=== PATIENT | female | born 1960 | race Caucasian/White ===

== ENCOUNTER 2023-11-19 22:18 | Inpatient (IN) | payer OTHER, SELFPAY ==
[2023-11-19 17:44] VITALS: BMI 27.9
[2023-11-19 18:00] VITALS: BP 127/68
--- NOTE | 2023-11-19 18:05 | ED.PDOC.TRB ---
ED Provider Triage
-
Patient seen by provider in Triage?: Seen in Triage
*initially assessed in triage to expedite workup*
62 yo female presents for evaluation of generalized abd pain/back pain x 5 days. Seen at and treated w/ bentyl. One episode of vomiting, appetite diminished. No diarrhea, dysuria, hematuria, fevers, chills, sweats. No prior abd surgeries.
Looks uncomfortable but non toxic. Concerning abdominal exam, + peritoneal signs; will start labs and CT with IV contrast.
[2023-11-19] MEDS: TORADOL 15 MG IV (18:18)
[2023-11-19 18:30] LABS: % Basophils 0.3 % (0-2); % Eosinophils 1.3 % (0-6); % Immature Granulocytes 0.2 % (0-0.5); % Lymphocytes 17.6 % (20.5-51.1); % Monocytes 9.6 % (1.7-9.3); Absolute Eosinophils 0.1 10^3/uL (0-0.7); Absolute Lymphocytes 1.8 10^3/uL (1.2-3.4); Absolute Neutrophils 7.1 10^3/uL (1.4-6.5); Hematocrit 32.6 % (37.0-47.0); Hemoglobin 10.9 g/dL (12.0-16.0); Mean Corp Hgb Conc. 33.4 g/dL (33.0-37.0); Mean Corpuscular Hgb 25.6 pg (27.0-31.0); Mean Corpuscular Volume 76.7 fL (81.0-99.0); Mean Platelet Volume 9.8 fL (7.4-10.4); Nucleated Red Blood Cells % 0 %; Platelet Count 325 10^3/uL (130-400); Red Blood Cell Count 4.25 10^6/uL (4.20-5.40); Red Cell Dist. Width 14.8 % (11.5-14.5)
[2023-11-19 18:45] LABS: Urine Albumin Negative (Neg - Trace); Urine Bilirubin 1+ (Negative); Urine Character Clear (Clear); Urine Color Yellow; Urine Glucose Negative (Negative); Urine Ketone 2+ (Negative); Urine Leukocyte Trace (Negative); Urine Nitrite Negative (Negative); Urine Occult Blood 1+ (Negative); Urine Urobilinogen Negative (Neg - 1+)
[2023-11-19 18:47] LABS: Lactic Acid 1.5 mmol/L (0.7-2.0)
[2023-11-19 18:50] LABS: ALT (SGPT) 15 U/L (0-35); AST (SGOT) 20 U/L (14-36); Albumin 4.2 g/dl (3.5-5.0); Alkaline Phosphatase 96 U/L (38-126); Blood Urea Nitrogen 9 mg/dl (7-17); Calcium 9.6 mg/dl (8.4-10.2); Carbon Dioxide 24 mmol/L (22-30); Chloride 96 mmol/L (98-107); Glucose 153 mg/dl (70-99); Potassium 4.1 mmol/L (3.5-5.1); Sodium 133 mmol/L (135-145); Total Bilirubin 0.5 mg/dl (0.2-1.3); Total Protein 6.9 g/dl (6.3-8.2); eGFR > 60.00
[2023-11-19 18:51] LABS: Lipase 43 U/L (23-300)
[2023-11-19 19:03] LABS: Urine Squamous Cell 16-20 /LPF (Few)
[2023-11-19 19:04] LABS: Urine Bacteria Few (Negative); Urine Mucus Few
--- NOTE | 2023-11-19 20:02 | ED.GENMED ---
History of Present Illness
General
Chief Complaint: Abdominal Pain
Time Seen by Provider: 11/19/23 19:42
Travel History
Have you had any contact with someone who has COVID-19?: No
Do you have any symptoms of coronavirus? Fever > 100 degrees, chills, cough, shortness of breath, sore throat, loss of taste or smell, muscle aches, or headache?: No
History of Present Illness
History of Present Illness:
Patient presents to the emergency department with abdominal pain. Symptoms started about 6 days ago. Notes that symptoms began with mild upset stomach with nausea. Over the course of the next few days she developed severe diffuse abdominal pain.
She was seen at an urgent care where she was prescribed Zofran and Bentyl. She was instructed to follow-up with the emergency department if symptoms worsen. In the past 2 days she notes worsening of her symptoms with severe nausea and diffuse
abdominal pain and distention. Also notes pain across her lower back. Notes regular bowel movements and passing gas. Denies any persistent vomiting since she was seen in urgent care.
Phy Exam
Physical Exam
Physical Exam:
GENERAL APPEARANCE: NAD, well developed/ well nourished
EYES lids/conjunctiva normal
EARS/NOSE/THROAT Mucous membranes moist, uvula midline without oral pharyngeal erythema, exudate or swelling
HEAD/NECK normocephalic atraumatic, neck is supple.
RESPIRATORY respiratory effort normal, speaks in full sentences, no accessory muscle use. Lungs clear to auscultation without rhonchi, wheezes, rales
CARDIAC Regular rate and rhythm, no edema.
ABDOMINAL severe tenderness to periumbilical region, no guarding, abdomen soft
MUSCLES/EXTREMITIES No abnormal range of motion, no swelling.
SKIN Warm, pink and dry. No rashes
NEUROLOGICAL Speech is clear and appropriate. Normal level of consciousness. 5/5 strength in all extremities.
PSYCH Normal mood and affect. Judgement/competence is appropriate
Course
Orders/Labs/Results
Orders:
Orders
11/19/23 18:07
CT Abd/Pel (IV only)-DH only Urgent
Comment:
Reason For Exam: abd pain
0.9% Sodium Chloride 1000 ml [Nss] 1,000 ml IV BOLUS
Ketorolac [Toradol] 15 mg IV NOW STA
11/19/23 18:17
Complete Blood Count/With Diff Urgent
Comprehensive Metabolic Panel Urgent
Lactic Acid Urgent
Lipase Urgent
Magnesium Urgent
Comment: ADD ON
Urinalysis Reflex To Culture Urgent
Date Specimen was Collected: 11/19/23
Time Specimen was Collected: 18:03
Urine Microscopic Reflex Cult Urgent
Blood Culture Urgent
ZAN Source: Blood/Venous
Specimen Description:
11/19/23 20:01
Acetaminophen [Tylenol] 1,000 mg PO NOW STA
Morphine Sulfate 4 mg IV NOW STA
Ondansetron Injectable [Zofran] 4 mg IV NOW STA
11/19/23 21:11
Admit/Transfer Patient As Directed
Co-Sign Provider:
Level of Care: Inpatient admission
Assign to:: Telemetry
Physician / Group: Kailey Longoria
Diagnosis: small bowel obstruction
Reason for Telemetry: Chest Pain syndromes
Date to Stop Telemetry: 11/21/23
Time to Stop Telemetry: 11:00
Reason for Hospitalization: small bowel obstruction
Expected length of stay greater than two midnights?: Yes
ELOS- Estimated Length of Stay in days: 3
I certify the patient meets the requirements for IP care: Yes
11/19/23 21:14
Code Status As Directed
Resuscitation Status: Full Code
11/19/23 21:18
EKG [Electrocardiogram (*1)] Routine
Reason for Study: QTc Monitoring
11/19/23 21:19
Add On- LAB Routine
Tests Added?: magnesium
11/19/23 22:00
Piperacillin/Tazo 3.375 Gram [Zosyn] 3.375 gram in 50 ml IV Q6H
11/19/23 23:00
Flush (0.9% Sodium Chloride) [Flush (Nss)] See Dose Instructions IV PER PROTOCOL
11/21/23 11:00
DC Protocol for Telemetry ONCE
Abnormal Lab Results
11/19/23
18:17
Hgb 10.9 L g/dL
(12.0-16.0)
Hct 32.6 L %
(37.0-47.0)
MCV 76.7 L fL
(81.0-99.0)
MCH 25.6 L pg
(27.0-31.0)
RDW 14.8 H %
(11.5-14.5)
Absolute Neuts (auto) 7.1 H 10^3/uL
(1.4-6.5)
Absolute Monos (auto) 1.0 H 10^3/uL
(0.1-0.6)
Lymphocytes % 17.6 L %
(20.5-51.1)
Monocytes % 9.6 H %
(1.7-9.3)
Sodium 133 L mmol/L
(135-145)
Chloride 96 L mmol/L
(98-107)
Glucose 153 H mg/dl
(70-99)
Urine Ketones 2+ A
(Negative)
Ur Occult Blood Reflex 1+ A
(Negative)
Urine Bilirubin 1+ A
(Negative)
Leukocyte Esterase Rfl Trace A
(Negative)
Urine RBC 3-6 A /HPF
(0-2)
Urine Bacteria (Reflex) Few A
(Negative)
11/19/23 18:17
11/19/23 18:17
Vital Signs
Initial and Last Documented VS:
Initial Vital Signs
Temp Pulse Resp BP Pulse Ox
98.7 F 92 18 127/68 98
11/19/23 18:00 11/19/23 18:00 11/19/23 18:00 11/19/23 18:00 11/19/23 18:00
Last Documented Vital Signs
Temp Pulse Resp BP Pulse Ox
98.7 F 73 19 142/62 96
11/19/23 18:00 11/19/23 22:15 11/19/23 22:15 11/19/23 22:00 11/19/23 21:45
*Critical Care Note
Total Time (30-74mins, 75-104mins- exclusive of procedures): Not Applicable
ED Attending Note
ED Attending Note
ED Attending Note:
omental infarct with possible partial sbo
will obs for pain control, serial exams, possible surgical consult in AM
-
Portions of this chart may have been created with voice recognition software.� Occasional wrong word or��sound alike� substitutions may have occurred due to the inherent limitations of voice recognition software.
Discharge Plan
Departure
Patient Disposition: Admit
Date of Disposition: 11/19/23
Time of Disposition: 20:11
Admit to: Med/Surg
Presentation/result/management discussed w/ accepting MD/DO: Hospitalist
Discharge Problem:
Omental infarction, Partial obstruction of small intestine
Interventions
Interventions:
*Risk Screen - Suicide Last Done: 11/19/23 20:21
*General Assessment Last Done: 11/19/23 20:21
*Neglect/Abuse Screening Last Done: 11/19/23 20:21
ED- Fall Risk Assessment Last Done: 11/19/23 20:21
*ED COVID-19 Vaccine History Last Done: 11/19/23 18:00
DM-Jibupd-Axtekeofdj Assessment Last Done: 11/19/23 20:21
[2023-11-19] MEDS: MORPHINE SULFATE 4 MG IV (20:12)
[2023-11-19] MEDS: TYLENOL 1000 MG PO (20:12)
[2023-11-19 20:13] VITALS: BP 127/59
[2023-11-19] MEDS: NSS 1000 IV (20:13)
[2023-11-19] MEDS: ZOFRAN 4 MG IV (20:13)
--- NOTE | 2023-11-19 20:44 | HPS.HSE ---
Addendum entered and electronically signed by Kailey Longoria MD 11/19/23 21:19:
Mild Hyponatremia
-Na 133
-monitor with IVF
Original Note:
Family Physician
-
Family Physician: Josee Ellison DO
Chief Complaint
-
abdominal pain
History of Present Illness
Ms. Vivian Abernathy is a 62 yo woman with hx HTN, HLD, opiate abuse (sober > 20 years), who presents to the ER with progressive abdominal pain over past week. Pain started Thursday, described in lower abdomen and radiating to back. + nausea. She
vomited in urgent care on Thursday. She was prescribed Bentyl and Zofran. Pain continued to progress and so she came to the ER.
No fevers/chills. No chest pain or shortness of breath. No LE swelling. She had a BM today but not normal. Not black or bloody.
Currently states morphine giving some relief of pain.
Medical History
Past Medical History
Past Medical History: Reports HTN and Hypercholesterolemia
Past Surgical History: Reports Other
Social History
Tobacco: Former Smoker
Alcohol: Former
Drug: Former User
Family History
Family History: Not pertinent
Allergies / Home Medications
Allergies reflects when Allergies were last updated in [facility].
Home Medications with original date entered in [facility]
Allergy/Medication List:
Allergies
Allergy/AdvReac Type Severity Reaction Status Date / Time
No Known Allergies Allergy Unverified 11/19/23 18:01
Home Medications
ascorbic acid (vitamin C) 500 mg tablet (Vitamin C) 500 mg PO DAILY 11/19/23
calcium carbonate 500 mg PO DAILY 11/19/23
carvedilol 3.125 mg tablet 3.125 mg PO BID 11/19/23
dicyclomine 20 mg tablet 20 mg PO TID 11/19/23
dupilumab 300 mg/2 mL subcutaneous pen injector (Dupixent) 300 mg SC Q3W 11/19/23
losartan 50 mg tablet 50 mg PO DAILY 11/19/23
multivitamin 1 tab PO DAILY 11/19/23
ondansetron 4 mg disintegrating tablet 4 mg PO Q12H PRN nausea 11/19/23
rosuvastatin 5 mg tablet 5 mg PO HS 11/19/23
Review of Systems
-
History Source: Patient
A 12 point ROS was completed and negative except as noted: Yes
Physical Exam
Vital Signs
Vital Signs
Temp Pulse Resp BP Pulse Ox
98.7 F 72 15 127/68 98
11/19/23 18:00 11/19/23 20:02 11/19/23 20:02 11/19/23 18:00 11/19/23 20:02
Physical Exam
General: Conversant and Other (appears in pain)
HEENT: PERRLA
Respiratory: Clear; No Wheezes
Cardiac: S1/S2 and Regular Rhythm
GI: Other (diffusely tender, + guarding )
Musculoskeletal: No Edema
Skin: Warm and Dry; No Rash
Neuro: AO x 3
Psych: Calm
Laboratory Results
-
11/19/23 18:17
11/19/23 18:17
Laboratory Results
Lactic Acid 1.5 mmol/L (0.7-2.0) 11/19/23 18:17
Total Bilirubin 0.5 mg/dl (0.2-1.3) 11/19/23 18:17
AST 20 U/L (14-36) 11/19/23 18:17
ALT 15 U/L (0-35) 11/19/23 18:17
Alkaline Phosphatase 96 U/L (38-126) 11/19/23 18:17
Lipase 43 U/L (23-300) 11/19/23 18:17
Data Reviewed
-
Diagnostic Radiology: Report Reviewed by me
Lab Data: Labs Reviewed by me
Impression/Plan
-
Ms. Vivian Abernathy is a 62 yo woman with hx HTN, HLD who presents to the ER with progressive abdominal pain over past week.
Triage VS: T 98.7, P 92, RR 18, BP 127/68, SpO2 98%
LABS: Na 133, K+ 4.1, Cl 96, CO2 24, Cr 0.8, WBC 10, Hg 10.9, PLT 325
UA with microhematuria, WBC 3-5
CT A/P
IMPRESSION:
There is 4 cm inflamed fatty mass in the right mid abdomen at the medial margin of a small bowel, most suggestive of omental infarction and associated with partial small bowel obstruction
MAR: Toradol, Morphine, IVF, Zofran, tylenol
Partial Small Bowel Obstruction
-I TT'd Dr. Sandoval who reviewed scans this evening and believes less likely omental infarction, appears to be focal area of small bowel mesenteric inflammation adjacent to small bowel and associated SBO in area. No signs of ischemia or
perforation; possibility of SB micro perforation.
-admit to telemetry
-NPO except meds
-LR @ 80
-IV Zosyn
-pain control with Dilaudid PRN
-IV Zofran PRN
-GS Consult
Essential Hypertension
-PACKAGING ENGINEER Coreg
-Hold PACKAGING ENGINEER Losartan for now, monitor BP
Hyperlipidemia
-hold PACKAGING ENGINEER statin
Hx Opiate Abuse now sober > 20 years
Ex Smoker - quit 1998
Hx Alcohol use - quit 1998
DVT PPx lovenox subQ
FULL CODE
[2023-11-19 21:00] VITALS: BP 141/64
[2023-11-19 22:00] VITALS: BP 142/62
[2023-11-19 22:11] LABS: Magnesium 2.1 mg/dl (1.6-2.3)
[2023-11-19] MEDS: ZOSYN 50 IV (22:56)
[2023-11-19 23:00] VITALS: BP 136/64
[2023-11-20] VITALS (7 sets, daily range): BP systolic 95–130; BP diastolic 50–59; BMI 26.5
[2023-11-20] MEDS: LR 1000 IV ×2 (01:31→15:38)
--- NOTE | 2023-11-20 02:08 | PTCARENOTE ---
0020 Received pt from ED via stretcher with belongings; Medsurg orders> afebrile, HR 63, RR 16, BP 125/58, pox 99% room air. Current pain level 2/10 throughout abdomen and lower back. PMH and home medications reviewed by this RN and patient; plan of
care discussed. Pt oriented to room and call casanova within reach.
[2023-11-20] MEDS: ZOSYN 50 IV ×4 (04:15→21:10)
[2023-11-20 07:37] LABS: % Basophils 0.5 % (0-2); % Eosinophils 2.9 % (0-6); % Immature Granulocytes 0.3 % (0-0.5); % Lymphocytes 22.5 % (20.5-51.1); % Monocytes 11.5 % (1.7-9.3); % Neutrophils 62.3 % (42.2-75.2); Absolute Eosinophils 0.2 10^3/uL (0-0.7); Absolute Lymphocytes 1.5 10^3/uL (1.2-3.4); Absolute Monocytes 0.8 10^3/uL (0.1-0.6); Absolute Neutrophils 4.1 10^3/uL (1.4-6.5); Hematocrit 30.4 % (37.0-47.0); Hemoglobin 9.9 g/dL (12.0-16.0); Mean Corp Hgb Conc. 32.6 g/dL (33.0-37.0); Mean Corpuscular Hgb 25.3 pg (27.0-31.0); Mean Corpuscular Volume 77.6 fL (81.0-99.0); Mean Platelet Volume 10.2 fL (7.4-10.4); Nucleated Red Blood Cells % 0 %; Platelet Count 300 10^3/uL (130-400); Red Blood Cell Count 3.92 10^6/uL (4.20-5.40); Red Cell Dist. Width 14.6 % (11.5-14.5); White Blood Cell Count 6.6 10^3/uL (4.8-10.8)
[2023-11-20 07:41] LABS: Blood Urea Nitrogen 8 mg/dl (7-17); Calcium 9.1 mg/dl (8.4-10.2); Carbon Dioxide 26 mmol/L (22-30); Chloride 100 mmol/L (98-107); Estimated Creatinine Clearance 66 ml/min; Glucose 88 mg/dl (70-99); Magnesium 2.2 mg/dl (1.6-2.3); Potassium 4.2 mmol/L (3.5-5.1); Sodium 134 mmol/L (135-145); eGFR > 60.00
[2023-11-20] MEDS: COREG 3.125 MG PO ×2 (08:55→21:11)
--- NOTE | 2023-11-20 09:48 | CON.GS ---
Addendum entered and electronically signed by Ryan Pollard MD 11/20/23 11:09:
I saw and examined the patient independently.
The Casework Supervisor's note was reviewed and I agree with the note, assessment and plan except where noted below.
Comment: This is a 62-year-old female with no prior abdominal surgeries and no significant past medical history other than some hypertension and hyperlipidemia who presents with generalized abdominal pain radiating to her back that began about a
week ago accompanied with bloating, nausea and nonbloody nonbilious emesis x 1 as well as more recently diarrhea. She was seen and evaluated urgent care clinic first but was sent home she presented to our emergency department yesterday as her pain
has continued to progress. CT abdomen pelvis with IV contrast was performed which demonstrated a phlegmon/abscess in the small bowel mesentery noted particularly in the right upper quadrant potentially a perforated small bowel diverticulitis.
Clinically she is improving with antibiotics.
Will continue nonoperative management for now.
N.p.o. for today, okay for trial clears tomorrow if she continues to improve clinically.
May consider repeat CT scan in a few days with IV contrast versus diagnostic laparoscopy if patient fails to progress or worsens.
Patient agreeable to plan above.
General surgery will continue to follow.
Original Note:
Consultation
-
Date/Time Consultation Requested: 11/20/23 0101
Requesting Provider: Von
Medical History
-
Chief Complaint: abdominal pain
History of Present Illness:
Ms Abernathy is a 62 yo female with no prior abdominal surgeries who presents for generalized abdominal pain radiating into her back which began about 1 week ago and has gradually worsened and become quite severe accompanied by bloating. She was
evaluated in urgent care earlier this week and advised to come to the ED if her symptoms worsened. She has had some nausea and did vomit some yellow emesis on Thursday at urgent care, but attributes this more to pain. She has not been eating much for
the past 3-4 days given her symptoms. She has been passing liquid BM's with 3 loose stools this morning. She feels somewhat better since presentation but is still experiencing discomfort. On exam, there is guarding present and generalized pain to
light tough throughout but worse to the right cecilia-abdomen with distention present. She denies fevers or chills.
Past Medical History
Past Medical History: HTN and Hypercholesterolemia
Past Surgical History: None
Social History
Tobacco: Former Smoker
Alcohol: Former
Drug: Narcotics (sober >20years)
Family History
Family History: Reviewed & Not Pertinent
Allergies / Home Medications
Allergy/AdvReac Type Severity Reaction Status Date / Time
No Known Allergies Allergy Unverified 11/19/23 18:01
�Medication �Instructions �Recorded �Confirmed �Type
ascorbic acid (vitamin C) 500 mg 500 mg PO DAILY Supplement 11/19/23 11/19/23 History
tablet (Vitamin C)
calcium carbonate 500 mg PO DAILY Supplement 11/19/23 11/19/23 History
carvedilol 3.125 mg tablet 3.125 mg PO BID Blood Pressure 11/19/23 11/19/23 History
dicyclomine 20 mg tablet 20 mg PO TID Gastrointestinal Issue 11/19/23 11/19/23 History
dupilumab 300 mg/2 mL subcutaneous 300 mg SC Q3W Autoimmune Disorder 11/19/23 11/19/23 History
pen injector (Dupixent)
losartan 50 mg tablet 50 mg PO DAILY Blood Pressure 11/19/23 11/19/23 History
multivitamin 1 tab PO DAILY Supplement 11/19/23 11/19/23 History
ondansetron 4 mg disintegrating 4 mg PO Q12H PRN nausea 11/19/23 11/19/23 History
tablet
rosuvastatin 5 mg tablet 5 mg PO HS High Cholesterol 11/19/23 11/19/23 History
Review of Systems
-
History Source: Patient
All other systems: Negative unless noted
A 10 point review of systems was completed, and was negative except as per HPI.
Physical Exam
Vital Signs
Temp Pulse Resp BP Pulse Ox
98.2 F 68 17 119/62 98
11/20/23 07:44 11/20/23 08:55 11/20/23 07:44 11/20/23 08:55 11/20/23 07:44
11/19/23 11/20/23 11/21/23
06:59 06:59 06:59
Actual Weight 65.589 kg
Body Mass Index (BMI) 26.5
Lab Results
11/20/23 06:14
11/20/23 06:14
WBC 6.6 10^3/uL (4.8-10.8) 11/20/23 06:14
Hgb 9.9 g/dL (12.0-16.0) L 11/20/23 06:14
Hct 30.4 % (37.0-47.0) L 11/20/23 06:14
Plt Count 300 10^3/uL (130-400) 11/20/23 06:14
Abs Immat Gran (auto) 0.0 10^3/uL (0-0.05) 11/20/23 06:14
Neutrophils % 62.3 % (42.2-75.2) 11/20/23 06:14
Physical Exam
General: Well Developed, Well Nourished and Comfortable
HEENT: Moist Mucous Membranes
Respiratory: Non Labored Respirations
GI: Soft, Tender (R>L, guarding present) and Distended (mild)
Skin: Warm and Dry
Neuro: Awake, Alert and AO x 3
Psych: Calm
Data Reviewed
-
CT Scan: Image Personally Visualized and interpreted, Report Reviewed by me, Discussed with Physician and Discussed with Patient
Labs: Labs Reviewed by me, Discussed with Physician and Discussed with Patient
Old Records: Reviewed
Assessment / Plan
-
62 yo female with no prior surgical history presenting with 1 week of worsening abdominal pain R>L. CT imaging reviewed with concern for small bowel diverticulum with surrounding inflammation/?perforation present. Improving thus far on antibiotics
alone with improvement in pain. AFVSS. No leukocytosis.
--No plans for emergent surgery at this time, will follow closely for improvement with bowel rest, antibiotics and supportive measures
--Keep NPO
--Continue ABX
--IVF while NPO
--Analgesics prn
--- NOTE | 2023-11-20 12:07 | W.PN.HOSP.TC ---
Today's Communication/Plan
-
see outlined plan
Assessment / Plan
Assessment / Plan
Assessment:
pSBO and small bowel abscess along the RUQ
- CT: There is 4 cm inflamed fatty mass in the right mid abdomen at the medial margin of a small bowel, most suggestive of omental infarction and associated with partial small bowel obstruction
- etiology could be perforated small bowel diverticulitis vs other
- continue NPO, IV Abx and IVF
- pain control and anti-emetics
- if no improvement, or worsening then may need to consider repeat CT vs diagnostic lap
- GS following
Essential Hypertension
- RESEARCH GENETICIST Coreg
- Hold RESEARCH GENETICIST Losartan for now, monitor BP
Hyperlipidemia
- hold RESEARCH GENETICIST statin
Hx Opiate Abuse now sober > 20 years
Ex Smoker - quit 1998
Hx Alcohol use - quit 1998
Hx of Eczema on Dupixent
DVT ppx: Lovenox
Code: Full
Anticipated Discharge: > 48 hours
Subjective/Interval History
-
Date of Service: November 20, 2023
pain fairly controlled, at 4/10 rating
no nausea
earlier had some loose stools x 5, none since
no fevers
Objective Data
-
Labs:
Laboratory Results
11/20/23
06:14
WBC 6.6
Hgb 9.9 L
Hct 30.4 L
Plt Count 300
Sodium 134 L
Potassium 4.2
Chloride 100
Carbon Dioxide 26
BUN 8
Creatinine 0.8
Glucose 88
Calcium 9.1
Vital Signs:
Vital Signs
Temp Pulse Resp BP Pulse Ox
98.4 F 66 17 109/54 95
11/20/23 11:05 11/20/23 11:05 11/20/23 11:05 11/20/23 11:05 11/20/23 11:05
I&O
11/19/23 11/20/23 11/21/23
06:59 06:59 06:59
Intake Total 530 / 530
Balance 530 / 530
Physical Exam
-
General: No Apparent Distress
HEENT: Normocephalic and Atraumatic
Respiratory: Negative Wheezes
Cardiac: Regular Rhythm and S1/S2
GI: Tender (diffusely)
Genito-urinary: No Costovertebral Tender
Musculoskeletal: No Edema
Neuro: AO x 3
Psych: Calm
Data Reviewed
-
Total Time Spent with Patient (in minutes): 45
CT Scan: Report Reviewed by me
Labs: Labs Reviewed by me
--- NOTE | 2023-11-20 14:28 | CM ---
met with patient and her alysha mccoy at bedside. patimaritza lives with spouse in house with no shannon,her bed and bath is on the first level.she amb i and is I with her adl.her pcp is dr lund ad she uses [facility] [address] [facility] in
[place] has never had a vn or been to ip rehab in the past.
patient with a hx of htn,hld,ex opiate abuse-2o yrs ago is adm with a sbo.she is npo,ivf,iv abx.if sbo does not improve patient may need repeat ct scan vs exp lap.her pain is fairly well controlled.plan discharge home with no needs.
[2023-11-20] MEDS: PROTONIX IV 40 MG IV (18:14)
[2023-11-20] MEDS: NSS (PRESERVATIVE FREE) 10 ML IV (18:15)
[2023-11-20] MEDS: LOVENOX SC (18:16)
[2023-11-20] MEDS: TYLENOL 650 MG PO (21:15)
[2023-11-21 03:21] VITALS: BP 118/64
[2023-11-21] MEDS: ZOSYN 50 IV ×4 (04:40→21:35)
[2023-11-21] MEDS: ZOFRAN 4 MG IV (04:43)
--- NOTE | 2023-11-21 05:38 | PTCARENOTE ---
Pt c/o nausea, PRN Zofran given as ordered, see MAR, with minimal relief. Pt states nausea is still present, but tolerable. Pt reports she had 3 loose/watery stools back to back in a brief period of time and nausea began during this time frame. Pt
provided self oral care, resting comfortably at this time, LR continues infusing @ 80mL/hr per order.
[2023-11-21 07:05] VITALS: BP 124/62
[2023-11-21 07:18] LABS: Hemoglobin 9.8 g/dL (12.0-16.0); Mean Corp Hgb Conc. 32.7 g/dL (33.0-37.0); Mean Corpuscular Hgb 25.1 pg (27.0-31.0); Mean Corpuscular Volume 76.9 fL (81.0-99.0); Mean Platelet Volume 9.9 fL (7.4-10.4); Platelet Count 304 10^3/uL (130-400); Red Cell Dist. Width 14.5 % (11.5-14.5); White Blood Cell Count 5.8 10^3/uL (4.8-10.8)
[2023-11-21 08:14] LABS: Blood Urea Nitrogen 10 mg/dl (7-17); Carbon Dioxide 23 mmol/L (22-30); Chloride 105 mmol/L (98-107); Estimated Creatinine Clearance 76 ml/min; Glucose 70 mg/dl (70-99); Potassium 4.5 mmol/L (3.5-5.1); Sodium 138 mmol/L (135-145); eGFR > 60.00
[2023-11-21] MEDS: LR 1000 IV ×2 (08:33→21:34)
[2023-11-21] MEDS: COREG 3.125 MG PO ×2 (08:34→21:36)
[2023-11-21] MEDS: PROTONIX IV 40 MG IV (08:34)
[2023-11-21] MEDS: NSS (PRESERVATIVE FREE) 10 ML IV (08:34)
[2023-11-21] MEDS: COMPAZINE 5 MG IV ×2 (10:07→22:33)
--- NOTE | 2023-11-21 10:53 | W.PN.GS2 ---
Addendum entered and electronically signed by Ramirez Christianson MD 11/21/23 12:05:
I saw and examined the patient.
The PA's note was reviewed and I agree with the note.
Comment:
Presented with abdominal pain and found to have possible omental infarct versus mesenteric abscess, being treated nonoperatively
Complains of nausea, but abdominal pain improving, passing flatus and liquid stools
AFVSS, ABD S/ND/mildly TTP in the periumbilical/upper abdominal region, no R/G
� Continue n.p.o. with IVF
� Continue as needed, avoid narcotics
� Continue IV Zosyn, duration to be determined
� OOB/IS
� No acute surgical intervention currently, will continue to monitor
� Appreciate hospitalist
Original Note:
Today's Communication / Plan
-
Continue NPO
Assessment / Plan
-
62-year-old female with no PSH who presents with generalized abdominal pain radiating to her back that began about a week ago accompanied with bloating, nausea and nonbloody nonbilious emesis x 1 as well as more recently diarrhea. CT abdomen pelvis
with IV contrast was performed which demonstrated a phlegmon/abscess in the small bowel mesentery noted particularly in the right upper quadrant potentially a perforated small bowel diverticulitis.
No leukocytosis
AFVSS
Pain/diarrhea no worse but no better, nausea this am
Plan:
Will follow expectantly with nonoperative management for now.
Continue NPO, trial of clears tomorrow if nausea/pain improved
May consider repeat CT scan in a few days with IV contrast versus diagnostic laparoscopy if patient fails to progress or worsens.
Continue ABX
Analgesics prn, patient wishes to avoid pain meds if able
Medical management as per primary team
Subjective Data
-
Date of Service: November 21, 2023
Patient seen and examined at bedside with Dr. Christianson. Not feeling better today but not worse. Pain present and stable. Nausea this am. Passing loose stools/flatus.
Objective Data
-
Intake and Output
11/20/23 11/21/23 11/22/23
06:59 06:59 06:59
Intake Total 530 / 530 980 / 980
Balance 530 / 530 980 / 980
Intake:
Oral fluids 0 / 0
IV fluids (Total) 480 / 480 880 / 880
IV piggybacks 50 / 50 100 / 100
Other:
Number of approximated MODERATE 2 3
amounts of urine
Number of unmeasured liquid
stools
Rectum 3
Vital Signs
Temp Pulse Resp BP Pulse Ox
97.8 F 71 18 124/62 98
11/21/23 07:05 11/21/23 08:34 11/21/23 07:05 11/21/23 08:34 11/21/23 08:00
Lab Results
11/21/23 06:49
11/21/23 06:49
Calcium 9.0 mg/dl (8.4-10.2) 11/21/23 06:49
Magnesium 2.2 mg/dl (1.6-2.3) 11/20/23 06:14
Total Bilirubin 0.5 mg/dl (0.2-1.3) 11/19/23 18:17
AST 20 U/L (14-36) 11/19/23 18:17
ALT 15 U/L (0-35) 11/19/23 18:17
Alkaline Phosphatase 96 U/L (38-126) 11/19/23 18:17
Total Protein 6.9 g/dl (6.3-8.2) 11/19/23 18:17
Albumin 4.2 g/dl (3.5-5.0) 11/19/23 18:17
Physical Exam
-
NAD
ABD soft, tender to light palpation periumbilically with guarding, generalized tenderness throughout BLUQ>BLLQ, ND
[2023-11-21 11:00] VITALS: BP 118/53
--- NOTE | 2023-11-21 11:22 | W.PN.HOSP.TC ---
Today's Communication/Plan
-
continue conservative treatment with NPO, IVF, IV Abx
re-evaluate tomorrow, may need repeat imaging
Assessment / Plan
Assessment / Plan
Assessment:
pSBO and small bowel abscess along the RUQ
- CT: There is 4 cm inflamed fatty mass in the right mid abdomen at the medial margin of a small bowel, most suggestive of omental infarction and associated with partial small bowel obstruction
- etiology could be perforated small bowel diverticulitis vs other
- stool studies pending. C. diff negative
- continue NPO, IV Abx and IVF
- pain control and anti-emetics
- if no improvement, or worsening then may need to consider repeat CT vs diagnostic lap
- GS following
Essential Hypertension
- SCRAP SHEAR OPERATOR Coreg
- Hold SCRAP SHEAR OPERATOR Losartan for now, monitor BP
Hyperlipidemia
- hold SCRAP SHEAR OPERATOR statin
Hx Opiate Abuse now sober > 20 years
Ex Smoker - quit 1998
Hx Alcohol use - quit 1998
Hx of Eczema on Dupixent
Hyponatremia
- improved
DVT ppx: Lovenox
Code: Full
Anticipated Discharge: > 48 hours
Subjective/Interval History
-
Date of Service: November 21, 2023
remains nauseous. pain stable
passing loose stools
Objective Data
-
Labs:
Laboratory Results
11/21/23
06:49
WBC 5.8
Hgb 9.8 L
Hct 30.0 L
Plt Count 304
Sodium 138
Potassium 4.5
Chloride 105
Carbon Dioxide 23
BUN 10
Creatinine 0.7
Glucose 70
Calcium 9.0
Vital Signs:
Vital Signs
Temp Pulse Resp BP Pulse Ox
97.8 F 71 18 124/62 98
11/21/23 07:05 11/21/23 08:34 11/21/23 07:05 11/21/23 08:34 11/21/23 08:00
I&O
11/20/23 11/21/23 11/22/23
06:59 06:59 06:59
Intake Total 530 / 530 980 / 980
Balance 530 / 530 980 / 980
Physical Exam
-
General: No Apparent Distress
HEENT: Normocephalic and Atraumatic
Respiratory: Negative Wheezes
Cardiac: Regular Rhythm and S1/S2
GI: Other (tender to light palpation periumbilically with guarding, generalized tenderness throughout BLUQ>BLLQ)
Genito-urinary: No Costovertebral Tender
Musculoskeletal: No Edema
Neuro: AO x 3
Hematologic / Lymphatic: No Lymphadenopathy
Psych: Calm
Data Reviewed
-
Total Time Spent with Patient (in minutes): 45
Labs: Labs Reviewed by me
[2023-11-21 15:05] VITALS: BP 111/57
[2023-11-21] MEDS: LOVENOX SC (17:10)
[2023-11-21 19:48] VITALS: BP 124/60
[2023-11-21 23:14] VITALS: BP 117/54
[2023-11-22] MEDS: ZOSYN 50 IV ×4 (04:11→21:08)
[2023-11-22 07:58] VITALS: BP 140/67
[2023-11-22] MEDS: COREG 3.125 MG PO ×2 (08:08→21:01)
[2023-11-22] MEDS: PROTONIX IV 40 MG IV (08:08)
[2023-11-22] MEDS: NSS (PRESERVATIVE FREE) 10 ML IV (08:08)
[2023-11-22] MEDS: COMPAZINE 5 MG IV (09:51)
[2023-11-22 10:12] LABS: Hematocrit 35.7 % (37.0-47.0); Hemoglobin 11.5 g/dL (12.0-16.0); Mean Corp Hgb Conc. 32.2 g/dL (33.0-37.0); Mean Corpuscular Hgb 25.3 pg (27.0-31.0); Mean Corpuscular Volume 78.5 fL (81.0-99.0); Mean Platelet Volume 10.1 fL (7.4-10.4); Platelet Count 339 10^3/uL (130-400); Red Blood Cell Count 4.55 10^6/uL (4.20-5.40); Red Cell Dist. Width 14.2 % (11.5-14.5); White Blood Cell Count 6.4 10^3/uL (4.8-10.8)
[2023-11-22 10:44] LABS: Blood Urea Nitrogen 11 mg/dl (7-17); Calcium 9.3 mg/dl (8.4-10.2); Carbon Dioxide 21 mmol/L (22-30); Chloride 103 mmol/L (98-107); Estimated Creatinine Clearance 76 ml/min; Glucose 53 mg/dl (70-99); Potassium 4.4 mmol/L (3.5-5.1); Sodium 140 mmol/L (135-145); eGFR > 60.00
--- NOTE | 2023-11-22 10:54 | PTCARENOTE ---
Critical lab received. Glucose 53. Dr. Calixto notified via tiger text [id number]. Patient is asymptomatic.
[2023-11-22] MEDS: LR 1000 IV (11:10)
--- NOTE | 2023-11-22 12:04 | W.PN.GS2 ---
Addendum entered and electronically signed by Ramirez Christianson MD 11/22/23 12:30:
I saw and examined the patient.
The OVERSEAMER's note was reviewed and I agree with the note.
Comment:
Presented with abdominal pain and found to have possible omental infarct versus mesenteric abscess, being treated nonoperatively
Nausea controlled with Zofran, but same as yesterday. Not requiring narcotics for pain, but not much improved from yesterday. Passing flatus and 3 BMs this a.m.
AFVSS, ABD S/ND/mildly TTP in the periumbilical/upper abdominal region (similar from yesterday), no R/G
� Not improving, but not clinically worsening; will repeat CT scan with oral contrast to see if the etiology of the small bowel lesion can be further elucidated
� Continue n.p.o. with IVF
� Continue as needed, avoid narcotics
� Continue IV Zosyn, duration to be determined
� OOB/IS
� No acute surgical intervention currently; IR biopsy not really an option; may need diagnostic laparoscopy this admission
� Appreciate hospitalist
Original Note:
Today's Communication / Plan
-
Check CT with PO/IV contrast
Assessment / Plan
-
62-year-old female with no PSH who presents with generalized abdominal pain radiating to her back that began about a week ago accompanied with bloating, nausea and nonbloody nonbilious emesis x 1 as well as more recently diarrhea. CT abdomen pelvis
with IV contrast was performed which demonstrated a phlegmon/abscess in the small bowel mesentery noted particularly in the right upper quadrant potentially a perforated small bowel diverticulitis.
No leukocytosis
AFVSS
Pain no worse but increasing diarrhea/nausea
Hypoglycemia on am labs
Plan:
Continue NPO
Change IVF to D5/LR given hypoglycemia
Check CT scan with po/iv contrast today
May require surgical intervention this admission if no improvement/pending CT findings
Continue ABX
Analgesics/antiemetics prn, patient wishes to avoid pain meds if able
Medical management as per primary team
Subjective Data
-
Date of Service: November 22, 2023
Patient seen and examined at bedside with Dr. Christianson. Nausea worsening since presentation. Pain about the same, maybe better but not by much. Passing loose stools more frequently now.
Objective Data
-
Intake and Output
11/21/23 11/22/23 11/23/23
06:59 06:59 06:59
Intake Total 980 / 980 1020 / 1020
Balance 980 / 980 1020 / 1020
Intake:
Oral fluids 0 / 0 60 / 60
IV fluids (Total) 880 / 880 960 / 960
IV piggybacks 100 / 100
Other:
Number of approximated MODERATE 3 1
amounts of urine
Number of approximated LARGE 1
amounts of urine
Number of unmeasured liquid
stools
Rectum 3
Vital Signs
Temp Pulse Resp BP Pulse Ox
98.0 F 70 14 140/67 96
11/22/23 07:58 11/22/23 08:08 11/22/23 07:58 11/22/23 08:08 11/22/23 07:58
Lab Results
11/22/23 09:05
11/22/23 09:05
Calcium 9.3 mg/dl (8.4-10.2) 11/22/23 09:05
Magnesium 2.2 mg/dl (1.6-2.3) 11/20/23 06:14
Total Bilirubin 0.5 mg/dl (0.2-1.3) 11/19/23 18:17
AST 20 U/L (14-36) 11/19/23 18:17
ALT 15 U/L (0-35) 11/19/23 18:17
Alkaline Phosphatase 96 U/L (38-126) 11/19/23 18:17
Total Protein 6.9 g/dl (6.3-8.2) 11/19/23 18:17
Albumin 4.2 g/dl (3.5-5.0) 11/19/23 18:17
Physical Exam
-
NAD
ABD soft, tender to light palpation periumbilically and right cecilia-abdomen with guarding, generalized tenderness throughout, ND
[2023-11-22 12:05] LABS: Glucose - Point of Care 135 mg/dl (70-99)
[2023-11-22] MEDS: D5LR 1000 IV (12:10)
--- NOTE | 2023-11-22 12:32 | W.PN.HOSP.TC ---
Today's Communication/Plan
-
d5 fluids
repeat CT pending
Assessment / Plan
Assessment / Plan
Assessment:
pSBO and small bowel abscess along the RUQ
- CT: There is 4 cm inflamed fatty mass in the right mid abdomen at the medial margin of a small bowel, most suggestive of omental infarction and associated with partial small bowel obstruction
- etiology could be perforated small bowel diverticulitis vs other such as mass
- stool studies negative
- continue NPO, IV Abx and IVF
- pain control and anti-emetics
- repeat CT today to further evaluate. may need diagnostic laparoscopy
- GS following
Hypoglycemia, asymptomatic
- Dextrose to IVF
Essential Hypertension
- LONG CHAIN BEAMER Coreg
- Hold LONG CHAIN BEAMER Losartan for now, monitor BP
Hyperlipidemia
- hold LONG CHAIN BEAMER statin
Hx Opiate Abuse now sober > 20 years
Ex Smoker - quit 1998
Hx Alcohol use - quit 1998
Hx of Eczema on Dupixent
Hyponatremia
- improved
DVT ppx: Lovenox
Code: Full
Anticipated Discharge: > 48 hours
Subjective/Interval History
-
Date of Service: November 22, 2023
no significant improvement today, in fact nausea worsening
more loose stools
Objective Data
-
Labs:
Laboratory Results
11/22/23
09:05
WBC 6.4
Hgb 11.5 L
Hct 35.7 L
Plt Count 339
Sodium 140
Potassium 4.4
Chloride 103
Carbon Dioxide 21 L
BUN 11
Creatinine 0.7
Glucose 53 L*
Calcium 9.3
Vital Signs:
Vital Signs
Temp Pulse Resp BP Pulse Ox
98.0 F 70 14 140/67 96
11/22/23 07:58 11/22/23 08:08 11/22/23 07:58 11/22/23 08:08 11/22/23 07:58
I&O
11/21/23 11/22/23 11/23/23
06:59 06:59 06:59
Intake Total 980 / 980 1020 / 1020
Balance 980 / 980 1020 / 1020
Physical Exam
-
General: No Apparent Distress
HEENT: Normocephalic and Atraumatic
Respiratory: Negative Wheezes
Cardiac: Regular Rhythm
GI: Soft
Neuro: AO x 3
Psych: Calm
Data Reviewed
-
Total Time Spent with Patient (in minutes): 41
Labs: Labs Reviewed by me
[2023-11-22] MEDS: OMNIPAQUE 50 ML PO (13:22)
[2023-11-22 15:10] VITALS: BP 139/64
[2023-11-22] MEDS: LOVENOX SC (17:59)
--- NOTE | 2023-11-22 20:30 | PTCARENOTE ---
Pt w/ noted redness/swelling to L wrist. Pain w/ soft touch. States 'feels like there is a erinn in there'. Pt had IV removed earlier in the shift d/t burning sensation w/ flushing post contrast for CT. JR. JAVA DEVELOPER notified. Will elevate, warm compress, and
Tylenol given.
[2023-11-22] MEDS: TYLENOL 650 MG PO (21:08)
[2023-11-22 23:23] VITALS: BP 124/51
[2023-11-23] MEDS: D5LR 1000 IV ×2 (02:36→12:01)
[2023-11-23] MEDS: ZOSYN 50 IV ×4 (04:19→23:13)
[2023-11-23 07:15] VITALS: BP 139/63
[2023-11-23] MEDS: COREG 3.125 MG PO ×2 (08:39→20:57)
[2023-11-23] MEDS: NSS (PRESERVATIVE FREE) 10 ML IV (08:40)
[2023-11-23] MEDS: PROTONIX IV 40 MG IV (08:40)
[2023-11-23] MEDS: COMPAZINE 5 MG IV (08:43)
--- NOTE | 2023-11-23 09:37 | W.PN.HOSP.TC ---
Today's Communication/Plan
-
.
Assessment / Plan
Assessment / Plan
Physical Exam
General: Well Developed, Well Nourished and Comfortable
HEENT: Moist Mucous Membranes
Respiratory: Non Labored Respirations
Heart S1S2 , regular
GI: Soft, not tender,
Skin: Warm and Dry
: No hematuria
Neuro: Awake, Alert and AO x 3
Psych: Calm
Assessment:
pSBO and small bowel abscess along the RUQ
- CT: There is 4 cm inflamed fatty mass in the right mid abdomen at the medial margin of a small bowel, most suggestive of omental infarction and associated with partial small bowel obstruction
She feels better today. No abdominal pain or tenderness on examination, she would like to eat.
No fevers. No leukocytosis. Status post n.p.o.,
Intravenous Zosyn IV antibiotics and IV fluid.
- stool studies negative
- pain control and anti-emetics. She did not need pain medicine overnight
-Appreciate surgery help
#Hypoglycemia, asymptomatic
- Dextrose to IVF
Essential Hypertension
- BUYER ASSISTANT Coreg
- Hold BUYER ASSISTANT Losartan for now, monitor BP
Hyperlipidemia
- hold BUYER ASSISTANT statin
Hx Opiate Abuse now sober > 20 years
Ex Smoker - quit 1998
Hx Alcohol use - quit 1998
Hx of Eczema on Dupixent
Hyponatremia
- improved
DVT ppx: Lovenox
Code: Full
Total time spent to see the patient, examine the patient on the floor, review data and lab results, discuss treatment plan with patient, nursing staff around 55 minutes
Anticipated Discharge: 24 - 48 hours
Subjective/Interval History
-
Date of Service: November 23, 2023
She feels better, no abd pain this morning, no nausea
Objective Data
-
Labs:
Laboratory Results
11/23/23
08:54
WBC Pending
Hgb Pending
Hct Pending
Plt Count Pending
Sodium Pending
Potassium Pending
Chloride Pending
Carbon Dioxide Pending
BUN Pending
Creatinine Pending
Glucose Pending
Calcium Pending
Vital Signs:
Vital Signs
Temp Pulse Resp BP Pulse Ox
98.4 F 62 18 139/63 98
11/23/23 07:15 11/23/23 08:39 11/23/23 07:15 11/23/23 08:39 11/23/23 07:15
I&O
11/22/23 11/23/23 11/24/23
06:59 06:59 06:59
Intake Total 1020 / 1020 3140 / 3140
Balance 1020 / 1020 3140 / 3140
--- NOTE | 2023-11-23 09:37 | W.PN.GS2 ---
Today's Communication / Plan
-
DX lap today
Assessment / Plan
-
62-year-old female with no PSH who presents with generalized abdominal pain radiating to her back that began about a week ago accompanied with bloating, nausea and nonbloody nonbilious emesis x 1 as well as more recently diarrhea. CT abdomen pelvis
with IV contrast was performed which demonstrated a ?phlegmon/abscess in the small bowel mesentery noted particularly in the right upper quadrant. Repeat CT with PO/IV contrast 11/21 with inflamed fatty mass adjacent to a portion of the small bowel
with some adjacent bowel wall thickening improvement, ?omental infarction.
No leukocytosis, BMP pending
AFVSS
Stool studies negative
Pain no worse but persistent with significant tenderness, continued diarrhea/nausea
Plan:
NPO for OR today for dx laparoscopy
Continue IVF
Analgesics/antiemetics prn, patient wishes to avoid pain meds if able
Medical management as per primary team
Subjective Data
-
Date of Service: November 23, 2023
Patient seen and examined at bedside with Dr. Pollard. Pain more localized to the right cecilia-abdomen. Nausea persists, no vomiting. Passing small loose stool q2h
Objective Data
-
Intake and Output
11/22/23 11/23/23 11/24/23
06:59 06:59 06:59
Intake Total 1020 / 1020 3140 / 3140
Balance 1020 / 1020 3140 / 3140
Intake:
Oral fluids 60 / 60 1200 / 1200
IV fluids (Total) 960 / 960 1840 / 1840
IV piggybacks 100 / 100
Other:
Number of approximated MODERATE 1 2
amounts of urine
Number of approximated LARGE 1 1
amounts of urine
Number of unmeasured liquid
stools
Rectum 10
Vital Signs
Temp Pulse Resp BP Pulse Ox
98.4 F 62 18 139/63 98
11/23/23 07:15 11/23/23 08:39 11/23/23 07:15 11/23/23 08:39 11/23/23 07:15
Calcium 9.3 mg/dl (8.4-10.2) 11/22/23 09:05
Magnesium 2.2 mg/dl (1.6-2.3) 11/20/23 06:14
Total Bilirubin 0.5 mg/dl (0.2-1.3) 11/19/23 18:17
AST 20 U/L (14-36) 11/19/23 18:17
ALT 15 U/L (0-35) 11/19/23 18:17
Alkaline Phosphatase 96 U/L (38-126) 11/19/23 18:17
Total Protein 6.9 g/dl (6.3-8.2) 11/19/23 18:17
Albumin 4.2 g/dl (3.5-5.0) 11/19/23 18:17
Physical Exam
-
NAD
ABD soft, tender to light palpation periumbilically and right cecilia-abdomen with involuntary guarding, mild generalized tenderness throughout, ND
[2023-11-23 09:40] LABS: Hematocrit 31.3 % (37.0-47.0); Hemoglobin 10.4 g/dL (12.0-16.0); Mean Corp Hgb Conc. 33.2 g/dL (33.0-37.0); Mean Corpuscular Hgb 25.4 pg (27.0-31.0); Mean Corpuscular Volume 76.3 fL (81.0-99.0); Mean Platelet Volume 9.7 fL (7.4-10.4); Platelet Count 360 10^3/uL (130-400); Red Cell Dist. Width 14.3 % (11.5-14.5); White Blood Cell Count 5.8 10^3/uL (4.8-10.8)
[2023-11-23 10:20] LABS: Blood Urea Nitrogen 5 mg/dl (7-17); Calcium 9.3 mg/dl (8.4-10.2); Carbon Dioxide 28 mmol/L (22-30); Chloride 103 mmol/L (98-107); Estimated Creatinine Clearance 66 ml/min; Glucose 112 mg/dl (70-99); Potassium 4.3 mmol/L (3.5-5.1); Sodium 141 mmol/L (135-145); eGFR > 60.00
[2023-11-23 11:10] VITALS: BP 138/71
--- NOTE | 2023-11-23 11:14 | PTCARENOTE ---
Pt transferred from 2N to 2S with RN and PCT at bedside. Report called at 1100.
--- NOTE | 2023-11-23 11:16 | PTCARENOTE ---
Patient received from [address] [place] [address] in bed; Patient oriented to room and unit; IVF infusing; Patienet states her abdomen aches, does not require/want pain medications at this point; Patient reports improvement in nausea following PRN Compazine given
earlier this morning; Bed in lowest position, wheels locked; Call casanova within reach; Assessment ongoing
--- NOTE | 2023-11-23 15:06 | CM ---
Discharge Plan of Care: Anticipated home with no needs. For Explor lap today. Will follow post surgery to determine if needs change.
[2023-11-23 15:15] VITALS: BP 154/75
[2023-11-23] MEDS: LOVENOX SC (17:22)
[2023-11-23 23:05] VITALS: BP 129/55
[2023-11-23] MEDS: TYLENOL 650 MG PO (23:21)
[2023-11-24] VITALS (13 sets, daily range): BP systolic 118–165; BP diastolic 58–103; BMI 26.5
[2023-11-24] MEDS: ZOSYN 50 IV ×4 (04:04→22:08)
--- NOTE | 2023-11-24 05:15 | PTCARENOTE ---
First set of CHG wipes completed, new linens placed on bed, new hospital gown provided for patient.
--- NOTE | 2023-11-24 07:46 | W.PN.HOSP.TC ---
Today's Communication/Plan
-
.
Assessment / Plan
Assessment / Plan
Physical Exam
General: Well Developed, Well Nourished and Comfortable
HEENT: Moist Mucous Membranes
Respiratory: Non Labored Respirations
Heart S1S2 , regular
GI: Soft, not tender,
Skin: Warm and Dry
: No hematuria
Neuro: Awake, Alert and AO x 3
Psych: Calm
Assessment:
pSBO and small bowel abscess along the RUQ
- CT: There is 4 cm inflamed fatty mass in the right mid abdomen at the medial margin of a small bowel, most suggestive of omental infarction and associated with partial small bowel obstruction
She reports less pain or discomfort. She is nPO for surgical procedure (laparoscopy ) today
No fevers. No leukocytosis.
Intravenous Zosyn IV antibiotics and IV fluid.
- stool studies negative
- pain control and anti-emetics. She did not need pain medicine overnight
-Appreciate surgery help
#Hypoglycemia, asymptomatic
resolved.
Essential Hypertension
- SERVER PROGRAMMER Coreg
- Hold SERVER PROGRAMMER Losartan for now, monitor BP
Hyperlipidemia
- hold SERVER PROGRAMMER statin
Hx Opiate Abuse now sober > 20 years
Ex Smoker - quit 1998
Hx Alcohol use - quit 1998
Hx of Eczema on Dupixent
Hyponatremia
- improved
DVT ppx: Lovenox
Code: Full
Total time spent to see the patient, examine the patient on the floor, review data and lab results, discuss treatment plan with patient, nursing staff around 55 minutes
Anticipated Discharge: 24 - 48 hours
Subjective/Interval History
-
Date of Service: November 24, 2023
No significant abd pain
N nausea
Objective Data
-
Vital Signs:
Vital Signs
Temp Pulse Resp BP Pulse Ox
97.7 F 60 18 129/55 98
11/23/23 23:05 11/23/23 23:05 11/23/23 23:05 11/23/23 23:05 11/23/23 23:05
I&O
11/23/23 11/24/23 11/25/23
06:59 06:59 06:59
Intake Total 3140 / 3140 2280 / 2280
Balance 3140 / 3140 2280 / 2280
[2023-11-24] MEDS: PROTONIX IV 40 MG IV (08:54)
[2023-11-24] MEDS: COREG 3.125 MG PO ×2 (08:55→20:49)
[2023-11-24] MEDS: NSS (PRESERVATIVE FREE) 10 ML IV (08:55)
--- NOTE | 2023-11-24 10:32 | W.PN.UPDATE ---
Update Note
Progress Note Update
Delayed brief General surgery note.
Unfortunately due to or scheduling, had canceled case yesterday. Rescheduled for today at 12:30 PM.
Patient given clears overnight and n.p.o. at midnight. Today she states that she tolerated clears well but is still having some residual pain and would like to continue moving forward with surgery.
N.p.o. for OR today. Consent already obtained, in chart.
--- NOTE | 2023-11-24 11:30 | CM ---
Met with patient and her , Marbella, at bedside
Exploratory Lap procedure postponed till today
Plan: discharge to home when medically stable; will transport home; CM will monitor for DC needs
--- NOTE | 2023-11-24 15:23 | W.SUR.PREOP ---
Pre-Operative Surgical Note
-
I have examined this patient prior to the performance of the scheduled procedure.
The patient's condition is unchanged from the time of the current History and
Physical and the patient is able to undergo the scheduled procedure.
--- NOTE | 2023-11-24 15:23 | W.IMMPOSTOP ---
Surgical Immed Post Op Note
-
Primary Surgeon: Ryan Pollard MD
Assisting Surgeon: None
Pre-op Diagnosis: Small bowel mass
Post-op Diagnosis: Same
Procedure Performed:
1. Diagnostic laparoscopy
2. Laparoscopic assisted small bowel resection
Anesthesia Type: General
Specimen / Cultures: Small bowel mass
Estimated Blood Loss: 11 cc
Complications: None
Operative Findings: The abdomen was entered using a supraumbilical 5 mm balloon trocar. 2 additional 5 mm trocars were placed in the left upper and left lower quadrants. Fold of Treves was identified and the bowel was run in retrograde manner
until we found the culprit lesion which appeared to be in the mid jejunum. There was some flimsy adhesions from the transverse mesocolon over this area that appeared very firm and the small bowel was strictured at this point. The umbilical port
was converted to a 5 cm extraction site and using a small Inder wound retractor, the small bowel was extra-corporealized. We then performed a [id number], functional end-to-end small bowel resection and anastomosis using 2 fires of an 80 SUZY
purple load in a John technique like fashion. The staple line was oversewn with 3-0 silk pops and anastomotic crotch stitch was also placed. The small bowel mass along with 5 cm of small bowel on either side were resected along with the
intervening involved mesentery. The mesenteric defect was closed with a running silk suture. The umbilical site was closed with 2 running 0 PDS sutures anchored at each apex and tied in the middle. The specimen was opened along the antimesenteric
border of the small bowel on the back table with no obvious intraluminal mass identified but there was a clear narrowing at the site of firmness which appeared to be mostly confined to the mesentery.
POST OP PLAN:
Imaging: None
Labs: Routine AM
Diet: Stay on n.p.o. for today, plan for clears tomorrow okay for sips of clears and meds. Plan for clears tomorrow, Low risk for postop ileus.
Analgesia: Tylenol 650mg q6 Julita, Dilaudid 0.5mg q2h PRN
Neuro/vascular checks: q4h
AC/AP: Hold Therapeutic AC, Ok for DVT PPx
Activity: Ad Caroline
Wound/Incisions/Drains: Routine
Abx: Okay to stop antibiotics after 24 hours.
Dispo: RNF
--- NOTE | 2023-11-24 15:30 | OR.RPT ---
Operative Report
Operative Report
Patient Name: Vivian Abernathy
: 1960
Date of Operation: 11/24/2023
Preoperative Diagnosis: Small bowel mass
Postoperative Diagnosis: Same
Procedure(s):
Diagnostic Laparoscopy
Laparoscopic assisted small bowel resection
Surgeon(s):
Dr. Pollard
Instructor Modeling(s):
MARIE Davis
Anesthesia: General
Estimated Blood Loss: 11 cc
Urine Output: None
Drains/Lines/Implants: None
Specimens:
1. Small Bowel
HPI/Surgical Indications:
This is a 62-year-old female with no significant past medical history who presents with abdominal pain of unclear etiology. CT scan demonstrated an infarct versus mass. The patient was observed over a few days with minimal improvement in her pain
so after a thorough discussion of Risks/Benefits/Alternatives, the patient agreed to proceed with diagnostic laparoscopy, possible small bowel resection.
Operative Findings: The abdomen was entered using a supraumbilical 5 mm balloon trocar. 2 additional 5 mm trocars were placed in the left upper and left lower quadrants. Fold of Treves was identified and the bowel was run in retrograde manner
until we found the culprit lesion which appeared to be in the mid jejunum. There was some flimsy adhesions from the transverse mesocolon over this area that appeared very firm and the small bowel was strictured at this point. The umbilical port
was converted to a 5 cm extraction site and using a small Inder wound retractor, the small bowel was extra-corporealized. We then performed a [id number], functional end-to-end small bowel resection and anastomosis using 2 fires of an 80 SUZY
purple load in a John technique like fashion. The staple line was oversewn with 3-0 silk pops and anastomotic crotch stitch was also placed. The small bowel mass along with 5 cm of small bowel on either side were resected along with the
intervening involved mesentery. The mesenteric defect was closed with a running silk suture. The umbilical site was closed with 2 running 0 PDS sutures anchored at each apex and tied in the middle. The specimen was opened along the antimesenteric
border of the small bowel on the back table with no obvious intraluminal mass identified but there was a clear narrowing at the site of firmness which appeared to be mostly confined to the mesentery.
Procedure Description:
The patient was brought to the Operating Room and placed in the supine position with the arms out. IV antibiotics were infused and Venodyne stockings placed. Following uneventful induction of general endotracheal anesthesia, an orogastric tube
were placed. The abdomen was prepped and draped in the usual sterile fashion. The abdomen was entered using a supraumbilical open Tereza technique with a 5 mm balloon trochar just above the umbilicus. Pneumoperitoneum to 15 mmHg pressure was
obtained without difficulty and we confirmed that no injury had occurred during our entry. We then placed two 5 mm trocars in the left upper and left lower quadrants. The bowel was then run from the ligament of Treves in a retrograde manner. The
culprit area was readily identified and appeared to be in the mid jejunum. There was some adhesions from the transverse mesocolon over firm mass that appeared to be emanating from the mesentery and abutting the jejunum. There was a clear
transition point and narrowing in this area. The mass was freed up from the surrounding tissue and a locking laparoscopic grasper was placed on the proximal end of the bowel. The abdomen was then desufflated and the 5 mm umbilical port was
converted to a 5 cm periumbilical extraction site. A small Inder wound retractor was placed and 2 blue towels were used to protect the field. The small bowel was extra-corporealized. We could readily palpate an area of firmness that appears to
be at the border of the small bowel and mesentery. It did seem to extend down close to the root of the mesentery. We then identified transection points 5 cm from the mass and antimesenteric enterotomies were made. We then fashioned a
[id number], functional end-to-end small bowel anastomosis using 2 fires of an 80 SUZY purple load using John technique. We then turned our attention to the mass in the intervening mesentery was divided going down close to the root of the
mesentery to ensure we took out the entire specimen with a good margin. The specimen was passed off the field and the mesenteric defect was closed with a running 3-0 silk suture. The small bowel staple line was then oversewn with interrupted 3 oh
silks and 2 crotch stitches were placed to offload tension in this area. The bowel looked pink and viable. This was returned to the abdomen. We did briefly reestablish pneumoperitoneum and the 2 left-sided ports were removed under direct
visualization to ensure no bleeding. The Inder wound retractor was then removed and our gloves were changed. We then closed our midline incision with 2-0 PDS sutures that were anchored at each apex and running to the middle and tied together.
The umbilical site was then reapproximated in layers using 3-0 Vicryl's followed by interrupted 4-0 Monocryl's. The two 5 mm port sites were also closed with 4-0 Monocryl's. All incisions were then dressed with Dermabond. The umbilical site was
then covered with a Aquacel dressing. Counts were correct x 1. Overall, the patient tolerated the procedure well and was taken to the Recovery Room postoperatively in stable condition.
I was the attending physician and performed the procedure with assistance from the GENERAL MATCHER above who was instrumental in holding the camera, as well as providing tension and counter tension during the small bowel anastomosis as well as during wound
closure. I was present for all portions of the case.
Ryan Pollard MD
[2023-11-24] MEDS: DILAUDID 0.5 MG IV (16:02)
[2023-11-24] MEDS: ZOFRAN 4 MG IV (16:07)
[2023-11-24] MEDS: DEMEROL 12.5 MG IV (16:23)
--- NOTE | 2023-11-24 17:28 | PTCARENOTE ---
Received patient from PACU via bed around 1715 in stable condition. Patient c/o pain but just received medication from [facility]. Will reassess. Abdominal dressing C/D/I. Call casanova in reach.
[2023-11-24] MEDS: D5/0.9% SODIUM CHLORIDE 1000 IV (17:55)
[2023-11-24] MEDS: LOVENOX 40 MG SC (18:02)
[2023-11-24] MEDS: TORADOL 10 MG IV (23:14)
[2023-11-25] MEDS: D5/0.9% SODIUM CHLORIDE 1000 IV (02:05)
[2023-11-25 03:27] VITALS: BP 130/58
[2023-11-25] MEDS: ZOSYN 50 IV ×4 (03:31→21:02)
[2023-11-25] MEDS: TYLENOL 650 MG PO (03:31)
[2023-11-25 06:05] VITALS: BMI 25.9
[2023-11-25] MEDS: TYLENOL 1000 MG PO ×3 (07:31→17:29)
[2023-11-25] MEDS: PROTONIX IV 40 MG IV (07:32)
[2023-11-25] MEDS: NSS (PRESERVATIVE FREE) 10 ML IV (07:32)
[2023-11-25] MEDS: COREG 3.125 MG PO ×2 (07:33→21:02)
[2023-11-25 07:35] VITALS: BP 146/71
[2023-11-25 08:25] LABS: % Basophils 0.2 % (0-2); % Eosinophils 0.1 % (0-6); % Immature Granulocytes 0.4 % (0-0.5); % Monocytes 7.3 % (1.7-9.3); Absolute Lymphocytes 1.6 10^3/uL (1.2-3.4); Absolute Monocytes 0.8 10^3/uL (0.1-0.6); Absolute Neutrophils 8.8 10^3/uL (1.4-6.5); Hematocrit 30.9 % (37.0-47.0); Hemoglobin 9.8 g/dL (12.0-16.0); Mean Corp Hgb Conc. 31.7 g/dL (33.0-37.0); Mean Corpuscular Volume 78.8 fL (81.0-99.0); Nucleated Red Blood Cells % 0 %; Platelet Count 305 10^3/uL (130-400); Red Blood Cell Count 3.92 10^6/uL (4.20-5.40); Red Cell Dist. Width 14.7 % (11.5-14.5); White Blood Cell Count 11.3 10^3/uL (4.8-10.8)
[2023-11-25 08:42] LABS: Blood Urea Nitrogen 4 mg/dl (7-17); Calcium 8.8 mg/dl (8.4-10.2); Carbon Dioxide 23 mmol/L (22-30); Chloride 107 mmol/L (98-107); Estimated Creatinine Clearance 68 ml/min; Glucose 139 mg/dl (70-99); Potassium 3.5 mmol/L (3.5-5.1); Sodium 138 mmol/L (135-145); eGFR > 60.00
--- NOTE | 2023-11-25 08:53 | W.PN.GS2 ---
Today's Communication / Plan
-
Clears.
Out of bed and ambulate.
Assessment / Plan
-
62-year-old female with no PSH who presents with generalized abdominal pain radiating to her back that began about a week ago accompanied with bloating, nausea and nonbloody nonbilious emesis x 1 as well as more recently diarrhea. CT abdomen pelvis
with IV contrast was performed which demonstrated a ?phlegmon/abscess in the small bowel mesentery noted particularly in the right upper quadrant. Repeat CT with PO/IV contrast 11/21 with inflamed fatty mass adjacent to a portion of the small bowel
with some adjacent bowel wall thickening improvement, ?omental infarction. Patient is now POD #1 diagnostic lap, laparoscopic assisted small bowel resection. Doing well, expected postoperative course
Plan:
Trial of clears today.
Will decrease IV fluids.
Continue antibiotics x 4 days.
Analgesics/antiemetics prn, patient wishes to avoid pain meds if able
Medical management as per primary team
Time Spent
Total Time Spent with Patient (in minutes): 20
Subjective Data
-
Date of Service: November 25, 2023
Interval Events:
No acute events overnight. Slept well. Pain Controlled. Denies Nausea/Vomiting, -bowel function. Tolerated sips.
Objective Data
-
Intake and Output
11/24/23 11/25/23 11/26/23
06:59 06:59 06:59
Intake Total 2280 / 2280 1920 / 1920
Output Total 1075 / 1075
Balance 2280 / 2280 845 / 845
Intake:
Oral fluids 720 / 720 120 / 120
IV fluids (Total) 1360 / 1360 1700 / 1700
normsol 150 / 150
IV piggybacks 200 / 200 100 / 100
Output:
Urine, Voided 1074 / 1075
Other:
Number of approximated SMALL 1
amounts of urine
Number of approximated MODERATE 1 3
amounts of urine
How many times incontinent 2
MODERATE amount urine
Vital Signs
Temp Pulse Resp BP Pulse Ox
97.8 F 77 16 146/71 97
11/25/23 07:35 11/25/23 07:35 11/25/23 07:35 11/25/23 07:35 11/25/23 07:35
Lab Results
11/25/23 08:17
11/25/23 08:17
Calcium 8.8 mg/dl (8.4-10.2) 11/25/23 08:17
Magnesium 2.2 mg/dl (1.6-2.3) 11/20/23 06:14
Total Bilirubin 0.5 mg/dl (0.2-1.3) 11/19/23 18:17
AST 20 U/L (14-36) 11/19/23 18:17
ALT 15 U/L (0-35) 11/19/23 18:17
Alkaline Phosphatase 96 U/L (38-126) 11/19/23 18:17
Total Protein 6.9 g/dl (6.3-8.2) 11/19/23 18:17
Albumin 4.2 g/dl (3.5-5.0) 11/19/23 18:17
Physical Exam
-
GENERAL/NEURO: Awake, Alert, no distress
CHEST: Unlabored breathing on RA
ABDOMEN: Soft, appropriately tender, Non-Distended, incisions clean dry and intact, no strikethrough over midline dressing noted.
--- NOTE | 2023-11-25 09:03 | W.PN.HOSP.TC ---
Today's Communication/Plan
-
.
Assessment / Plan
Assessment / Plan
Physical Exam
General: Well Developed, Well Nourished and Comfortable
HEENT: Moist Mucous Membranes
Respiratory: Non Labored Respirations
Heart S1S2 , regular
GI: Soft, not tender,
Skin: Warm and Dry
: No hematuria
Neuro: Awake, Alert and AO x 3
Psych: Calm
Assessment:
# Small bowel mass and pSBO
- CT: There is 4 cm inflamed fatty mass in the right mid abdomen at the medial margin of a small bowel, most suggestive of omental infarction and associated with partial small bowel obstruction
s/p Laparoscopic assisted small bowel resection by Dr Pollard on 11/23. No complications reported
d/w surgery, possible infection as etiology. Pathology is pending.
Good BS this morning, no nausea.
Had IVF
IV Zosyn
Pain control with Tylenol and Toradol PRN
-Appreciate surgery help
#Hypoglycemia, asymptomatic
PRN IVF
resolved.
# Leukocytosis, reactive
Good clinical improvement.
Essential Hypertension
- DENTAL MOLD MAKER Coreg
- Hold DENTAL MOLD MAKER Losartan for now, monitor BP
Hyperlipidemia
- hold DENTAL MOLD MAKER statin
Hx Opiate Abuse now sober > 20 years
Ex Smoker - quit 1998
Hx Alcohol use - quit 1998
Hx of Eczema on Dupixent
Can take it today.
Hyponatremia
- improved
DVT ppx: Lovenox
Code: Full
Total time spent to see the patient, examine the patient on the floor, review data and lab results, discuss treatment plan with patient, surgery, nursing staff around 55 minutes
Anticipated Discharge: 24 - 48 hours
Subjective/Interval History
-
Date of Service: November 25, 2023
her abd pain is controlled with Tylenol & Toradol PRN
No nausea
Objective Data
-
Labs:
Laboratory Results
11/25/23
08:17
WBC 11.3 H
Hgb 9.8 L
Hct 30.9 L
Plt Count 305
Sodium 138
Potassium 3.5
Chloride 107
Carbon Dioxide 23
BUN 4 L
Creatinine 0.7
Glucose 139 H
Calcium 8.8
Vital Signs:
Vital Signs
Temp Pulse Resp BP Pulse Ox
97.8 F 77 16 146/71 97
11/25/23 07:35 11/25/23 07:35 11/25/23 07:35 11/25/23 07:35 11/25/23 07:35
I&O
11/24/23 11/25/23 11/26/23
06:59 06:59 06:59
Intake Total 2280 / 2280 1920 / 1920
Output Total 1075 / 1075
Balance 2280 / 2280 845 / 845
[2023-11-25] MEDS: D5/0.9% SODIUM CHLORIDE IV (09:19)
[2023-11-25] MEDS: TORADOL 15 MG IV ×2 (10:04→22:31)
[2023-11-25] MEDS: COMPAZINE 5 MG IV (11:20)
[2023-11-25 11:45] VITALS: BP 105/53
[2023-11-25 15:50] VITALS: BP 149/54
[2023-11-25] MEDS: NON-FORMULARY ITEM 300 MG SC (16:32)
[2023-11-25] MEDS: LOVENOX 40 MG SC (17:29)
[2023-11-25 23:31] VITALS: BP 114/60
[2023-11-26] MEDS: TYLENOL PO ×3 (01:00→23:57)
[2023-11-26] MEDS: ZOSYN 50 IV ×4 (04:58→22:06)
[2023-11-26] MEDS: TYLENOL 1000 MG PO ×2 (05:00→11:06)
[2023-11-26 06:08] LABS: % Basophils 0.8 % (0-2); % Eosinophils 1.9 % (0-6); % Immature Granulocytes 0.4 % (0-0.5); % Lymphocytes 29.6 % (20.5-51.1); % Monocytes 7.3 % (1.7-9.3); Absolute Basophils 0.1 10^3/uL (0-0.2); Absolute Eosinophils 0.1 10^3/uL (0-0.7); Absolute Lymphocytes 2.2 10^3/uL (1.2-3.4); Absolute Monocytes 0.5 10^3/uL (0.1-0.6); Absolute Neutrophils 4.4 10^3/uL (1.4-6.5); Hematocrit 25.9 % (37.0-47.0); Hemoglobin 8.3 g/dL (12.0-16.0); Mean Corpuscular Hgb 25.4 pg (27.0-31.0); Mean Corpuscular Volume 79.2 fL (81.0-99.0); Mean Platelet Volume 9.6 fL (7.4-10.4); Nucleated Red Blood Cells % 0 %; Platelet Count 293 10^3/uL (130-400); Red Blood Cell Count 3.27 10^6/uL (4.20-5.40); White Blood Cell Count 7.4 10^3/uL (4.8-10.8)
[2023-11-26 06:34] LABS: Blood Urea Nitrogen 10 mg/dl (7-17); Calcium 8.7 mg/dl (8.4-10.2); Carbon Dioxide 25 mmol/L (22-30); Chloride 106 mmol/L (98-107); Estimated Creatinine Clearance 68 ml/min; Glucose 94 mg/dl (70-99); Potassium 3.6 mmol/L (3.5-5.1); Sodium 137 mmol/L (135-145); eGFR > 60.00
--- NOTE | 2023-11-26 07:34 | CM ---
Addendum entered by Anna Carson 11/26/23 15:49:
discussed dc plans with patient and she has declined home care services.Plan home with no needs.
Original Note:
met with patient at bedside,sp lap sb resection.,cont iv zosyn,pain control,orn ivf,on lclear liquids.will discuss dc needs with patient.family to transport home when stable.
[2023-11-26 07:50] VITALS: BP 147/71
[2023-11-26] MEDS: COREG 3.125 MG PO ×2 (08:32→19:52)
[2023-11-26] MEDS: NSS (PRESERVATIVE FREE) 10 ML IV (08:32)
[2023-11-26] MEDS: PROTONIX IV 40 MG IV (08:32)
[2023-11-26] MEDS: VISBIOME 1 CAP PO (08:32)
[2023-11-26] MEDS: TORADOL 15 MG IV ×2 (08:39→18:33)
--- NOTE | 2023-11-26 09:20 | W.PN.HOSP.TC ---
Today's Communication/Plan
-
.
Assessment / Plan
Assessment / Plan
Physical Exam
General: Well Developed, Well Nourished and Comfortable
HEENT: Moist Mucous Membranes
Respiratory: Non Labored Respirations
Heart S1S2 , regular
GI: Soft, not tender,
Skin: Warm and Dry
: No hematuria
Neuro: Awake, Alert and AO x 3
Psych: Calm
Assessment:
# Small bowel mass and pSBO
- CT: There is 4 cm inflamed fatty mass in the right mid abdomen at the medial margin of a small bowel, most suggestive of omental infarction and associated with partial small bowel obstruction
s/p Laparoscopic assisted small bowel resection by Dr Pollard on 11/23. No complications reported
d/w surgery, possible infection as etiology. Pathology is pending.
Good BS this morning, no nausea. She has 3 BM ( loose) . C diff last week was negative. No abd pain
Had IVF
IV Zosyn, will add Probiotic, if continues to have loose stool, will switch to Flagyl and Cipro. WBC is normal ( doubt acute infection)
Pain control with Tylenol and Toradol PRN
-Appreciate surgery help
#Hypoglycemia, asymptomatic
PRN IVF
resolved.
# Leukocytosis, reactive
Good clinical improvement.
Essential Hypertension
- MATERIAL HANDLING TECHNICIAN Coreg
- Hold MATERIAL HANDLING TECHNICIAN Losartan for now, monitor BP
Hyperlipidemia
- hold MATERIAL HANDLING TECHNICIAN statin
Hx Opiate Abuse now sober > 20 years
Ex Smoker - quit 1998
Hx Alcohol use - quit 1998
Hx of Eczema on Dupixent
Given 11/24.
Hyponatremia
- improved
DVT ppx: Lovenox
Code: Full
Total time spent to see the patient, examine the patient on the floor, review data and lab results, discuss treatment plan with patient, nursing staff around 55 minutes
Anticipated Discharge: > 48 hours
Subjective/Interval History
-
Date of Service: November 26, 2023
No chest pain
No sob
No fevers
Loose stools over night
Objective Data
-
Labs:
Laboratory Results
11/26/23
05:35
WBC 7.4
Hgb 8.3 L
Hct 25.9 L
Plt Count 293
Sodium 137
Potassium 3.6
Chloride 106
Carbon Dioxide 25
BUN 10
Creatinine 0.7
Glucose 94
Calcium 8.7
Vital Signs:
Vital Signs
Temp Pulse Resp BP Pulse Ox
99.7 F 70 17 147/71 97
11/26/23 07:50 11/26/23 07:50 11/26/23 07:50 11/26/23 07:50 11/26/23 08:00
I&O
11/25/23 11/26/23 11/27/23
06:59 06:59 06:59
Intake Total 1920 / 1920 1450 / 1450
Output Total 1075 / 1075
Balance 845 / 845 1450 / 1450
--- NOTE | 2023-11-26 10:36 | PN.CDI ---
Addendum entered and electronically signed by Adelaide Ravi MD 11/26/23 11:07:
Acute blood loss anemia
Original Note:
CDI
- -
CDI:
Physician Documentation Request
Admit Date: 11/19/23 22:18
Dear Doctor Breonna,
Please review the following and provide your response in the progress notes.
Clinical Indicators:
Pt admitted with partial small bowel obstruction.
11/23 Pt had laparoscopic bowel resection
Laboratory Tests
11/23/23 11/25/23 11/26/23
08:54 08:17 05:35
Hgb 10.4 L 9.8 L 8.3 L
Hct 31.3 L 30.9 L 25.9 L
Based on the above, could you clarify, in your progress note, which of the following is the most likely type of anemia you are evaluating, monitoring and/or treating?
Acute blood loss anemia
insignificant abnormal lab findings
Other
Use of terms such as suspected, likely, concern for, or probable (associated with a specific diagnosis that is being evaluated, monitored, or treated as if it exists) are acceptable and can be coded in the inpatient setting, when documented at the
time of discharge.
Thank you,
Swapna Vaca RN, BSN
CDI Specialist
Available via [facility] [employer]
Please use your independent medical judgment in providing your response.
[2023-11-26] MEDS: COMPAZINE 5 MG IV ×2 (11:14→17:14)
[2023-11-26 15:17] LABS: Hematocrit 28.7 % (37.0-47.0); Hemoglobin 9.3 g/dL (12.0-16.0); Mean Corp Hgb Conc. 32.4 g/dL (33.0-37.0); Mean Corpuscular Hgb 25.5 pg (27.0-31.0); Mean Corpuscular Volume 78.8 fL (81.0-99.0); Mean Platelet Volume 9.5 fL (7.4-10.4); Platelet Count 342 10^3/uL (130-400); Red Blood Cell Count 3.64 10^6/uL (4.20-5.40); Red Cell Dist. Width 15.1 % (11.5-14.5); White Blood Cell Count 10.5 10^3/uL (4.8-10.8)
[2023-11-26 15:19] VITALS: BP 163/83
[2023-11-26 15:56] VITALS: BP 150/79
--- NOTE | 2023-11-26 16:33 | W.PN.GS2 ---
Today's Communication / Plan
-
Repeat CBC-hemoglobin stable. A.m. hemoglobin likely dilutional, repeat 9.3 similar to preop.
Assessment / Plan
-
62-year-old female with no PSH who presents with generalized abdominal pain radiating to her back that began about a week ago accompanied with bloating, nausea and nonbloody nonbilious emesis x 1 as well as more recently diarrhea. CT abdomen pelvis
with IV contrast was performed which demonstrated a ?phlegmon/abscess in the small bowel mesentery noted particularly in the right upper quadrant. Repeat CT with PO/IV contrast 11/21 with inflamed fatty mass adjacent to a portion of the small bowel
with some adjacent bowel wall thickening improvement, ?omental infarction. Patient is now POD #2 diagnostic lap, laparoscopic assisted small bowel resection. Doing well, expected postoperative course
Plan:
Given postop nausea, will keep on clears today.
Continue IV fluids.
Continue antibiotics x 4 days.
Analgesics/antiemetics prn, patient wishes to avoid pain meds if able
Medical management as per primary team
Time Spent
Total Time Spent with Patient (in minutes): 20
Subjective Data
-
Date of Service: November 26, 2023
Interval Events:
No acute events overnight. Slept well. Pain Controlled. Some nausea, no vomiting, +bowel function. Endorses some blood per rectum, minimal. Tolerating clear diet.
Objective Data
-
Intake and Output
11/25/23 11/26/23/
06:59 06:59 06:59
Intake Total 1920 / 1920 1450 / 1450 530 / 530
Output Total 1075 / 1075
Balance 845 / 845 1450 / 1450 530 / 530
Intake:
Oral fluids 120 / 120 1200 / 1200 480 / 480
IV fluids (Total) 1700 / 1700 50 / 50
normsol 150 / 150
IV piggybacks 100 / 100 200 / 200 50 / 50
Output:
Urine, Voided 1075 / 1075
Other:
Number of approximated MODERATE 3 3
amounts of urine
Number of approximated LARGE 2
amounts of urine
Vital Signs
Temp Pulse Resp BP Pulse Ox
97.8 F 88 18 150/79 99
11/26/23 15:19 11/26/23 15:19 11/26/23 15:19 11/26/23 15:56 11/26/23 15:19
Lab Results
11/26/23 15:01
11/26/23 05:35
Calcium 8.7 mg/dl (8.4-10.2) 11/26/23 05:35
Magnesium 2.2 mg/dl (1.6-2.3) 11/20/23 06:14
Total Bilirubin 0.5 mg/dl (0.2-1.3) 11/19/23 18:17
AST 20 U/L (14-36) 11/19/23 18:17
ALT 15 U/L (0-35) 11/19/23 18:17
Alkaline Phosphatase 96 U/L (38-126) 11/19/23 18:17
Total Protein 6.9 g/dl (6.3-8.2) 11/19/23 18:17
Albumin 4.2 g/dl (3.5-5.0) 11/19/23 18:17
Physical Exam
-
GENERAL/NEURO: Awake, Alert, no distress
CHEST: Unlabored breathing on RA
ABDOMEN: Soft, Non-Tender, Non-Distended, incisions clean dry and intact.
[2023-11-26] MEDS: LOVENOX SC (17:22)
[2023-11-26] MEDS: ZOSYN IV (17:28)
--- NOTE | 2023-11-26 17:30 | PTCARENOTE ---
Patient with about 200mL of green emesis; Compazine given; Surgeon notified, patient made NPO and IVF ordered
[2023-11-26] MEDS: NSS 1000 IV (18:33)
[2023-11-26 19:58] VITALS: BP 159/74
[2023-11-26] MEDS: ZOFRAN 4 MG IV (20:18)
--- NOTE | 2023-11-26 20:52 | PTCARENOTE ---
TT Dr. Sandoval regarding pt w 1500mL bilious emesis - Dr. Sandoval said to hold off on NGT for now. Will continue to closely monitor.
[2023-11-26 23:27] VITALS: BP 121/67
[2023-11-27] MEDS: OFIRMEV 100 IV
[2023-11-27] MEDS: ZOSYN 50 IV ×4 (04:16→22:10)
[2023-11-27] MEDS: NSS 1000 IV (04:16)
[2023-11-27] MEDS: TYLENOL PO ×4 (06:35→22:13)
[2023-11-27 07:13] VITALS: BP 124/66
[2023-11-27 07:49] LABS: % Basophils 0.7 % (0-2); % Eosinophils 4.8 % (0-6); % Immature Granulocytes 0.4 % (0-0.5); % Lymphocytes 25.5 % (20.5-51.1); % Monocytes 5.8 % (1.7-9.3); % Neutrophils 62.8 % (42.2-75.2); Absolute Basophils 0.1 10^3/uL (0-0.2); Absolute Eosinophils 0.4 10^3/uL (0-0.7); Absolute Lymphocytes 2.2 10^3/uL (1.2-3.4); Absolute Monocytes 0.5 10^3/uL (0.1-0.6); Absolute Neutrophils 5.3 10^3/uL (1.4-6.5); Hematocrit 26.7 % (37.0-47.0); Hemoglobin 8.7 g/dL (12.0-16.0); Mean Corp Hgb Conc. 32.6 g/dL (33.0-37.0); Mean Corpuscular Hgb 25.1 pg (27.0-31.0); Mean Corpuscular Volume 77.2 fL (81.0-99.0); Mean Platelet Volume 9.5 fL (7.4-10.4); Nucleated Red Blood Cells % 0 %; Platelet Count 354 10^3/uL (130-400); Red Blood Cell Count 3.46 10^6/uL (4.20-5.40); Red Cell Dist. Width 15.4 % (11.5-14.5); White Blood Cell Count 8.4 10^3/uL (4.8-10.8)
--- NOTE | 2023-11-27 08:10 | W.PN.GS2 ---
Today's Communication / Plan
-
-- NPO, NGT if further nausea, emesis or worsening abdominal bloating
-- Continue IV fluids.
-- Continue antibiotics x 4 days.
-- Continue to trend Hb
Assessment / Plan
-
62-year-old female with no PSH who presents with generalized abdominal pain radiating to her back that began about a week ago accompanied with bloating, nausea and nonbloody nonbilious emesis x 1 as well as more recently diarrhea.
CT abdomen pelvis with IV contrast was performed which demonstrated a ?phlegmon/abscess in the small bowel mesentery noted particularly in the right upper quadrant.
Repeat CT with PO/IV contrast 11/21 with inflamed fatty mass adjacent to a portion of the small bowel with some adjacent bowel wall thickening improvement, ?omental infarction.
Patient is now POD#3 diagnostic lap, laparoscopic assisted small bowel resection.
AVSS
Ileus, awaiting more consistent ROBF, hold on abd X-ray given unlikely to change clinical management, patient feeling improved
Monitor Hb, stable this AM
Plan:
-- NPO, NGT if further nausea, emesis or worsening abdominal bloating
-- Continue IV fluids.
-- Continue antibiotics x 4 days.
-- Analgesics/antiemetics prn, patient wishes to avoid pain meds if able
-- Continue to trend Hb
-- Medical management as per primary team
Subjective Data
-
Date of Service: November 27, 2023
Issues with nausea and vomiting yesterday afternoon and into the early evening. Feels much improved this AM. Denies any nausea or vomiting. No worsening abdominal pain. Passing loose nonbloody stools, no significant flatus. No dizziness or
lightheadedness. Ambulating. Voiding.
Objective Data
-
Intake and Output
11/26/23 11/27/23 11/28/23
06:59 06:59 06:59
Intake Total 1450 / 1450 1880 / 1880
Output Total 1500 / 1500
Balance 1450 / 1450 380 / 380
Intake:
Oral fluids 1200 / 1200 480 / 480
IV fluids (Total) 50 / 50 1200 / 1200
IV piggybacks 200 / 200 200 / 200
Output:
Emesis 1500 / 1500
Other:
Number of approximated MODERATE 3 1
amounts of urine
Number of approximated LARGE 2
amounts of urine
Vital Signs
Temp Pulse Resp BP Pulse Ox
98.7 F 76 17 124/66 98
11/27/23 07:13 11/27/23 07:13 11/27/23 07:13 11/27/23 07:13 11/27/23 07:13
Lab Results
11/27/23 07:33
Calcium 8.7 mg/dl (8.4-10.2) 11/26/23 05:35
Magnesium 2.2 mg/dl (1.6-2.3) 11/20/23 06:14
Total Bilirubin 0.5 mg/dl (0.2-1.3) 11/19/23 18:17
AST 20 U/L (14-36) 11/19/23 18:17
ALT 15 U/L (0-35) 11/19/23 18:17
Alkaline Phosphatase 96 U/L (38-126) 11/19/23 18:17
Total Protein 6.9 g/dl (6.3-8.2) 11/19/23 18:17
Albumin 4.2 g/dl (3.5-5.0) 11/19/23 18:17
Physical Exam
-
Gen: NAD
Abd: soft, mild tenderness periumbilically, mild distension, non-peritoneal, incisions c/d/i - no erythema or drainage, ecchymosis at umbilical
[2023-11-27 08:33] LABS: Blood Urea Nitrogen 8 mg/dl (7-17); Calcium 8.8 mg/dl (8.4-10.2); Carbon Dioxide 24 mmol/L (22-30); Chloride 106 mmol/L (98-107); Estimated Creatinine Clearance 68 ml/min; Glucose 94 mg/dl (70-99); Potassium 3.5 mmol/L (3.5-5.1); Sodium 138 mmol/L (135-145); eGFR > 60.00
--- NOTE | 2023-11-27 09:15 | W.PN.HOSP.TC ---
Today's Communication/Plan
-
Suspect post op ileus
Keep NPO
IVF
IV Zosyn
Assessment / Plan
Assessment / Plan
Physical Exam
General: Well Developed, Well Nourished and Comfortable
HEENT: Moist Mucous Membranes
Respiratory: Non Labored Respirations
Heart S1S2 , regular
GI: Soft, not tender,
Skin: Warm and Dry
: No hematuria
Neuro: Awake, Alert and AO x 3
Psych: Calm
Assessment:
# Small bowel mass and pSBO
- CT: There is 4 cm inflamed fatty mass in the right mid abdomen at the medial margin of a small bowel, most suggestive of omental infarction and associated with partial small bowel obstruction
s/p Laparoscopic assisted small bowel resection by Dr Pollard on 11/23. No complications reported
d/w surgery, possible infection as etiology. Pathology is pending.
Suspect post op ileus
no nausea. less loose stools. Feels better after NPO
d/w surgeyr: keep NPO for now
Resume IVF
IV Zosyn,
Pain control with Tylenol and Toradol PRN
-Appreciate surgery help
#Hypoglycemia, asymptomatic
PRN IVF
resolved.
# Leukocytosis, reactive
Good clinical improvement.
Essential Hypertension
- ENVIRONMENTAL EMERGENCIES PLANNER Coreg
- Hold ENVIRONMENTAL EMERGENCIES PLANNER Losartan for now, monitor BP
Hyperlipidemia
- hold ENVIRONMENTAL EMERGENCIES PLANNER statin
Hx Opiate Abuse now sober > 20 years
Ex Smoker - quit 1998
Hx Alcohol use - quit 1998
Hx of Eczema on Dupixent
Given 11/24.
Hyponatremia
- improved
DVT ppx: Lovenox
Code: Full
Total time spent to see the patient, examine the patient on the floor, review data and lab results, discuss treatment plan with patient, nursing staff around 55 minutes
Anticipated Discharge: > 48 hours
Subjective/Interval History
-
Date of Service: November 27, 2023
She could not tolerate liquids last evening
Feels better after NPO
No chest pain
No significant abd pain
Objective Data
-
Labs:
Laboratory Results
11/27/23
07:33
WBC 8.4
Hgb 8.7 L
Hct 26.7 L
Plt Count 354
Sodium 138
Potassium 3.5
Chloride 106
Carbon Dioxide 24
BUN 8
Creatinine 0.7
Glucose 94
Calcium 8.8
Vital Signs:
Vital Signs
Temp Pulse Resp BP Pulse Ox
98.7 F 76 17 124/66 98
11/27/23 07:13 11/27/23 07:13 11/27/23 07:13 11/27/23 07:13 11/27/23 07:13
I&O
11/26/23 11/27/23 11/28/23
06:59 06:59 06:59
Intake Total 1450 / 1450 1880 / 1880
Output Total 1500 / 1500
Balance 1450 / 1450 380 / 380
[2023-11-27] MEDS: VISBIOME PO (10:36)
[2023-11-27] MEDS: COREG 3.125 MG PO ×2 (10:38→20:40)
[2023-11-27] MEDS: NSS (PRESERVATIVE FREE) 10 ML IV (10:39)
[2023-11-27] MEDS: PROTONIX IV 40 MG IV (10:39)
[2023-11-27] MEDS: D5/0.9% SODIUM CHLORIDE 1000 IV ×2 (10:57→22:10)
--- NOTE | 2023-11-27 13:22 | CM ---
met with patent at bedside,she is now npo after not being able to tolerate liquids,cont iv abx,ivf.doctor suspects post op ileus.states she does fseel better being npo,plan home with no needs when stable.
[2023-11-27 15:33] VITALS: BP 154/73
[2023-11-27] MEDS: LOVENOX 40 MG SC (17:10)
[2023-11-27 23:50] VITALS: BP 119/58
[2023-11-28] MEDS: ZOSYN 50 IV ×4 (04:14→22:08)
[2023-11-28] MEDS: TYLENOL 1000 MG PO ×4 (04:27→22:09)
[2023-11-28] MEDS: D5/0.9% SODIUM CHLORIDE 1000 IV ×3 (06:35→22:08)
[2023-11-28 07:05] VITALS: BP 138/71
--- NOTE | 2023-11-28 08:29 | W.PN.GS2 ---
Addendum entered and electronically signed by Ryan Pollard MD 11/28/23 08:44:
I saw and examined the patient independently.
The Senior Pl Sql Developer's note was reviewed and I agree with the note, assessment and plan except where noted below.
Comment: Postoperative day for diagnostic lap, SBR for mesenteric/small bowel mass. Expected postoperative ileus.
Will continue with sips and chips. Awaiting true return of bowel function with flatus.
Continue antibiotics (7-day postop total).
Out of bed and ambulate.
Original Note:
Today's Communication / Plan
-
continue npo with c/s today
zosyn
Assessment / Plan
-
62-year-old female with no PSH who presents with generalized abdominal pain radiating to her back that began about a week ago accompanied with bloating, nausea and nonbloody nonbilious emesis x 1 as well as more recently diarrhea.
CT abdomen pelvis with IV contrast was performed which demonstrated a ?phlegmon/abscess in the small bowel mesentery noted particularly in the right upper quadrant.
Repeat CT with PO/IV contrast 11/21 with inflamed fatty mass adjacent to a portion of the small bowel with some adjacent bowel wall thickening improvement, ?omental infarction.
Patient is now POD#4 diagnostic lap, laparoscopic assisted small bowel resection.
AVSS
Ileus, awaiting more consistent ROBF, hold on abd X-ray given unlikely to change clinical management, patient feeling improved
Monitor Hb - awaiting labs
Plan:
-- NPO with chips and sips. Will give another day to await bowel function.
-- Continue IV fluids.
-- Continue antibiotics - on Zosyn.
-- Analgesics/antiemetics prn, patient wishes to avoid pain meds if able
-- Continue to trend Hb - await today's labs
-- Medical management as per primary team
Subjective Data
-
Date of Service: November 28, 2023
Patient states she feels 'great'. She does not have flatus yet but she does have loose stool. She denies bleeding. She has minor nausea but otherwise has no complaints. She has been up and walking.
Objective Data
-
Intake and Output
11/27/23 11/28/23 11/29/23
06:59 06:59 06:59
Intake Total 1880 / 1880 1600 / 1600
Output Total 1500 / 1500
Balance 380 / 380 1600 / 1600
Intake:
Oral fluids 480 / 480
IV fluids (Total) 1200 / 1200 1500 / 1500
IV piggybacks 200 / 200 100 / 100
Output:
Emesis 1500 / 1500
Other:
Number of approximated MODERATE 1 2
amounts of urine
Vital Signs
Temp Pulse Resp BP Pulse Ox
98.3 F 69 16 138/71 96
11/28/23 07:05 11/28/23 07:05 11/28/23 07:05 11/28/23 07:05 11/28/23 07:05
Calcium 8.8 mg/dl (8.4-10.2) 11/27/23 07:33
Magnesium 2.2 mg/dl (1.6-2.3) 11/20/23 06:14
Total Bilirubin 0.5 mg/dl (0.2-1.3) 11/19/23 18:17
AST 20 U/L (14-36) 11/19/23 18:17
ALT 15 U/L (0-35) 11/19/23 18:17
Alkaline Phosphatase 96 U/L (38-126) 11/19/23 18:17
Total Protein 6.9 g/dl (6.3-8.2) 11/19/23 18:17
Albumin 4.2 g/dl (3.5-5.0) 11/19/23 18:17
Physical Exam
-
Gen: NAD
Abd: soft, mild tenderness periumbilically (improving), no distension, non-peritoneal, incisions c/d/i - no erythema or drainage, ecchymosis at umbilical
[2023-11-28 08:51] LABS: % Basophils 0.8 % (0-2); % Eosinophils 5.1 % (0-6); % Immature Granulocytes 0.6 % (0-0.5); % Lymphocytes 25.4 % (20.5-51.1); % Neutrophils 60.1 % (42.2-75.2); Absolute Basophils 0.1 10^3/uL (0-0.2); Absolute Eosinophils 0.3 10^3/uL (0-0.7); Absolute Lymphocytes 1.6 10^3/uL (1.2-3.4); Absolute Monocytes 0.5 10^3/uL (0.1-0.6); Absolute Neutrophils 3.7 10^3/uL (1.4-6.5); Hematocrit 24.1 % (37.0-47.0); Hemoglobin 7.7 g/dL (12.0-16.0); Mean Corpuscular Hgb 25.4 pg (27.0-31.0); Mean Corpuscular Volume 79.5 fL (81.0-99.0); Mean Platelet Volume 9.8 fL (7.4-10.4); Nucleated Red Blood Cells % 0 %; Platelet Count 279 10^3/uL (130-400); Red Blood Cell Count 3.03 10^6/uL (4.20-5.40); Red Cell Dist. Width 15.3 % (11.5-14.5); White Blood Cell Count 6.2 10^3/uL (4.8-10.8)
[2023-11-28 09:15] LABS: Blood Urea Nitrogen 4 mg/dl (7-17); Calcium 8.8 mg/dl (8.4-10.2); Carbon Dioxide 24 mmol/L (22-30); Chloride 110 mmol/L (98-107); Estimated Creatinine Clearance 68 ml/min; Glucose 120 mg/dl (70-99); Potassium 3.4 mmol/L (3.5-5.1); Sodium 141 mmol/L (135-145); eGFR > 60.00
[2023-11-28] MEDS: COREG 3.125 MG PO ×2 (09:16→20:19)
[2023-11-28] MEDS: VISBIOME 1 CAP PO (09:16)
[2023-11-28] MEDS: PROTONIX IV 40 MG IV (09:16)
[2023-11-28] MEDS: NSS (PRESERVATIVE FREE) 10 ML IV (09:17)
--- NOTE | 2023-11-28 09:32 | CM ---
Reviewed the chart notes. Patient remains on sips of clears only. CM continues to be available to patient/family and is monitoring medical plan for needs at discharge.
Plan: Discharge to home when medically stable. No needs identified at this time.
--- NOTE | 2023-11-28 10:19 | W.PN.HOSP.TC ---
Today's Communication/Plan
-
Can try sips
Repeat CBC in AM, hold off on transfusion
replace potassium
c/w IVF
Assessment / Plan
Assessment / Plan
Physical Exam
General: Well Developed, Well Nourished and Comfortable
HEENT: Moist Mucous Membranes
Respiratory: Non Labored Respirations
Heart S1S2 , regular
GI: Soft, not tender, sluggish BS
Skin: Warm and Dry
: No hematuria
Neuro: Awake, Alert and AO x 3
Psych: Calm
Assessment:
# Small bowel mass and pSBO
- CT: There is 4 cm inflamed fatty mass in the right mid abdomen at the medial margin of a small bowel, most suggestive of omental infarction and associated with partial small bowel obstruction
s/p Laparoscopic assisted small bowel resection by Dr Pollard on 11/23. No complications reported
d/w surgery, possible infection as etiology. Pathology is pending.
# Suspect post op ileus
no nausea. less loose stools but no gas . Feels better after NPO
Resumed IVF
IV Zosyn, No fever or leukocytosis.
Might try clear liquid diet today
Pain control with Tylenol and Toradol PRN
-Appreciate surgery help
#Hypoglycemia, asymptomatic
PRN IVF
resolved.
# Leukocytosis, reactive
Good clinical improvement.
# hypokalemia, replace
# Acute blood loss anemia
HGB at 7.7 , no hemodynamic instability, will recheck hemoglobin in a.m. if stable no need for transfusion
#Essential Hypertension
- CLOUD ARCHITECT Coreg
- Hold CLOUD ARCHITECT Losartan for now, monitor BP
Hyperlipidemia
- hold CLOUD ARCHITECT statin
Hx Opiate Abuse now sober > 20 years
Ex Smoker - quit 1998
Hx Alcohol use - quit 1998
Hx of Eczema on Dupixent
Given 11/24.
Hyponatremia
- improved
DVT ppx: Lovenox
Code: Full
Total time spent to see the patient, examine the patient on the floor, review data and lab results, discuss treatment plan with patient, nursing staff around 55 minutes
Anticipated Discharge: > 48 hours
Subjective/Interval History
-
Date of Service: November 28, 2023
She feels better
No nausea or abd pain
Mild discomfort in abdomen, managed by Tylenol.
Objective Data
-
Labs:
Laboratory Results
11/28/23
08:16
WBC 6.2
Hgb 7.7 L
Hct 24.1 L
Plt Count 279 D
Sodium 141
Potassium 3.4 L
Chloride 110 H
Carbon Dioxide 24
BUN 4 L
Creatinine 0.7
Glucose 120 H
Calcium 8.8
Vital Signs:
Vital Signs
Temp Pulse Resp BP Pulse Ox
98.3 F 69 16 138/71 96
11/28/23 07:05 11/28/23 07:05 11/28/23 07:05 11/28/23 07:05 11/28/23 07:05
I&O
11/27/23 11/28/23 11/29/23
06:59 06:59 06:59
Intake Total 1880 / 1880 1600 / 1600
Output Total 1500 / 1500
Balance 380 / 380 1600 / 1600
[2023-11-28] MEDS: KCL 270 MEQ IV (12:04)
[2023-11-28 15:47] VITALS: BP 146/66
[2023-11-28] MEDS: LOVENOX SC (17:07)
[2023-11-28 23:09] VITALS: BP 129/67
[2023-11-29] MEDS: ZOSYN 50 IV ×4 (03:55→21:33)
[2023-11-29 05:51] LABS: % Basophils 0.8 % (0-2); % Eosinophils 4.2 % (0-6); % Immature Granulocytes 0.6 % (0-0.5); % Lymphocytes 27.4 % (20.5-51.1); % Monocytes 7.1 % (1.7-9.3); % Neutrophils 59.9 % (42.2-75.2); Absolute Eosinophils 0.2 10^3/uL (0-0.7); Absolute Lymphocytes 1.4 10^3/uL (1.2-3.4); Absolute Monocytes 0.4 10^3/uL (0.1-0.6); Hematocrit 23.4 % (37.0-47.0); Hemoglobin 7.6 g/dL (12.0-16.0); Mean Corp Hgb Conc. 32.5 g/dL (33.0-37.0); Mean Corpuscular Hgb 25.7 pg (27.0-31.0); Mean Corpuscular Volume 79.1 fL (81.0-99.0); Mean Platelet Volume 9.5 fL (7.4-10.4); Nucleated Red Blood Cells % 0 %; Platelet Count 272 10^3/uL (130-400); Red Blood Cell Count 2.96 10^6/uL (4.20-5.40); Red Cell Dist. Width 15.5 % (11.5-14.5)
[2023-11-29] MEDS: TYLENOL 1000 MG PO ×4 (06:06→23:06)
[2023-11-29 06:19] LABS: Blood Urea Nitrogen < 2 mg/dl (7-17); Calcium 9.1 mg/dl (8.4-10.2); Carbon Dioxide 21 mmol/L (22-30); Chloride 110 mmol/L (98-107); Estimated Creatinine Clearance 68 ml/min; Glucose 121 mg/dl (70-99); Potassium 3.6 mmol/L (3.5-5.1); Sodium 140 mmol/L (135-145); eGFR > 60.00
[2023-11-29 07:29] VITALS: BP 123/60
[2023-11-29] MEDS: D5/0.9% SODIUM CHLORIDE 1000 IV ×2 (08:06→23:06)
[2023-11-29] MEDS: COREG 3.125 MG PO ×2 (08:08→21:32)
[2023-11-29] MEDS: PROTONIX IV 40 MG IV (08:08)
[2023-11-29] MEDS: NSS (PRESERVATIVE FREE) 10 ML IV (08:08)
[2023-11-29] MEDS: VISBIOME PO (08:09)
--- NOTE | 2023-11-29 11:23 | W.PN.HOSP.TC ---
Today's Communication/Plan
-
Clear diet
lower rate of IVF
Zosyn, 10 days of Tx.
IV iron.
Assessment / Plan
Assessment / Plan
Physical Exam
General: Well Developed, Well Nourished and Comfortable
HEENT: Moist Mucous Membranes
Respiratory: Non Labored Respirations
Heart S1S2 , regular
GI: Soft, not tender, sluggish BS
Skin: Warm and Dry
: No hematuria
Neuro: Awake, Alert and AO x 3
Psych: Calm
Assessment:
# Small bowel mass and pSBO
- CT: There is 4 cm inflamed fatty mass in the right mid abdomen at the medial margin of a small bowel, most suggestive of omental infarction and associated with partial small bowel obstruction
s/p Laparoscopic assisted small bowel resection by Dr Pollard on 11/23. No complications reported
d/w surgery, possible infection as etiology. Pathology is pending.
# Suspect post op ileus
She seems to do well with bowel rest, trial of clears today
No nausea. less loose stools, good bowel sounds.
Resumed IVF but lower the rate
IV Zosyn, No fever or leukocytosis.
Pain control with Tylenol and Toradol PRN
#Hypoglycemia, asymptomatic
PRN IVF
resolved.
# Leukocytosis, reactive
Good clinical improvement.
# hypokalemia, replaced
# Acute blood loss anemia
HGB at 7.77.6 , no hemodynamic instability, stable no need for transfusion, she denies dizziness, no tachycardia.
Will do IV iron
#Essential Hypertension
- BANK CREDIT CARD COLLECTION CLERK Coreg
- Hold BANK CREDIT CARD COLLECTION CLERK Losartan for now, monitor BP
Hyperlipidemia
- hold BANK CREDIT CARD COLLECTION CLERK statin
Hx Opiate Abuse now sober > 20 years
Ex Smoker - quit 1998
Hx Alcohol use - quit 1998
Hx of Eczema on Dupixent
Given 11/24.
Hyponatremia
- improved
DVT ppx: Lovenox
Code: Full
Total time spent to see the patient, examine the patient on the floor, review data and lab results, discuss treatment plan with patient, nursing staff around 57 minutes
Anticipated Discharge: 24 - 48 hours
Subjective/Interval History
-
Date of Service: November 29, 2023
She is feeling better
less abd discomfort
less loose stools
No nausea
No fever
No chest pain
Objective Data
-
Labs:
Laboratory Results
11/29/23
05:37
WBC 5.0
Hgb 7.6 L
Hct 23.4 L
Plt Count 272
Sodium 140
Potassium 3.6
Chloride 110 H
Carbon Dioxide 21 L
BUN < 2 L
Creatinine 0.7
Glucose 121 H
Calcium 9.1
Vital Signs:
Vital Signs
Temp Pulse Resp BP Pulse Ox
98.2 F 74 18 123/60 98
11/29/23 07:29 11/29/23 07:29 11/29/23 07:29 11/29/23 07:29 11/29/23 07:29
I&O
11/28/23 11/29/23 11/30/23
06:59 06:59 06:59
Intake Total 1600 / 1600 3805 / 3805
Balance 1600 / 1600 3805 / 3805
--- NOTE | 2023-11-29 12:14 | W.PN.GS2 ---
Today's Communication / Plan
-
Trial of clears
Assessment / Plan
-
62-year-old female with no PSH who presents with generalized abdominal pain radiating to her back that began about a week ago accompanied with bloating, nausea and nonbloody nonbilious emesis x 1 as well as more recently diarrhea.
CT abdomen pelvis with IV contrast was performed which demonstrated a ?phlegmon/abscess in the small bowel mesentery noted particularly in the right upper quadrant.
Repeat CT with PO/IV contrast 11/21 with inflamed fatty mass adjacent to a portion of the small bowel with some adjacent bowel wall thickening improvement, ?omental infarction.
Patient is now POD#5 diagnostic lap, laparoscopic assisted small bowel resection.
AVSS
Ileus improving, follow for more robust bowel recovery
H/H stable.
Plan:
-- Trial of clears
-- Continue IV fluids, decreased rate
-- Continue antibiotics - on Zosyn through tomorrow
-- Analgesics/antiemetics prn, patient wishes to avoid pain meds if able
-- Medical management as per primary team
Subjective Data
-
Date of Service: November 29, 2023
Patient seen and examined at bedside with Dr. Philip. Reeves n/v. Passed a stool with flatus today. Pain improving.
Objective Data
-
Intake and Output
11/28/23 11/29/23/
06:59 06:59 06:59
Intake Total 1600 / 1600 3805 / 3805
Balance 1600 / 1600 3805 / 3805
Intake:
Oral fluids 480 / 480
IV fluids (Total) 1500 / 1500 2875 / 2875
IV piggybacks 100 / 100 450 / 450
Other:
Number of approximated MODERATE 2 2
amounts of urine
How many times incontinent 3
MODERATE amount urine
Vital Signs
Temp Pulse Resp BP Pulse Ox
98.2 F 74 18 123/60 98
11/29/23 07:29 11/29/23 07:29 11/29/23 07:29 11/29/23 07:29 11/29/23 07:29
Lab Results
11/29/23 05:37
11/29/23 05:37
Calcium 9.1 mg/dl (8.4-10.2) 11/29/23 05:37
Magnesium 2.2 mg/dl (1.6-2.3) 11/20/23 06:14
Total Bilirubin 0.5 mg/dl (0.2-1.3) 11/19/23 18:17
AST 20 U/L (14-36) 11/19/23 18:17
ALT 15 U/L (0-35) 11/19/23 18:17
Alkaline Phosphatase 96 U/L (38-126) 11/19/23 18:17
Total Protein 6.9 g/dl (6.3-8.2) 11/19/23 18:17
Albumin 4.2 g/dl (3.5-5.0) 11/19/23 18:17
Physical Exam
-
Gen: NAD
Abd: soft, mild tenderness periumbilically (improving), no distension, non-peritoneal, incisions c/d/i - no erythema or drainage, ecchymosis at umbilical site
[2023-11-29 12:25] LABS: Iron 36 ug/dl (37-170)
[2023-11-29 12:35] LABS: Percent Saturation 9 % (20-50); Total Iron Binding Capacity 370 ug/dl (265-497)
[2023-11-29 13:01] LABS: Ferritin 17.8 ng/ml (11.1-264.0)
[2023-11-29] MEDS: FERRLECIT 110 MG IV (14:38)
[2023-11-29 14:44] VITALS: BP 120/71
[2023-11-29] MEDS: LOVENOX SC (18:02)
[2023-11-29] MEDS: D5/0.9% SODIUM CHLORIDE IV (21:33)
[2023-11-29 23:11] VITALS: BP 122/53
[2023-11-30] MEDS: ZOSYN 50 IV ×2 (05:00→09:55)
[2023-11-30] MEDS: TYLENOL 1000 MG PO ×4 (05:43→23:00)
[2023-11-30 07:25] LABS: Hematocrit 23.7 % (37.0-47.0); Hemoglobin 7.8 g/dL (12.0-16.0); Mean Corp Hgb Conc. 32.9 g/dL (33.0-37.0); Mean Corpuscular Hgb 25.3 pg (27.0-31.0); Mean Corpuscular Volume 76.9 fL (81.0-99.0); Mean Platelet Volume 9.7 fL (7.4-10.4); Platelet Count 302 10^3/uL (130-400); Red Blood Cell Count 3.08 10^6/uL (4.20-5.40); White Blood Cell Count 4.3 10^3/uL (4.8-10.8)
[2023-11-30 07:55] VITALS: BP 118/74
[2023-11-30 07:57] LABS: Blood Urea Nitrogen < 2 mg/dl (7-17); Carbon Dioxide 24 mmol/L (22-30); Chloride 109 mmol/L (98-107); Estimated Creatinine Clearance 68 ml/min; Glucose 101 mg/dl (70-99); Potassium 3.6 mmol/L (3.5-5.1); Sodium 140 mmol/L (135-145); eGFR > 60.00
[2023-11-30] MEDS: COREG 3.125 MG PO ×2 (08:33→20:54)
[2023-11-30] MEDS: PROTONIX IV 40 MG IV (08:34)
[2023-11-30] MEDS: VISBIOME 1 CAP PO (08:34)
[2023-11-30] MEDS: NSS (PRESERVATIVE FREE) 10 ML IV (08:34)
--- NOTE | 2023-11-30 10:06 | W.PN.GS2 ---
Today's Communication / Plan
-
Advance diet
Assessment / Plan
-
62-year-old female with no PSH who presents with generalized abdominal pain radiating to her back that began about a week ago accompanied with bloating, nausea and nonbloody nonbilious emesis x 1 as well as more recently diarrhea.
CT abdomen pelvis with IV contrast was performed which demonstrated a ?phlegmon/abscess in the small bowel mesentery noted particularly in the right upper quadrant.
Repeat CT with PO/IV contrast 11/21 with inflamed fatty mass adjacent to a portion of the small bowel with some adjacent bowel wall thickening improvement, ?omental infarction.
Patient is now POD#6 diagnostic lap, laparoscopic assisted small bowel resection.
AVSS
Ileus improving, follow for more robust bowel recovery
H/H stable. Mild leukopenia
Plan:
-- Advance to FLD with supplements
-- D/C IVF
-- Completed ABX course
-- Analgesics/antiemetics prn, patient wishes to avoid pain meds if able
-- OR path pending
-- Medical management as per primary team
Subjective Data
-
Date of Service: November 30, 2023
Patient seen and examined at bedside with Dr. Pollard. Lala n/v. Tolerating clears. Passing some flatus with BM's. Pain improving.
Objective Data
-
Intake and Output
11/29/23 11/30/23 12/01/23
06:59 06:59 06:59
Intake Total 3805 / 3805 2500 / 2500 1405 / 1405
Balance 3805 / 3805 2500 / 2500 1405 / 1405
Intake:
Oral fluids 480 / 480 1400 / 1400 480 / 480
IV fluids (Total) 2875 / 2875 1000 / 1000 825 / 825
IV piggybacks 450 / 450 100 / 100 100 / 100
Other:
Number of approximated MODERATE 2 3 1
amounts of urine
Number of approximated LARGE 1
amounts of urine
How many times incontinent 3
MODERATE amount urine
Vital Signs
Temp Pulse Resp BP Pulse Ox
98.2 F 89 17 118/74 97
11/30/23 07:55 11/30/23 07:55 11/30/23 07:55 11/30/23 08:33 11/30/23 08:00
Lab Results
11/30/23 06:50
11/30/23 06:50
Calcium 9.0 mg/dl (8.4-10.2) 11/30/23 06:50
Magnesium 2.2 mg/dl (1.6-2.3) 11/20/23 06:14
Total Bilirubin 0.5 mg/dl (0.2-1.3) 11/19/23 18:17
AST 20 U/L (14-36) 11/19/23 18:17
ALT 15 U/L (0-35) 11/19/23 18:17
Alkaline Phosphatase 96 U/L (38-126) 11/19/23 18:17
Total Protein 6.9 g/dl (6.3-8.2) 11/19/23 18:17
Albumin 4.2 g/dl (3.5-5.0) 11/19/23 18:17
Physical Exam
-
Gen: NAD
Abd: soft, mild tenderness periumbilically (improving), no distension, non-peritoneal, incisions c/d/i - no erythema or drainage, ecchymosis at umbilical incision site
--- NOTE | 2023-11-30 12:49 | W.PN.HOSP.TC ---
Today's Communication/Plan
-
advance diet per GS
await path
Assessment / Plan
Assessment / Plan
Assessment:
Small bowel mass and pSBO
- CT: There is 4 cm inflamed fatty mass in the right mid abdomen at the medial margin of a small bowel, most suggestive of omental infarction and associated with partial small bowel obstruction
- s/p Laparoscopic assisted small bowel resection by Dr Pollard on 11/23. No complications reported
- Path pending
- Finish Abx course day 03/24
post op ileus
- improving
- diet: Full liquids
- pain control, anti-emetics
Hypoglycemia, asymptomatic
- resolved
Leukocytosis, reactive
hypokalemia, replaced
Acute blood loss anemia
- HGB at 7.8
- continue IV Iron
Essential HTN
- continue Coreg
- resume ARB in AM
Hyperlipidemia
- resume PATIENT SAFETY TECH statin
Hx Opiate Abuse now sober > 20 years
Ex Smoker - quit 1998
Hx Alcohol use - quit 1998
Hx of Eczema on Dupixent
Given 11/24.
Hyponatremia
- improved
DVT ppx: Lovenox
Code: Full
Anticipated Discharge: 24 - 48 hours
Subjective/Interval History
-
Date of Service: November 30, 2023
pain improving, + Flatus. tolerating clears. No N/V
Objective Data
-
Labs:
Laboratory Results
11/30/23
06:50
WBC 4.3 L
Hgb 7.8 L
Hct 23.7 L
Plt Count 302
Sodium 140
Potassium 3.6
Chloride 109 H
Carbon Dioxide 24
BUN < 2 L
Creatinine 0.7
Glucose 101 H
Calcium 9.0
Vital Signs:
Vital Signs
Temp Pulse Resp BP Pulse Ox
98.2 F 89 17 118/74 97
11/30/23 07:55 11/30/23 07:55 11/30/23 07:55 11/30/23 08:33 11/30/23 08:00
I&O
11/29/23 11/30/23 12/01/23
06:59 06:59 06:59
Intake Total 3805 / 3805 2500 / 2500 1405 / 1405
Balance 3805 / 3805 2500 / 2500 1405 / 1405
Physical Exam
-
General: No Apparent Distress
HEENT: Normocephalic and Atraumatic
Respiratory: Negative Wheezes
Cardiac: Regular Rhythm and S1/S2
GI: Soft and Nontender
Genito-urinary: No Costovertebral Tender
Neuro: AO x 3
Hematologic / Lymphatic: No Lymphadenopathy
Psych: Calm
Data Reviewed
-
Total Time Spent with Patient (in minutes): 42
Labs: Labs Reviewed by me
[2023-11-30] MEDS: FERRLECIT 110 MG IV (13:25)
--- NOTE | 2023-11-30 13:58 | CM ---
Reviewed the chart notes. Patient's diet advanced to full liquid today. CM continues to be available to patient/family and is monitoring medical plan for needs at discharge.
Plan: Discharge to home when medically stable. No needs anticipated.
[2023-11-30 15:30] VITALS: BP 141/59
[2023-11-30] MEDS: LOVENOX SC (17:57)
[2023-11-30] MEDS: CRESTOR 5 MG PO (21:01)
[2023-11-30 23:14] VITALS: BP 121/53
[2023-12-01] MEDS: TYLENOL 1000 MG PO ×2 (05:01→23:04)
[2023-12-01 06:16] LABS: Hematocrit 24.9 % (37.0-47.0); Hemoglobin 8.2 g/dL (12.0-16.0); Mean Corp Hgb Conc. 32.9 g/dL (33.0-37.0); Mean Platelet Volume 10.1 fL (7.4-10.4); Platelet Count 330 10^3/uL (130-400); Red Blood Cell Count 3.15 10^6/uL (4.20-5.40); Red Cell Dist. Width 16.1 % (11.5-14.5); White Blood Cell Count 5.5 10^3/uL (4.8-10.8)
[2023-12-01 06:36] LABS: Blood Urea Nitrogen 3 mg/dl (7-17); Calcium 9.6 mg/dl (8.4-10.2); Carbon Dioxide 24 mmol/L (22-30); Chloride 108 mmol/L (98-107); Estimated Creatinine Clearance 68 ml/min; Glucose 85 mg/dl (70-99); Sodium 140 mmol/L (135-145); eGFR > 60.00
--- NOTE | 2023-12-01 06:58 | W.PN.GS2 ---
Today's Communication / Plan
-
-- LRD
-- Tentative plan for DC tomorrow
Assessment / Plan
-
62-year-old female with no PSH who presents with generalized abdominal pain radiating to her back that began about a week ago accompanied with bloating, nausea and nonbloody nonbilious emesis x 1 as well as more recently diarrhea.
CT abdomen pelvis with IV contrast was performed which demonstrated a ?phlegmon/abscess in the small bowel mesentery noted particularly in the right upper quadrant.
Repeat CT with PO/IV contrast 11/21 with inflamed fatty mass adjacent to a portion of the small bowel with some adjacent bowel wall thickening improvement, ?omental infarction.
Patient is now POD#7 diagnostic lap, laparoscopic assisted small bowel resection.
AVSS
Ileus improving, follow for more robust bowel recovery
H/H stable. Mild leukopenia
Plan:
-- LRD
-- HLIV
-- Completed ABX course
-- Analgesics/antiemetics prn, patient wishes to avoid pain meds if able
-- OR path pending
-- Medical management as per primary team
-- Tentative plan for DC tomorrow
Subjective Data
-
Date of Service: December 01, 2023
No complaints. Pain well-controlled. Tolerated fulls. Denies any nausea or vomiting. Passing looser stools and some flatus. Stools noted to be more rust colored (though on iron infusion).
Objective Data
-
Intake and Output
11/29/23 11/30/23 12/01/23
06:59 06:59 06:59
Intake Total 3805 / 3805 2500 / 2500 3785 / 3785
Balance 3805 / 3805 2500 / 2500 3785 / 3785
Intake:
Oral fluids 480 / 480 1400 / 1400 2400 / 2400
IV fluids (Total) 2875 / 2875 1000 / 1000 1125 / 1125
IV piggybacks 450 / 450 100 / 100 260 / 260
Other:
Number of approximated MODERATE 2 3 3
amounts of urine
Number of approximated LARGE 1
amounts of urine
How many times incontinent 3
MODERATE amount urine
Vital Signs
Temp Pulse Resp BP Pulse Ox
98.5 F 70 14 121/53 95
11/30/23 23:14 11/30/23 23:14 11/30/23 23:14 11/30/23 23:14 11/30/23 23:14
Lab Results
12/01/23 04:47
12/01/23 04:47
Calcium 9.6 mg/dl (8.4-10.2) 12/01/23 04:47
Magnesium 2.2 mg/dl (1.6-2.3) 11/20/23 06:14
Total Bilirubin 0.5 mg/dl (0.2-1.3) 11/19/23 18:17
AST 20 U/L (14-36) 11/19/23 18:17
ALT 15 U/L (0-35) 11/19/23 18:17
Alkaline Phosphatase 96 U/L (38-126) 11/19/23 18:17
Total Protein 6.9 g/dl (6.3-8.2) 11/19/23 18:17
Albumin 4.2 g/dl (3.5-5.0) 11/19/23 18:17
Physical Exam
-
Gen: NAD
Abd: soft, NT/ND, non-peritoneal, incisions c/d/i - no erythema or drainage, notable ecchymosis
[2023-12-01 07:40] VITALS: BP 138/74
[2023-12-01] MEDS: COREG 3.125 MG PO ×2 (09:04→20:09)
[2023-12-01] MEDS: PROTONIX 40 MG PO (09:05)
[2023-12-01] MEDS: COZAAR 50 MG PO (09:05)
[2023-12-01] MEDS: VISBIOME 1 CAP PO (09:05)
[2023-12-01] MEDS: TYLENOL PO ×2 (11:57→17:10)
--- NOTE | 2023-12-01 12:12 | W.PN.HOSP.TC ---
Today's Communication/Plan
-
LRD and observe, if doing well in 24 hours then DC as per GS
Assessment / Plan
Assessment / Plan
Assessment:
Small bowel mass and pSBO
- CT: There is 4 cm inflamed fatty mass in the right mid abdomen at the medial margin of a small bowel, most suggestive of omental infarction and associated with partial small bowel obstruction
- s/p Laparoscopic assisted small bowel resection by Dr Pollard on 11/23. No complications reported
- Path consistent with fistula/abscess. no mass reported
- Finish Abx course day 03/24
post op ileus
- improving
- diet: LRD and observe
- pain control, anti-emetics
Hypoglycemia, asymptomatic
- resolved
Leukocytosis, reactive
hypokalemia, replaced
Acute blood loss anemia
- HGB at 8.2
- continue IV Iron
Essential HTN
- continue Coreg/ARB
Hyperlipidemia
- continue statin
Hx Opiate Abuse now sober > 20 years
Ex Smoker - quit 1998
Hx Alcohol use - quit 1998
Hx of Eczema on Dupixent
Given 11/24.
Hyponatremia
- improved
DVT ppx: Lovenox
Code: Full
Anticipated Discharge: Within 24 hours
Subjective/Interval History
-
Date of Service: December 01, 2023
tolerated full liquids
Objective Data
-
Labs:
Laboratory Results
12/01/23
04:47
WBC 5.5
Hgb 8.2 L
Hct 24.9 L
Plt Count 330
Sodium 140
Potassium 4.0
Chloride 108 H
Carbon Dioxide 24
BUN 3 L
Creatinine 0.7
Glucose 85
Calcium 9.6
Vital Signs:
Vital Signs
Temp Pulse Resp BP Pulse Ox
98.1 F 78 18 138/74 99
12/01/23 07:40 12/01/23 07:40 12/01/23 07:40 12/01/23 07:40 12/01/23 07:40
I&O
11/30/23 12/01/23 12/02/23
06:59 06:59 06:59
Intake Total 2500 / 2500 3785 / 3785 480 / 480
Balance 2500 / 2500 3785 / 3785 480 / 480
Physical Exam
-
General: No Apparent Distress
HEENT: Normocephalic and Atraumatic
Respiratory: Negative Wheezes or Rales
Cardiac: Regular Rhythm and S1/S2
GI: Soft and Nontender
Neuro: AO x 3
Hematologic / Lymphatic: No Lymphadenopathy
Psych: Calm
Data Reviewed
-
Total Time Spent with Patient (in minutes): 40
Labs: Labs Reviewed by me
--- NOTE | 2023-12-01 12:21 | CM ---
CM reviewed pt with Dr Calixto
Diet advancing and if able to tolerate, ADC tomorrow once surgery clears
Per chart review and physician discussion, no needs anticipated
CM will remain available should dc needs arise
Discharge Disposition- home, no needs
[2023-12-01] MEDS: FERRLECIT 110 MG IV (14:39)
[2023-12-01 15:25] VITALS: BP 147/69
[2023-12-01] MEDS: LOVENOX SC (17:11)
[2023-12-01] MEDS: CRESTOR 5 MG PO (23:04)
--- NOTE | 2023-12-01 23:24 | PTCARENOTE ---
Pts L wrist IV removed two days ago due to occlusion. Currently at this time pt complaining of pain in L arm radiating from wrist to forearm. Upon assessment arm has mild swelling and redness to anterior forearm. skin intact. [employer] Rout[employer] notified.
Educated pt to notify nurse if symptoms worsens.
[2023-12-01 23:28] VITALS: BP 118/55
--- NOTE | 2023-12-02 04:21 | DOWNTIME ---
There was a [employer] Under[employer] Downtime on 12/02/2023 from 0100 to 12/02/2023 at 0337. Downtime documentation of patient's care, including medication administrations, has been reconciled in the electronic record per guidelines. Refer to the
patient's paper chart under the miscellaneous tab to see printed paper medication records and downtime forms.
[2023-12-02] MEDS: TYLENOL 1000 MG PO (05:53)
[2023-12-02 07:35] VITALS: BP 145/65
[2023-12-02] MEDS: COZAAR 50 MG PO (07:42)
[2023-12-02] MEDS: COREG 3.125 MG PO (07:42)
[2023-12-02] MEDS: PROTONIX 40 MG PO (07:42)
[2023-12-02] MEDS: VISBIOME 1 CAP PO (07:42)
[2023-12-02] MEDS: FEOSOL 325 MG PO (08:03)
--- NOTE | 2023-12-02 08:28 | W.PN.GS2 ---
Addendum entered and electronically signed by Ryan Pollard MD 12/02/23 11:12:
Left upper extremity phlebitis noted.
Heat pad and NSAIDs
Original Note:
Today's Communication / Plan
-
Dispo planning
Assessment / Plan
-
62-year-old female with no PSH who presents with generalized abdominal pain radiating to her back that began about a week ago accompanied with bloating, nausea and nonbloody nonbilious emesis x 1 as well as more recently diarrhea.
CT abdomen pelvis with IV contrast was performed which demonstrated a ?phlegmon/abscess in the small bowel mesentery noted particularly in the right upper quadrant.
Repeat CT with PO/IV contrast 11/21 with inflamed fatty mass adjacent to a portion of the small bowel with some adjacent bowel wall thickening improvement, ?omental infarction.
Patient is now POD#8 diagnostic lap, laparoscopic assisted small bowel resection.
Plan:
Pathology reviewed with patient: Fistulous tract from small bowel to the mesentery. Benign, all questions answered.
Okay to DC from a surgery perspective.
Patient to follow-up with me in the office in 2 to 3 weeks. Discharge instructions updated.
Time Spent
Total Time Spent with Patient (in minutes): 20
Subjective Data
-
Date of Service: December 02, 2023
Interval Events:
No acute events overnight. Slept well. Pain Controlled. Denies Nausea/Vomiting, +bowel function. Tolerating diet.
Objective Data
-
Intake and Output
12/01/23 12/02/23 12/03/23
06:59 06:59 06:59
Intake Total 3785 / 3785 4550 / 4550
Balance 3785 / 3785 4550 / 4550
Intake:
Oral fluids 2400 / 2400 4440 / 4440
IV fluids (Total) 1125 / 1125
IV piggybacks 260 / 260 110 / 110
Other:
Number of approximated MODERATE 3 3
amounts of urine
Number of approximated LARGE 1
amounts of urine
Vital Signs
Temp Pulse Resp BP Pulse Ox
98.2 F 79 17 145/65 98
12/02/23 07:35 12/02/23 07:35 12/02/23 07:35 12/02/23 07:35 12/02/23 07:35
Lab Results
12/01/23 04:47
12/01/23 04:47
Calcium 9.6 mg/dl (8.4-10.2) 12/01/23 04:47
Magnesium 2.2 mg/dl (1.6-2.3) 11/20/23 06:14
Total Bilirubin 0.5 mg/dl (0.2-1.3) 11/19/23 18:17
AST 20 U/L (14-36) 11/19/23 18:17
ALT 15 U/L (0-35) 11/19/23 18:17
Alkaline Phosphatase 96 U/L (38-126) 11/19/23 18:17
Total Protein 6.9 g/dl (6.3-8.2) 11/19/23 18:17
Albumin 4.2 g/dl (3.5-5.0) 11/19/23 18:17
Physical Exam
-
GENERAL/NEURO: Awake, Alert, no distress
CHEST: Unlabored breathing on RA
ABDOMEN: Soft, Non-Tender, Non-Distended, stable milady-incisional bruising. Incisions clean dry and intact.
--- NOTE | 2023-12-02 11:10 | CM ---
Reviewed the chart notes and spoke with the patient at the bedside. The patient anticipates being discharged to home today with no needs. The patient's spouse will provide transportation. CM continues to be available to patient/family and is
monitoring medical plan for needs at discharge.
Plan: Discharge to home today. No needs identified at this time. to transport.
[2023-12-02] MEDS: TYLENOL PO (11:23)
--- NOTE | 2023-12-02 11:30 | W.PN.HOSP.TC ---
Today's Communication/Plan
-
dc to home today
Assessment / Plan
Assessment / Plan
Assessment:
Small bowel mass and pSBO
- CT: There is 4 cm inflamed fatty mass in the right mid abdomen at the medial margin of a small bowel, most suggestive of omental infarction and associated with partial small bowel obstruction
- s/p Laparoscopic assisted small bowel resection by Dr Pollard on 11/23. No complications reported
- Path consistent with fistula/abscess. no mass reported
- Finished Abx course day 03/24
post op ileus
- improving
- diet: LRD and observe
- pain control, anti-emetics
LUE thrombophlebitis
- US: Superficial vein occlusive thrombus in the hand in the area of swelling.
- warm compresses, elevation
Hypoglycemia, asymptomatic
- resolved
Leukocytosis, reactive
hypokalemia, replaced
Acute blood loss anemia
- HGB at 8.2
- s/p IV Iron; continue oral iron
Essential HTN
- continue Coreg/ARB
Hyperlipidemia
- continue statin
Hx Opiate Abuse now sober > 20 years
Ex Smoker - quit 1998
Hx Alcohol use - quit 1998
Hx of Eczema on Dupixent
Given 11/24.
Hyponatremia
- improved
DVT ppx: Lovenox
Code: Full
More than 30 minutes spent in discharge including
Final examination of the patient
Summarizing hospital stay
Instructions for continuing care to all relevant caregivers
Preparation of discharge records, prescriptions, and referral forms
Total time spent (in minutes): 41
Anticipated Discharge: Today
Subjective/Interval History
-
Date of Service: December 02, 2023
no new complaints
Objective Data
-
Vital Signs:
Vital Signs
Temp Pulse Resp BP Pulse Ox
98.2 F 79 17 145/65 98
12/02/23 07:35 12/02/23 07:35 12/02/23 07:35 12/02/23 07:35 12/02/23 07:35
I&O
12/01/23 12/02/23 12/03/23
06:59 06:59 06:59
Intake Total 3785 / 3785 4550 / 4550
Balance 3785 / 3785 4550 / 4550
Physical Exam
-
General: No Apparent Distress
HEENT: Normocephalic and Atraumatic
Respiratory: Negative Wheezes
Cardiac: Regular Rhythm and S1/S2
GI: Soft and Nontender
Neuro: AO x 3
Hematologic / Lymphatic: No Lymphadenopathy
Psych: Calm
Data Reviewed
-
Total Time Spent with Patient (in minutes): 41
Labs: Labs Reviewed by me
--- NOTE | 2023-12-02 11:40 | W.DS.TRANS ---
DC Summary - Relay Adjuster
-
Discharge Instructions:
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
Laparoscopic small bowel resection on 11/23
Diet Low Fiber
Activity No strenuous activity
Driving Restrictions As prior to admission
Bathing Restrictions OK to Shower
Instructions:
Stand-Alone Forms:
Changes to Home Medications: No
Discharge Medications:
DC Medications w/original date entered in [employer]
calcium carbonate 500 mg PO DAILY Supplement 11/19/23
carvedilol 3.125 mg tablet 3.125 mg PO BID Blood Pressure 11/19/23
dicyclomine 20 mg tablet 20 mg PO TID Gastrointestinal Issue 11/19/23
dupilumab 300 mg/2 mL subcutaneous pen injector (Dupixent) 300 mg SC Q3W Autoimmune Disorder 11/19/23
losartan 50 mg tablet 50 mg PO DAILY Blood Pressure 11/19/23
multivitamin 1 tab PO DAILY Supplement 11/19/23
ondansetron 4 mg disintegrating tablet 4 mg PO Q12H PRN nausea 11/19/23
rosuvastatin 5 mg tablet 5 mg PO HS High Cholesterol 11/19/23
ferrous sulfate 325 mg (65 mg iron) tablet (FeroSul) 325 mg PO DAILY #30 tabs 12/02/23
pantoprazole 40 mg tablet,delayed release 40 mg PO DAILY #30 tabs 12/02/23
Home Medication Changes
Pending Results: No
Total time spent discharging patient (in min): 41
[2023-12-02 12:16] VITALS: BP 118/63
== END 2023-12-02 12:57 | disposition home or self-care (01) | DRG 329 ==
LOC: 2 SOUTH 22:18
PROVIDERS: Internal Medicine; Physician Assistant; Registered Nurse; ADMITTING PHYSICIAN Student in an Organized Health Care Education/Training Program; ATTENDING PHYSICIAN Internal Medicine; EMERGENCY PHYSICIAN Emergency Medicine; FAMILY PHYSICIAN Family Medicine; OTHER PHYSICIAN Surgery
PROC: 0DB84ZZ Excision of Small Intestine, Percutaneous Endoscopic Approach (ICD-10-PCS; 2023-11-24)
DX: K56.51 Intestinal adhesions [bands], with partial obstruction (principal); K55.069 Acute infarction of intestine, part and extent unspecified; K57.00 Diverticulitis of small intestine with perforation and abscess without bleeding; E87.1 Hypo-osmolality and hyponatremia; K91.89 Other postprocedural complications and disorders of digestive system; D62 Acute posthemorrhagic anemia; T80.1XXA Vascular complications following infusion, transfusion and therapeutic injection, initial encounter; K63.2 Fistula of intestine; K56.7 Ileus, unspecified; I10 Essential (primary) hypertension; E78.00 Pure hypercholesterolemia, unspecified; I80.8 Phlebitis and thrombophlebitis of other sites; Y84.9 Medical procedure, unspecified as the cause of abnormal reaction of the patient, or of later complication, without mention of misadventure at the time of the procedure; Y92.239 Unspecified place in hospital as the place of occurrence of the external cause; E16.2 Hypoglycemia, unspecified; E87.6 Hypokalemia; L30.9 Dermatitis, unspecified; F11.11 Opioid abuse, in remission; D72.829 Elevated white blood cell count, unspecified; F10.91 Alcohol use, unspecified, in remission; Z87.891 Personal history of nicotine dependence; Z79.85 Long-term (current) use of injectable non-insulin antidiabetic drugs
CPT/HCPCS: 88307; 88309; 74177; 80048; 80053; 81003; 81015; 82728; 82962; 83540; 83550; 83605; 83690; 83735; 85025; 85027; 87040; 87045; 87046; 87324; 87427; 87449; 89055; 93005; 93971; 96361; 96365; 96375; 99285; J2916; Q9967

== ENCOUNTER 2024-09-19 22:06 | Emergency (ER) | payer OTHER, SELFPAY ==
[2024-09-19 22:06] VITALS: BMI 26.3
[2024-09-19 22:08] VITALS: BP 137/59
[2024-09-19 22:35] LABS: % Basophils 0.3 % (0-2); % Immature Granulocytes 0.6 % (0-0.5); % Lymphocytes 5.3 % (20.5-51.1); % Monocytes 3.2 % (1.7-9.3); % Neutrophils 90.6 % (42.2-75.2); Absolute Basophils 0.1 10^3/uL (0-0.2); Absolute Immature Granulocytes 0.1 10^3/uL (0-0.05); Absolute Monocytes 0.6 10^3/uL (0.1-0.6); Absolute Neutrophils 16.2 10^3/uL (1.4-6.5); Hematocrit 34.8 % (37.0-47.0); Hemoglobin 12.4 g/dL (12.0-16.0); Mean Corp Hgb Conc. 35.6 g/dL (33.0-37.0); Mean Corpuscular Hgb 28.8 pg (27.0-31.0); Mean Corpuscular Volume 80.9 fL (81.0-99.0); Mean Platelet Volume 10.1 fL (7.4-10.4); Nucleated Red Blood Cells % 0 %; Platelet Count 202 10^3/uL (130-400); Red Cell Dist. Width 13.6 % (11.5-14.5); White Blood Cell Count 17.9 10^3/uL (4.8-10.8)
[2024-09-19 22:55] LABS: COVID-19 Antigen Negative (Negative)
[2024-09-19 23:10] LABS: ALT (SGPT) 42 U/L (0-35); AST (SGOT) 27 U/L (14-36); Albumin 3.7 g/dl (3.5-5.0); Alkaline Phosphatase 122 U/L (38-126); Blood Urea Nitrogen 16 mg/dl (7-17); Calcium 9.2 mg/dl (8.4-10.2); Carbon Dioxide 24 mmol/L (22-30); Chloride 98 mmol/L (98-107); Glucose 168 mg/dl (70-99); Potassium 4.4 mmol/L (3.5-5.1); Sodium 133 mmol/L (135-145); Total Bilirubin 0.6 mg/dl (0.2-1.3); Total Protein 6.4 g/dl (6.3-8.2); eGFR > 60.00
--- NOTE | 2024-09-20 02:03 | ED.GENMED ---
History of Present Illness
General
Chief Complaint: Headache
Source: patient
Exam Limitations: none
Time Seen by Provider: 09/20/24 01:46
Nursing documentation reviewed up to this point in time: agreed with
History of Present Illness
History of Present Illness:
This is a 63-year-old female with past medical history of hypertension, hyperlipidemia, who presents emergency department today with concerns of a headache for the past 2 days. Patient states that this is the most severe headache she has ever had.
It is intermittent but when it comes on it is severe and last multiple hours. She has taken Tylenol and Motrin without relief. Of note, patient has had intermittent coughing and sinus pressure for the past few days as well as mild sore throat.
Patient states that after a coughing fit, she does feel a slight pressure in her chest at times. She has also had intermittent fevers. Of note note, she did have diarrhea last week and nausea as well. Patient states that the symptoms started
after she was in contact with her sick grandchild. Patient was seen at urgent care today but was told to report to the ER if her headache returns of concern for meningitis since patient has had fevers. Patient denies any rash on her body any neck
stiffness, any weakness of the virus other, any upper extremity paresthesias, any visual changes.
Review of Systems
Review of Systems
All Other Systems: ROS reviewed and negative except as documented in HPI and ROS
Phy Exam
Physical Exam
Physical Exam:
General: Patient is well appearing and in no acute distress; non-toxic
Skin: Warm and dry, no rashes or lesions
Head: Normocephalic, atraumatic
Eyes: Sclera non-icteric. EOMs intact. PERRLA.
Neck: Full range of motion of the cervical spine
Cardiac: Regular rate and rhythm, no murmurs, no tenderness to palpation of the external chest wall
Peripheral Vascular: No lower extremity swelling or edema
Pulm: Normal respiratory effort, no wheezes, rales, or rhonchi
Abdomen: No abdominal tenderness to palpation
Neuro: CN II-XII intact, no focal neurologic deficits. No meningismus. Negative Kernig sign, negative Brudzinski sign
Psychiatric: Appropriate mood and affect.
Course
Orders/Labs/Results
Orders:
Orders
09/19/24 22:19
COVID-19 Antigen Urgent
Source: Nasal Swab
Complete Blood Count/With Diff Urgent
Comprehensive Metabolic Panel Urgent
Influenza A+B Rapid Molecular Urgent
ZAN Source: Nasal Swab
Specimen Description:
09/20/24 02:17
Electrocardiogram (*1) Urgent
Reason for Study: Chest Pain
EKG- Treatment ONCE
0.9% Sodium Chloride 500 ml [Nss] 500 ml IV BOLUS
Diphenhydramine [Benadryl] 12.5 mg IV NOW STA
Ketorolac [Toradol] 15 mg IV NOW STA
Metoclopramide [Reglan] 10 mg IV NOW STA
CR Chest - 2 Views Urgent
Comment:
Reason For Exam: cough, chest tightness
09/20/24 02:32
Troponin I Urgent
09/20/24 03:18
Ondansetron Injectable [Zofran] 4 mg IV NOW STA
09/20/24 03:19
CT Head W/o Iv Contrast Urgent
Comment:
Reason For Exam: severe headache, nausea
09/20/24 03:23
Dexamethasone Sod Phosphate [Decadron] 10 mg IV NOW STA
Abnormal Lab Results
09/19/24
22:19
WBC 17.9 H 10^3/uL
(4.8-10.8)
Hct 34.8 L %
(37.0-47.0)
MCV 80.9 L fL
(81.0-99.0)
Abs Immat Gran (auto) 0.1 H 10^3/uL
(0-0.05)
Absolute Neuts (auto) 16.2 H 10^3/uL
(1.4-6.5)
Absolute Lymphs (auto) 1.0 L 10^3/uL
(1.2-3.4)
Immature Gran % 0.6 H %
(0-0.5)
Neutrophils % 90.6 H %
(42.2-75.2)
Lymphocytes % 5.3 L %
(20.5-51.1)
Sodium 133 L mmol/L
(135-145)
Glucose 168 H mg/dl
(70-99)
ALT 42 H U/L
(0-35)
09/19/24 22:19
09/19/24 22:19
Vital Signs
Initial and Last Documented VS:
Initial Vital Signs
Temp Pulse Resp BP Pulse Ox
99 F 76 18 137/59 96
09/19/24 22:08 09/19/24 22:08 09/19/24 22:08 09/19/24 22:08 09/19/24 22:08
Last Documented Vital Signs
Temp Pulse Resp BP Pulse Ox
99 F 76 18 127/58 94
09/19/24 22:08 09/19/24 22:08 09/19/24 22:08 09/20/24 05:00 09/20/24 05:00
MDM/Problems Addressed
Differential Diagnosis Includes:
ddx include tension headache, migraine headache, viral syndrome, influenza, COVID-19, pneumonia, subarachnoid hemorrhage, subdural
MDM/Problems Addressed:
63-year-old female with past medical history of hypertension, hyperlipidemia presents emergency department today with concerns of persistent headache in the setting of a viral syndrome. Patient notes that the headache is intermittent but tends to
come back when her fever is not controlled well. Suspect headache as symptom of viral illness. Patient was initially treated with a migraine cocktail which did not improve her symptoms. As result, did give a dose of Decadron and sent patient for
CAT scan considering she is never had headache like this before. Her CT scan showed no acute intracranial abnormalities. On reassessment patient's headache is significantly improved. Highly doubt meningitis, no indication for LP at this time.
Case reviewed with attending. Chest x-ray shows no evidence of pneumonia. Patient stable for discharge.
Chronic conditions affecting care:
Hypertension, hyperlipidemia
*Radiology
Radiology exam reviewed: preliminary read by ED provider (no acute disease no evidence of pneumonia)
*Pulse Oximetry
Patient hypoxic: no
*Critical Care Note
Total Time (30-74mins, 75-104mins- exclusive of procedures): Not Applicable
Data Reviewed
Review of Other/Old Records Reveals: Records (Reviewed discharge summary from 12/02/2023 patient seen for omental infarction)
Source: patient and records
Update Note
Update Note:
3:20 am--Patient notes minimal if any improvement in her headache with migraine cocktail. Nausea persists. Will add on zofran and decadron. Will add on CT scan of the head
4:49 am--Patient seen sleeping comfortably. Patient notes that her headache is largely resolved and she feels only mid discomfort. Discussed conservative management for viral syndrome at home. Awaiting CT scan results.
ED Attending Note
-
Portions of this chart may have been created with voice recognition software.� Occasional wrong word or��sound alike� substitutions may have occurred due to the inherent limitations of voice recognition software.
Discharge Plan
Departure
Patient Disposition: Home (Routine Discharge)
Date of Disposition: 09/20/24
Time of Disposition: 05:07
Patient with high blood pressure during this ER visit?: Yes
Condition: Good
Discharge Problem:
Acute viral syndrome, Acute tension headache
Instructions: Viral Syndrome (DC), BLOOD PRESSURE
Prescriptions:
No Action
multivitamin Tablet
1 tab PO DAILY
losartan 50 mg tablet
50 mg PO DAILY
carvedilol 3.125 mg tablet
3.125 mg PO BID
calcium carbonate 500 mg calcium (1,250 mg) Tablet
500 mg PO DAILY
dicyclomine 20 mg tablet
20 mg PO TID
ondansetron 4 mg tablet,disintegrating
4 mg PO Q12H PRN (Reason: nausea)
rosuvastatin 5 mg tablet
5 mg PO HS
Dupixent Pen 300 mg/2 mL pen injector
300 mg SC Q3W
ferrous sulfate [FeroSul] 325 mg (65 mg iron) Tablet
325 mg PO DAILY Qty: 30 0RF
pantoprazole 40 mg Tablet,Delayed Release (Dr/Ec)
40 mg PO DAILY Qty: 30 0RF
Referrals:
Josee Ellison DO [Family Provider] -
Activity Restrictions/Additional Instructions:
Your CT scan of your head did not show any evidence of acute hemorrhage or any acute intracranial abnormalities.
Your white blood cell count was elevated today. This is likely due to your infection. Please follow-up with your primary care provider in 1 week to have CBC and CMP blood work repeated.
PLEASE RETURN EMERGENCY DEPARTMENT DEVELOP AN ACUTE WORSENING OF HER SYMPTOMS, INTRACTABLE NAUSEA OR VOMITING, NECK STIFFNESS, VISUAL LOSS, WEAKNESS ONE-SIDED BODY VERSUS OTHER, CHEST PAIN, SHORTNESS OF BREATH, OR ANY OTHER SIGNS OR SYMPTOMS
RECENTLY.
Interventions
Interventions:
*Risk Screen - Suicide Last Done: 09/19/24 22:08
*General Assessment Last Done: 09/19/24 22:08
*Neglect/Abuse Screening Last Done: 09/19/24 22:08
*ED COVID-19 Vaccine History Last Done: 09/20/24 02:04
*Nursing Disposition Last Done: 09/20/24 05:39
ED- Neurological Assessment Last Done: 09/20/24 02:56
ED-Skin Assessment Last Done: 09/20/24 02:56
Discharge Date and Time
Discharge Date/Time: 09/20/24 05:39
Print Language: SYRIAC
[2024-09-20] MEDS: TORADOL 15 MG IV (02:42)
[2024-09-20] MEDS: NSS 500 IV (02:42)
[2024-09-20] MEDS: REGLAN 10 MG IV (02:44)
[2024-09-20] MEDS: BENADRYL 12.5 MG IV (02:45)
[2024-09-20 03:00] VITALS: BP 122/61
[2024-09-20 03:27] LABS: Troponin I 0.014 ng/ml
[2024-09-20] MEDS: ZOFRAN 4 MG IV (03:29)
[2024-09-20] MEDS: DECADRON 10 MG IV (03:30)
[2024-09-20 05:00] VITALS: BP 127/58
== END 2024-09-20 05:39 | disposition home or self-care (01) ==
LOC: EMR 22:06
PROVIDERS: Emergency Medicine; Physician Assistant; EMERGENCY PHYSICIAN Student in an Organized Health Care Education/Training Program; FAMILY PHYSICIAN Family Medicine
DX: B34.9 Viral infection, unspecified (principal); G44.209 Tension-type headache, unspecified, not intractable; I10 Essential (primary) hypertension; E78.00 Pure hypercholesterolemia, unspecified
CPT/HCPCS: 99284; 96374; 96375; 96361; 70450; 71046; 80053; 84484; 85025; 87502; 87811; 93005

== ENCOUNTER 2024-12-13 05:51 | Inpatient (IN) | payer OTHER, SELFPAY ==
[2024-12-12 19:33] VITALS: BP 142/65
[2024-12-12 20:05] LABS: ALT (SGPT) 22 U/L (0-35); AST (SGOT) 29 U/L (14-36); Albumin 3.4 g/dl (3.5-5.0); Alkaline Phosphatase 104 U/L (38-126); Blood Urea Nitrogen 16 mg/dl (7-17); Calcium 9.1 mg/dl (8.4-10.2); Carbon Dioxide 23 mmol/L (22-30); Chloride 104 mmol/L (98-107); Glucose 145 mg/dl (70-99); Hematocrit 27.7 % (37.0-47.0); Hemoglobin 9.2 g/dL (12.0-16.0); Lipase 69 U/L (23-300); Mean Corp Hgb Conc. 33.2 g/dL (33.0-37.0); Mean Corpuscular Volume 78.9 fL (81.0-99.0); Nucleated Red Blood Cells % 0 %; Potassium 3.7 mmol/L (3.5-5.1); Red Cell Dist. Width 14.8 % (11.5-14.5); Sodium 134 mmol/L (135-145); Total Protein 6.3 g/dl (6.3-8.2); eGFR > 60.00
[2024-12-12 20:26] LABS: Platelet Count 73 10^3/uL (130-400)
[2024-12-12 22:52] VITALS: BP 123/60
[2024-12-12 22:58] VITALS: BMI 27.1
[2024-12-12 23:00] VITALS: BP 123/57
[2024-12-13] VITALS (11 sets, daily range): BP systolic 102–151; BP diastolic 44–67; BMI 26.6
--- NOTE | 2024-12-13 00:15 | ED.GENMED ---
History of Present Illness
General
Chief Complaint: Back Pain
Source: patient
Exam Limitations: none
Time Seen by Provider: 12/13/24 00:00
Nursing documentation reviewed up to this point in time: agreed with
History of Present Illness
History of Present Illness:
Note:
CHIEF COMPLAINT(S)
Left-sided abdominal pain and back pain.
HISTORY OF PRESENT ILLNESS
The patient is a 63-year-old female with a pmh of htn, hlp, eczema, small bowel mass s/p bowel resection who presents with left-sided abdominal and back pain. She describes the pain as constant, beginning with occasional 'little twangs' a few days
ago and becoming more severe this afternoon. The patient relates the pain to a prior incident when she experienced an abscess. She recalls that during the previous abscess, there was no clear indication of perforation, and the location was described
between the mesenteric layers and the intestine wall. Additionally, she reports nausea and a single episode of vomiting today.
She also has a history of recurrent fevers, generally peaking at around 103.5�F, having occurred most afternoons or early evenings over the past month. Initially, they were accompanied by significant headaches and muscle aches. The patient attempted
treatments, including migraine medication and recently consulted an veneer production machine operator, who suggested possible Lyme disease despite negative blood test results. The patients past medical history is significant for an episode of high temperatures reaching
104.9�F, where she was treated with migraine medications at the hospital and subsequently spent days in bed. Recent blood work indicated a slight anemia but otherwise unremarkable results. Additionally, she reports experiencing generalized muscle
aches, chills, and shivering at the onset of her symptoms, but denies any rashes. Her appetite has declined over the past few days due to pain. The patient further notes a history of a torn arm ligament, for which an MRI is pending, given the
appointment constraints. She denies sick contacts, diarrhea or constipation, dark tarry stools, rectal bleeding, shortness of breath, chest pain. She currently does not follow with GI or general surgery.
CHRONIC MEDICAL CONDITIONS SIGNIFICANTLY AFFECTING CARE
History of an abdominal abscess; previous diagnosis of long COVID affecting immune function ([id number]).
SOCIAL DETERMINANTS AFFECTING HEALTH
The patient reports delayed medical imaging due to scheduling constraints.
SOCIAL HISTORY
The patient sees an veneer production machine operator for current symptoms and she had 1 treatment which she states did not help her symptoms.
PHYSICAL EXAM
General: Patient is well appearing and in no acute distress; non-toxic
Skin: Warm and dry, no rashes or lesions
Head: Normocephalic, atraumatic
Eyes: Sclera non-icteric. EOMs intact.
Cardiac: Regular rate and rhythm, no murmurs
Peripheral Vascular: No lower extremity swelling or edema
Pulm: Normal respiratory effort, no wheezes, rales, rhonchi
Abdomen: Generalized diffuse abdominal tenderness to palpation, no palpable abdominal masses, normoactive bowel sounds
Musculoskeletal: No midline spinal tenderness to palpation, left-sided CVA tenderness noted
Neuro: CN II-XII intact, no focal neurologic deficits.
Psychiatric: Appropriate mood and affect.
PLAN
- Initiate an intravenous line and administer pain management and anti-nausea medications (ondansetron).
- Arrange for a computed tomography scan
- CBC, CMP, urinalysis
- Consider repeat Lyme disease testing as part of the differential workup
DIFFERENTIAL DIAGNOSIS
The Differential Diagnosis includes, in no particular order and is not limited to:
Differentials include diverticulitis, nephrolithiasis, intra-abdominal abscess, gastritis, etc
UPDATE
- Patient reports that Toradol did take the edge off but is still in a lot of discomfort. Will give dose of morphine
- CT scan shows multiple splenic infarcts but the splenic artery and splenic vein appear patent. Patient has no reported history of atrial fibrillation, no recent abdominal trauma, no known clotting disorder, no IV drug use
- Reviewed case with ED attending, will plan on admission
CHART REVIEW
- Reviewed discharge summary from 12/02/2023
MDM/DISPOSITION
The patient is a 63-year-old female with a pmh of htn, hlp, eczema, small bowel mass s/p bowel resection who presents with left-sided abdominal and back pain. She describes the pain as constant, beginning with occasional 'little twangs' a few days
ago and becoming more severe this afternoon. The patient relates the pain to a prior incident when she experienced an abscess. Today, patient was found to have multiple splenic infarcts on CT scan however splenic artery and swelling vein appear
patent. Patient has no reported history of A-fib, no recent abdominal trauma, no clotting disorder, no IV drug use. Considering patient's degree of discomfort, and second episode of intra-abdominal infarction, will refer for admission for further
workup and pain management.
Patient was also found to have moderate bacteria and white blood cells on her urinalysis as well as occult blood. In light of left flank pain and elevated white count, will give dose of Rocephin.
Review of Systems
Review of Systems
All Other Systems: ROS reviewed and negative except as documented in HPI and ROS
Phy Exam
Physical Exam
Physical Exam:
see hpi
Course
Orders/Labs/Results
Orders:
Orders
12/12/24 19:43
Complete Blood Count/With Diff Urgent
Comprehensive Metabolic Panel Urgent
Lipase Urgent
12/13/24 00:14
CT Abd/pel W Iv And Oral Contr Urgent
Comment:
Reason For Exam: left sided abdominal pain
0.9% Sodium Chloride 500 ml [Nss] 500 ml IV BOLUS
Iohexol [Omnipaque] See Protocol PO NOW STA
Ketorolac [Toradol] 15 mg IV NOW STA
Ondansetron Injectable [Zofran] 4 mg IV NOW STA
12/13/24 00:49
Lyme Progressive Urgent
12/13/24 02:02
Urinalysis Reflex To Culture Urgent
Date Specimen was Collected: 12/13/24
Time Specimen was Collected: 02:00
Urine Microscopic Reflex Cult Urgent
Urine Culture Urgent
ZAN Source: U
Specimen Description:
Date Specimen was Collected: 12/13/24
Time Specimen was Collected: 02:00
12/13/24 03:11
Morphine Sulfate 4 mg IV NOW STA
12/13/24 04:44
CefTRIAXone [Rocephin] 2,000 mg IV NOW STA
12/13/24 05:36
Admit/Transfer Patient As Directed
Co-Sign Provider:
Level of Care: Inpatient admission
Assign to:: Telemetry
Physician / Group: Dc
Diagnosis: Splenic Infarcts / Septic Emboli
Reason for Telemetry: Arrhythmia
Date to Stop Telemetry: 12/16/24
Time to Stop Telemetry: 11:00
Reason for Hospitalization: Splenic Infarcts / Septic Emboli
Expected length of stay greater than two midnights?: Yes
ELOS- Estimated Length of Stay in days: 4
I certify the patient meets the requirements for IP care: Yes
PRN Pain Medication Management As Directed
May give lesser potent ordered pain med per pt: Yes
preference::
Protocol:: Medication orders for pain may be administered in a
manner that supports deferring to patient preference
when the pt is:
- Requesting an ordered lesser potent pain medication.
Least to most potent pain medications are defined
as: acetaminophen < NSAID < tramadol < opioids
(morphine, oxycodone, hydromorphone).
- Requesting a lesser dose of the same medication IF
ORDERED.
- Requesting a less intrusive route of administration
if both routes are prescribed by the provider (PO <
IV).
12/13/24 05:37
Code Status As Directed
Resuscitation Status: Full Code
12/13/24 05:45
Sterile Water [Sterile Water For Injection] 20 ml .ROUTE .STK-MED
12/13/24 05:53
Blood Culture Q30M
ZAN Source: Blood/Venous
Specimen Description:
12/13/24 06:14
Blood Culture Q30M
ZAN Source: Blood/Venous
Specimen Description:
12/16/24 11:00
DC Protocol for Telemetry ONCE
Abnormal Lab Results
12/12/24 12/13/24
19:43 02:02
WBC 14.5 H 10^3/uL
(4.8-10.8)
RBC 3.51 L 10^6/uL
(4.20-5.40)
Hgb 9.2 L g/dL
(12.0-16.0)
Hct 27.7 L %
(37.0-47.0)
MCV 78.9 L fL
(81.0-99.0)
MCH 26.2 L pg
(27.0-31.0)
RDW 14.8 H %
(11.5-14.5)
Plt Count 73 L 10^3/uL
(130-400)
Abs Immat Gran (auto) 0.1 H 10^3/uL
(0-0.05)
Absolute Neuts (auto) 12.7 H 10^3/uL
(1.4-6.5)
Absolute Lymphs (auto) 0.8 L 10^3/uL
(1.2-3.4)
Absolute Monos (auto) 0.8 H 10^3/uL
(0.1-0.6)
Immature Gran % 0.6 H %
(0-0.5)
Neutrophils % 87.6 H %
(42.2-75.2)
Lymphocytes % 5.6 L %
(20.5-51.1)
Sodium 134 L mmol/L
(135-145)
Glucose 145 H mg/dl
(70-99)
Albumin 3.4 L g/dl
(3.5-5.0)
Urine Ketones 3+ A
(Negative)
Ur Occult Blood Reflex 1+ A
(Negative)
Urine RBC 7-10 A /HPF
(0-2)
Urine WBC (Reflex) >100 A /HPF
(0-5)
Urine Bacteria (Reflex) Many A
(Negative)
Urine Albumin (Reflex) 1+ A
(Neg - Trace)
12/12/24 19:43
12/12/24 19:43
Vital Signs
Initial and Last Documented VS:
Initial Vital Signs
Temp Pulse Resp BP Pulse Ox
98.8 F 77 20 142/65 99
12/12/24 19:33 12/12/24 19:33 12/12/24 19:33 12/12/24 19:33 12/12/24 19:33
Last Documented Vital Signs
Temp Pulse Resp BP Pulse Ox
98.8 F 96 18 121/51 98
12/12/24 19:33 12/13/24 03:42 12/13/24 03:42 12/13/24 06:15 12/13/24 03:42
*Pulse Oximetry
SaO2: 98
Oxygen Mode of Delivery: Room air
Patient hypoxic: no
*Critical Care Note
Total Time (30-74mins, 75-104mins- exclusive of procedures): Not Applicable
ED Attending Note
-
Portions of this chart may have been created with voice recognition software.� Occasional wrong word or��sound alike� substitutions may have occurred due to the inherent limitations of voice recognition software.
Discharge Plan
Departure
Patient Disposition: Admit
Date of Disposition: 12/13/24
Time of Disposition: 04:56
Admit to: Med/Surg
Presentation/result/management discussed w/ accepting MD/DO: Hospitalist
Patient with high blood pressure during this ER visit?: Yes
Condition: Good
Discharge Problem:
Splenic infarction, Urinary tract infection
Interventions
Interventions:
*Risk Screen - Suicide Last Done: 12/12/24 19:33
*General Assessment Last Done: 12/12/24 19:33
*Neglect/Abuse Screening Last Done: 12/12/24 19:33
*ED- Fall Risk Assessment Last Done: 12/12/24 22:50
*ED COVID-19 Vaccine History Last Done: 12/12/24 22:50
ED-Musculoskeletal Assessment Last Done: 12/12/24 22:44
ED- Neurological Assessment Last Done: 12/12/24 22:44
ED-Skin Assessment Last Done: 12/12/24 22:44
[2024-12-13] MEDS: NSS 500 IV (00:38)
[2024-12-13] MEDS: TORADOL 15 MG IV (00:39)
[2024-12-13] MEDS: ZOFRAN 4 MG IV (00:39)
[2024-12-13] MEDS: OMNIPAQUE 50 ML PO (00:40)
[2024-12-13 02:10] LABS: Urine Character Clear (Clear)
[2024-12-13 02:21] LABS: Urine Squamous Cell >30 /LPF (Few)
[2024-12-13 02:24] LABS: Urine White Cell >100 /HPF (0-5)
[2024-12-13] MEDS: MORPHINE SULFATE 4 MG IV (03:31)
--- NOTE | 2024-12-13 05:42 | HPS.HSE ---
Family Physician
-
Family Physician: Josee Ellison DO
Chief Complaint
-
Abd Pain, Fevers
History of Present Illness
Patient is a 63y F with PMH significant for hypertension and eczema who presents to ED complaining of abdominal pain and fevers. Patient states that she has been having daily fevers / chills and sweats for > 1 month. She has been seen by her
PCP and had lab testing done which was reportedly unremarkable. Patient states that she feels fairly well in the AM, but typically develops fevers by the afternoon / evening. Tmax at home to 103.5. She denies any focal complaints such as sore
throat, cough, etc.
Thursday evening she also developed nausea with L flank pain radiating across the upper abdomen. This pain became severe, prompting her to present to the ED for further evaluation.
Patient notes that she had abdominal pain about one year ago.
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
Patient denies any prior history of blood clots.
She is on Dupixent for her eczema and her last dose was one week ago (every 3 weeks).
Medical History
Past Medical History
Past Medical History: Reports Other
Additional Past Medical History:
Hypertension
Eczema
Past Surgical History: Reports Other
Additional Past Surgical History:
Ex Lap with Partial Small Bowel Resection / Abscess Excision (11/2023)
Social History
Tobacco: Former Smoker
Alcohol: Former (29 years sober)
Drug: None
Family History
Family History: Other (Father: CAD Mother: Lung Cancer)
Allergies / Home Medications
Allergies reflects when Allergies were last updated in [employer]
Home Medications with original date entered in [employer]
Allergy/Medication List:
Allergies
Allergy/AdvReac Type Severity Reaction Status Date / Time
No Known Allergies Allergy Verified 12/12/24 19:37
Home Medications
calcium carbonate 500 mg PO DAILY Supplement 11/19/23
carvedilol 3.125 mg tablet 3.125 mg PO BID Blood Pressure 11/19/23
dupilumab 300 mg/2 mL subcutaneous pen injector (Dupixent) 300 mg SC Q3W Autoimmune Disorder 11/19/23
losartan 50 mg tablet 50 mg PO DAILY Blood Pressure 11/19/23
multivitamin 1 tab PO DAILY Supplement 11/19/23
rosuvastatin 5 mg tablet 5 mg PO HS High Cholesterol 11/19/23
Review of Systems
-
History Source: Patient
A 12 point ROS was completed and negative except as noted: Yes
Constitutional: Reports Fever, Fatigue and Chills
EENT: Denies Sore Throat or Runny Nose
Respiratory: Reports Trouble Breathing (GARRETT x months.); Denies Cough
Cardiac: Denies Chest Pain or Palpitations
Abdomen/GI: Reports Abdominal Pain and Nausea; Denies Vomiting, Diarrhea, Constipated, Bloody Stools or Black Stools
: Reports Flank Pain; Denies Dysuria or Frequency
Musculoskeletal: Denies Joint Pain or Edema
Neurological: Denies Dizzy or Headache
Psych: Denies Depression or Anxiety
Physical Exam
Vital Signs
Vital Signs
Temp Pulse Resp BP Pulse Ox
98.8 F 96 18 130/57 98
12/12/24 19:33 12/13/24 03:42 12/13/24 03:42 12/13/24 03:35 12/13/24 03:42
Physical Exam
General: Other (63y F in no acute distress.)
HEENT: Moist mucous membranes and PERRLA
Respiratory: Clear; No Wheezes, Rales or Rhonchi
Cardiac: S1/S2 and Regular Rhythm; No Murmur
GI: Other (Soft, pos LUQ / epigastric tenderness without rebound. Pos BS.)
Genito-urinary: Other (Pos L CVAT.)
Musculoskeletal: No Clubbing, No Cyanosis and No Edema
Neuro: AO x 3
Laboratory Results
-
12/12/24 19:43
12/12/24:
Laboratory Results
Total Bilirubin 0.5 mg/dl (0.2-1.3) 12/12/24 19:43
AST 29 U/L (14-36) 12/12/24:43
ALT 22 U/L (0-35) 12/12/24 19:43
Alkaline Phosphatase 104 U/L (38-126) 12/12/24:
Lipase 69 U/L (23-300) 12/12/24:
Impression/Plan
-
A/P: Patient is a 63y F with PMH significant for hypertension and eczema who presents to ED complaining of abdominal pain today and fevers for the past month.
Splenic Infarcts / Abscesses
Febrile Syndrome
- Admit for further evaluation and treatment.
- New pain today and CT scan showing multiple splenic infarcts.
- ? thrombotic v infectious - with latter being suspected given prolonged fever syndrome.
- Empiric abx with Vanco / ceftriaxone.
- Blood cultures obtained in the ED.
- Check Echo.
- Pain control / supportive care.
- Follow fever curve and monitor for any new / worsening symptoms.
- ID evaluation for additional recommendations.
Leukocytosis
Macrocytic Anemia
Thrombocytopenia
- Unclear etiology. ? primary hematologic process resulting in infarcts, etc.
- Will hold on initiation of anticoagulation for now given thrombocytopenia.
- Check anemia studies.
- Hematology evaluation for additional recommendations.
Benign Hypertension
- Stable. Continue current meds with holding parameters.
Eczema
- Stable. Hold Dupixent acutely pending resolution of above issues.
DVT Prophylaxis: SCDs
Code Status: Full
[2024-12-13] MEDS: ROCEPHIN 2000 MG IV (06:04)
--- NOTE | 2024-12-13 08:37 | EDRN ---
this RN called the receiving unit and notified them that paper report was going to be tubed up
--- NOTE | 2024-12-13 08:58 | PHA.VAN.IN ---
Assessment
- Assessment
Renal Function: Appears similar to baseline
Concomitant Antimicrobials: ceftriaxone
AUC Dosing Plan
- Dosing Variables
Dosing Weight (kg): 65
Dosing CrCl (ml/min): 51
Vd coefficient (L/kg): 0.7
- Empiric Dosing
Initial / Loading Dose: Vanc 1500mg - administration pending
Maintenance Regimen: Vanc 1000mg Q24H starting 12/14 06
Estimated AUC (mcg*h/mL): 481
Estimated Peak (mcg*h/mL): 32.6
Estimated Trough (mcg/ml): 11
Estimated Half Life (H): 14.8
Patient may need to change to Q12H interval based on prior trend of SCR
Follow SCR
- Monitoring
No levels ordered at this time: consider levels in next few days
Pharmacokinetics Vancomycin I
- -
Patient Age: 63
Patient Sex: Female
Vancomycin Day #: 1
Indication: Bacteremia
Requesting Provider: Dr. Irwin
Pertinent Antimicrobial Allergies:
NKDA
Height / Weight:
Height 5 ft 1 in
Actual Weight 65 kg
- Vital Signs / Lab Results
Temp Pulse Resp BP Pulse Ox
98.5 F 93 16 128/59 95
12/13/24 07:41 12/13/24 08:45 12/13/24 07:41 12/13/24 08:00 12/13/24 08:45
Lab Results - Hematology
12/12/24
19:43
WBC 14.5 H
Lab Results - Chemistry
12/12/24
19:43
BUN 16
Creatinine 1.0
Albumin 3.4 L
Lab Results - Urine
12/13/24
02:02
Urine Nitrite (Reflex) Negative
Leukocyte Esterase Rfl Negative
Urine WBC (Reflex) >100 A
Ur Squamous Epith Cells >30
Urine Bacteria (Reflex) Many A
[2024-12-13] MEDS: VANCOCIN 530 MG IV (09:16)
[2024-12-13] MEDS: PROTONIX IV 40 MG IV (09:17)
[2024-12-13] MEDS: COREG 3.125 MG PO ×2 (09:17→20:46)
[2024-12-13] MEDS: COZAAR 50 MG PO (09:18)
[2024-12-13 09:21] LABS: Reticulocyte Count 1.2 % (0.4-2.8)
[2024-12-13 10:03] LABS: Ferritin 133.0 ng/ml (11.1-264.0)
[2024-12-13] MEDS: DILAUDID 0.5 MG IV ×3 (10:19→22:48)
--- NOTE | 2024-12-13 10:25 | PTCARENOTE ---
prn dilaudid given for 7/10 L flank and LUQ pain. given through R AC site. Vancomycin also going through R AC at this time. pt takes pills whole with water. aaox3, skin intact and is from home. states shes been having intermittent periods of fevers
for the last month mainly in the afternoon. states she hurt her L shoulder a few days ago, currently in sling. No fx noted on outpatient scans per patient. states that can get tachycardic with steps and exertion. RA at baseline. diaphoretic at
bedside with 100.0 temp
[2024-12-13 10:29] LABS: Absolute Neutrophils -Man Diff 13.1 10^3/uL (1.4-6.5)
[2024-12-13 10:30] LABS: Acanthocytes 1+; Anisocytosis 1+; Normal RBC Morphology No; Platelets Checked Yes; Polychromasia 1+
[2024-12-13 10:31] LABS: Ovalocytes FEW; Total Cells Counted 100
[2024-12-13 10:34] LABS: Folate > 20.0 ng/ml (2.76-20); Vitamin B12 796 pg/ml (239-931)
[2024-12-13 10:58] LABS: Iron 28 ug/dl (37-170); LDH 229 U/L (120-246)
[2024-12-13 11:07] LABS: Total Iron Binding Capacity 334 ug/dl (265-497)
[2024-12-13] MEDS: TYLENOL 650 MG PO ×2 (11:35→22:43)
--- NOTE | 2024-12-13 12:27 | CON.ONC ---
Consultation
-
Date Consultation Requested: 12/13/24
Date Consultation Performed: 12/13/24
Requesting Provider: Dr Irwin
Performing Provider: Maddi Martinez
Reason for Consultation: splenic infarct
Impression
Impression
daily fevers x4-6 weeks, 102.6 currently
splenic infarct
anemia, thrombocytopenia
Plan
Plan
await input from ID - clinical picture (including anemia, thrombocytopenia) could be c/w babesiosis (splenic infarct is a rare manifestation)
pain control
hold off on anticoagulation for now
further hematology w/u if infectious w/u negative
Patient History
History of Present Illness
This is a 63 yo F w/ h/o ezcema and HTN, who presented with severe LUQ pain x 1-2 days, along with daily fevers, chills, fatigue, myalgias. She sought evaluation with her PMD recently, who tested her for Lyme (neg per patient) and told her to
monitor symptoms. Imaging in the ER noted for splenic infarcts. Labs noted for anemia (9.2 hgb) and platelet count of 73. No bleeding or bruising. She gardens a lot and spends time in the [employer]. No personal or family h/o blood clots. Former
smoker. UTD on mammogram, colonoscopy.
EKG shows NSR. 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 She denies palpitations, or h/o afib.
She recently injured her left forearm gardening.
Temp at the time of my vist with patient is 102.6.
Past-Medical/Surgical History
PMH/PSH - as per the HPI
FH - mother had lung cancer, father had CAD
SH - former smoker
Patient Medication
�Medication �Instructions �Recorded �Confirmed �Last Taken �Type
calcium carbonate 500 mg PO DAILY Supplement 11/19/23 12/13/24 Unknown History
carvedilol 3.125 mg tablet 3.125 mg PO BID Blood Pressure 11/19/23 12/13/24 11/19/23 History
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
pen injector (Dupixent) ~11/05/23
losartan 50 mg tablet 50 mg PO DAILY Blood Pressure 11/19/23 12/13/24 11/19/23 History
multivitamin 1 tab PO DAILY Supplement 11/19/23 12/13/24 Unknown History
rosuvastatin 5 mg tablet 5 mg PO HS High Cholesterol 11/19/23 12/13/24 11/18/23 History
Active Medications
Generic Name Dose Route Start Last Admin
Trade Name Freq PRN Reason Stop Dose Admin
Acetaminophen 650 mg 12/13/24 08:55 12/13/24 11:35
Acetaminophen 325 Mg Tablet PO 01/10/25 08:54 650 mg
Q4HPRN PRN Administration
Mild Pain / Temp > 101
Carvedilol 3.125 mg 12/13/24 08:55 12/13/24 09:17
Carvedilol 3.125 Mg Tablet PO 01/10/25 08:54 3.125 mg
BID LEIGH ANN Administration
Ceftriaxone Sodium 1,000 mg 12/14/24 08:00
Ceftriaxone 1000 Mg / 10 Ml Vial IV
Q24H LEIGH ANN
Hydromorphone HCl 0.5 mg 12/13/24 08:55 12/13/24 10:19
Hydromorphone 0.5 Mg/0.5 Ml Syringe IV 12/27/24 08:54 0.5 mg
Q4HPRN PRN Administration
Severe Pain
Vancomycin HCl 1 gram in 200 mls @ 200 mls/hr 12/14/24 06:00
Vancocin IV
DAILY@0600 LEIGH ANN
Protocol
Losartan Potassium 50 mg 12/13/24 08:55 12/13/24 09:18
Losartan 50 Mg Tablet PO 01/10/25 08:54 50 mg
DAILY LEIGH ANN Administration
Ondansetron HCl 4 mg 12/13/24 08:55
Ondansetron 4 Mg/2 Ml Vial IV 01/10/25 08:54
Q6HPRN PRN
nausea and vomiting
Pantoprazole Sodium 40 mg 12/13/24 08:55 12/13/24 09:17
Pantoprazole Sodium 40 Mg/10 Ml Vial IV 01/10/25 08:54 40 mg
DAILY LEIGH ANN Administration
Sodium Chloride 10 ml 12/14/24 08:00
Sodium Chloride 0.9% (Preservative Free) 10 Ml Vial IV 01/11/25 07:59
DAILY LEIGH ANN
Sterile Water 10 ml 12/14/24 08:00
Sterile Water For Injection 10 Ml Vial IV 01/11/25 07:59
Q24H LEIGH ANN
Physical Exam
-
General: Well Developed, Well Nourished, Comfortable and Fever
HEENT: Negative Jaundice
Cardiology: Normal Sinus Rhythm
Pulmonary: Clear
GI: Soft and Other (tender in LUQ)
Musculoskeletal: No Clubbing, No Cyanosis and No Edema
Extremities: Other (left arm in sling)
Neurology: Non Focal and No Lateralizing Symptoms
Skin: Warm and Dry; Negative Rash
Hematologic / Lymphatic: Negative Lymphadenopathy
Psych: Calm, Confused and Intact Judgement/Insight
Labs
Lab Results
WBC 14.5 10^3/uL (4.8-10.8) H 12/12/24 19:43
RBC 3.51 10^6/uL (4.20-5.40) L 12/12/24 19:43
Hgb 9.2 g/dL (12.0-16.0) L 12/12/24 19:43
Hct 27.7 % (37.0-47.0) L 12/12/24 19:43
MCV 78.9 fL (81.0-99.0) L 12/12/24 19:43
MCH 26.2 pg (27.0-31.0) L 12/12/24 19:43
MCHC 33.2 g/dL (33.0-37.0) 12/12/24 19:43
RDW 14.8 % (11.5-14.5) H 12/12/24 19:43
Plt Count 73 10^3/uL (130-400) L 12/12/24 19:43
MPV 9.9 fL (7.4-10.4) 12/12/24 19:43
Abs Immat Gran (auto) 0.1 10^3/uL (0-0.05) H 12/12/24:43
Absolute Neuts (auto) 12.7 10^3/uL (1.4-6.5) H 12/12/24 19:43
Absolute Lymphs (auto) 0.8 10^3/uL (1.2-3.4) L 12/12/24 19:43
Absolute Monos (auto) 0.8 10^3/uL (0.1-0.6) H 12/12/24 19:43
Absolute Eos (auto) 0.0 10^3/uL (0-0.7) 12/12/24 19:43
Absolute Basos (auto) 0.1 10^3/uL (0-0.2) 12/12/24:43
Immature Gran % 0.6 % (0-0.5) H 12/12/24 19:43
Neutrophils % 87.6 % (42.2-75.2) H 12/12/24 19:43
Lymphocytes % 5.6 % (20.5-51.1) L 12/12/24 19:43
Monocytes % 5.8 % (1.7-9.3) 12/12/24 19:43
Eosinophils % 0.1 % (0-6) 12/12/24 19:43
Basophils % 0.3 % (0-2) 12/12/24 19:43
Creatinine 1.0 mg/dL (0.6-1.0) 12/12/24 19:43
Vital Signs
Vital Signs
Temp Pulse Resp BP Pulse Ox
102.6 F H 103 18 127/56 94
12/13/24 11:15 12/13/24 11:15 12/13/24 11:15 12/13/24 11:15 12/13/24 11:15
--- NOTE | 2024-12-13 14:14 | CON.ID ---
Consultation
-
Date/Time Consultation Requested: December 13, 2024 0855
Date/Time Consultation Performed: December 13, 2024 1415
Requesting Provider: Dr. Matt Chang
Performing Provider: Dr. Ruth Aly
Reason for Consultation: Splenic infarct, septic emboli
Chief Complaint / Past History
Chief Complaint
L Abdominal pain and fevers
History of Present Illness
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 Patient
states that she has been having fevers since with associated chills and sweats. Fevers as high as 103. Fever occur in the late afternoon improved with Tylenol. Positive body aches. No headaches. No rash. Positive
fatigue/weakness/poor appetite. Positive nausea without emesis. No diarrhea. No specific joint pains. She did have tick exposure in October being outdoors as well as [place] She has 2 dogs. No recent travel. She
saw her primary care physician November 16 with lab work showing new anemia hemoglobin 9.8, normal white count, normal platelet count, normal LFTs, Lyme screen negative. She was told to observe. Patient went to an local operator to seek treatment. Over
this past weekend, her fever did not respond to Tylenol. Yesterday she then developed the acute onset of left upper quadrant/back pain which prompted her to come to the ER. She reports the pain similar to last November 2023 with a right abdominal
abscess but she did not have fevers last year. In the ER patient spiked temperature 102.6, white count 14.5 with bandemia, hemoglobin 9.2, thrombocytopenic 73. CAT scan of the abdomen pelvis shows the spleen with large areas of not enhancement
concerning for infarct. She was started on ceftriaxone and vancomycin. No recent dental work done. No IV drug use. She is up-to-date with colonoscopy which was normal.
Past History
Additional Past Medical History:
Hypertension
Eczema
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
Allergy History:
No Known Allergies Allergy (Verified 12/12/24 19:37)
Medications Reviewed: Yes
Current Antibiotics:
ceftriaxone d1
Vancomycin d1
Social History
Tobacco: Former Smoker
Alcohol: Former
Drug: None
Personal:
Living: With Family ( and 2 dogs)
Family History
Family History: Not Pertinent
Review of Systems
Review of Systems
General: Fever, Chills and Change in Appetite
HEENT: Negative Stiff Neck, Sinus Problems, Headache or Pharyngitis
Cardiovascular: Negative Chest Pain
Respiratory: Negative Cough or Sputum Production
Gasteroenterology: Nausea; Negative Vomiting or Diarrhea
Genital / Urological: Negative Dysuria
Endocrine: Weakness and Fatigue
Musculoskeletal: Negative Arthralgias
Skin / Hair / Nails: Negative Rash
Neurological: Negative Dizziness
All systems: All other systems were reviewed and were negative
Vital Signs
Temp Pulse Resp BP Pulse Ox
98.6 F 103 18 127/56 94
12/13/24 13:15 12/13/24 11:15 12/13/24 11:15 12/13/24 11:15 12/13/24 11:15
Physical Exam
Physical Exam
Constitutional: Non-toxic
Head: Other (No maxillary or frontal sinus tenderness)
Eyes: No Conjunctival Hemorrhage and Sclera Anicteric
Cardiovascular: S1/S2 and Other (Tachycardic)
Pulmonary: Clear
Gastrointestinal: Soft, Tender (LUQ), Non Distended and Normal Bowel Sounds
Extremities: Negative Edema, Splinter Hemorrhage or Janeway Lesions
Musculoskeletal: Negative Spinal Tenderness
Neurological: AO x 3; Negative Meningeal Signs
Lab / Diagnostic Study Results
12/12/24 19:43
12/12/24 19:43
Abs Immat Gran (auto) 0.1 10^3/uL (0-0.05) H 12/12/24 19:43
Absolute Neuts (auto) 12.7 10^3/uL (1.4-6.5) H 12/12/24 19:43
Absolute Lymphs (auto) 0.8 10^3/uL (1.2-3.4) L 12/12/24 19:43
Absolute Monos (auto) 0.8 10^3/uL (0.1-0.6) H 12/12/24 19:43
Absolute Basos (auto) 0.1 10^3/uL (0-0.2) 12/12/24 19:43
Total Counted 100 12/12/24 19:43
Immature Gran % 0.6 % (0-0.5) H 12/12/24 19:43
Neutrophils % 87.6 % (42.2-75.2) H 12/12/24 19:43
Lymphocytes % 5.6 % (20.5-51.1) L 12/12/24 19:43
Monocytes % 5.8 % (1.7-9.3) 12/12/24 19:43
Eosinophils % 0.1 % (0-6) 12/12/24 19:43
Basophils % 0.3 % (0-2) 12/12/24 19:43
Abs Neuts (Manual) 13.1 10^3/uL (1.4-6.5) H 12/12/24 19:43
Segmented Neutrophils 77 % (42-75) H 12/12/24 19:43
Band Neutrophils 14 % (0-3) H 12/12/24 19:43
Lymphocytes (Manual) 4 % (20-51) L 12/12/24 19:43
Ur Squamous Epith Cells >30 /LPF (Few) 12/13/24 02:02
Microbiology Results
Micro:
12/13/24 06:14 Blood Culture - Pending
Blood/Venous
12/13/24 05:53 Blood Culture - Pending
Blood/Venous
12/13/24 02:02 Urine Culture - Pending
Urine
12/13/24 CT a/p: Large geographic areas of nonenhancement within the spleen, consistent with splenic infarcts, new compared to prior CT dated 11/22/2023
Assessment / Plan
# Large areas of splenic infarct
# Fevers > 1 month
# Leukocytosis with bandemia
# Acute thrombocytopenia
# New anemia since 11/16/2024
# History of right small bowel ulcer with perienteric abscess and fistula s/p resection 11/2024
- Blood cx's x 2 pending
- Ordered 3rd set of blood cx.
- TTE pending to eval for endocarditis
- Change Vanco/ceftriaxone to cefazolin for now.
- Ordered Babesia smear
- Lyme pending. Ordered anaplasma/Ehrlichia PCR (although these organisms are not associated with splenic infarct.)
- Follow temps/cbc.
--- NOTE | 2024-12-13 14:49 | W.PN.UPDATE ---
Update Note
Progress Note Update
Wearing corrective lenses, warm
Scleral Anicteric
MMM
No JVD
CTABL
RRR, S1/S2
Soft, right upper quadrant tenderness, ND, BS+
Warm, Dry
AAOx3
Calm
SIRS�fever white count tachycardic
- Unclear source
- IV antibiotics vancomycin Rocephin
- Blood cultures
- Urine culture pending
- 2D echocardiogram as CT abdomen pelvis demonstrating splenic infarcts for which it is unclear if this is thrombotic emboli versus septic emboli
- Infectious disease consulted
- Peripheral smear says for Carmen adamson
- Reported Lyme panel at outpatient PCP negative
Bicytopenia
- Denies night sweats and weight loss
- Could be related to ongoing sepsis
- Check peripheral smear LDH haptoglobin
- Bili normal therefore low clinical suspicion for hemolysis
- Hematology consult
Diverticulosis
- Will need outpatient GI follow-up
HTN
- Conitnue antihypertensives
--- NOTE | 2024-12-13 16:40 | CM ---
Met with patient at bedside
IMM benefit explained; form signed @ 1635
Pharmacy verified: [facility] @ [address]
Patient lives with Spouse, Kaylee Landeros w/ basement; no steps to enter; 9 steps down to basement; bath has tub w/ shower
PLOF: reported she is independent with ambulation and ADLs; SOB on stairs; no DME
Spouse will transport home
Plan: Discharge to home; no needs anticipated
[2024-12-13] MEDS: ANCEF 10 IV (22:44)
[2024-12-14 03:41] VITALS: BP 103/47
[2024-12-14] MEDS: TORADOL 15 MG IV ×3 (03:47→17:08)
[2024-12-14 05:53] VITALS: BMI 26.7
[2024-12-14] MEDS: ANCEF 10 IV ×2 (06:27→14:20)
[2024-12-14 07:05] VITALS: BP 119/55
[2024-12-14] MEDS: NSS (PRESERVATIVE FREE) 10 ML IV (07:47)
[2024-12-14] MEDS: PROTONIX IV 40 MG IV (07:47)
[2024-12-14] MEDS: COREG 3.125 MG PO ×2 (07:47→20:18)
[2024-12-14] MEDS: COZAAR 50 MG PO (07:47)
[2024-12-14 08:14] LABS: Hematocrit 22.8 % (37.0-47.0); Hemoglobin 7.5 g/dL (12.0-16.0); Mean Corp Hgb Conc. 32.9 g/dL (33.0-37.0); Mean Corpuscular Volume 78.9 fL (81.0-99.0); Platelet Count 71 10^3/uL (130-400); Red Cell Dist. Width 14.7 % (11.5-14.5)
[2024-12-14 08:19] LABS: INR 1.09; PT 14.6 Sec (11.4-14.6)
[2024-12-14 08:20] LABS: APTT 39.2 Sec (23.4-35.0)
[2024-12-14 08:34] LABS: Blood Urea Nitrogen 10 mg/dl (7-17); Calcium 8.3 mg/dl (8.4-10.2); Carbon Dioxide 22 mmol/L (22-30); Chloride 104 mmol/L (98-107); Estimated Creatinine Clearance 51 ml/min; Glucose 91 mg/dl (70-99); Potassium 3.4 mmol/L (3.5-5.1); Sodium 132 mmol/L (135-145); eGFR > 60.00
[2024-12-14] MEDS: VIBRAMYCIN 100 MG PO ×2 (09:46→20:17)
--- NOTE | 2024-12-14 09:47 | W.PN.ONC2 ---
Today's Communication / Plan
-
daily CBC, monitor for bleeding, check heme stool
start oral iron
haptoglobin pending
check APLS panel, protein C and protein S
consider cardiac evaluation for etiology of splenic infarct
no objection to DVT ppx with platelet count >50,000 in the absence of bleeding -ordered
Impression
Impression
daily fevers and sweats x4-6 weeks
splenic infarct
anemia, thrombocytopenia - folate or B12 deficiency. unlikely hemolysis with nml LFTs. -suspect component of MIRACLE
Plan
Plan
ID following- clinical picture including anemia, thrombocytopenia, and splenic infarct can be seen in infections
oral iron every other day -avoid parenteral iron with concern for acute infection
f/u APLS panel, protein C, protein S
consider cardioembolic evaluation for etiology of splenic infarct
pain control -abdominal pain related to splenic infarct that is uncomplicated often resolves within 7-14 days
hold off on therapeutic anticoagulation for now, no objection to VTE ppx
further hematology w/u if infectious w/u negative
Subjective/Objective
Subjective
no new complaints
Hgb drop 9.2->7.5, denies overt bleeding. plts stable since admission ~70,000 -denies overt bleeding
left flank discomfort unchanged
Vital Signs:
Vital Signs
Temp Pulse Resp BP Pulse Ox
97.8 F 70 18 119/55 96
12/14/24 07:05 12/14/24 07:47 12/14/24 07:05 12/14/24 07:47 12/14/24 07:05
Lab Results:
Laboratory Data
WBC 9.4 10^3/uL (4.8-10.8) 12/14/24 06:39
Hgb 7.5 g/dL (12.0-16.0) L 12/14/24 06:39
Plt Count 71 10^3/uL (130-400) L 12/14/24 06:39
PT 14.6 Sec (11.4-14.6) 12/14/24 06:39
INR 1.09 12/14/24 06:39
APTT 39.2 Sec (23.4-35.0) H 12/14/24 06:39
eGFR > 60.00 12/14/24 06:39
Physical Exam
General: Well Developed, Well Nourished
HEENT: Negative Jaundice
Cardiology: Normal Sinus Rhythm
Pulmonary: Clear
GI: Soft tender in LUQ
Musculoskeletal: No Clubbing, No Cyanosis and No Edema
Extremities: left arm in sling
Neurology: Non Focal, speech clear
Skin: Warm and Dry; Negative Rash
[2024-12-14 10:53] LABS: LDH 420 U/L (120-246)
[2024-12-14 10:56] LABS: Reticulocyte Count 1.1 % (0.4-2.8)
[2024-12-14] MEDS: FEOSOL 325 MG PO (11:17)
[2024-12-14 11:20] VITALS: BP 108/45
--- NOTE | 2024-12-14 12:29 | W.PN.HOSP.TC ---
Today's Communication/Plan
-
Assessment / Plan
Assessment / Plan
Wearing corrective lenses, warm
Scleral Anicteric
MMM
No JVD
CTABL
RRR, S1/S2
Soft, right upper quadrant tenderness, ND, BS+
Warm, Dry
AAOx3
Calm
SIRS�fever white count tachycardic
- Unclear source, tick bourne vs hematologic but to acute, rheumatolgic but no joint/cutaneous symptoms vs unclear etiology as longer then 3weeks
- IV antibiotics vancomycin Rocephin
- Blood cultures
- Urine culture pending
- 2D echocardiogram completed no veg
- Will consult cardiology for JORDANA
- Infectious disease consulted
- Erlichiea and tick borne work up bending
- Reported Lyme panel at outpatient PCP negative
- Will check SONALI, RF, DS and Anca ordered
- ESR/CRP ordered
Bicytopenia
- Denies night sweats and weight loss
- Could be related to ongoing sepsis
- Bili normal therefore low clinical suspicion for hemolysis
- Hematology consult
Diverticulosis
- Will need outpatient GI follow-up
HTN
- Conitnue antihypertensives
Anticipated Discharge: > 48 hours
Subjective/Interval History
-
Date of Service: December 14, 2024
seen and examined
no new comaplitns
still with intermittent fever
required to take a shower gthis AM
Objective Data
-
Labs:
Laboratory Results
12/14/24
06:39
WBC 9.4
Hgb 7.5 L
Hct 22.8 L
Plt Count 71 L
PT 14.6
INR 1.09
APTT 39.2 H
Sodium 132 L
Potassium 3.4 L
Chloride 104
Carbon Dioxide 22
BUN 10
Creatinine 1.0
Glucose 91
Calcium 8.3 L
Vital Signs:
Vital Signs
Temp Pulse Resp BP Pulse Ox
98.5 F 75 16 108/45 95
12/14/24 11:20 12/14/24 11:20 12/14/24 11:20 12/14/24 11:20 12/14/24 11:20
I&O
12/13/24 12/14/24 12/15/24
06:59 06:59 06:59
Intake Total 1490 / 1490
Balance 1490 / 1490
--- NOTE | 2024-12-14 13:31 | CON.CAR ---
Addendum entered and electronically signed by Mac Rankin MD 12/14/24 15:22:
I saw and examined the patient.
The Chemical Equipment Repairer's note was reviewed and I agree with the note.
Comment: Briefly, 63-year-old woman past medical history of hypertension, hyperlipidemia and ex lap for abdominal abscess (11/2023) who presented with abdominal pain and fevers found to have splenic infarct. Cardiology is consulted for consideration
of transesophageal echocardiogram.
Patient reports daily fevers for the past 4 to 6 weeks
On presentation found to have thrombosing cytopenia and anemia as well as splenic infarct based on CT A/P
Currently being evaluated by infectious disease and hematology for possible etiology
If there is current concern for cardioembolic source of splenic infarct we can arrange for 2-week outpatient equipment monitor phototypesetting at the time of discharge, keep on telemetry here
In regards TTE, with hemoglobin (7.5) and platelet count (71) downtrending would be hesitant to proceed with JORDANA at this time. When blood counts stabilize and if there is no strong suspicion for upper GI bleed we can arrange for JORDANA at that time.
Could also be done as an outpatient.
Original Note:
Consultation
Consultation Request
Date/Time Consultation Performed: 12/14/24
Requesting Provider: Dr. Chang
Performing Provider: Betty Montgomery PA-C for Dr. Rankin
Reason for Consultation: eval for JORDANA
Medical History
-
Chief Complaint: L flank pain, fevers
History of Present Illness:
Patient is a 63 yo F with PMH of long COVID, hypertension, hyperlipidemia, eczema, ex lap with partial small bowel resection and abscess excision in November 2023 who noted over the last month to month and a half that she has had intermittent fevers.
She reports she has to take Tylenol regularly to stay on top of it. She states she then started earlier this week with left flank pain resulting in her coming to the ER for evaluation. By imaging she was noted to have evidence of multiple splenic
infarcts. Also noted to be anemic and thrombocytopenic. She is being worked up for thrombotic versus infectious etiology. Blood cultures thus far are negative. She reports heart pounding/tachycardia with exertion, particularly up steps/incline,
however then improves with resting. She denies palpitations or heart racing at rest. Denies history of chest surgeries or hardware to chest. Cardiology consulted for evaluation for JORDANA.
PMH:
History of long covid 2020
HTN
HLD
Ex Lap with Partial Small Bowel Resection/Abscess Excision 11/2023
Eczema, on dupixent
Former smoker
Past Medical History
Past Medical History: Other (in HPI)
Social History
Tobacco: Former Smoker
Alcohol: Former
Personal:
Living: With Family
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
Family History
Family History: CAD (CABG in father)
Allergies / Home Medications
Allergy/AdvReac Type Severity Reaction Status Date / Time
No Known Allergies Allergy Verified 12/12/24 19:37
�Medication �Instructions �Recorded �Confirmed �Type
calcium carbonate 500 mg PO DAILY Supplement 11/19/23 12/13/24 History
carvedilol 3.125 mg tablet 3.125 mg PO BID Blood Pressure 11/19/23 12/13/24 History
dupilumab 300 mg/2 mL subcutaneous 300 mg SC Q3W Autoimmune Disorder 11/19/23 12/13/24 History
pen injector (Dupixent)
losartan 50 mg tablet 50 mg PO DAILY Blood Pressure 11/19/23 12/13/24 History
multivitamin 1 tab PO DAILY Supplement 11/19/23 12/13/24 History
rosuvastatin 5 mg tablet 5 mg PO HS High Cholesterol 11/19/23 12/13/24 History
Review of Systems
-
History Source: Patient and Family
All other systems: Negative unless noted
Physical Exam
Vital Signs
Temp Pulse Resp BP Pulse Ox
98.5 F 75 16 108/45 95
12/14/24 11:20 12/14/24 11:20 12/14/24 11:20 12/14/24 11:20 12/14/24 11:20
Lab Results
12/14/24 06:39
12/14/24 06:39
Physical Exam
General: No Apparent Distress and Comfortable
HEENT: Normocephalic, Anicteric and Moist Mucous Membranes
Respiratory: Clear and Non Labored Respirations
Cardiac: S1/S2 and Regular Rhythm
GI: Soft, Non Distended, Normal Bowel Sounds and Tender (L flank)
Musculoskeletal: No Clubbing, No Cyanosis, No Edema and Other (sling to LUE)
Skin: Warm and Dry
Neuro: AO x 3
Impression / Plan
-
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
Assessment:
L flank pain
Daily fevers x1 month
SIRS
Splenic infarcts
Anemia/thrombocytopenia
History of long covid 2020
HTN
HLD
Ex Lap with Partial Small Bowel Resection/Abscess Excision 11/2023
Eczema, on dupixent
Former smoker
ECHO 12/13/24: EF 60 to 65%, no regional wall motion abnormalities noted, mild to moderate AR, mild TR, PAP 27 mmHg
Plan:
- Patient presented for evaluation of daily fevers for approximately 1 month as well as new development of left flank pain within the last several days. Noted by CT imaging to have evidence of multiple splenic infarcts, as well as with anemia and
thrombocytopenia. She is being followed by hematology as well as infectious disease. She underwent TTE with results as above, EF normal. Blood cultures at 24 hours are preliminarily negative. Cardiology consulted to evaluate patient for JORDANA
- She has no history of arrhythmias. She has no cardiac hardware such as pacemaker or prior valve replacement
- follow on tele, by my review in SR with one brief episode of atach overnight.
- She has not been started on IV heparin due to anemia and thrombocytopenia with hemoglobin 7.5 and platelet count 71K on 12/14
- Haptoglobin pending. LDH elevated. continue hematologic work up
- Antibiotics per ID. of note, she does have history of abd abscesses requiring ex lap 11/2023
- Discussed JORDANA procedure with patient and at bedside as possibility. given hemoglobin and platelet count downtrending since admission, would follow blood counts and blood cultures. attempt to workup anemia prior to moving forward with JORDANA as
this would put her at an elevated risk for bleeding associated with procedure.
- Continue outpatient Coreg, Cozaar with hold parameters in place
Data Reviewed
-
EKG: Tracing Personally Visualized and interpreted
CT Scan: Report Reviewed by me
Medical Tests (Nuc Med, Echo etc): Report Reviewed by me
Labs: Labs Reviewed by me
Old Records: Reviewed
[2024-12-14 13:41] LABS: Lyme Antibody Screen, EIA Negative (Negative)
--- NOTE | 2024-12-14 13:53 | PN.CDI ---
CDI
- -
CDI:
Physician Documentation Request
Admit Date: 12/13/24 05:51
Dear Doctor Bernardo,
Please review the following and provide your response in the progress notes.
Clinical Indicators:
Pt admitted with Sepsis of unclear source/ Splenic infarcts work up ongoing
Sodium levels as below/Pt did get IVFs
12/12/24 12/14/24
19:43 06:39
Sodium 134 L 132 L
Based on the above, could you clarify in the progress notes, the appropriate diagnosis, if significant, that supports the above abnormalities and additional evaluation, monitoring and/or treatment rendered:
Hyponatremia
Abnormal lab value only
Other ( please specify)
Use of terms such as suspected, likely, concern for, or probable (associated with a specific diagnosis that is being evaluated, monitored, or treated as if it exists) are acceptable and can be coded in the inpatient setting, when documented at the
time of discharge.
Thank you,
Licha Watters RN
CDI Specialist
[place] [facility]
Please use your independent medical judgment in providing your response.
[2024-12-14] MEDS: TYLENOL 650 MG PO (14:46)
--- NOTE | 2024-12-14 15:03 | CM ---
Intermittent fevers. Afebrile thus far today. IV/AB. Discharge POC: Anticipate home with no needs.
--- NOTE | 2024-12-14 15:17 | W.PN.ID1 ---
Date of Service
Date of Service: December 14, 2024
Today's Communication
Start empiric doxycycline.
Assessment / Plan
# Large areas of splenic infarct
# Fever since , persists
# Leukocytosis with bandemia, resolved
# Acute thrombocytopenia
# New anemia since 11/16/2024
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
- Blood cx's x 3 neg to date
- TTE: no gross vege
- Babesia smear negative.
- Lyme screen negative
- Anaplasma/Ehrlichia PCR pending
-Coagulopathy workup pending, per Heme
-Recommend cardiology consult for JORDANA.
Spoke with block trader who prefers to wait for thrombocytopenia to improve before JORDANA.
Can do JORDANA possibly Thursday or as outpatient.
Business Systems Advisor also will work up for possible Afib to explain emboli.
- Repeat parasite smear in am.
- DC cefazolin
- There are 2 case reports of severe anaplasmosis with splenic infarct, both patients .
Start empiric doxycycline 100mg po bid.
- Trend temps/plt
Chief Complaint
-: Fever
Subjective / Review of Systems
No new complaints. Left upper abd pain controlled with Toradol.
at bedside.
Vital Signs / Physical Exam
Vital Signs
Vital Signs
Temp Pulse Resp BP Pulse Ox
98.5 F 75 16 108/45 95
12/14/24 11:20 12/14/24 11:20 12/14/24 11:20 12/14/24 11:20 12/14/24 11:20
Physical Exam
Constitutional: No Acute Distress
Eyes: No Conjunctival Hemorrhage and Sclera Anicteric
Cardiovascular: Regular Rate and S1/S2
Pulmonary: Clear
Gastrointestinal: Soft, Tender (over spleen) and Non Distended
Genito-Urinary: Negative CVA Tenderness
Extremities: Negative Edema, Splinter Hemorrhage or Janeway Lesions
Skin: Negative Rash
Neurological: AO x 3; Negative Meningeal Signs
Objective Data
Lab Data
Lab Results
12/14/24 06:39
12/14/24 06:39
PT 14.6 Sec (11.4-14.6) 12/14/24 06:39
INR 1.09 12/14/24 06:39
APTT 39.2 Sec (23.4-35.0) H 12/14/24 06:39
Estimated Creat Clear 51 ml/min 12/14/24 06:39
Total Bilirubin 0.5 mg/dl (0.2-1.3) 12/12/24 19:43
AST 29 U/L (14-36) 12/12/24 19:43
ALT 22 U/L (0-35) 12/12/24 19:43
Alkaline Phosphatase 104 U/L (38-126) 12/12/24 19:43
Most recent labs reviewed.
Micro Results:
12/13/24 02:02 Urine Culture - Preliminary
Urine Sparse growth, too young to be identified. Further results
to follow.
12/13/24 15:04 Blood Culture - Preliminary
Blood/Venous No Growth in 24 hours- Final report to follow
12/13/24 15:04 Blood Parasites Smear - Final
Blood/Venous
12/13/24 05:53 Blood Culture - Preliminary
Blood/Venous No Growth in 24 hours- Final report to follow
12/13/24 06:14 Blood Culture - Preliminary
Blood/Venous No Growth in 24 hours- Final report to follow
12/13/24 CT a/p: Large geographic areas of nonenhancement within the spleen, consistent with splenic infarcts, new compared to prior CT dated 11/22/2023
Care Review
Plan reviewed with: Physician (Drs. codi Chang and Chucho)
[2024-12-14 15:37] VITALS: BP 115/51
[2024-12-14] MEDS: LOVENOX 40 MG SC (17:04)
--- NOTE | 2024-12-14 18:29 | PTCARENOTE ---
Patient medicated throughout shift with PRN IV Toradol for L flank pain rated 4-5/10 - see AUG. Patient afebrile throughout shift, showered independently, wearing L arm sling PRN for arm injury prior to admission. Small loose brown BM in toilet -
heme test negative. NSR on tele monitor, patient states pain managed with Toradol and PRN Tylenol, ambulating in room and ringing appropriately.
[2024-12-14 19:05] VITALS: BP 120/53
[2024-12-14] MEDS: KCL 20 MEQ PO (20:22)
[2024-12-14] MEDS: DILAUDID 0.5 MG IV (21:29)
[2024-12-14 23:10] VITALS: BP 118/60
[2024-12-15] MEDS: TORADOL 15 MG IV ×3 (02:50→17:39)
[2024-12-15 03:11] VITALS: BP 127/56
[2024-12-15 06:00] VITALS: BMI 27.0
[2024-12-15 06:38] LABS: C-Reactive Protein 149.80 mg/L (0.0-10.00)
[2024-12-15 07:05] VITALS: BP 136/51
[2024-12-15] MEDS: DILAUDID 0.5 MG IV ×2 (07:42→21:54)
[2024-12-15 08:53] LABS: Hematocrit 22.1 % (37.0-47.0); Hemoglobin 7.5 g/dL (12.0-16.0); Mean Corp Hgb Conc. 33.9 g/dL (33.0-37.0); Mean Corpuscular Volume 77.3 fL (81.0-99.0); Platelet Count 74 10^3/uL (130-400); Red Cell Dist. Width 14.6 % (11.5-14.5)
[2024-12-15] MEDS: VIBRAMYCIN 100 MG PO ×2 (08:58→19:31)
[2024-12-15] MEDS: COZAAR 50 MG PO (08:58)
[2024-12-15] MEDS: PROTONIX IV 40 MG IV (08:58)
[2024-12-15] MEDS: NSS (PRESERVATIVE FREE) 10 ML IV (08:59)
[2024-12-15] MEDS: COREG 3.125 MG PO ×2 (08:59→19:32)
[2024-12-15 10:00] LABS: Blood Urea Nitrogen 7 mg/dl (7-17); Calcium 8.4 mg/dl (8.4-10.2); Carbon Dioxide 21 mmol/L (22-30); Chloride 106 mmol/L (98-107); Estimated Creatinine Clearance 57 ml/min; Glucose 91 mg/dl (70-99); Potassium 3.7 mmol/L (3.5-5.1); Sodium 130 mmol/L (135-145); eGFR > 60.00
[2024-12-15 11:05] VITALS: BP 123/52
--- NOTE | 2024-12-15 11:23 | W.PN.ONC ---
Today's Communication / Plan
-
Continue to rule out infectious etiology resulting in anemia, thrombocytopenia, and splenic infarct can be seen in infections
Anemia and thrombocytopenia stable
Oral iron every other day -avoid parenteral iron with concern for acute infection
APLS panel pending add lupus anticoagulant
Outpatient additional thrombophilia as warranted prothrombin gene mutation protein S and protein C not appropriate acute thrombotic setting
Rule out cardioembolic evaluation for etiology of splenic infarct
Pain control -abdominal pain related to splenic infarct that is uncomplicated often resolves within 7-14 days
VTE prophylaxis continued
Pursue additional hematology evaluation if no evidence of infectious etiology
Impression
Impression
Persistent B symptoms
Splenic infarct
Anemia,
Thrombocytopenia -
Subjective/Objective
Subjective/Objective
Patient with some discomfort and pain.
Vital Signs:
Vital Signs
Temp Pulse Resp BP Pulse Ox
98.7 F 76 16 136/51 96
12/15/24 07:05 12/15/24 08:59 12/15/24 07:05 12/15/24 08:59 12/15/24 11:14
No scleral icterus
Heart regular
Lungs clear
Abdomen with left upper quadrant tenderness
Extremities symmetrical without pretibial edema
Lab Results:
Laboratory Data
WBC Cancelled 12/15/24 08:42
Hgb Cancelled 12/15/24 08:42
Plt Count Cancelled 12/15/24 08:42
PT 14.6 Sec (11.4-14.6) 12/14/24 06:39
INR 1.09 12/14/24 06:39
APTT 39.2 Sec (23.4-35.0) H 12/14/24 06:39
eGFR > 60.00 12/15/24 05:39
--- NOTE | 2024-12-15 11:49 | W.PN.ID1 ---
Date of Service
Date of Service: December 15, 2024
Today's Communication
Continue doxycycline.
Assessment / Plan
# Large areas of splenic infarct
# Fever since , persists
# Leukocytosis with bandemia, resolved
# Acute thrombocytopenia
# New anemia since 11/16/2024
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
- Blood cx's x 3 neg to date
- TTE: no gross vege
- Blood parasite smear negative x 2
- Lyme screen negative
- Anaplasma/Ehrlichia PCR pending
-Coagulopathy workup pending, per Heme
- Recommend cardiology consult for JORDANA.
Cardiology would prefers to wait for thrombocytopenia to improve before JORDANA.
Push Connector Assembler also will work up for possible Afib to explain emboli.
- DC cefazolin
- There are 2 case reports of severe anaplasmosis with splenic infarct, both patients .
Continue empiric doxycycline 100mg po bid.
- Trend temps/plt
Chief Complaint
-: Fever
Subjective / Review of Systems
Patient seen and examined. Still reports sweats, although temperature curve has improved.
Vital Signs / Physical Exam
Vital Signs
Vital Signs
Temp Pulse Resp BP Pulse Ox
98.9 F 75 16 123/52 96
12/15/24 11:05 12/15/24 11:05 12/15/24 11:05 12/15/24 11:05 12/15/24 11:14
Physical Exam
Constitutional: No Acute Distress
Eyes: Sclera Anicteric
Cardiovascular: Regular Rate and S1/S2; Negative Murmur
Pulmonary: Clear
Gastrointestinal: Soft, Tender (over spleen) and Non Distended
Genito-Urinary: Negative CVA Tenderness
Extremities: Negative Edema, Splinter Hemorrhage or Janeway Lesions
Skin: Negative Rash
Neurological: AO x 3; Negative Meningeal Signs
Objective Data
Lab Data
Lab Results
12/15/24 08:42
12/15/24 05:39
ESR 89 mm/hour (0-20) H 12/15/24 05:39
PT 14.6 Sec (11.4-14.6) 12/14/24 06:39
INR 1.09 12/14/24 06:39
APTT 39.2 Sec (23.4-35.0) H 12/14/24 06:39
Estimated Creat Clear 57 ml/min 12/15/24 05:39
Total Bilirubin 0.5 mg/dl (0.2-1.3) 12/12/24 19:43
AST 29 U/L (14-36) 12/12/24 19:43
ALT 22 U/L (0-35) 12/12/24 19:43
Alkaline Phosphatase 104 U/L (38-126) 12/12/24 19:43
C-Reactive Protein 149.80 mg/L (0.0-10.00) H 12/15/24 05:39
Most recent labs reviewed.
Micro Results:
12/13/24 02:02 Urine Culture - Final
Urine Streptococcus species 30K cfu/mL
12/15/24 05:39 Blood Parasites Smear - Preliminary
Blood/Venous
12/13/24 06:14 Blood Culture - Preliminary
Blood/Venous No Growth in 48 hours- Final report to follow
12/13/24 05:53 Blood Culture - Preliminary
Blood/Venous No Growth in 48 hours- Final report to follow
12/13/24 15:04 Blood Culture - Preliminary
Blood/Venous No Growth in 24 hours- Final report to follow
12/13/24 15:04 Blood Parasites Smear - Final
Blood/Venous
12/13/24 CT a/p: Large geographic areas of nonenhancement within the spleen, consistent with splenic infarcts, new compared to prior CT dated 11/22/2023
Care Review
Plan reviewed with: Physician (Hospitalist)
--- NOTE | 2024-12-15 11:53 | W.PN.CARDCBS ---
Addendum entered and electronically signed by Abe Hassan MD 12/15/24 14:09:
Patient seen, interviewed and examined by me.
Well-appearing, no acute distress
Regular rate and rhythm with normal S1 and S2, no S3 no S4. There is a grade 1/6 apical holosystolic murmur and no rubs. PMI is normally placed.
Lungs are clear to auscultation bilaterally without wheezes rales or rhonchi.
Abdomen soft nontender nondistended with normoactive bowel sounds
Extremities show trace pretibial edema bilaterally no clubbing or cyanosis.
Neurologic exam is grossly nonfocal.
Fever of unknown origin as well as imaging studies demonstrating splenic infarct.
Clinical course complicated by anemia and thrombocytopenia.
Ongoing clinical evaluation by hematology and infectious disease.
I discussed with the patient potential value for transesophageal echocardiogram imaging to assess for any cardiac endovascular pathology which could be at play.
Will tentatively place on schedule for transesophageal Thursday, and reassess her on Thursday.
Will otherwise follow her peripherally over the next several days, please call us if any other questions
Original Note:
Today's Communication / Plan
-
Hematology and ID workup ongoing for fevers of unknown origin and anemia/thrombocytopenia
Will follow peripherally. Could arrange for JORDANA on Thursday versus as outpatient if needed and pending her clinical progress
Impression / Plan
-
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
Assessment:
L flank pain
Daily fevers x1 month
SIRS
Splenic infarcts
Anemia/thrombocytopenia
History of long covid 2020
HTN
HLD
Ex Lap with Partial Small Bowel Resection/Abscess Excision 11/2023
Eczema, on dupixent
Former smoker
ECHO 12/13/24: EF 60 to 65%, no regional wall motion abnormalities noted, mild to moderate AR, mild TR, PAP 27 mmHg
Plan:
- Presented with fever and left flank pain. Found to have evidence of multiple splenic infarcts.
- Was not started on IV heparin due to ongoing anemia and thrombocytopenia with hemoglobin in the 7 range and platelets in 70K range
- Infectious disease and hematology workups ongoing. Blood cultures negative
- Transthoracic echo with results as above, EF preserved
- Remains in sinus rhythm on review of telemetry overnight without arrhythmia.
- JORDANA deferred for now as anemia/thrombocytopenia pose increased risk of bleeding with procedure. Could consider for JORDANA if needed on Tuesday 12/19 versus as outpatient pending her clinical progress
- consider for OP manager cardiac as well to rule out underlying arrhythmia. follow on tele
- Antibiotics per ID. of note, she does have history of abd abscesses requiring ex lap 11/2023
- Continue outpatient Jazmine Salinas with hold parameters in place
Progress Note - Commercial Green Retrofit Architect
Subjective
Date of Service: December 15, 2024
Denies chest pain, shortness of breath, palpitations. Continues with left flank pain
Objective
Labs:
12/15/24 08:42
12/15/24 05:39
Labs
Hgb Cancelled 12/15/24 08:42
Hct Cancelled 12/15/24 08:42
Plt Count Cancelled 12/15/24 08:42
PT 14.6 Sec (11.4-14.6) 12/14/24 06:39
INR 1.09 12/14/24 06:39
APTT 39.2 Sec (23.4-35.0) H 12/14/24 06:39
Sodium 130 mmol/L (135-145) L 12/15/24 05:39
Potassium 3.7 mmol/L (3.5-5.1) 12/15/24 05:39
BUN 7 mg/dl (7-17) 12/15/24 05:39
Creatinine 0.9 mg/dL (0.6-1.0) 12/15/24 05:39
Glucose 91 mg/dl (70-99) 12/15/24 05:39
Vital Signs and I&O:
Vital Signs
Temp Pulse Resp BP Pulse Ox
98.9 F 75 16 123/52 96
12/15/24 11:05 12/15/24 11:05 12/15/24 11:05 12/15/24 11:05 12/15/24 11:14
Vital Signs
Temp Pulse Resp BP Pulse Ox
98.9 F 75 16 123/52 96
12/15/24 11:05 12/15/24 11:05 12/15/24 11:05 12/15/24 11:05 12/15/24 11:14
Intake & Output
12/13/24 12/14/24 12/15/24 12/16/24
07:59 07:59 07:59 07:59
Intake Total 1490 / 1490 1440 / 1440
Balance 1490 / 1490 1440 / 1440
Physical Exam
Physical Exam
GEN: No distress, awake, alert, oriented x3
HEENT: supple, anicteric, mmm, EOMI
LUNGS: CTA bilaterally, no wheezes/rales
CV: Reg, S1/S2, no murmur
ABD: soft, BS+, NT/ND
EXT: No cyanosis, clubbing, edema
NEURO: Gross non-focal
SKIN: Warm, pink, dry. No rash
--- NOTE | 2024-12-15 13:00 | W.PN.HOSP.TC ---
Today's Communication/Plan
-
Assessment / Plan
Assessment / Plan
Wearing corrective lenses, warm
Scleral Anicteric
MMM
No JVD
CTABL
RRR, S1/S2
Soft, right upper quadrant tenderness, ND, BS+
Warm, Dry
AAOx3
Calm
SIRS�fever white count tachycardic
- Unclear source, tick bourne vs hematologic but to acute, rheumatolgic but no joint/cutaneous symptoms vs unclear etiology as longer then 3weeks
- IV antibiotics vancomycin Rocephin
- Blood cultures
- Urine culture pending
- 2D echocardiogram completed no veg
- Will consult cardiology for JORDANA
- Infectious disease consulted
- Erlichiea and tick borne work up bending
- Reported Lyme panel at outpatient PCP negative
- Will check SONALI, RF, DS and Anca ordered
- Protein c/s, anticariolipin and antiphospholipid ordered
- If infectious process ruled oout then likley will nee dfurther hematologic testing with flowcytometry and bmbx
Bicytopenia
- Denies night sweats and weight loss
- Could be related to ongoing sepsis
- Bili normal therefore low clinical suspicion for hemolysis
- Hematology consult
Diverticulosis
- Will need outpatient GI follow-up
HTN
- Conitnue antihypertensives
Anticipated Discharge: > 48 hours
Subjective/Interval History
-
Date of Service: December 15, 2024
seen and examined. no new complaints. no acute ovenright events
intermittent pain, improves with analgesics
Objective Data
-
Labs:
Laboratory Results
12/15/24 12/15/24
05:39 08:42
WBC 8.7 Cancelled
Hgb 7.5 L Cancelled
Hct 22.1 L Cancelled
Plt Count 74 L Cancelled
Sodium 130 L
Potassium 3.7
Chloride 106
Carbon Dioxide 21 L
BUN 7
Creatinine 0.9
Glucose 91
Calcium 8.4
Vital Signs:
Vital Signs
Temp Pulse Resp BP Pulse Ox
98.9 F 75 16 123/52 96
12/15/24 11:05 12/15/24 11:05 12/15/24 11:05 12/15/24 11:05 12/15/24 11:14
I&O
12/14/24 12/15/24 12/16/24
06:59 06:59 06:59
Intake Total 1490 / 1490 1440 / 1440
Balance 1490 / 1490 1440 / 1440
--- NOTE | 2024-12-15 14:37 | CM ---
CM following re: discharge planning.
Reviewed pt's chart, met with pt.
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
D/C plan: home with anticipated no needs. to transport at discharge.
CM will follow with discharge plan updates as needed.
[2024-12-15 15:00] VITALS: BP 126/58
[2024-12-15] MEDS: TYLENOL 650 MG PO (16:00)
[2024-12-15] MEDS: LOVENOX 40 MG SC (17:35)
[2024-12-15 19:43] VITALS: BP 112/47
[2024-12-15 23:36] VITALS: BP 129/61
[2024-12-16] MEDS: TORADOL 15 MG IV ×2 (03:24→09:38)
[2024-12-16 03:38] VITALS: BP 137/64
[2024-12-16 05:27] VITALS: BMI 26.7
[2024-12-16 07:05] VITALS: BP 140/63
[2024-12-16] MEDS: PROTONIX IV 40 MG IV (07:10)
[2024-12-16] MEDS: COREG 3.125 MG PO ×2 (07:11→19:55)
[2024-12-16] MEDS: NSS (PRESERVATIVE FREE) 10 ML IV (07:11)
[2024-12-16] MEDS: VIBRAMYCIN 100 MG PO ×2 (07:12→19:55)
[2024-12-16] MEDS: COZAAR 50 MG PO (07:12)
[2024-12-16] MEDS: DILAUDID 0.5 MG IV ×3 (07:14→21:42)
[2024-12-16 07:30] LABS: Hematocrit 25.0 % (37.0-47.0); Hemoglobin 8.4 g/dL (12.0-16.0); Mean Corp Hgb Conc. 33.6 g/dL (33.0-37.0); Mean Corpuscular Volume 77.4 fL (81.0-99.0); Platelet Count 94 10^3/uL (130-400); Red Cell Dist. Width 14.6 % (11.5-14.5)
[2024-12-16 07:55] LABS: Blood Urea Nitrogen 4 mg/dl (7-17); Calcium 8.6 mg/dl (8.4-10.2); Carbon Dioxide 20 mmol/L (22-30); Chloride 106 mmol/L (98-107); Estimated Creatinine Clearance 63 ml/min; Glucose 85 mg/dl (70-99); Potassium 3.6 mmol/L (3.5-5.1); Sodium 132 mmol/L (135-145); eGFR > 60.00
[2024-12-16 09:33] VITALS: BMI 26.7
--- NOTE | 2024-12-16 10:04 | W.PN.ID1 ---
Date of Service
Date of Service: December 16, 2024
Today's Communication
Continue doxycycline. Await JORDANA
Assessment / Plan
# Large areas of splenic infarct
# Fever since ; improved
# Leukocytosis with bandemia; resolved
# Acute thrombocytopenia
# New anemia since 11/16/2024
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
- Blood cx's x 3 neg to date
- TTE: no gross veg
- Blood parasite smear : negative x 2
- Lyme screen negative
- Anaplasma/Ehrlichia PCR pending
-Coagulopathy workup pending, per Heme
- Cardiology consulted for JORDANA.
Cardiology would prefers to wait for thrombocytopenia to improve before JORDANA.
Management Coordinator also will work up for possible Afib to explain emboli.
--> Continue empiric doxycycline 100mg po bid.
- Trend temps/plt
����������������������������������������������������������
Chief Complaint
-: Fever
Subjective / Review of Systems
Patient seen and examined. Reports improvement in fever, although notes she has been on Tylenol
Vital Signs / Physical Exam
Vital Signs
Vital Signs
Temp Pulse Resp BP Pulse Ox
99.0 F 80 16 140/63 97
12/16/24 07:05 12/16/24 07:12 12/16/24 07:05 12/16/24 07:12 12/16/24 09:20
Physical Exam
Constitutional: No Acute Distress
Eyes: Sclera Anicteric
Pulmonary: Non Labored
Gastrointestinal: Non Distended
Extremities: Negative Edema, Splinter Hemorrhage or Janeway Lesions
Skin: Negative Rash
Neurological: AO x 3; Negative Meningeal Signs
Objective Data
Lab Data
Lab Results
12/16/24 06:38
12/16/24 06:39
ESR 89 mm/hour (0-20) H 12/15/24 05:39
PT 14.6 Sec (11.4-14.6) 12/14/24 06:39
INR 1.09 12/14/24 06:39
APTT 39.2 Sec (23.4-35.0) H 12/14/24 06:39
Estimated Creat Clear 63 ml/min 12/16/24 06:39
Total Bilirubin 0.5 mg/dl (0.2-1.3) 12/12/24 19:43
AST 29 U/L (14-36) 12/12/24 19:43
ALT 22 U/L (0-35) 12/12/24 19:43
Alkaline Phosphatase 104 U/L (38-126) 12/12/24 19:43
C-Reactive Protein 149.80 mg/L (0.0-10.00) H 12/15/24 05:39
Most recent labs reviewed.
Micro Results:
12/13/24 06:14 Blood Culture - Preliminary
Blood/Venous No Growth in 72 hours- Final report to follow
12/13/24 05:53 Blood Culture - Preliminary
Blood/Venous No Growth in 72 hours- Final report to follow
12/13/24 15:04 Blood Culture - Preliminary
Blood/Venous No Growth in 48 hours- Final report to follow
12/15/24 05:39 Blood Parasites Smear - Final
Blood/Venous
12/13/24 02:02 Urine Culture - Final
Urine Streptococcus species
12/13/24 15:04 Blood Parasites Smear - Final
Blood/Venous
12/13/24 CT a/p: Large geographic areas of nonenhancement within the spleen, consistent with splenic infarcts, new compared to prior CT dated 11/22/2023
[2024-12-16 11:10] VITALS: BP 131/57
--- NOTE | 2024-12-16 12:28 | W.PN.HOSP.TC ---
Today's Communication/Plan
-
Assessment / Plan
Assessment / Plan
Wearing corrective lenses, warm
Scleral Anicteric
MMM
No JVD
CTABL
RRR, S1/S2
Soft, right upper quadrant tenderness, ND, BS+
Warm, Dry
AAOx3
Calm
SIRS�fever white count tachycardic
- Unclear source, tick bourne vs hematologic but to acute, rheumatolgic but no joint/cutaneous symptoms vs unclear etiology as longer then 3weeks
- IV antibiotics vancomycin Rocephin
- Blood cultures
- Urine culture pending
- 2D echocardiogram completed no veg
- Will consult cardiology for JORDANA
- Infectious disease consulted
- Erlichiea and tick borne work up bending
- Reported Lyme panel at outpatient PCP negative
- Will check SONALI, RF, DS and Anca ordered
- Protein c/s, anticariolipin and antiphospholipid ordered
- If infectious process ruled oout then taina will nee dfurther hematologic testing with flowcytometry and bmbx
Afebrile for 48 hours however on Toradol. Will stop Toradol for the next 48 hours to see if fever free and can likely be discharged home on doxycycline. If not fever free then will likely require additional workup
Bicytopenia
- Denies night sweats and weight loss
- Could be related to ongoing sepsis
- Bili normal therefore low clinical suspicion for hemolysis
- Hematology consult
Diverticulosis
- Will need outpatient GI follow-up
HTN
- Conitnue antihypertensives
Anticipated Discharge: > 48 hours
Subjective/Interval History
-
Date of Service: December 16, 2024
seen and examined. no new complaints. no acute overnight events
Objective Data
-
Labs:
Laboratory Results
12/16/24 12/16/24
06:38 06:39
WBC 10.4
Hgb 8.4 L
Hct 25.0 L
Plt Count 94 L D
Sodium 132 L
Potassium 3.6
Chloride 106
Carbon Dioxide 20 L
BUN 4 L
Creatinine 0.8
Glucose 85
Calcium 8.6
Vital Signs:
Vital Signs
Temp Pulse Resp BP Pulse Ox
98.2 F 70 16 131/57 97
12/16/24 11:10 12/16/24 11:10 12/16/24 11:10 12/16/24 11:10 12/16/24 11:10
I&O
12/15/24 12/16/24 12/17/24
06:59 06:59 06:59
Intake Total 1440 / 1440 2400 / 2400
Balance 1440 / 1440 2400 / 2400
[2024-12-16] MEDS: FEOSOL 325 MG PO (13:01)
[2024-12-16 15:00] VITALS: BP 133/58
[2024-12-16] MEDS: LOVENOX 40 MG SC (17:44)
[2024-12-16 19:59] VITALS: BP 139/59
[2024-12-16 23:05] VITALS: BP 123/58
[2024-12-17 03:29] VITALS: BP 134/63
[2024-12-17] MEDS: ULTRAM 25 MG PO ×3 (03:59→17:38)
[2024-12-17 05:50] VITALS: BMI 26.6
[2024-12-17 07:05] VITALS: BP 140/59
[2024-12-17] MEDS: VIBRAMYCIN 100 MG PO ×2 (07:36→20:18)
[2024-12-17] MEDS: COZAAR 50 MG PO (07:37)
[2024-12-17] MEDS: COREG 3.125 MG PO ×2 (07:37→20:18)
[2024-12-17] MEDS: PROTONIX IV 40 MG IV (07:38)
[2024-12-17] MEDS: NSS (PRESERVATIVE FREE) 10 ML IV (07:38)
[2024-12-17] MEDS: DILAUDID 0.5 MG IV ×3 (07:45→20:24)
[2024-12-17 07:47] LABS: Hematocrit 24.3 % (37.0-47.0); Hemoglobin 8.1 g/dL (12.0-16.0); Mean Corp Hgb Conc. 33.3 g/dL (33.0-37.0); Mean Corpuscular Volume 77.6 fL (81.0-99.0); Platelet Count 130 10^3/uL (130-400); Red Cell Dist. Width 14.8 % (11.5-14.5)
[2024-12-17 07:59] LABS: Blood Urea Nitrogen 3 mg/dl (7-17); Calcium 8.7 mg/dl (8.4-10.2); Carbon Dioxide 21 mmol/L (22-30); Chloride 106 mmol/L (98-107); Estimated Creatinine Clearance 56 ml/min; Glucose 91 mg/dl (70-99); Potassium 3.9 mmol/L (3.5-5.1); Sodium 134 mmol/L (135-145); eGFR > 60.00
--- NOTE | 2024-12-17 11:03 | W.PN.HOSP.TC ---
Addendum entered and electronically signed by Matt Chang MD 12/17/24 12:48:
hyponatremia poor po intake on cld, advance to low residue
Original Note:
Today's Communication/Plan
-
Assessment / Plan
Assessment / Plan
Wearing corrective lenses, warm
Scleral Anicteric
MMM
No JVD
CTABL
RRR, S1/S2
Soft, right upper quadrant tenderness, ND, BS+
Warm, Dry
AAOx3
Calm
SIRS�fever white count tachycardic
- Unclear source, tick bourne vs hematologic but to acute, rheumatolgic but no joint/cutaneous symptoms vs unclear etiology as longer then 3weeks
- IV antibiotics vancomycin Rocephin
- Blood cultures
- Urine culture pending
- 2D echocardiogram completed no veg
- Will consult cardiology for JORDANA
- Infectious disease consulted
- Erlichiea and tick borne work up bending
- Reported Lyme panel at outpatient PCP negative
- Will check SONALI, RF, DS and Anca ordered
- Protein c/s, anticariolipin and antiphospholipid ordered
- If infectious process ruled oout then taina will nee dfurther hematologic testing with flowcytometry and bmbx
Afebrile for 48 hours however on Toradol. Will stop Toradol for the next 48 hours to see if fever free and can likely be discharged home on doxycycline. If not fever free then will likely require additional workup
Bicytopenia
- Denies night sweats and weight loss
- Could be related to ongoing sepsis
- Bili normal therefore low clinical suspicion for hemolysis
- Hematology consult
Diverticulosis
- Will need outpatient GI follow-up
HTN
- Conitnue antihypertensives
Anticipated Discharge: 24 - 48 hours
Subjective/Interval History
-
Date of Service: December 17, 2024
seen and exmained
asking to have an advancanced diet
askign to take a shwower
no fever overnight
still having bad pain though
Objective Data
-
Labs:
Laboratory Results
12/17/24
06:54
WBC 10.2
Hgb 8.1 L
Hct 24.3 L
Plt Count 130 D
Sodium 134 L
Potassium 3.9
Chloride 106
Carbon Dioxide 21 L
BUN 3 L
Creatinine 0.9
Glucose 91
Calcium 8.7
Vital Signs:
Vital Signs
Temp Pulse Resp BP Pulse Ox
98.6 F 70 16 140/59 95
12/17/24 07:05 12/17/24 07:37 12/17/24 07:05 12/17/24 07:37 12/17/24 10:23
I&O
12/16/24 12/17/24 12/18/24
06:59 06:59 06:59
Intake Total 2400 / 2400 600 / 600
Balance 2400 / 2400 600 / 600
[2024-12-17 11:19] VITALS: BP 144/61
[2024-12-17 11:35] LABS: ANA, IgG Reflex to HEp-2 None Detected (None Detected)
--- NOTE | 2024-12-17 14:42 | PTCARENOTE ---
Patient tolerating low residue diet, poor appetite overall, occ L flank pain rated 5-6/10 partially relieved with PRN IV dilaudid and PO tramadol - see MAR. Patient okay to shower, ambulatory in room, ringing appropriately.
[2024-12-17 15:20] VITALS: BP 131/63
[2024-12-17 15:55] LABS: Protein C, Total Antigen 72 % (63-153)
[2024-12-17 16:51] LABS: Beta-2-Glycoprotein I Ab. IgG <10 SGU (<=20); Beta-2-Glycoprotein I Ab. IgM <10 SMU (<=20)
[2024-12-17] MEDS: LOVENOX 40 MG SC (17:38)
[2024-12-17 19:40] VITALS: BP 138/68
[2024-12-17] MEDS: TYLENOL 650 MG PO (20:18)
[2024-12-17 23:40] VITALS: BP 114/54
[2024-12-18 02:14] LABS: ds-DNA Ab, IgG Reflex To Titer 6 IU (0-24)
[2024-12-18] MEDS: ULTRAM 25 MG PO ×2 (03:00→14:05)
[2024-12-18 03:28] VITALS: BP 120/47
[2024-12-18 04:35] LABS: Hematocrit 23.8 % (37.0-47.0); Hemoglobin 7.9 g/dL (12.0-16.0); Mean Corp Hgb Conc. 33.2 g/dL (33.0-37.0); Mean Corpuscular Volume 78.3 fL (81.0-99.0); Platelet Count 116 10^3/uL (130-400); Red Cell Dist. Width 14.7 % (11.5-14.5)
[2024-12-18 04:57] LABS: Blood Urea Nitrogen 8 mg/dl (7-17); Calcium 8.5 mg/dl (8.4-10.2); Carbon Dioxide 25 mmol/L (22-30); Chloride 105 mmol/L (98-107); Estimated Creatinine Clearance 56 ml/min; Glucose 105 mg/dl (70-99); Potassium 3.7 mmol/L (3.5-5.1); Sodium 134 mmol/L (135-145); eGFR > 60.00
[2024-12-18 06:00] VITALS: BMI 26.4
[2024-12-18 07:05] VITALS: BP 143/66
[2024-12-18] MEDS: DILAUDID 0.5 MG IV ×4 (07:35→20:40)
[2024-12-18 07:54] LABS: Serine Protease-3, IgG 4 AU/mL (0-19)
[2024-12-18] MEDS: COREG 3.125 MG PO ×2 (08:50→20:40)
[2024-12-18] MEDS: VIBRAMYCIN 100 MG PO ×2 (08:50→20:39)
[2024-12-18] MEDS: COZAAR 50 MG PO (08:51)
[2024-12-18] MEDS: NSS (PRESERVATIVE FREE) 10 ML IV (08:52)
[2024-12-18] MEDS: PROTONIX IV 40 MG IV (08:52)
--- NOTE | 2024-12-18 09:08 | W.PN.ID1 ---
Date of Service
Date of Service: December 18, 2024
Today's Communication
Continue Doxy for today.
Assessment / Plan
# Large areas of splenic infarct
# Fever since ; improved although temp to 101 degrees last evening
# Leukocytosis with bandemia; resolved
# Acute thrombocytopenia
# New anemia since 11/16/2024
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
- Blood cx's x 3 neg to date
- TTE: no gross veg
- Blood parasite smear : negative x 2
- Lyme screen negative
- Anaplasma/Ehrlichia PCR negative
- Coagulopathy workup pending, per Heme
- Cardiology consulted for JORDANA.
Cardiology would prefers to wait for thrombocytopenia to improve before JORDANA.
Felt Hooker also will work up for possible Afib to explain emboli.
--> Continue empiric doxycycline 100mg po bid (d#5)
- Trend temps/plt
����������������������������������������������������������
Chief Complaint
-: Fever
Subjective / Review of Systems
Patient seen and examined. Reports ongoing left sided abdominal discomfort which extends from her flank region to left hip region. Fever to 101 degrees noted overnight.
Vital Signs / Physical Exam
Vital Signs
Vital Signs
Temp Pulse Resp BP Pulse Ox
99.0 F 89 16 143/66 98
12/18/24 07:05 12/18/24 08:51 12/18/24 07:05 12/18/24 08:51 12/18/24 07:05
Physical Exam
Constitutional: No Acute Distress
Eyes: Sclera Anicteric
Pulmonary: Non Labored
Gastrointestinal: Non Distended
Extremities: Negative Edema, Splinter Hemorrhage or Janeway Lesions
Skin: Negative Rash
Neurological: AO x 3; Negative Meningeal Signs
Objective Data
Lab Data
Lab Results
12/18/24 04:15
12/18/24 04:15
ESR 89 mm/hour (0-20) H 12/15/24 05:39
PT 14.6 Sec (11.4-14.6) 12/14/24 06:39
INR 1.09 12/14/24 06:39
APTT 39.2 Sec (23.4-35.0) H 12/14/24 06:39
Estimated Creat Clear 56 ml/min 12/18/24 04:15
Total Bilirubin 0.5 mg/dl (0.2-1.3) 12/12/24 19:43
AST 29 U/L (14-36) 12/12/24 19:43
ALT 22 U/L (0-35) 12/12/24 19:43
Alkaline Phosphatase 104 U/L (38-126) 12/12/24 19:43
C-Reactive Protein 149.80 mg/L (0.0-10.00) H 12/15/24 05:39
Most recent labs reviewed.
Micro Results:
12/13/24 05:53 Blood Culture - Final
Blood/Venous No Growth - Final Report
12/13/24 06:14 Blood Culture - Final
Blood/Venous No Growth - Final Report
12/13/24 15:04 Blood Culture - Preliminary
Blood/Venous No Growth in 4 days- Final report to follow
12/15/24 05:39 Blood Parasites Smear - Final
Blood/Venous
12/13/24 02:02 Urine Culture - Final
Urine Streptococcus species
12/13/24 15:04 Blood Parasites Smear - Final
Blood/Venous
12/13/24 CT a/p: Large geographic areas of nonenhancement within the spleen, consistent with splenic infarcts, new compared to prior CT dated 11/22/2023
Care Review
Plan reviewed with: Physician (Hospitalist)
--- NOTE | 2024-12-18 10:51 | W.PN.ONC ---
Today's Communication / Plan
-
Infectious w/u has been negative, but fever and thrombocytopenia have improved on empiric doxycyline; continue the same
With improvement in platelet count and ongoing LUQ pain, will start Eliquis 5mg BID for splenic infarct
Will switch oral iron to IV iron w/ c/o loose stool; monitor for GI bleeding on Eliquis - etiology of iron def unknown
Fever can be secondary to splenic infarct, monitor temp
Thrombophilia testing pending (so far, protein C/S normal)
Will check flow cytometry
t/c bone marrow biopsy
Impression
Impression
Fevers x 1+ month
Splenic infarct
Anemia, iron def
Thrombocytopenia
Plan
Plan
Infectious w/u has been negative, but fever and thrombocytopenia have improved on empiric doxycyline; continue the same
With improvement in platelet count and ongoing LUQ pain, will start Eliquis 5mg BID for splenic infarct
Will switch oral iron to IV iron w/ c/o loose stool; monitor for GI bleeding on Eliquis - etiology of iron def unknown
Fever can be secondary to splenic infarct, monitor temp
Thrombophilia testing pending (so far, protein C/S normal)
Will check flow cytometry
t/c bone marrow biopsy
Subjective/Objective
Subjective/Objective
still w/ LUQ pain
appetite is poor, some loose BMs
denies bleeding
Vital Signs:
Vital Signs
Temp Pulse Resp BP Pulse Ox
99.0 F 89 16 143/66 98
12/18/24 07:05 12/18/24 08:51 12/18/24 07:05 12/18/24 08:51 12/18/24 07:05
Lab Results:
Laboratory Data
WBC 7.1 10^3/uL (4.8-10.8) 12/18/24 04:15
Hgb 7.9 g/dL (12.0-16.0) L 12/18/24 04:15
Plt Count 116 10^3/uL (130-400) L 12/18/24 04:15
PT 14.6 Sec (11.4-14.6) 12/14/24 06:39
INR 1.09 12/14/24 06:39
APTT 39.2 Sec (23.4-35.0) H 12/14/24 06:39
eGFR > 60.00 12/18/24 04:15
Orders
Orders
Orders From Last 24 Hours
12/18/24 10:51
Leukemia/Lymphoma Phenotyping [S] Routine
12/18/24 11:00
Apixaban [Eliquis] 5 mg PO BID
12/18/24 14:00
Ferric Gluconate [Ferrlecit] 125 mg 0.9% Sodium Chloride 100 ml [Nss] 100 ml IV DAILY@1400
[2024-12-18 11:10] VITALS: BP 123/63
[2024-12-18] MEDS: ELIQUIS 5 MG PO ×2 (12:53→20:39)
[2024-12-18] MEDS: FERRLECIT 110 MG IV (12:56)
--- NOTE | 2024-12-18 13:46 | W.PN.HOSP.TC ---
Addendum entered and electronically signed by Matt Chang MD 12/18/24 16:31:
Splenic infarct.
Eliquis started bid
Original Note:
Today's Communication/Plan
-
Assessment / Plan
Assessment / Plan
Wearing corrective lenses, warm
Scleral Anicteric
MMM
No JVD
CTABL
RRR, S1/S2
Soft, right upper quadrant tenderness, ND, BS+
Warm, Dry
AAOx3
Calm
SIRS�fever white count tachycardic, febrile 101 last one 12/17
- Unclear source, tick bourne vs hematologic but to acute, rheumatolgic but no joint/cutaneous symptoms vs unclear etiology as longer then 3weeks
- IV antibiotics vancomycin Rocephin
- Blood cultures
- Urine culture pending
- 2D echocardiogram completed no veg
- Will consult cardiology for JORDANA
- Infectious disease consulted
- Erlichiea and tick borne work up bending
- Reported Lyme panel at outpatient PCP negative
- Will check SONALI, RF, DS and Anca ordered
- Protein c/s, anticariolipin and antiphospholipid ordered
- As febrile again even though on doxy, ?if infection is the cause. Therefore, cannot exclude a hematologic cause though counts are improving, will discuss with hematology about proceeding with flowcytometry +- bmbx
Bicytopenia
- Denies night sweats and weight loss
- Could be related to ongoing sepsis
- Bili normal therefore low clinical suspicion for hemolysis
- Hematology following
Diverticulosis
- Will need outpatient GI follow-up
HTN
- Conitnue antihypertensives
Anticipated Discharge: > 48 hours
Subjective/Interval History
-
Date of Service: December 18, 2024
seen and examined. no new complaintgs. no acute overnight events
Objective Data
-
Labs:
Laboratory Results
12/18/24
04:15
WBC 7.1
Hgb 7.9 L
Hct 23.8 L
Plt Count 116 L
Sodium 134 L
Potassium 3.7
Chloride 105
Carbon Dioxide 25
BUN 8
Creatinine 0.9
Glucose 105 H
Calcium 8.5
Vital Signs:
Vital Signs
Temp Pulse Resp BP Pulse Ox
99.2 F 82 16 123/63 95
12/18/24 11:10 12/18/24 11:10 12/18/24 11:10 12/18/24 11:10 12/18/24 11:10
I&O
12/17/24 12/18/24 12/19/24
06:59 06:59 06:59
Intake Total 600 / 600 1140 / 1140
Balance 600 / 600 1140 / 1140
[2024-12-18 15:05] VITALS: BP 132/73
[2024-12-18] MEDS: PROTONIX 20 MG PO (17:44)
[2024-12-18] MEDS: TORADOL 15 MG IV (17:45)
[2024-12-18 19:10] VITALS: BP 119/50
[2024-12-18 23:05] VITALS: BP 134/61
[2024-12-19] MEDS: TORADOL 15 MG IV ×3 (01:25→16:00)
[2024-12-19] MEDS: DILAUDID 0.5 MG IV ×3 (05:18→20:55)
[2024-12-19 06:00] VITALS: BMI 26.4
[2024-12-19 07:32] VITALS: BP 139/70
[2024-12-19 07:57] LABS: Hematocrit 22.9 % (37.0-47.0); Hemoglobin 7.6 g/dL (12.0-16.0); Mean Corp Hgb Conc. 33.2 g/dL (33.0-37.0); Mean Corpuscular Volume 78.4 fL (81.0-99.0); Platelet Count 113 10^3/uL (130-400); Red Cell Dist. Width 14.8 % (11.5-14.5)
[2024-12-19 08:37] LABS: Blood Urea Nitrogen 7 mg/dl (7-17); Calcium 8.8 mg/dl (8.4-10.2); Carbon Dioxide 26 mmol/L (22-30); Chloride 104 mmol/L (98-107); Estimated Creatinine Clearance 56 ml/min; Glucose 88 mg/dl (70-99); Potassium 3.5 mmol/L (3.5-5.1); Sodium 135 mmol/L (135-145); eGFR > 60.00
[2024-12-19] MEDS: VIBRAMYCIN 100 MG PO (10:45)
[2024-12-19] MEDS: ELIQUIS 5 MG PO (10:45)
[2024-12-19] MEDS: COZAAR PO (10:59)
[2024-12-19] MEDS: COREG PO (10:59)
[2024-12-19] MEDS: PROTONIX PO (11:00)
--- NOTE | 2024-12-19 11:05 | W.PN.ONC2 ---
Today's Communication / Plan
-
on empiric doxycycline
daily CBC
stop parenteral iron due to concern for subacute infectious endocarditis
continue therapeutic anticoagulation
monitor for bleeding
f/u CT surgery consult
f/u CTA chest
f/u peripheral flow
Impression
Impression
Fevers x 1+ month
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
small PFO
urine culture with strep species
Splenic infarct
Anemia, iron def - etiology of iron def unknown but hx of small bowel resection could be contributing
Thrombocytopenia
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
Plan
Plan
fever and thrombocytopenia have improved on empiric Doxycycline
With improvement in platelet count and ongoing LUQ pain -Eliquis 5mg BID for splenic infarct started 12/18
monitor for GI bleeding on Eliquis
Thrombophilia testing pending (so far, protein C/S normal)
f/u flow cytometry
Subjective/Objective
Subjective
LUQ discomfort
Vital Signs:
Vital Signs
Temp Pulse Resp BP Pulse Ox
98.1 F 78 16 139/70 94
12/19/24 07:32 12/19/24 07:32 12/19/24 07:32 12/19/24 07:32 12/19/24 07:32
Lab Results:
Laboratory Data
WBC 6.4 10^3/uL (4.8-10.8) 12/19/24 07:01
Hgb 7.6 g/dL (12.0-16.0) L 12/19/24 07:01
Plt Count 113 10^3/uL (130-400) L 12/19/24 07:01
PT 14.6 Sec (11.4-14.6) 12/14/24 06:39
INR 1.09 12/14/24 06:39
APTT 39.2 Sec (23.4-35.0) H 12/14/24 06:39
eGFR > 60.00 12/19/24 07:01
Physical Exam
HEENT: Moist Mucous Membranes; No Jaundice
Cardiology: Normal Sinus Rhythm
Pulmonary: Clear
GI: Soft
Extremities: Pulses Present
Neuro: Non Focal
--- NOTE | 2024-12-19 12:16 | W.PN.CARDCBS ---
Today's Communication / Plan
-
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
Consult CT surgery
CTA of the chest ordered, requested by CT surgery
Impression / Plan
-
Primary Regulatory Compliance Manager: none prior to admission
Assessment:
Splenic infarct
Fevers since
SIRS
Microcytic iron deficient anemia
Thrombocytopenia
HTN
HLD
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
History of long covid 2020
Eczema, on dupixent
Former smoker
ECHO 12/13/24: EF 60 to 65%, no regional wall motion abnormalities noted, mild to moderate AR [trileaflet aortic valve with echodensity on right coronary cusp], mild TR, PAP 27 mmHg
Plan:
Fevers since following a trip 1 month prior to visit to [place] in September admitted with flank pain found to have large areas of splenic infarct, acute thrombocytopenia, and microcytic anemia. History of right mesenteric
infarct/small bowel ulcer and perienteric abscess with fistula status post resection in November 2023.
- ID and hematology consulted
- Blood cultures x 3 negative to date; blood parasite smear negative, Lyme screen negative, Anaplasma/Ehrlichia PCR negative, SONALI negative, coagulopathy workup in progress.
- Transthoracic echocardiogram 12/13/2024 reviewed: Normal biventricular size and systolic function. Aortic valve is poorly visualized but is trileaflet with thickening/echodensity on right coronary cusp, cannot exclude prolapse. Mild to moderate
eccentric aortic regurgitation. Favor subacute endocarditis although will review prior workup/testing previously initiated by ID. Alternatively, aortic valve fibroelastoma?
- Transesophageal echocardiogram done today without complications. Trileaflet aortic valve with leaflet thickening with mobile echodensity/mass on the right coronary cusp measuring 0.57 cmx 0.59cm associated with eccentric mild to moderate aortic
insufficiency. Mitral, tricuspid, and pulmonic valves without masses/vegetations. Patient also has a small PFO detected by color-flow Doppler with negative bubble study x 3
- Study discussed with CT surgery, Dr. Porter and will place a consult. At the request of CT surgery will obtain a CTA of the chest
- JORDANA findings discussed with multidisciplinary team members
- Currently on doxycycline per ID
Splenic infarcts with prior history of right mesenteric infarct�hypercoagulable workup ordered by hematology. Currently on Eliquis.
Microcytic, iron deficient anemia�iron supplementation per hematology. Hemoglobin today 7.6 g/dL
Thrombocytopenia, likely secondary to above process. Hematology consulted. Platelets today greater than 100,000
Progress Note - Regulatory Compliance Manager
Subjective
Date of Service: December 19, 2024
Seen and examined prior to transesophageal echocardiogram. Offers no new complaints. No contraindications to proceeding with planned procedure. Consents signed. Following transesophageal echocardiogram, discussed findings with patient and
answered all questions
Objective
Labs:
12/19/24 07:01
12/19/24 07:01
Labs
Hgb 7.6 g/dL (12.0-16.0) L 12/19/24 07:01
Hct 22.9 % (37.0-47.0) L 12/19/24 07:01
Plt Count 113 10^3/uL (130-400) L 12/19/24 07:01
PT 14.6 Sec (11.4-14.6) 12/14/24 06:39
INR 1.09 12/14/24 06:39
APTT 39.2 Sec (23.4-35.0) H 12/14/24 06:39
Sodium 135 mmol/L (135-145) 12/19/24 07:01
Potassium 3.5 mmol/L (3.5-5.1) 12/19/24 07:01
BUN 7 mg/dl (7-17) 12/19/24 07:01
Creatinine 0.9 mg/dL (0.6-1.0) 12/19/24 07:01
Glucose 88 mg/dl (70-99) 12/19/24 07:01
Vital Signs and I&O:
Vital Signs
Temp Pulse Resp BP Pulse Ox
98.1 F 78 16 139/70 94
12/19/24 07:32 12/19/24 07:32 12/19/24 07:32 12/19/24 07:32 12/19/24 07:32
Vital Signs
Temp Pulse Resp BP Pulse Ox
98.1 F 78 16 139/70 94
12/19/24 07:32 12/19/24 07:32 12/19/24 07:32 12/19/24 07:32 12/19/24 07:32
Intake & Output
12/17/24 12/18/24 12/19/24 12/20/24
06:59 06:59 06:59 06:59
Intake Total 600 / 600 1140 / 1140 660 / 660
Balance 600 / 600 1140 / 1140 660 / 660
Physical Exam
Physical Exam
GEN: NAD, pale.
HEENT: mmm, pale sclera
LUNGS: CTA bilaterally, no wheezes/rales
CV: Reg, S1/S2, no murmur or rub
ABD: soft, BS+, NT/ND
EXT: No edema
NEURO: Gross non-focal
--- NOTE | 2024-12-19 12:45 | CM ---
Patient seen at bedside on . Patient stated that she plans to go home with no needs at this time. Patient for further medical work up per chart review. CM will follow for discharge planning needs.
Plan; home with no needs; pending medical treatment plan
--- NOTE | 2024-12-19 13:03 | W.PN.ID1 ---
Date of Service
Date of Service: December 19, 2024
Today's Communication
DC doxycycline
Assessment / Plan
# Aortic valve mass
# Large areas of splenic infarct, embolic
# Fever since ; improved although pt on Toradol
# Leukocytosis with bandemia; resolved
# Acute thrombocytopenia
# New anemia since 11/16/2024
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
- Blood cx's x 3 negative (prior to abx)
- Blood parasite smear : negative x 2
- Lyme screen negative
- Anaplasma/Ehrlichia PCR negative
- 12/19 JORDANA: mobile mass on aortic valve cusp and small PFO
- Appreciate cardiology - consulted cardiothoracic surgery
- Discontinue empiric doxycycline 100mg po bid (d#7)
- Work-up for culture-negative endocarditis.
- Coagulopathy work-up pending per Heme.
����������������������������������������������������������
Chief Complaint
-: Fever
Subjective / Review of Systems
at bedside.
LUQ pain controlled with toradol
Vital Signs / Physical Exam
Vital Signs
Vital Signs
Temp Pulse Resp BP Pulse Ox
98.1 F 78 16 139/70 94
12/19/24 07:32 12/19/24 07:32 12/19/24 07:32 12/19/24 07:32 12/19/24 07:32
Physical Exam
Constitutional: No Acute Distress
Cardiovascular: Regular Rate and S1/S2
Pulmonary: Clear
Gastrointestinal: Soft and Tender (LUQ)
Extremities: Negative Edema
Neurological: AO x 3
Objective Data
Lab Data
Lab Results
12/19/24 07:01
12/19/24 07:01
ESR 89 mm/hour (0-20) H 12/15/24 05:39
PT 14.6 Sec (11.4-14.6) 12/14/24 06:39
INR 1.09 12/14/24 06:39
APTT 39.2 Sec (23.4-35.0) H 12/14/24 06:39
Estimated Creat Clear 56 ml/min 12/19/24 07:01
Total Bilirubin 0.5 mg/dl (0.2-1.3) 12/12/24 19:43
AST 29 U/L (14-36) 12/12/24 19:43
ALT 22 U/L (0-35) 12/12/24 19:43
Alkaline Phosphatase 104 U/L (38-126) 12/12/24 19:43
C-Reactive Protein 149.80 mg/L (0.0-10.00) H 12/15/24 05:39
Most recent labs reviewed.
Micro Results:
12/13/24 15:04 Blood Culture - Final
Blood/Venous No Growth - Final Report
12/13/24 05:53 Blood Culture - Final
Blood/Venous No Growth - Final Report
12/13/24 06:14 Blood Culture - Final
Blood/Venous No Growth - Final Report
12/15/24 05:39 Blood Parasites Smear - Final
Blood/Venous
12/13/24 02:02 Urine Culture - Final
Urine Streptococcus species
12/13/24 15:04 Blood Parasites Smear - Final
Blood/Venous
12/13/24 CT a/p: Large geographic areas of nonenhancement within the spleen, consistent with splenic infarcts, new compared to prior CT dated 11/22/2023
--- NOTE | 2024-12-19 13:24 | W.PN.HOSP.TC ---
Today's Communication/Plan
-
CT surgery evaluation
Assessment / Plan
Assessment / Plan
Impression:
Presentation with SIRS.
Aortic valve endocarditis.
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
Streptococcus bacteriuria
Chronic anemia with microcytosis and iron
Conditions prior to admission:
Essential hypertension.
Dyslipidemia
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
Eczema
Former smoker
History of COVID
Plan:
SIRS�fever white count tachycardic, febrile 101 last one 12/17
- Aortic valve endocarditis. 2D echo with no abnormalities. JORDANA 12/19 with aortic valve vegetation
- Blood cultures negative to date
- Urine culture with strep bacteriuria
- Negative workup for tickborne pathogens
-Rheumatologic serology pending
-Antibiotics as per ID
- Will discuss utility of systemic anticoagulation with hematology and cardiology
- CT surgery evaluation
Chronic microcytic anemia
Iron deficiency.
Continue IV iron
Thrombocytopenia
Improving
HTN
- Conitnue Coreg and losartan
Anticipated Discharge: > 48 hours
Subjective/Interval History
-
Date of Service: December 19, 2024
Objective Data
-
Labs:
Laboratory Results
12/19/24
07:01
WBC 6.4
Hgb 7.6 L
Hct 22.9 L
Plt Count 113 L
Sodium 135
Potassium 3.5
Chloride 104
Carbon Dioxide 26
BUN 7
Creatinine 0.9
Glucose 88
Calcium 8.8
Vital Signs:
Vital Signs
Temp Pulse Resp BP Pulse Ox
98.1 F 78 16 139/70 94
12/19/24 07:32 12/19/24 07:32 12/19/24 07:32 07/07/25 07:32 12/19/24 12:59
I&O
12/18/24 12/19/24 12/20/24
06:59 06:59 06:59
Intake Total 1140 / 1140 660 / 660
Balance 1140 / 1140 660 / 660
Physical Exam
-
General: No Apparent Distress
HEENT: Normocephalic and Atraumatic
Respiratory: Negative Wheezes
Cardiac: Regular Rhythm and S1/S2
GI: Soft and Nontender
Neuro: AO x 3
Hematologic / Lymphatic: No Lymphadenopathy
Psych: Calm
[2024-12-19 13:59] LABS: Rheumatoid Agglutinin Less Than 10 IU (<10 IU)
[2024-12-19] MEDS: FERRLECIT IV (14:42)
[2024-12-19 15:10] VITALS: BP 120/46
--- NOTE | 2024-12-19 16:24 | CONSULT.CT ---
Consultation
-
Date/Time Consultation Requested: 12/19/24
Date/Time Consultation Performed: 12/19/24
Requesting Provider: Dr. Unique Anguiano
Performing Provider: JYOTHI Gary
Reason for Consultation: AV Mass/AV vegetation
Patient History
Physicians
Family Physician: Dr. Josee Ellison
Outpatient Regenerator Operator: None prior to admission
Inpatient Regenerator Operator: DCA
History of Present Illness
Vivian Abernathy is a 63-year-old female with a PMHx of HTN, HLD, R mesenteric infarct/small bowel ulcer with perienteric abscess and fistula s/p resection (11/2023), long COVID (2020), Eczema (dupixent) and former tobacco misuse who presented to [facility]
with complains of fever and L flank pain. Ms. Abernathy reported that fevers have been occurring since of this year. She shared that fevers initially began in September of 2024 in which she also endured an acute tension REYEZ. At that time, she
sought medical attention within [facility] ED due to the severity of her REYEZ, in addition to sinus pressure, cough, and sore throat. CTH was negative. She reported her fevers subsided at that time and her REYEZ resolved with 'migraine cocktail'. During this
admission, Ms. Abernathy reported her fevers have restarted in October and have continued for > 1 month, primarily in the afternoon and evenings. She shared that began to use of ibuprofen and acetaminophen to treat her fevers, which often jay to as high as
103 F. In addition to fevers, she further developed L flank pain. Within the ED, CT A/P showed splenic infarcts, no abscess formation, and mild diverticulosis without diverticulitis. Labwork revealed leukocytosis with bandemia, microcytic anemia,
and thrombocytopenia. Patient was further GARZA cultured with negative BC x 3 and UC with streptococcus species. ID & Hematology was consulted for further evaluation. TTE (12/13/24) reported EF 60-65%, NRWMA with AV thickening/echodensity of R coronary
cusp and mild to moderate AI. Cardiology was consulted in consideration of JORDANA due to concern for cardioembolic cause of splenic infarct. JORDANA (12/19/24) reported trileaflet AV with leaflet thickening with mobile echodensity/mass of right coronary cusp
measuring 0.57 cm x 0.59cm associated with eccentric mild to moderate aortic insufficiency; Mitral, tricuspid, and pulmonic valves without masses/vegetations. JORDANA further reported small PFO detected by color-flow Doppler with negative bubble study x
3. Cardiothoracic Surgery was consulted in consideration for AVR. During her consultation. Ms. Abernathy reported that she has noted to have increased dyspnea while ascending the stairs. She reports chronic fatigue and dyspnea due to her long-standing
COVID but has noted a progression over the last few days. She denied any visual changes, orthopnea, PND, palpitations, chest tightness/pain, edema, ABD bloating, bleeding tendencies, or dental concerns. She denied any famililal history of VHD and
reported paternal CAD with CABG in 60's.
Past Medical History
Past Medical History: Covid-19 (Long-standing COVID), GARRETT, HTN and Hypercholesterolemia
Past Surgical History
Past Surgical History: Abdominal (R mesenteric infarct/small bowel ulcer with perienteric abscess and fistula s/p resection (11/2023))
Dental History
Follows with dentist routinely. Due for 6-month dental cleaning.
Family History
Family Medical History: CAD
Social History
Alcohol: Former (sober since 's)
Drug: Former User (sober since 90's)
Tobacco: Former Smoker (1 PPD/21-years)
Personal:
Living: With Spouse
Employment: Retired (Former [employer])
Allergies
Allergy/AdvReac Type Severity Reaction Status Date / Time
No Known Allergies Allergy Verified 12/12/24 19:37
Home Medications
�Medication �Instructions �Recorded �Confirmed �Type
calcium carbonate 500 mg PO DAILY Supplement 11/19/23 12/13/24 History
carvedilol 3.125 mg tablet 3.125 mg PO BID Blood Pressure 11/19/23 12/13/24 History
dupilumab 300 mg/2 mL subcutaneous 300 mg SC Q3W Autoimmune Disorder 11/19/23 12/13/24 History
pen injector (Dupixent)
losartan 50 mg tablet 50 mg PO DAILY Blood Pressure 11/19/23 12/13/24 History
multivitamin 1 tab PO DAILY Supplement 11/19/23 12/13/24 History
rosuvastatin 5 mg tablet 5 mg PO HS High Cholesterol 11/19/23 12/13/24 History
Review of Systems
-
History Source: Patient
General: Reports Fever, Fatigue and Chills
HEENT: Reports No Symptoms
Respiratory: Reports GARRETT
Cardiac: Reports No Symptoms
Abdomen/GI: Reports Pain (L flank pain)
: Reports No Symptoms
Musculoskeletal: Reports No Symptoms
Skin: Reports No Symptoms
Neurological: Reports No Symptoms
Vascular: Reports No Symptoms
Physical Exam
Vital Signs
Temp 98.0 F 12/19/24 15:10
Temp route: Oral 12/19/24 15:10
Pulse 78 12/19/24 15:10
Rhythm: Normal sinus rhythm 12/19/24 08:30
With- Sinus tachycardia 12/16/24 08:00
Resp Rate 16 12/19/24 15:10
Blood pressure 120/46 12/19/24 15:10
Blood pressure extremity used: Right upper arm 12/19/24 15:10
Position: Lying 12/19/24 15:10
MAP (cuff-Rajat Monitor) 77 12/13/24 08:00
MAP 83 12/13/24 07:41
SaO2 96 12/19/24 15:10
Oxygen Mode of Delivery Room air 12/19/24 15:10
Can the patient verbally communicate their pain? Yes 12/19/24 16:00
Pain scale ratin 12/19/24 16:00
Actual Weight 63.276 kg 12/19/24 06:00
Body Mass Index (BMI) 26.4 12/19/24 06:00
Labs
12/19/24 07:01
12/19/24 07:01
PT 14.6 Sec (11.4-14.6) 12/14/24 06:39
APTT 39.2 Sec (23.4-35.0) H 12/14/24 06:39
Urinalysis
Urine Color Yellow 12/13/24 02:02
Urine Clarity Clear (Clear) 12/13/24 02:02
Urine pH 5.0 (5.0-9.0) 12/13/24 02:02
Ur Specific Ehrenberg 1.020 (<1.030) 12/13/24 02:02
Urine Ketones 3+ (Negative) A 12/13/24 02:02
Ur Occult Blood Reflex 1+ (Negative) A 12/13/24 02:02
Urine Bilirubin Negative (Negative) 12/13/24 02:02
Leukocyte Esterase Rfl Negative (Negative) 12/13/24 02:02
Urine RBC 7-10 /HPF (0-2) A 12/13/24 02:02
Urine WBC (Reflex) >100 /HPF (0-5) A 12/13/24 02:02
Ur Squamous Epith Cells >30 /LPF (Few) 12/13/24 02:02
Amorphous Crystals Seen 12/13/24 02:02
Urine Bacteria (Reflex) Many (Negative) A 12/13/24 02:02
Urine Mucus Many 12/13/24 02:02
Urine Glucose Negative (Negative) 12/13/24 02:02
Urine Albumin (Reflex) 1+ (Neg - Trace) A 12/13/24 02:02
Exam
General: Well Developed, Well Nourished, No Apparent Distress and Comfortable
HEENT: Normocephalic, Atraumatic, PERRLA and EOMI
Respiratory: Clear
Cardiac: S1/S2 and Regular Rhythm
GI: Soft, Non Tender, Non Distended and Normal Bowel Sounds
Skin: Warm and Dry
Neuro: AO x 3 and No Motor Deficits
Extremities: Pulses (+2 DP B/L, +2 Radial B/L)
Psych: Calm
Assessment / Plan
-
#AV Mass/Vegetation
- CTS consulted for mild-moderate AI, PFO, and AV Mass/Vegetation
- Patient's case will be discussed with Attending Physician.
- Further details regarding surgical timing will be determined after Attending Physician's full evaluation.
- Routine preoperative cardiothoracic surgery orders will be initiated, including:
- Anesthesia consult.
- Pre-op labwork including T & S.
- Cerebrovascular US
- CT Chest - performed
- STS risk stratification score will be calculated after preoperative testing is completed
- Following medications placed on hold in anticipation for surgery:
- Eliquis - last dose 12/19/24 in AM
- Losartan - Last dose 12/19/24 in AM
Data Reviewed
-
EKG: Report Reviewed by me
Echo: Report Reviewed by me
CT Scan: Report Reviewed by me
Labs: Labs Reviewed by me
[2024-12-19] MEDS: COREG 3.125 MG PO (20:55)
[2024-12-19 23:00] VITALS: BP 137/58
[2024-12-19 23:43] LABS: Anticoagulant Med Neutralizati Not Performed (Not Performed); Neutralized dRVTT Screen Ratio Not Performed (<=1.20); Prothrombin Time 14.2 s (12.0-15.5); dRVTT 1.1 Mix Ratio Not Performed (<=1.20); dRVTT Confirmation Ratio Not Performed (<=1.20); dRVTT Screen Ratio 1.15 (<=1.20)
[2024-12-20] MEDS: TORADOL 15 MG IV ×2 (00:57→14:06)
[2024-12-20] MEDS: DILAUDID 0.5 MG IV ×3 (04:50→20:19)
[2024-12-20 06:00] VITALS: BMI 26.3
[2024-12-20 06:45] LABS: INR 1.11; PT 14.6 Sec (11.4-14.6)
[2024-12-20 06:46] LABS: APTT 45.4 Sec (23.4-35.0)
[2024-12-20 07:00] VITALS: BP 141/62
[2024-12-20 07:08] LABS: ALT (SGPT) 14 U/L (0-35); AST (SGOT) 28 U/L (14-36); Albumin 3.0 g/dl (3.5-5.0); Alkaline Phosphatase 96 U/L (38-126); Blood Urea Nitrogen 6 mg/dl (7-17); Calcium 8.7 mg/dl (8.4-10.2); Carbon Dioxide 25 mmol/L (22-30); Chloride 104 mmol/L (98-107); Estimated Creatinine Clearance 63 ml/min; Glucose 92 mg/dl (70-99); Potassium 3.5 mmol/L (3.5-5.1); Sodium 134 mmol/L (135-145); Total Protein 5.8 g/dl (6.3-8.2); eGFR > 60.00
[2024-12-20 07:20] LABS: Hematocrit 22.2 % (37.0-47.0); Hemoglobin 7.3 g/dL (12.0-16.0); Mean Corp Hgb Conc. 32.9 g/dL (33.0-37.0); Mean Corpuscular Volume 78.4 fL (81.0-99.0); Red Cell Dist. Width 14.9 % (11.5-14.5)
[2024-12-20 07:42] LABS: Platelet Count 91 10^3/uL (130-400)
[2024-12-20] MEDS: COREG 3.125 MG PO ×2 (08:22→20:19)
[2024-12-20 08:40] LABS: Glycohemoglobin (HgbA1c) 5.7 % (4.0-5.6)
[2024-12-20] MEDS: PROTONIX 20 MG PO (09:38)
--- NOTE | 2024-12-20 10:46 | W.PN.CARDCBS ---
Addendum entered and electronically signed by Unique Maldonado DO 12/20/24 14:47:
I saw and examined the patient.
The Gardening Supervisor's note was reviewed and I agree with the note.
Comment: Patient was seen and examined with her , Marbella at bedside. Reviewed transesophageal echocardiogram findings as well as discussion/plans with CT surgery. She offers no new complaints.
General: No acute distress, AAOX3
Neck: Negative JVD
Heart: Regular, positive S1/S2, No murmur
Lungs: CTA b/l, negative wheezes/rales/rhonchi
Abd: Positive BS, NT/ND, neg rebound/rigidity/guarding
Ext: no edema
Neuro: nonfocal
Plan:
Fevers since following a trip 1 month prior to visit to [place] in September admitted with flank pain found to have large areas of splenic infarct, acute thrombocytopenia, and microcytic anemia. History of right mesenteric
infarct/small bowel ulcer and perienteric abscess with fistula status post resection in November 2023 found to have large, mobile aortic valve mass with mild to moderate aortic insufficiency and small PFO via transesophageal echocardiogram 12/19/2024
-Multidisciplinary care approach involving ID, hematology and no CT surgery
- Blood cultures x 3 negative to date; blood parasite smear negative, Lyme screen negative, Anaplasma/Ehrlichia PCR negative, SONALI negative, coagulopathy workup in progress.
-ID observing off antibiotics following completion course of doxycycline
-Serial blood cultures ongoing. ID workup and coagulopathy workup ongoing
- CTA cghest 12/19 with no aortic aneurysm or dissection. Mild coronary artery calcifications. Heart is not enlarged with likely a small PFO. 7X2X 5 mm hypodense focus along the aortic valve involving the noncoronary and right coronary cusp. Large
splenic infarct, similar to prior. Small bilateral pleural effusions with atelectasis. 8 mm groundglass opacity anterior right upper lobe which is nonspecific and recommended 3 to 6-month follow-up to ensure stability.
-Per patient, ID is planning MRI of the spine.
-Preop optimization/evaluation as directed by CT surgery service
- Eliquis discontinued 12/19/2024 after a.m. dose
- Will start IV heparin without bolus and monitor CBC closely
- Anticipate preop transfusion; defer to CT surgery
- Tentative plan for AVR December 22
Splenic infarcts with prior history of right mesenteric infarct�hypercoagulable workup ordered by hematology. Eliquis discontinued 12/19/2024 in anticipation of surgery; will start IV heparin
Microcytic, iron deficient anemia�iron supplementation per hematology. Hemoglobin today 7.3 g/dL.
Thrombocytopenia, likely secondary to above process. Hematology consulted. Platelets today 91,000
Will follow with you
Original Note:
Today's Communication / Plan
-
start IV heparin
follow hgb/plts
in SR
for AVR later this week
Impression / Plan
-
Primary Ground Source Heat Pump Technician: none prior to admission
Assessment:
Splenic infarct
Fevers since
SIRS
Microcytic iron deficient anemia
Thrombocytopenia
HTN
HLD
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
History of long covid 2020
Eczema, on dupixent
Former smoker
ECHO 12/13/24: EF 60 to 65%, no regional wall motion abnormalities noted, mild to moderate AR [trileaflet aortic valve with echodensity on right coronary cusp], mild TR, PAP 27 mmHg
Plan:
-Fevers since following a trip 1 month prior to visit to [place] in September admitted with flank pain found to have large areas of splenic infarct, acute thrombocytopenia, and microcytic anemia. History of right mesenteric
infarct/small bowel ulcer and perienteric abscess with fistula status post resection in November 2023.
-JORDANA 12/19/24 with evidence of aortic valve vegetation. CT surgery consulted, surgical date TBD
-blood cultures negative. not presently on abx. ID following, want to check cultures off abx.
-eliquis now on hold as of 77AM. will start IV heparin d/t splenic infarcts with ongoing pain. doubt HIT. hgb 7.2, plts 91K. will follow hgb/plts. may require transfusion pre surgery, defer to CT. hematology also following
-in SR on tele overnight
-d/w hospitalist, CT surgery, ID
Progress Note - Ground Source Heat Pump Technician
Subjective
Date of Service: December 20, 2024
Continues with left flank pain
Objective
Labs:
12/20/24 05:19
12/20/24 05:19
Labs
Hgb 7.3 g/dL (12.0-16.0) L 12/20/24 05:19
Hct 22.2 % (37.0-47.0) L 12/20/24 05:19
Plt Count 91 10^3/uL (130-400) L 12/20/24 05:19
PT 14.6 Sec (11.4-14.6) 12/20/24 05:19
INR 1.11 12/20/24 05:19
APTT 45.4 Sec (23.4-35.0) H 12/20/24 05:19
Sodium 134 mmol/L (135-145) L 12/20/24 05:19
Potassium 3.5 mmol/L (3.5-5.1) 12/20/24 05:19
BUN 6 mg/dl (7-17) L 12/20/24 05:19
Creatinine 0.8 mg/dL (0.6-1.0) 12/20/24 05:19
Glucose 92 mg/dl (70-99) 12/20/24 05:19
Vital Signs and I&O:
Vital Signs
Temp Pulse Resp BP Pulse Ox
98.6 F 72 20 141/62 95
12/20/24 07:00 12/20/24 07:00 12/20/24 07:00 12/20/24 07:00 12/20/24 07:00
Vital Signs
Temp Pulse Resp BP Pulse Ox
98.6 F 72 20 141/62 95
12/20/24 07:00 12/20/24 07:00 12/20/24 07:00 12/20/24 07:00 12/20/24 07:00
Intake & Output
12/18/24 12/19/24 12/20/24 12/21/24
07:59 07:59 07:59 07:59
Intake Total 1140 / 1140 660 / 660 2640 / 2640
Balance 1140 / 1140 660 / 660 2640 / 2640
Physical Exam
Physical Exam
GEN: No distress, awake, alert, oriented x3
HEENT: supple, anicteric, mmm, eomi
LUNGS: CTA B/L, no wheezes/rales
CV: Reg, S1/S2, 1/6 syst LSB
ABD: soft, BS+, NT/ND
EXT: No cyanosis, clubbing, edema
NEURO: Gross non-focal
SKIN: Warm, pink, dry. No rash
--- NOTE | 2024-12-20 11:17 | W.PN.HOSP.TC ---
Today's Communication/Plan
-
Off antibiotics.
IV heparin.
MRI of thoracic and lumbar spine.
CT surgery evaluation for AVR tentatively on 12/22
Assessment / Plan
Assessment / Plan
Impression:
Presentation with SIRS.
Aortic valve endocarditis.
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
Streptococcus bacteriuria
Chronic anemia with microcytosis and iron deficiency
Conditions prior to admission:
Essential hypertension.
Dyslipidemia
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
Eczema
Former smoker
History of COVID
Plan:
SIRS�fever white count tachycardic, febrile 101 last one 12/17
- Aortic valve endocarditis. 2D echo with no abnormalities. JORDANA 12/19 with aortic valve vegetation
- Blood cultures negative to date
- Urine culture with strep bacteriuria
- Negative workup for tickborne pathogens
-Rheumatologic serology unrevealing. Antiphospholipid antibodies negative
-Antibiotics as per ID
-Systemic anticoagulation: While off Eliquis initiated on heparin bridge
- CT surgery evaluation
Persistent left flank pain with paraspinal tenderness on exam.
Will order MRI of thoracic and lumbar spine.
Chronic microcytic anemia
Iron deficiency.
Status post IV iron
Thrombocytopenia
Improving
HTN
- Conitnue Coreg and losartan
Anticipated Discharge: > 48 hours
Subjective/Interval History
-
Date of Service: December 20, 2024
Objective Data
-
Labs:
Laboratory Results
12/20/24 12/20/24 12/20/24
05:19 11:09 11:13
WBC 5.7 Pending Pending
Hgb 7.3 L Pending Pending
Hct 22.2 L Pending Pending
Plt Count 91 L Pending Pending
PT 14.6
INR 1.11
APTT 45.4 H Pending Pending
Sodium 134 L
Potassium 3.5
Chloride 104
Carbon Dioxide 25
BUN 6 L
Creatinine 0.8
Glucose 92
Calcium 8.7
Total Bilirubin 0.4
AST 28
ALT 14
Alkaline Phosphatase 96
Vital Signs:
Vital Signs
Temp Pulse Resp BP Pulse Ox
98.6 F 72 20 141/62 95
12/20/24 07:00 12/20/24 07:00 12/20/24 07:00 12/20/24 07:00 12/20/24 07:00
I&O
12/19/24 12/20/24 12/21/24
06:59 06:59 06:59
Intake Total 660 / 660 2640 / 2640
Balance 660 / 660 2640 / 2640
Physical Exam
-
General: Well Developed and No Apparent Distress
HEENT: Normocephalic, Atraumatic and Moist Mucous Membranes
Respiratory: Clear to Auscultation
Cardiac: Regular Rhythm and S1/S2; Negative Murmur, Rub or Gallop
GI: Soft, Nontender, Nondistended and Normal Bowel Sounds; Negative Organomegaly
Rectal: Deferred by Provider
Musculoskeletal: No Clubbing, No Cyanosis, No Edema and Other (Left paraspinal tenderness along lower thoracic and lumbar spine.)
Skin: Negative Rash
Neuro: Nonfocal/Grossly Intact
[2024-12-20 11:53] LABS: APTT 43.5 Sec (23.4-35.0)
[2024-12-20 11:58] LABS: Hematocrit 24.9 % (37.0-47.0); Hemoglobin 8.3 g/dL (12.0-16.0); Mean Corp Hgb Conc. 33.3 g/dL (33.0-37.0); Mean Corpuscular Volume 78.1 fL (81.0-99.0); Platelet Count 96 10^3/uL (130-400); Red Cell Dist. Width 15.1 % (11.5-14.5)
[2024-12-20] MEDS: HEPARIN 25000 UNITS/250 ML IV (12:11)
[2024-12-20 13:21] LABS: Source Blood
--- NOTE | 2024-12-20 13:25 | W.PN.ID1 ---
Date of Service
Date of Service: December 20, 2024
Today's Communication
Observe off abx at this time. Repeat blood cx's in am.
Assessment / Plan
# Aortic valve mass
# Large areas of splenic infarct, embolic
# Fever since ; improved although pt on Toradol
# Leukocytosis with bandemia; resolved
# Acute thrombocytopenia
# New anemia since 11/16/2024
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
- Blood cx's x 3 negative (prior to abx)
-UA >30 sq epith cells = contaminated specimen. Ucx only 30K Strep species, contaminant/not significant
- Blood parasite smear : negative x 2
- Lyme screen negative
- Anaplasma/Ehrlichia PCR negative
- s/p 7d empiric doxycycline 100mg po bid (last dose 12/19 at 10:47a)
- 12/19 JORDANA: mobile mass on aortic valve cusp and small PFO
- For valve surgery
- Repeat 3 sets of blood cultures tomorrow and hold for 10 days.
- Q fever, Bartonella, Brucella serologies pending.
Tropheryma whipplei PCR serum pending.
- Coagulopathy work-up pending per Heme.
����������������������������������������������������������
Chief Complaint
-: Fever
Subjective / Review of Systems
c/o LUQ/flank pain
Vital Signs / Physical Exam
Vital Signs
Vital Signs
Temp Pulse Resp BP Pulse Ox
98.6 F 72 20 141/62 95
12/20/24 07:00 12/20/24 07:00 12/20/24 07:00 12/20/24 07:00 12/20/24 07:00
Physical Exam
Constitutional: No Acute Distress
Eyes: No Conjunctival Hemorrhage and Sclera Anicteric
Cardiovascular: Regular Rate and S1/S2
Pulmonary: Clear
Gastrointestinal: Soft and Tender (LUQ)
Extremities: Negative Edema
Neurological: AO x 3
Objective Data
Lab Data
Lab Results
12/20/24 05:19
ESR 89 mm/hour (0-20) H 12/15/24 05:39
PT 14.6 Sec (11.4-14.6) 12/20/24 05:19
INR 1.11 12/20/24 05:19
APTT 43.5 Sec (23.4-35.0) H 12/20/24 11:31
Estimated Creat Clear 63 ml/min 12/20/24 05:19
Total Bilirubin 0.4 mg/dl (0.2-1.3) 12/20/24 05:19
AST 28 U/L (14-36) 12/20/24 05:19
ALT 14 U/L (0-35) 12/20/24 05:19
Alkaline Phosphatase 96 U/L (38-126) 12/20/24 05:19
C-Reactive Protein 149.80 mg/L (0.0-10.00) H 12/15/24 05:39
Most recent labs reviewed.
Micro Results:
12/13/24 15:04 Blood Culture - Final
Blood/Venous No Growth - Final Report
12/13/24 05:53 Blood Culture - Final
Blood/Venous No Growth - Final Report
12/13/24 06:14 Blood Culture - Final
Blood/Venous No Growth - Final Report
12/15/24 05:39 Blood Parasites Smear - Final
Blood/Venous
12/13/24 02:02 Urine Culture - Final
Urine Streptococcus species
12/13/24 15:04 Blood Parasites Smear - Final
Blood/Venous
12/13/24 CT a/p: Large geographic areas of nonenhancement within the spleen, consistent with splenic infarcts, new compared to prior CT dated 11/22/2023
--- NOTE | 2024-12-20 13:56 | W.PN.ONC2 ---
Today's Communication / Plan
-
daily CBC
with aortic valve surgery planned
on heparin gtt with plan to transition to OAC at discharge. No objection to warfarin or DOAC at discharge if cardiology has a preference based on valve. LA positive x 1 is not diagnostic for APLS and will repeat in 12 weeks.
OP follow up with hematology will be arranged in 12 weeks
We will follow periphearlly, please reach out for any further questios or concerns.
Impression
Impression
Fevers x 1+ month
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
small PFO
urine culture with strep species
Splenic infarct -Lupus anticoagulant detected, Cardiolipin IgM elevated to 16 (<40 not significant) with normal cardiolipin IgG and B2GPI
Anemia, iron def - etiology of iron def unknown but hx of small bowel resection and diligent blood donation in 2024 could be contributing
Thrombocytopenia -stable
peripheral flow normal
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
8 mm ground glass opacity in the anterior right upper lobe
Plan
Plan
completed course of Doxycycline 12/19/2024
Pt has transitioned to heparin gtt in preparation for valve surgery with CT surgery
monitor bleeding
Thrombophilia testing shows positive lupus anticoagulant, in order to confirm diagnosis we will repeat testing in 12 weeks
Recommend 3-6 month follow-up CT chest to ensure stability of GGO with PCP
at bedside during visit provided updates and questions answered
Subjective/Objective
Subjective
no new complaints
using hydromorphone prn LUQ pain
Vital Signs:
Vital Signs
Temp Pulse Resp BP Pulse Ox
98.6 F 72 20 141/62 95
12/20/24 07:00 12/20/24 07:00 12/20/24 07:00 12/20/24 07:00 12/20/24 07:00
Lab Results:
Laboratory Data
WBC 6.7 10^3/uL (4.8-10.8) 12/20/24 11:31
Hgb 8.3 g/dL (12.0-16.0) L 12/20/24 11:31
Plt Count 96 10^3/uL (130-400) L 12/20/24 11:31
PT 14.6 Sec (11.4-14.6) 12/20/24 05:19
INR 1.11 12/20/24 05:19
APTT 43.5 Sec (23.4-35.0) H 12/20/24 11:31
eGFR > 60.00 12/20/24 05:19
Physical Exam
HEENT: Moist Mucous Membranes; No Jaundice
Pulmonary: Other (unlabored)
GI: Soft
Extremities: Pulses Present; No Edema
Neuro: Non Focal
[2024-12-20] MEDS: MIRALAX 17 GRAMS PO (14:07)
[2024-12-20 15:00] VITALS: BP 124/54
--- NOTE | 2024-12-20 15:27 | W.PN.UPDATE ---
Update Note
Progress Note Update
STS RISK SCORE
Procedure Type:�Isolated AVR
Perioperative Outcome Estimate %
Operative Mortality 3.07%
Morbidity & Mortality 12.7%
Stroke 1.24%
Renal Failure 1.89%
Reoperation 5.79%
Prolonged Ventilation 6.79%
Deep Sternal Wound Infection 0.046%
Long Hospital Stay (>14 days) 6.73%
Short Hospital Stay (<6 days)* 37.4%
Clinical Summary
Planned Surgery: Isolated AVR, Urgent, First cardiovascular surgery
Demographics: 63 year old, female, 63.27kg, 155cm, BMI: 26.3 kg/m�
Lab Values: Creatinine: 0.8 mg/dL, Hematocrit: 24.9%, WBC Count: 6.7 10�/�L, Platelet Count: 96073 cells/�L
Substance Abuse: Former smoker
Risk Factors / Comorbidities: Hypertension, Family Hx of CAD
Cardiac Status: NYHA Class II, Ejection Fraction = 63%
Coronary Artery Disease: No coronary symptoms
Valve Disease: Moderate AR, Trivial/Trace MR, Mild TR
[2024-12-20 18:39] LABS: Hematocrit 24.1 % (37.0-47.0); Hemoglobin 8.0 g/dL (12.0-16.0); Mean Corp Hgb Conc. 33.2 g/dL (33.0-37.0); Mean Corpuscular Volume 78.5 fL (81.0-99.0); Platelet Count 93 10^3/uL (130-400); Red Cell Dist. Width 15.0 % (11.5-14.5)
[2024-12-20 18:46] LABS: APTT 71.5 Sec (23.4-35.0)
[2024-12-20 23:05] VITALS: BP 119/53
[2024-12-21] VITALS (8 sets, daily range): BP systolic 128–157; BP diastolic 48–67; BMI 25.4
[2024-12-21] MEDS: TORADOL 15 MG IV ×3 (00:41→14:32)
[2024-12-21 01:20] LABS: APTT 102.8 Sec (23.4-35.0)
[2024-12-21] MEDS: DILAUDID 0.5 MG IV ×2 (05:21→20:15)
[2024-12-21 07:04] LABS: Hematocrit 23.0 % (37.0-47.0); Hemoglobin 7.5 g/dL (12.0-16.0); Mean Corp Hgb Conc. 32.6 g/dL (33.0-37.0); Mean Corpuscular Volume 78.2 fL (81.0-99.0); Platelet Count 98 10^3/uL (130-400); Red Cell Dist. Width 15.3 % (11.5-14.5)
[2024-12-21 07:06] LABS: APTT 115.2 Sec (23.4-35.0)
[2024-12-21 08:15] LABS: Blood Urea Nitrogen 8 mg/dl (7-17); Carbon Dioxide 27 mmol/L (22-30); Chloride 105 mmol/L (98-107); Estimated Creatinine Clearance 56 ml/min; Glucose 100 mg/dl (70-99); Sodium 137 mmol/L (135-145); eGFR > 60.00
[2024-12-21] MEDS: MIRALAX 17 GRAMS PO (08:24)
[2024-12-21] MEDS: COREG 3.125 MG PO ×2 (08:24→20:15)
[2024-12-21] MEDS: PROTONIX 20 MG PO (08:24)
[2024-12-21 09:28] LABS: Calcium 8.9 mg/dl (8.4-10.2); Potassium 3.9 mmol/L (3.5-5.1)
--- NOTE | 2024-12-21 13:56 | W.PN.ID1 ---
Date of Service
Date of Service: December 21, 2024
Today's Communication
Repeat blood cx's.
Assessment / Plan
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
# Large areas of splenic infarct, embolic
# Fever since ; improved although pt on Toradol
# Leukocytosis with bandemia; resolved
# Acute thrombocytopenia
# New anemia since 11/16/2024
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
- Blood cx's x 3 negative (prior to abx)
-UA >30 sq epith cells = contaminated specimen. Ucx only 30K Strep species, contaminant/not significant
- Blood parasite smear : negative x 2
- Lyme screen negative
- Anaplasma/Ehrlichia PCR negative
- s/p 7d empiric doxycycline 100mg po bid (last dose 12/19 at 10:47a)
- 12/19 JORDNAA: mobile mass on aortic valve cusp and small PFO
- For valve surgery tomorrow.
- Repeat 3 sets of blood cultures today and hold for 10 days.
- 2 sets of blood cx's in am.
- Q fever, Bartonella, Brucella serologies pending.
Tropheryma whipplei PCR serum pending.
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
However, post-op will start empiric Vancomycin and Unasyn for possible culture-neg IE pending cx and path data.
����������������������������������������������������������
Chief Complaint
-: Fever
Subjective / Review of Systems
No new complaints.
Vital Signs / Physical Exam
Vital Signs
Vital Signs
Temp Pulse Resp BP Pulse Ox
97.7 F 72 16 128/53 100
12/21/24 11:50 12/21/24 11:50 12/21/24 11:50 12/21/24 11:50 12/21/24 11:09
Physical Exam
Constitutional: No Acute Distress
Eyes: No Conjunctival Hemorrhage and Sclera Anicteric
Cardiovascular: Regular Rate and S1/S2
Pulmonary: Clear
Gastrointestinal: Soft and Tender (LUQ)
Extremities: Negative Edema
Neurological: AO x 3
Objective Data
Lab Data
Lab Results
12/21/24 06:44
12/21/24 06:44
ESR 89 mm/hour (0-20) H 12/15/24 05:39
PT 14.6 Sec (11.4-14.6) 12/20/24 05:19
INR 1.11 12/20/24 05:19
APTT 115.2 Sec (23.4-35.0) H 12/21/24 06:44
Estimated Creat Clear 56 ml/min 12/21/24 06:44
Total Bilirubin 0.4 mg/dl (0.2-1.3) 12/20/24 05:19
AST 28 U/L (14-36) 12/20/24 05:19
ALT 14 U/L (0-35) 12/20/24 05:19
Alkaline Phosphatase 96 U/L (38-126) 12/20/24 05:19
C-Reactive Protein 149.80 mg/L (0.0-10.00) H 12/15/24 05:39
Most recent labs reviewed.
Micro Results:
12/13/24 15:04 Blood Culture - Final
Blood/Venous No Growth - Final Report
12/13/24 05:53 Blood Culture - Final
Blood/Venous No Growth - Final Report
12/13/24 06:14 Blood Culture - Final
Blood/Venous No Growth - Final Report
12/15/24 05:39 Blood Parasites Smear - Final
Blood/Venous
12/13/24 02:02 Urine Culture - Final
Urine Streptococcus species
12/13/24 15:04 Blood Parasites Smear - Final
Blood/Venous
12/13/24 CT a/p: Large geographic areas of nonenhancement within the spleen, consistent with splenic infarcts, new compared to prior CT dated 11/22/2023
12/21/24 MRI thoracic/lumbar spine: Posterior lumbar subcutaneous edema, a frequent incidental finding in asymptomatic individuals.
--- NOTE | 2024-12-21 14:03 | W.PN.CARDCBS ---
Addendum entered and electronically signed by Neal Kilgore MD 12/21/24 14:25:
I saw and examined the patient.
The CAPACITY PLANNER or PA's note was reviewed and I agree with the note.
Comment: General: Well developed, well nourished in NAD.
Neck: Supple, no JVD, HJR, carotids +2 B/L, no bruits bilaterally.
Heart: Non displaced PMI, RRR, no murmurs, No S3, S4, no rubs.
Lungs: Clear to auscultation bilaterally, no wheeze, rhonchi, rubs bilaterally,
normal expiratory phase.
Extremities: No clubbing, cyanosis or edema bilaterally.
Neuro: Grossly nonfocal, awake, alert and oriented x3.
For AVR in a.m. Continue IV heparin. Discussed with CT surgery PA's. Getting a unit of blood.
Original Note:
Today's Communication / Plan
-
receiving 1 U PRBCs. follow hgb/plts
for AVR in AM
continue IV heparin
Impression / Plan
-
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
Assessment:
Splenic infarct
Fevers since 10/2024
SIRS
Microcytic iron deficient anemia
Thrombocytopenia
HTN
HLD
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
History of long covid 2020
Eczema, on dupixent
Former smoker
ECHO 12/13/24: EF 60 to 65%, no regional wall motion abnormalities noted, mild to moderate AR [trileaflet aortic valve with echodensity on right coronary cusp], mild TR, PAP 27 mmHg
Plan:
-Fevers since following a trip 1 month prior to visit to [place] in September admitted with flank pain found to have large areas of splenic infarct, acute thrombocytopenia, and microcytic anemia. History of right mesenteric
infarct/small bowel ulcer and perienteric abscess with fistula status post resection in November 2023.
-JORDANA 12/19/24 with evidence of aortic valve vegetation. CT surgery following, for AVR 12/22/24
-blood cultures negative. not presently on abx. ID following, want to repeat cultures off abx.
-eliquis on hold as of 7/7AM. continue IV heparin due to splenic infarcts. hgb 7.0. receiving 1 U PRBCs today and will have additional units web content & social media manager for surgery tomorrow.
-spine MRI report without evidence of discitis
-in SR
-will need OP follow up of pulm nodule noted on imaging
-d/w nursing
-d/w CT surgery CAPACITY PLANNER
-d/w patient and family at bedside
Progress Note - [employer] Driver
Subjective
Date of Service: December 21, 2024
remains with flank pain
Objective
Labs:
12/21/24 06:44
12/21/24 06:44
Labs
Hgb 7.5 g/dL (12.0-16.0) L 12/21/24 06:44
Hct 23.0 % (37.0-47.0) L 12/21/24 06:44
Plt Count 98 10^3/uL (130-400) L 12/21/24 06:44
PT 14.6 Sec (11.4-14.6) 12/20/24 05:19
INR 1.11 12/20/24 05:19
APTT 115.2 Sec (23.4-35.0) H 12/21/24 06:44
Sodium 137 mmol/L (135-145) 12/21/24 06:44
Potassium 3.9 mmol/L (3.5-5.1) 12/21/24 06:44
BUN 8 mg/dl (7-17) 12/21/24 06:44
Creatinine 0.8 mg/dL (0.6-1.0) 12/21/24 06:44
Glucose 100 mg/dl (70-99) H 12/21/24 06:44
Vital Signs and I&O:
Vital Signs
Temp Pulse Resp BP Pulse Ox
97.7 F 72 16 128/53 100
12/21/24 11:50 12/21/24 11:50 12/21/24 11:50 12/21/24 11:50 12/21/24 11:09
Vital Signs
Temp Pulse Resp BP Pulse Ox
97.7 F 72 16 128/53 100
12/21/24 11:50 12/21/24 11:50 12/21/24 11:50 12/21/24 11:50 12/21/24 11:09
Intake & Output
12/19/24 12/20/24 12/21/24 12/22/24
07:59 07:59 07:59 07:59
Intake Total 660 / 660 2640 / 2640 240 / 240 0 / 0
Balance 660 / 660 2640 / 2640 240 / 240 0 / 0
Physical Exam
Physical Exam
GEN: No distress, awake, alert, oriented x3. receiving 1 U PRBCs
HEENT: supple, anicteric, mmm, eomi
LUNGS: CTA B/L, no wheezes/rales
CV: Reg, S1/S2, 1/6 syst LSB
ABD: soft, BS+, NT/ND
EXT: No cyanosis, clubbing, edema
NEURO: Gross non-focal
SKIN: Warm, pink, dry. No rash
--- NOTE | 2024-12-21 14:05 | W.PN.HOSP.TC ---
Today's Communication/Plan
-
for AVR in am
Assessment / Plan
Assessment / Plan
Impression:
Presentation with SIRS.
Aortic valve endocarditis.
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
Streptococcus bacteriuria
Chronic anemia with microcytosis and iron deficiency
Conditions prior to admission:
Essential hypertension.
Dyslipidemia
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
Eczema
Former smoker
History of COVID
Plan:
SIRS�fever white count tachycardic, febrile 101 last one 12/17
- Aortic valve endocarditis. 2D echo with no abnormalities. JORDANA 12/19 with aortic valve vegetation
- Blood cultures negative to date
- Urine culture with strep bacteriuria
- Negative workup for tickborne pathogens
-Rheumatologic serology unrevealing. Antiphospholipid antibodies negative
-Antibiotics discontinued. Patient being observed. For repeat blood culture on 12/21.
-Systemic anticoagulation: While off Eliquis initiated on heparin bridge
- CT surgery evaluation for AVR on 12/22
Persistent left flank pain with paraspinal tenderness on exam.
Right of the thoracic and lumbar spine without evidence of discitis or osteomyelitis
Acute on chronic microcytic anemia
Iron deficiency.
Status post IV iron
Being transfused 1 unit of packed red blood cells on 12/21 to keep hemoglobin above 8 depression for surgical intervention
Thrombocytopenia
Improving
HTN
- Conitnue Coreg and losartan
Anticipated Discharge: > 48 hours
Subjective/Interval History
-
Date of Service: December 21, 2024
Objective Data
-
Labs:
Laboratory Results
12/21/24 12/21/24
06:44 13:45
WBC 6.1
Hgb 7.5 L
Hct 23.0 L
Plt Count 98 L
APTT 115.2 H Pending
Sodium 137
Potassium 3.9
Chloride 105
Carbon Dioxide 27
BUN 8
Creatinine 0.8
Glucose 100 H
Calcium 8.9
Vital Signs:
Vital Signs
Temp Pulse Resp BP Pulse Ox
97.7 F 72 16 128/53 100
12/21/24 11:50 12/21/24 11:50 12/21/24 11:50 12/21/24 11:50 12/21/24 11:09
I&O
12/20/24 12/21/24 12/22/24
06:59 06:59 06:59
Intake Total 2640 / 2640 240 / 240 0 / 0
Balance 2640 / 2640 240 / 240 0 / 0
Physical Exam
-
General: Well Developed and No Apparent Distress
HEENT: Normocephalic, Atraumatic and Moist Mucous Membranes
Respiratory: Clear to Auscultation
Cardiac: Regular Rhythm and S1/S2; Negative Murmur, Rub or Gallop
GI: Soft, Nontender, Nondistended and Normal Bowel Sounds; Negative Organomegaly
Rectal: Deferred by Provider
Musculoskeletal: No Clubbing, No Cyanosis, No Edema and Other (Left paraspinal tenderness along lower thoracic and lumbar spine.)
Skin: Negative Rash
Neuro: Nonfocal/Grossly Intact
--- NOTE | 2024-12-21 14:49 | PN.CDI ---
CDI
- -
CDI:
Physician Documentation Request
Admit Date: 12/13/24 05:51
Dear Doctor Naomi,
Please review the following and provide your response in the progress notes.
Clinical Indicators:
Pt admitted with Splenic infarcts found to have Aortic Valve endocarditis was on doxycycline
Documented per h&P and progress notes 12/14-12/18, ' SIRS�fever white count tachycardic, febrile 101 last one 12/17Unclear source...Bicytopenia....Could be related to ongoing sepsis...'
ID notes 12/15 -12/21,' Fever since , persists Leukocytosis with bandemia...'
On admission Tmax 103.1, HR 108, WBC 14.5
Please update the status of Sepsis :
Sepsis-POA resolved
- Systemic manifestations of infection, with 2 or more SIRS criteria which include:
- Fever >100.9 degrees F or hypothermia < 96.8 degrees F
- Leukocytosis - WBC > 12,000 or leukopenia - WBC < 4,000 or > 10% bands
- Tachycardia > 90 beats per minute
- Tachypnea - RR > 20 breaths per minute or PaCO2 , 32mmHg
Sepsis - Ruled out
Other ( please specify)
Use of terms such as suspected, likely, concern for, or probable (associated with a specific diagnosis that is being evaluated, monitored, or treated as if it exists) are acceptable and can be coded in the inpatient setting, when documented at the
time of discharge.
Thank you,
Licha Watters RN
CDI Specialist
[place] [facility]
Please use your independent medical judgment in providing your response.
[2024-12-21 15:02] LABS: APTT 60.8 Sec (23.4-35.0)
--- NOTE | 2024-12-21 15:19 | CM ---
CM following re: discharge planning.
Reviewed [pt's chart, met with pt.
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
D/C plan: home with anticipated no needs. to transport at discharge.
CM will follow with discharge plan updates as needed.
[2024-12-21] MEDS: HEPARIN 25000 UNITS/250 ML IV (19:15)
--- NOTE | 2024-12-21 21:30 | PTCARENOTE ---
pt transferred into CVICU room 2266 at 2130. pt A&Ox4. POX 97% on RA. pt independent w/ ambulation and ADLs. plan of care discussed w/ pt, pt in agreement.
[2024-12-21 21:55] LABS: APTT 93.7 Sec (23.4-35.0)
--- NOTE | 2024-12-21 22:09 | PTCARENOTE ---
pt clipped and prepped for CVOR. new gown, socks, linens provided.
--- NOTE | 2024-12-21 23:00 | PTCARENOTE ---
report received from previous RN, walking rounds done. pt in bed, sleeping. NSR on monitor, HR 70s. heart tones clear. heparin gtt infusing per protocol. POX 97% on room air. skin CDI. see worklist for full assessment, VS, and interventions.
[2024-12-22] VITALS (11 sets, daily range): BP systolic 129–168; BP diastolic 55–74; BMI 25.6
[2024-12-22] MEDS: TORADOL 15 MG IV ×2 (00:13→06:42)
--- NOTE | 2024-12-22 03:00 | PTCARENOTE ---
no acute changes. NSR. RA. Heparin gtt maintained per protocol.
[2024-12-22] MEDS: DILAUDID 0.5 MG IV ×2 (04:07→08:28)
[2024-12-22 04:44] LABS: Hematocrit 32.2 % (37.0-47.0); Hemoglobin 10.9 g/dL (12.0-16.0); Mean Corp Hgb Conc. 33.9 g/dL (33.0-37.0); Mean Corpuscular Volume 78.7 fL (81.0-99.0); Platelet Count 73 10^3/uL (130-400); Red Cell Dist. Width 14.9 % (11.5-14.5)
[2024-12-22 04:51] LABS: APTT 114.9 Sec (23.4-35.0)
--- NOTE | 2024-12-22 06:14 | W.CVOR.SURPR ---
CVOR Surgeon Immed Pre Op
-
I have examined this patient prior to performance of the scheduled procedure.
The patient's condition is unchanged from the time of the dictated/written History and
Physical and the patient is able to undergo the scheduled procedure.
AVR for endocarditis
Transfuse plts preop
[2024-12-22] MEDS: BACTROBAN 2% OINTMENT 1 APPLIC NASAL ×2 (06:43→20:47)
[2024-12-22] MEDS: MAGNESIUM OXIDE 500 MG PO (06:43)
[2024-12-22] MEDS: PROTONIX 40 MG PO (06:43)
[2024-12-22] MEDS: LOPRESSOR 12.5 MG PO (06:43)
[2024-12-22] MEDS: MIRALAX PO (07:12)
--- NOTE | 2024-12-22 09:00 | PTCARENOTE ---
Patient received from steward/stewardess night resting in bed, AAO X 3, states L flank pain - medicated, see AUG. NSR via cm, SaO2 @ 88-92% on RA, 2lnc applied. Heparin gtt infusing per protocol. Patient for CVOR today, updated to plan of care, in agreement.
to bedside. See work list for full assessment and interventions performed.
--- NOTE | 2024-12-22 10:16 | CM ---
spoke to pt and in room, we discussed preop AVR teaching including sternal and driving restrictions, she is prev indep, lives withher in a ranch home with no steps to enter. she does go down to the basement and has a flight of stairs. she
is agreeable to a f/u visit from the ct transitional care nurses after dc. plan is for AVR today, cm to follow.
--- NOTE | 2024-12-22 10:38 | W.PN.ID1 ---
Date of Service
Date of Service: December 22, 2024
Today's Communication
See below.
Assessment / Plan
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
# Large areas of splenic infarct, embolic
# Fever since ; improved although pt on Toradol
# Leukocytosis with bandemia; resolved
# Acute thrombocytopenia
# New anemia since 11/16/2024
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
- Blood cx's x 3 negative (prior to abx)
-UA >30 sq epith cells = contaminated specimen. Ucx only 30K Strep species, contaminant/not significant
- Blood parasite smear : negative x 2
- Lyme screen negative
- Anaplasma/Ehrlichia PCR negative
- s/p 7d empiric doxycycline 100mg po bid (last dose 12/19 at 10:47a)
- 12/19 JORDANA: mobile mass on aortic valve cusp and small PFO
- For valve surgery today
- 12/21 blood cultures x2 pending, hold for 10 days.
- 12/22 2 sets of blood cx's pending
- Q fever, Bartonella, Brucella serologies pending.
Tropheryma whipplei PCR serum pending.
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
However, post-op will start empiric Vancomycin and Unasyn for possible culture-neg IE pending cx and path data.
����������������������������������������������������������
Chief Complaint
-: Fever
Subjective / Review of Systems
OR today.
Vital Signs / Physical Exam
Vital Signs
Vital Signs
Temp Pulse Resp BP Pulse Ox
98.5 F 79 15 140/55 95
12/22/24 08:00 12/22/24 08:00 12/22/24 08:00 12/22/24 07:04 12/22/24 08:00
Physical Exam
Constitutional: No Acute Distress
Eyes: No Conjunctival Hemorrhage and Sclera Anicteric
Cardiovascular: Regular Rate and S1/S2
Pulmonary: Clear
Gastrointestinal: Soft and Tender (LUQ)
Extremities: Negative Edema
Neurological: AO x 3
Objective Data
Lab Data
Lab Results
12/22/24 04:18
12/21/24 06:44
ESR 89 mm/hour (0-20) H 12/15/24 05:39
PT 14.6 Sec (11.4-14.6) 12/20/24 05:19
INR 1.11 12/20/24 05:19
APTT 114.9 Sec (23.4-35.0) H 12/22/24 04:18
Estimated Creat Clear 56 ml/min 12/21/24 06:44
Total Bilirubin 0.4 mg/dl (0.2-1.3) 12/20/24 05:19
AST 28 U/L (14-36) 12/20/24 05:19
ALT 14 U/L (0-35) 12/20/24 05:19
Alkaline Phosphatase 96 U/L (38-126) 12/20/24 05:19
C-Reactive Protein 149.80 mg/L (0.0-10.00) H 12/15/24 05:39
Most recent labs reviewed.
Micro Results:
12/22/24 04:52 Blood Culture - Pending
Blood/Venous
12/22/24 04:18 Blood Culture - Pending
Blood/Venous
12/21/24 17:22 Blood Culture - Pending
Blood/Venous
12/21/24 16:22 Blood Culture - Pending
Blood/Venous
12/13/24 15:04 Blood Culture - Final
Blood/Venous No Growth - Final Report
12/13/24 05:53 Blood Culture - Final
Blood/Venous No Growth - Final Report
12/13/24 06:14 Blood Culture - Final
Blood/Venous No Growth - Final Report
12/15/24 05:39 Blood Parasites Smear - Final
Blood/Venous
12/13/24 02:02 Urine Culture - Final
Urine Streptococcus species
12/13/24 15:04 Blood Parasites Smear - Final
Blood/Venous
12/13/24 CT a/p: Large geographic areas of nonenhancement within the spleen, consistent with splenic infarcts, new compared to prior CT dated 11/22/2023
12/21/24 MRI thoracic/lumbar spine: Posterior lumbar subcutaneous edema, a frequent incidental finding in asymptomatic individuals.
[2024-12-22 11:49] LABS: APTT > 200 Sec (23.4-35.0)
--- NOTE | 2024-12-22 12:04 | PTCARENOTE ---
VS obtained, assessment stable. Awaiting CVOR.
[2024-12-22 12:46] LABS: APTT 59.0 Sec (23.4-35.0)
[2024-12-22 14:04] LABS: ACT+ - POC 109 Seconds (82-134)
[2024-12-22 14:11] LABS: B.E. - POC -1.3 mmol/L; Glucose - POC 74 mg/dl (70-99); HCO3 - POC 22 mmol/L (21-28); Hematocrit - POC 21 % PCV (37-47); Hemodilution- POC No; Hemoglobin Calculated - POC 7.0; Ionized Calcium - POC 1.10 mmol/L (1.15-1.33); Lactate - POC 0.41 mmol/L (0.36-0.75); O2 Saturation %Calculated-POC 99.8 % (94-98); PCO2 - POC 32 mmHg (35-48); PO2 - POC 214 mmHg (83-108); Potassium - POC 2.8 mmol/L (3.5-5.1); Sodium - POC 140 mmol/L (136-145); Specimen Type - POC Arterial; pH - POC 7.45 (7.35-7.45)
[2024-12-22 14:45] LABS: ACT+ - POC 440 Seconds (82-134)
[2024-12-22 14:50] LABS: Urine Character Clear (Clear)
[2024-12-22 15:02] LABS: B.E. - POC 2.7 mmol/L; Glucose - POC 85 mg/dl (70-99); HCO3 - POC 26 mmol/L (21-28); Hematocrit - POC 24 % PCV (37-47); Hemodilution- POC No; Hemoglobin Calculated - POC 8.3; Ionized Calcium - POC 1.19 mmol/L (1.15-1.33); Lactate - POC 0.36 mmol/L (0.36-0.75); O2 Saturation %Calculated-POC 99.8 % (94-98); PCO2 - POC 35 mmHg (35-48); PO2 - POC 202 mmHg (83-108); Potassium - POC 3.3 mmol/L (3.5-5.1); Sodium - POC 139 mmol/L (136-145); Specimen Type - POC Arterial; pH - POC 7.48 (7.35-7.45)
[2024-12-22 15:10] LABS: Urine Squamous Cell 16-20 /LPF (Few)
[2024-12-22 15:11] LABS: Urine White Cell 0-2 /HPF (0-5)
[2024-12-22 15:17] LABS: ACT+ - POC 584 Seconds (82-134)
[2024-12-22 15:59] LABS: B.E. - POC 2.6 mmol/L; Glucose - POC 124 mg/dl (70-99); HCO3 - POC 26 mmol/L (21-28); Hematocrit - POC 25 % PCV (37-47); Hemodilution- POC Yes; Hemoglobin Calculated - POC 8.6; Ionized Calcium - POC 1.00 mmol/L (1.15-1.33); Lactate - POC 0.68 mmol/L (0.36-0.75); O2 Saturation %Calculated-POC 99.9 % (94-98); PCO2 - POC 34 mmHg (35-48); PO2 - POC 301 mmHg (83-108); Potassium - POC 4.8 mmol/L (3.5-5.1); Sodium - POC 141 mmol/L (136-145); Specimen Type - POC Arterial; pH - POC 7.50 (7.35-7.45)
[2024-12-22 16:02] LABS: ACT+ - POC 112 Seconds (82-134)
[2024-12-22 16:21] LABS: B.E. - POC 3.4 mmol/L; Glucose - POC 112 mg/dl (70-99); HCO3 - POC 28 mmol/L (21-28); Hematocrit - POC 25 % PCV (37-47); Hemodilution- POC Yes; Hemoglobin Calculated - POC 8.4; Ionized Calcium - POC 1.20 mmol/L (1.15-1.33); Lactate - POC 1.05 mmol/L (0.36-0.75); O2 Saturation %Calculated-POC 98.8 % (94-98); PCO2 - POC 40 mmHg (35-48); PO2 - POC 119 mmHg (83-108); Potassium - POC 3.6 mmol/L (3.5-5.1); Sodium - POC 140 mmol/L (136-145); Specimen Type - POC Arterial; pH - POC 7.45 (7.35-7.45)
[2024-12-22] MEDS: NEURONTIN PO ×2 (16:36→22:41)
--- NOTE | 2024-12-22 16:45 | W.PN.CT.SURG ---
CT Surgery Operative Note
-
CARDIAC SURGERY OPERATIVE REPORT
Preoperative Diagnosis: Aortic valve regurgitation with endocarditis and large vegetation
Postoperative Diagnosis: Same
Procedure(s) Performed:
1. Standard sternotomy with aortic and right atrial cannulation
2. Surgical aortic valve replacement [23 mm bioprosthesis]
3. Left atrial appendage exclusion [35mm clip]
4. Placement of temporary ventricular pacing
5. Transesophageal echocardiography
Date of Surgery: 12/22/2024
Comorbidities:
1. 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
2. Aortic valve vegetation with cardioembolic phenomena
3. Splenic infarct
4. Anemia likely secondary to chronic disease
5. Thrombocytopenia also likely secondary to chronic disease
6. Hypertension
7. Hyperlipidemia
Attending Surgeon: Damir Porter MD, MS
Assistants: Damir Chapman PA-C (present and necessary to international first officer, retraction, suction, exposure, suture management, and wound closure under my direction)
Anesthesiology: Zander Hartley MD and Jade Leone CRNA
Scrub and Circulating RNs: Fauzia Pappas, TONEY, Betty Brambila RN
Site Operations Manager: Vonda Lugo CCP
Anesthesia: GETA
EBL: per perfusion records
Products: 2 platelets, once PRBC on pump, several products were also given preoperatively given her baseline anemia and thrombocytopenia
CPB Time: 58 minutes
Aortic Cross Clamp Time: 48 minutes
Indication(s) for Procedures: This is a 63-year-old female whose been feeling poorly for approximately 2 months now. She was found to have splenic infarcts and underwent a echocardiogram which found significant vegetation on the aortic valve.
There is also a moderate to severe degree of insufficiency but no background history of any cardiovascular disease. Given the finding and her symptomatology, she was offered surgical intervention to prevent any further cardioembolic phenomenon.
Aortic Valve Description: Destroyed right coronary cusp with perforation, large vegetation of approximately 1 to 1.5 cm hanging off of the ventricular aspect of the cusp, the left and 9 were relatively normal in appearance. The left and right
coronary ostium within normal anatomic positions
Findings: Her left ventricular ejection fraction preoperatively was essentially normal at 60% with no significant regional wall motion abnormalities. Following surgery her EF remained the same at 60% with no new regional wall motion abnormalities.
The aortic valve had essentially a perforation and destroyed right coronary cusp with a large vegetation on the ventricular aspect measuring approximately 1 to 1.5 cm in length. The leaflets were resected per usual and I also inspected the
ventricular aspect of the mitral valve and the papillary muscles to ensure that there were no other vegetations hidden. A total of 13 nonpledgeted 2 Ethibond sutures were placed from LVOT through annulus through sewing cuff of a 23 mm bioprosthesis
which was secured in place using core knots. The left and right coronary ostia were visualized did not be obstructed. The aorta was closed in double layer per usual. The left atrial appendage also clipped during the study and was found to be free
of any thrombus or debris preoperatively and found to be totally occlusive postoperatively with a 35mm device. Given her likely chronic disease and inflammatory state, she was anemic preoperatively did receive 1 unit of blood before surgery and
also unit of platelets. While on pump she was anemic and received 1 unit of PRBC and 2 of platelets intraoperatively. She did not require any inotropic support after surgery. She was in her [place] sinus rhythm in the 90s initially and slowed down
eventually to the 70s..
Specimen(s): Aortic valve leaflets and vegetation for culture.
Prosthesis:
1. 35mm left atrial appendage clip, serial #[id number]
2. 23 mm Rodriguez Bright!Taxiris Resilia aortic valve bioprosthesis, serial #[id number]
Description of Procedure: The patient was taken to the operating room. Their identity and procedure to be performed were verified and they were positioned supine on the operating table. Induction via general anesthesia with endotracheal intubation
was performed and central venous access and arterial monitoring were inserted. A preoperative transesophageal echocardiogram was performed to assess cardiac function and valvular function. The patient was then prepped and draped from chin to feet in
a sterile fashion. A preoperative time-out was performed with all members of the team present. A midline chest incision was performed along with median sternotomy. The innominate vein was isolated. Full heparinization was given (a total of 45
units). We created a pericardial well. The aortic cannulation site was chosen where it was soft, pliable, and free of calcium. Cannulation was performed with an arterial cannula in the ascending aorta and a triple-stage venous cannula through the
right atrial appendage. The arterial cannula line had an appropriate bounce and correlating pressures with test dosing. Next, a root vent/antegrade cannula was inserted into the ascending aorta. A retrograde coronary sinus catheter was placed under
echo and manual guidance. The ACT was confirmed to be over 400 and retrograde autologous priming was performed before commencing cardiopulmonary bypass. The pulmonary artery was away from the aorta to facilitate a clamp site and
aortotomy. A left ventricular vent was placed at the right superior pulmonary vein and secured. The aortic cross-clamp was placed after decreasing the flow on the bypass and mean arterial pressure. Due to her severity of aortic valve insufficiency
and the large mobile vegetation, I opted to start with retrograde cardioplegia and flooded the field with CO2. This point I opened the aorta in an oblique fashion and placed stay sutures. Cardioplegia was visualized emanating from the left main.
Once 600cc was given, additional ice was placed atop the heart and then I gave directly down the right ostia for 200 cc followed by an additional 200 cc down the left main. I then placed A total of 1L initial dose of retrograde and antegrade
[place] cardioplegia solution was given and planned for re-dosing every 75 minutes as necessary. There was rapid electro-mechanical arrest of the heart at 450 cc of cardioplegia. Cold slush was placed into a sponge and topically on the RV while we
systemically cooled to 34 degrees centigrade. At this point rotate the heart medially and then ligate the left atrial appendage with 35 mm device.
Carbon dioxide was used to flood the field.The leaflets were excised and sent for pathological assessment. I then thoroughly inspected the LVOT down towards the subvalvular mitral apparatus to ensure that there are no other vegetations. The root
and left ventricular outflow tract were thoroughly irrigated to remove any debris. A total of 13 non-pledgeted 2-0 ethibond inverted annular sutures were placed [id number] circumferentially. These were brought through the sewing cuff of the
prosthetic valve which as then parachuted into place. The left and right coronary ostia were visualized and were unobstructed by the valve. A Cor-Knot device was used to secure the annular sutures. The valve was inspected and was well seated. The
aortotomy was approximated with 4-0 prolene in two layers. The retrograde coronary sinus catheter was then removed. De-airing maneuvers were performed and temporary bipolar ventricular pacing wires were placed on the base of the right ventricle.
The patient was placed in a Trendelenburg position and flows on bypass were lowered. The aortic cross clamp was removed and flows were slowly brought back up. The aortotomy appeared hemostatic. Transesophageal echocardiography revealed no
paravalvular leak and appropriate prosthetic function. Once de-airing was satisfactory, the left ventricular and root vents were removed. After verifying acceptable parameters, we initiated weaning from cardiopulmonary bypass. Once we were off
cardiopulmonary bypass, the venous cannula was clamped and removed. A test dose of protamine was administered and the patient was monitored for any adverse reaction before resuming protamine. Once half of the protamine dose was delivered, pump
suckers were turned off and the systolic blood pressure was lowered for aortic decannulation. The aortic cannula was removed and pursestrings were tied down. All cannulation sites were oversewn with a 4-0 prolene. The aortotomy suture line was
inspected and hemostasis was confirmed. Mediastinal hemostasis was obtained. Two 24Fr Emmanuel drains were placed within the pericardium and a single #19 Emmanuel drain was placed to the right hemithorax. The sternum was approximated with 4#7 single and 3
#8 double stainless steel wires. Fascia was approximated with #1 vicryl suture. The subcutaneous, dermis and epidermis were closed in layers in a running fashion. The skin wound was cleansed and dressed.
All instrument, sponge, and needle counts were confirmed to be correct x 2 at the end of the operation. The patient was transferred to the cardiac intensive care unit in critical but stable condition.
I, Dr. Damir Porter, was present, scrubbed for, and performed all critical elements of this procedure.
Damir Porter MD, MS
Cardiothoracic Surgeon
[facility]
This operative dictation was created using the [employer] dictation system. Please excuse any grammatical, typographical, or 'sound alike' errors
[2024-12-22] MEDS: LR 250 ML IV ×3 (16:50→18:38)
--- NOTE | 2024-12-22 16:52 | W.PN.CARDCBS ---
Addendum entered and electronically signed by Jones Calzada MD 12/22/24 19:51:
Seen earlier postop, intubated, still sedated, on Precedex and insulin
Examined, agree with findings below, lungs are clear, incision intact, intubated, no edema,
Data reviewed, all appears satisfactory, 129/74, pulse 72,
ECG: Sinus rhythm, long QT,
Assessment:
23 Rodriguez Inspiris Resilia aortic valve replacement 12/22/2024
Left atrial appendage clip 12/22/2024
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
HTN
HLD
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
History of long covid 2020
Eczema, on dupixent
Former smoker
Plan:
Doing well immediately postop. Appreciate efforts of CT surgery. We will continue to follow.
Original Note:
Today's Communication / Plan
-
Continue postoperative care
Impression / Plan
-
Primary Ecommerce Project Manager: none prior to admission
Assessment:
Splenic infarct
Fevers since 10/2024
SIRS
Microcytic iron deficient anemia
Thrombocytopenia
Aortic valve vegetation status post AVR 12/22/2024
HTN
HLD
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
History of long covid 2020
Eczema, on dupixent
Former smoker
ECHO 12/13/24: EF 60 to 65%, no regional wall motion abnormalities noted, mild to moderate AR [trileaflet aortic valve with echodensity on right coronary cusp], mild TR, PAP 27 mmHg
Plan:
-Fevers since following a trip 1 month prior to visit to [place] in September admitted with flank pain found to have large areas of splenic infarct, acute thrombocytopenia, and microcytic anemia. History of right mesenteric
infarct/small bowel ulcer and perienteric abscess with fistula status post resection in November 2023.
-JORDANA 12/19/24 with evidence of aortic valve vegetation.
-s/p AVR 12/22/24
-intubated, sedated
-off pressors
-received 1 U PRBCs and 2 plts intraop. hgb pending. was on eliquis started preop due to splenic infarcts.
-post op EKG SR with prolonged QTc, follow
-blood cultures negative. ID following, will manage abx
-continue post op care
-d/w nursing
-d/w CT surgery LITIGATION MANAGER
Progress Note - Ecommerce Project Manager
Subjective
Date of Service: December 22, 2024
intubated, sedated
Objective
Labs:
Labs
Hgb 10.9 g/dL (12.0-16.0) L D 12/22/24 04:18
Hct 32.2 % (37.0-47.0) L 12/22/24 04:18
Plt Count 73 10^3/uL (130-400) L D 12/22/24 04:18
PT 14.6 Sec (11.4-14.6) 12/20/24 05:19
INR 1.11 12/20/24 05:19
APTT 59.0 Sec (23.4-35.0) H 12/22/24 12:13
Sodium 137 mmol/L (135-145) 12/21/24 06:44
Potassium 3.9 mmol/L (3.5-5.1) 12/21/24 06:44
BUN 8 mg/dl (7-17) 12/21/24 06:44
Creatinine 0.8 mg/dL (0.6-1.0) 12/21/24 06:44
Glucose 100 mg/dl (70-99) H 12/21/24 06:44
Vital Signs and I&O:
Vital Signs
Temp Pulse Resp BP Pulse Ox
98.6 F 78 27 151/59 93
12/22/24 11:59 12/22/24 16:46 12/22/24 13:09 12/22/24 11:52 12/22/24 16:46
Vital Signs
Temp Pulse Resp BP Pulse Ox
98.6 F 78 27 151/59 93
12/22/24 11:59 12/22/24 16:46 12/22/24 13:09 12/22/24 11:52 12/22/24 16:46
Intake & Output
12/20/24 12/21/24 12/22/24 12/23/24
07:59 07:59 07:59 07:59
Intake Total 2640 / 2640 240 / 240 2024.5 / 2358.0 333.5 / 333.5
Balance 2640 / 2640 240 / 240 2024.5 / 2358.0 333.5 / 333.5
Physical Exam
Physical Exam
GEN: No distress, intubated, sedated
HEENT: supple, mmm
LUNGS: CTA B/L, no wheezes/rales
CV: Reg, S1/S2, no murmur
EXT: No cyanosis, clubbing, edema
NEURO: Gross non-focal
SKIN: Warm, pink, dry. No rash. Sternotomy incision clean dry and intact
[2024-12-22 16:56] LABS: Glucose - Point of Care 124 mg/dl (70-99)
[2024-12-22 16:58] LABS: B.E. 3.0 mmol/L; HCO3 27.0 mmol/L (21-28); O2 Saturation % 98.2 % (94-98); PCO2 38 mmHg (32-35); PO2 81 mmHg (83-108); Potassium 3.7 mMOL/L (3.5-5.1); Sodium 139 mMOL/L (136-145)
--- NOTE | 2024-12-22 17:07 | CON.INTV ---
Consultation
Consultation Request
Date/Time Consultation Requested: 12/22
Date/Time Consultation Performed: 12/22
Reason for Consultation: Critical care
Medical History
-
History of Present Illness:
History obtained from the chart as patient is currently intubated and sedated. Patient is a 63-year-old female with history of hypertension, history of small bowel mass s/p resection, who presented on 12/13/2024 with chronic left-sided abdominal pain
and back pain. She states that happened a few days prior. She states it was similar to medical issues in the past that involve abscess. She also had an episode of nausea. On arrival she had a fever of 103.5. She states she has been having
fevers and migraine headaches. She also describes muscle aches. Patient was found to have splenic infarcts, anemia and thrombocytopenia per workup. Patient was seen by hematology and infectious disease. Blood cultures were obtained,
echocardiogram was obtained and she was eventually found to have aortic valve endocarditis. Patient continue with antibiotics, doxycycline. Blood cultures x 3 were negative to date, parasite smear negative. Patient was observed off antibiotics,
found to have aortic valve mass. Patient is now status post aortic valve replacement 12/22/2024. Images reviewed with CT surgery. We are asked to help from critical care standpoint. 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
.
PMH: partial small bowel resection with abscess November 2023, history of hypertension, eczema
Past Medical History
Past Medical History: None (See above)
Past Surgical History: None (See above)
Social History
Tobacco: Former Smoker
Alcohol: Former (No drink for 29 years)
Family History
Family History: Other (Mother with lung cancer, father with coronary disease)
Allergies / Home Medications
Allergies
Allergy/AdvReac Type Severity Reaction Status Date / Time
No Known Allergies Allergy Verified 12/12/24 19:37
Home Medications
�Medication �Instructions �Recorded �Confirmed �Last Taken �Type
calcium carbonate 500 mg PO DAILY Supplement 11/19/23 12/13/24 Unknown History
carvedilol 3.125 mg tablet 3.125 mg PO BID Blood Pressure 11/19/23 12/13/24 11/19/23 History
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
pen injector (Dupixent) ~11/05/23
losartan 50 mg tablet 50 mg PO DAILY Blood Pressure 11/19/23 12/13/24 11/19/23 History
multivitamin 1 tab PO DAILY Supplement 11/19/23 12/13/24 Unknown History
rosuvastatin 5 mg tablet 5 mg PO HS High Cholesterol 11/19/23 12/13/24 11/18/23 History
Review of Systems
-
Unable to Obtain full review of systems at this time due to: Acuity and Patient Intubation
Vitals / Labs / Diagnostic Testing
Vital Signs
Temp Pulse Resp BP Pulse Ox
95 F L 76 12 151/59 97
12/22/24 17:00 12/22/24 17:04 12/22/24 17:00 12/22/24 11:52 12/22/24 17:04
Laboratory Results
12/21/24 12/22/24 12/22/24
21:37 04:18 11:00
APTT 93.7 H 114.9 H > 200 H*
pH
pCO2
pO2
HCO3
O2 Delivery Level
12/22/24 12/22/24
12:13 16:52
APTT 59.0 H
pH 7.46 H
pCO2 38 H
pO2 81 L
HCO3 27.0
O2 Delivery Level
Microbiology
12/21/24 16:22 Blood/Venous Blood Culture - Preliminary
No Growth in 24 hours- Final report to follow
12/22/24 15:00 Heart Fungal Culture - Preliminary
Culture in progress.
Positive cultures are reported as soon as detected.
Final report to follow in four to five weeks.
Diagnostic Testing:
Physical Exam
-
HEENT: Normocephalic, Anicteric, Other (Pupils equal) and Other (Arterial line, IJ, chest tube)
Cardiovascular: S1/S2, Regular Rhythm, Murmur (n), Rub (n) and Peripheral Edema (n)
Respiratory: Wheeze (n), Rales (n), Rhonchi (n), Non-Labored Respirations and Other (ET tube)
GI: Soft and Non Distended
Neurology: Other (Sedated)
Skin: Other (Scattered tattoos)
General: Comfortable
Assessment
-
63-year-old female presents with 1 month of fevers, found to have splenic infarction, micro Citic anemia, thrombocytopenia, aortic valve vegetation now status post AVR 12/22/2024. We are asked to help from critical care standpoint
S/p AVR 12/22/2024, bioprosthetic
Aortic valve vegetation per JORDANA
Cultures negative
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
Fevers x 1 month
Splenic infarct
Thrombocytopenia, anemia
Conditions present prior to admission
Hypertension/hyperlipidemia
History of eczema
On Dupixent
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
Distant alcohol history
Distant tobacco history
Family history of lung cancer (mother)
Plan/recommendations
At this time, patient remains critically ill but stable.
She is on volume cycle ventilation, adequate airway pressures
Chest x-ray with vague bilateral infiltrates. ABG with adequate oxygenation/ventilation
Moving forward
Continue with management per CT surgery
Follow blood sugars, hemoglobin
Chest tube output minimal
Blood products per CT surgery
Was off antibiotics, currently on cefazolin per CT surgery protocol
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
Continue workup per CT surgery, hematology, infectious disease
Reviewed with critical care nursing, CT surgery team
TCCT 35 min
[2024-12-22 17:09] LABS: Hematocrit 28.7 % (37.0-47.0); Hemoglobin 9.8 g/dL (12.0-16.0); INR 1.34; PT 17.1 Sec (11.4-14.6); Platelet Count 55 10^3/uL (130-400)
[2024-12-22 17:10] LABS: APTT 40.1 Sec (23.4-35.0)
[2024-12-22 17:15] LABS: Blood Urea Nitrogen 9 mg/dl (7-17); Estimated Creatinine Clearance 74 ml/min; Glucose 118 mg/dl (70-99); Magnesium 2.3 mg/dl (1.6-2.3)
--- NOTE | 2024-12-22 17:15 | PTCARENOTE ---
Patient received from CVOR s/p AVR/LAAL. NSR via cm, SaO2 @ 95% on ventilator, titrating FiO2 as able. RIJ Cordis/Chaseley-Natalio catheter, R radial arterial lines present - leveled, flushed, and calibrated w/good waveforms returned. Epicardial V-wire to
pulse generator, off. Mediastinal chest tubes x 2, Y-connected to pleurevac, R pleural chest tube to separate pleurevac - both placed to -20cm suction w/no air leaks appreciated. Ludwig catheter to gravity. All procedural sites stable. Labs drawn,
EKG performed, pcxr obtained. LINA Josemanuel updated to lab values. See work list for full assessment, interventions performed, and intravenous infusion rates and titrations.
[2024-12-22] MEDS: NSS 500 IV (17:16)
[2024-12-22] MEDS: TYLENOL PO ×2 (17:16→22:41)
[2024-12-22] MEDS: ANCEF 10 IV ×2 (17:16)
[2024-12-22] MEDS: PACERONE PO (17:16)
[2024-12-22] MEDS: KCL 50 IV (17:19)
[2024-12-22 17:59] LABS: Glucose - Point of Care 138 mg/dl (70-99)
[2024-12-22] MEDS: CALCIUM GLUCONATE 100 IV (18:14)
[2024-12-22 18:27] LABS: B.E. 1.8 mmol/L; HCO3 25.6 mmol/L (21-28); O2 Saturation % 99.7 % (94-98); PCO2 36 mmHg (32-35); PO2 124 mmHg (83-108)
[2024-12-22 19:05] LABS: Glucose - Point of Care 78 mg/dl (70-99)
--- NOTE | 2024-12-22 19:28 | PTCARENOTE ---
assumed care of patient @ 1900. recieved pt laying in bed, intubated sedated post cvor. pupils 2, equal and reactive. pt not arousing to stimuli yet. NSR on tele with prolonged QT. +pulses, -E. BP 110s/50s MAP ~ 70. PAPs 20s/10s, CVP ~ 8. V wire
hooked up to box, turned off. Lungs clear on ventilator SIMV 14, 450, 5/5, 40%.. 2 meds and R pleural chest tube with moderate serosang drainage. BS hypoactive. shaikh present draining clear yellow urin. Sternum CIGAR HEAD HOLER, glued. CT sites CDI. R IJ cordis
with swan at 37, R radial A line, L ac and L wrist PIV all patent. central lines zeroed, flushed. recieved on insulin per protocol, precedex at 0.4.
[2024-12-22 19:30] LABS: B.E. 1.8 mmol/L; HCO3 25.6 mmol/L (21-28); O2 Saturation % 99.0 % (94-98); PCO2 36 mmHg (32-35); PO2 91 mmHg (83-108); Potassium 3.7 mMOL/L (3.5-5.1)
[2024-12-22 20:33] LABS: Glucose - Point of Care 115 mg/dl (70-99)
[2024-12-22 20:48] LABS: Hematocrit 27.7 % (37.0-47.0); Hemoglobin 9.5 g/dL (12.0-16.0); Platelet Count 62 10^3/uL (130-400)
[2024-12-22 21:06] LABS: Glucose - Point of Care 110 mg/dl (70-99)
[2024-12-22] MEDS: OFIRMEV 100 IV (21:17)
--- NOTE | 2024-12-22 21:35 | PTCARENOTE ---
pt awakening to verbal stimuli, following commands. CPAP trial initiated at 2134
[2024-12-22 22:06] LABS: Glucose - Point of Care 111 mg/dl (70-99)
[2024-12-22 22:11] LABS: B.E. 1.6 mmol/L; HCO3 25.8 mmol/L (21-28); O2 Saturation % 99.6 % (94-98); PCO2 38 mmHg (32-35); PO2 105 mmHg (83-108); Potassium 4.4 mMOL/L (3.5-5.1)
[2024-12-22] MEDS: SENOKOT-S PO (22:12)
[2024-12-22] MEDS: ANCEF 5 IV (22:12)
--- NOTE | 2024-12-22 22:20 | PTCARENOTE ---
gas sent , looks good, CTPA said ok to extubate - extubated to 6L NC at 2220. satting high 90s no respiratory distress. able to state name and .
[2024-12-22] MEDS: DILAUDID 0.25 MG IV (22:23)
[2024-12-23] VITALS (33 sets, daily range): BP systolic 77–120; BP diastolic 46–63; BMI 27.3
[2024-12-23] LABS: Glucose - Point of Care 119 mg/dl (70-99)
[2024-12-23] MEDS: ROXICODONE 5 MG PO ×6 (00:03→21:33)
[2024-12-23] MEDS: LR 250 ML IV ×3 (00:03→17:59)
[2024-12-23] MEDS: PACERONE 200 MG PO ×4 (00:03→21:33)
[2024-12-23] MEDS: DILAUDID 0.25 MG IV ×2 (02:03→11:26)
[2024-12-23 02:05] LABS: Glucose - Point of Care 112 mg/dl (70-99)
--- NOTE | 2024-12-23 02:07 | W.PN.CT ---
Today's Communication / Plan
-
-pod #1
-no issues overnight, extubated uneventfully @ 22:20
-kept SBP 90-110 overnight - liberate today
-held ASA d/t low platelets
-platelets improved from 62K last night to 95K today - follow
-CI 2.07, CO 3.31. Drips: Levo 1, Insulin
-CT outputs: 2 meds 180/250, R pleur 15/ in 12/24 hrs
-deline
-d/c Ludwig
-d/c insulin
-follow intraop cxs
-encourage IS, OOB
-appreciate everyone's input
Assessment / Plan
-
- Aortic valve regurgitation with endocarditis and large vegetation- s/p Surgical aortic valve replacement [23 mm Rodriguez Inspiris Resilia aortic valve bioprosthesis]; Left atrial appendage exclusion [35mm clip]
by Dr. Porter on 12/22/24, pod #1
- Intraop JORDANA: LVEF preop and postop was essentially normal at 60% with no significant regional wma. The left atrial appendage also clipped during the study and was found to be free of any thrombus or debris preoperatively and found to be totally
occlusive postoperatively with a 35mm device.
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
- Aortic valve vegetation with cardioembolic phenomena
- Splenic infarct
- Anemia, likely secondary to chronic disease
- Thrombocytopenia also likely secondary to chronic disease
- Hypertension
- Hyperlipidemia
- Long-standing Covid
- Ex-lap with partial small bowel resection/ abscess 11/2023, mesenteric infarct
- Tension HAs
- Former smoker, 1 ppd for 21 yrs
- Former EtOH abuse, sober since
- Acute on chronic anemia- s/p 2 pRBCs
- Acute on chronic thrombocytopenia- s/p 3 platelets
- Acute postop atelectasis
- Acute postop hypovolemia with subsequent hypervolemia
Discussed patient care with: Nursing and Care Team
Subjective
-
Date of Service: December 23, 2024
Objective Data
-
PT 17.1 Sec (11.4-14.6) H 12/22/24 16:52
INR 1.34 12/22/24 16:52
APTT 40.1 Sec (23.4-35.0) H 12/22/24 16:52
Vital Signs
Vital Signs
Temp Pulse Resp BP Pulse Ox
99.1 F 72 16 115/61 96
12/23/24 01:00 12/23/24 01:16 12/23/24 01:00 12/23/24 00:10 12/23/24 01:16
CT Intake/Output/Weight
12/22/24 12/22/24 12/23/24
06:59 18:59 06:59
Intake Total 1449.5 / 1699.5 1030.5 / 1808.9 778.4 / 1808.9
Output Total 405 / 1110 705 / 1110
Balance 1449.5 / 1699.5 625.5 / 698.9 73.4 / 698.9
SaO2: 96
Physical Exam
-
General: Awake and AOx3
Cardiovascular: Regular rate & rhythm, No Murmurs and No Rub
Respiratory: Decreased Breath Sounds
Sternum: Stable
Incision: Clean, Dry and Intact
Extremities: Other (trace edema b/l, 2+ DPs b/l)
Abdomen: soft, nontender, nondistended, + bowel sounds
Data Reviewed
-
Lab Results: Results Reviewed
Medications: Active Meds Reviewed
Chest X-Ray: Report Reviewed and Image Reviewed
ECG: Report Reviewed and Image Reviewed
[2024-12-23 02:29] LABS: Hematocrit 25.8 % (37.0-47.0); Hemoglobin 8.8 g/dL (12.0-16.0); Mean Corp Hgb Conc. 34.1 g/dL (33.0-37.0); Mean Corpuscular Volume 79.9 fL (81.0-99.0); Platelet Count 95 10^3/uL (130-400); Red Cell Dist. Width 15.1 % (11.5-14.5)
--- NOTE | 2024-12-23 02:59 | PTCARENOTE ---
labs drawn and sent, pt requiring pain medicine see mar for details. on to keep SBP 90s-110s. no other change in patient assessment .
[2024-12-23 03:01] LABS: Blood Urea Nitrogen 10 mg/dl (7-17); Calcium 7.9 mg/dl (8.4-10.2); Carbon Dioxide 24 mmol/L (22-30); Chloride 111 mmol/L (98-107); Estimated Creatinine Clearance 56 ml/min; Glucose 101 mg/dl (70-99); Magnesium 2.1 mg/dl (1.6-2.3); Potassium 4.2 mmol/L (3.5-5.1); Sodium 138 mmol/L (135-145); eGFR > 60.00
[2024-12-23 04:02] LABS: Glucose - Point of Care 103 mg/dl (70-99)
[2024-12-23 06:12] LABS: Glucose - Point of Care 110 mg/dl (70-99)
[2024-12-23] MEDS: DILAUDID 0.5 MG IV (06:19)
[2024-12-23] MEDS: ANCEF 5 IV (06:20)
[2024-12-23] MEDS: TYLENOL 1000 MG PO ×3 (06:20→21:33)
--- NOTE | 2024-12-23 07:51 | W.PN.INTV ---
Today's Communication / Plan
Recommendations
pain control, out of bed to chair
Follow hemoglobin, platelets, improved
Remains on insulin drip, being weaned
Once transferred to telemetry, we will sign off. Please call if questions
Assessment
-
63-year-old female presents with 1 month of fevers, found to have splenic infarction, micro Citic anemia, thrombocytopenia, aortic valve vegetation now status post AVR 12/22/2024. We are asked to help from critical care standpoint
S/p AVR 12/22/2024, bioprosthetic
Aortic valve vegetation per JORDANA
Cultures negative
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
Fevers x 1 month
Splenic infarct
Thrombocytopenia, anemia
Conditions present prior to admission
Hypertension/hyperlipidemia
History of eczema
On Dupixent
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
Distant alcohol history
Distant tobacco history
Family history of lung cancer (mother)
Plan/recommendations
At this time, patient remains stable.
Extubated without difficulty
Chest x-ray with vague bilateral infiltrates. ABG with adequate oxygenation/ventilation
Moving forward
Continue with management per CT surgery
Follow blood sugars, hemoglobin
Chest tube output minimal
Dobutamine continues, being weaned
Blood products per CT surgery
Anemia noted
Platelets improved
currently off antibiotics
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
Continue workup per CT surgery, hematology, infectious disease
Insulin drip being weaned
Reviewed with critical care nursing, CT surgery team
Once transferred to telemetry, we will sign off. Please call with questions
Subjective Dataa
Subjective Data
Date of Service:
Date of Service: December 23, 2024
Subjective:
Patient sitting in chair. mild splinting, complaining of incisional discomfort but otherwise appears comfortable, no significant shortness of breath, nausea
Objective Data
Data Reviewed
Vital Signs / I&O / Oxygen:
Vital Signs
Temp Pulse Resp BP Pulse Ox
98.2 F 71 16 98/57 94
12/23/24 07:00 12/23/24 07:04 12/23/24 07:00 12/23/24 07:00 12/23/24 07:04
Intake and Output
12/22/24 12/23/24 12/24/24
06:59 06:59 06:59
Intake Total 1699.5 / 1699.5 1862.2 / 1887.2 25.0 / 25.0
Output Total 1452 / 1452 0 / 0
Balance 1699.5 / 1699.5 410.2 / 435.2 25.0 / 25.0
SaO2 [SIMV] 97
SaO2 94
Nasal Cannula flow liters per 6
minute
Physical Exam
General: Comfortable
HEENT: Normocephalic and Anicteric
Cardiovascular: S1-S2, Regular Rhythm, Murmur (n), Rub (n) and Peripheral Edema (n)
Respiratory: Wheeze (n), Crackles (n), Rhonchi (n) and Non-Labored Respirations
GI: Soft, Non Distended and Non Tender
Neurology: Awake, Alert and No Motor Deficits
Skin: Cyanosis (n) and Jaundice (n)
Labs/Micro/Reports
Lab Data
12/23/24 02:10
12/23/24 02:10
Laboratory Results
12/22/24 12/22/24 12/22/24
11:00 12:13 16:52
PT 17.1 H
INR 1.34
APTT > 200 H* 59.0 H 40.1 H
pH 7.46 H
pCO2 38 H
pO2 81 L
HCO3 27.0
O2 Delivery Level
12/22/24 12/22/2412/22/25
18:20 19:23 22:01
PT
INR
APTT
pH 7.46 H 7.46 H 7.44
pCO2 36 H 36 H 38 H
pO2 124 H 91 105
HCO3 25.6 25.6 25.8
O2 Delivery Level
Microbiology
12/22/24 04:52 Blood/Venous Blood Culture - Preliminary
No Growth in 24 hours- Final report to follow
12/22/24 04:18 Blood/Venous Blood Culture - Preliminary
No Growth in 24 hours- Final report to follow
12/21/24 17:22 Blood/Venous Blood Culture - Preliminary
No Growth in 24 hours- Final report to follow
12/22/24 15:00 Valve Gram Stain - Preliminary
12/21/24 16:22 Blood/Venous Blood Culture - Preliminary
No Growth in 24 hours- Final report to follow
12/22/24 15:00 Heart Fungal Culture - Preliminary
Culture in progress.
Positive cultures are reported as soon as detected.
Final report to follow in four to five weeks.
--- NOTE | 2024-12-23 08:00 | W.PN.ANS.POP ---
Anesthesia Post Operative
- Anesthesia Post Op Note
Vital Signs Stable-See Nursing Note: Yes (remains on Levo gtt)
Airway Patent: Yes
Adequate Pain Control: Yes
Change in Mental Status: No
Current Postoperative Nausea & Vomiting: No
Anesthesia Complications: No
General Anesthetic Recall: No
Unplanned Admission: No
Post Op Hydration Adequate: Yes
[2024-12-23 08:21] LABS: Glucose - Point of Care 95 mg/dl (70-99)
--- NOTE | 2024-12-23 08:30 | PTCARENOTE ---
Assumed care of patient. Walking rounds completed with previous RN. Pt assessed while she was lying in bed. Pt alert and oriented x4. Rates sternal pain 7/10. Denies nausea and shortness of breath. ESPINOZA with equal strength throughout. NSR on tele
with rates in the 60s. BP 97/57. Heart tones audible. Bilateral radial and DP pulses palpable. No edema noted. CI 2.12. PA pressures 20s/10s. CVP 12. Epicardial v-wire to temp pacer box, turned off. POX 93% on 6L NC. Lungs diminished in the bases.
No cough noted. IS encouraged-500mL achieved. Mediastinal chest tubes x2 y-sited to 1 atrium to -20cm suction draining red fluid. Right pleural chest tube to -20cm suction draining scant red fluid. No air leaks, tidaling, crepitus noted. Shallow
breathing. Abdomen soft, round, nontender. Hypoactive BS. Tolerating sips of water with meds. Ludwig d/c. DTV 1230. Sternal incision approximated with skin glue, LEGAL BILLING ANALYST. 3 chest tube sites covered, CDI. Right IJ cordis with swan floated to 40cm. Right
radial sukhdeep intact with appropriate waveform. All lines flushed, leveled, zeroed. Left wrist 22g PIV infusing insulin per Critical Care Glycemic Protocol. Left AC 20g PIV intact. See MAR for medication administration. See worklist for complete
nursing assessment. Plan of care reviewed and patient in agreement.
[2024-12-23] MEDS: NEURONTIN 100 MG PO ×3 (08:31→21:33)
[2024-12-23] MEDS: LIDOCAINE 4% PATCH 1 PATCH TOPICAL (08:31)
[2024-12-23] MEDS: BACTROBAN 2% OINTMENT 1 APPLIC NASAL ×2 (08:31→21:05)
[2024-12-23] MEDS: PROTONIX 40 MG PO (08:31)
[2024-12-23] MEDS: MAGNESIUM OXIDE 500 MG PO ×2 (08:32→21:05)
[2024-12-23] MEDS: SENOKOT-S 1 TABLET PO ×2 (08:32→21:05)
[2024-12-23] MEDS: LOW STRENGTH ASPIRIN 81 MG PO (08:32)
--- NOTE | 2024-12-23 09:06 | PN.CDI ---
CDI
- -
CDI:
Physician Documentation Request
Admit Date: 12/13/24 05:51
Dear Doctor/ CVPA,
Please review the following and provide your response in the progress notes.
Clinical Indicators:
Pt admitted with Sepsis /Aortic valve insufficiency secondary to endocarditis/Splenic infarcts
Pt s/p Aortic valve replacement / JIAN clip on 12/22
Progress note note 12/21, ' Acute on chronic microcytic anemia Iron deficiency.Status post IV iron Being transfused 1 unit of packed red blood cells on 12/21 to keep hemoglobin above 8 depression for surgical intervention...'
Documented per CT surgery note 12/23 ,' Acute on chronic anemia- s/p 2 pRBCs...'
Based on the above, could you clarify, in your progress note, which of the following is the most likely type of anemia you are evaluating, monitoring and/or treating?
Acute blood loss anemia with baseline chronic anemia iron deficient
Anemia of chronic disease due to iron deficiency only
Other (please specify)
Use of terms such as suspected, likely, concern for, or probable (associated with a specific diagnosis that is being evaluated, monitored, or treated as if it exists) are acceptable and can be coded in the inpatient setting, when documented at the
time of discharge.
Thank you,
Licha Watters RN
CDI Specialist
[place] [facility]
Please use your independent medical judgment in providing your response.
--- NOTE | 2024-12-23 09:18 | W.PN.ID1 ---
Date of Service
Date of Service: December 23, 2024
Today's Communication
Start empiric Vancomycin and Unasyn.
Assessment / Plan
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
# Large areas of splenic infarct, embolic
# Fever since ; improved although pt on Toradol
# Leukocytosis with bandemia; resolved
# Acute thrombocytopenia
# New anemia since 11/16/2024
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
- Blood cx's x 3 negative (prior to abx)
-UA >30 sq epith cells = contaminated specimen. Ucx only 30K Strep species, contaminant/not significant
- Blood parasite smear : negative x 2
- Lyme screen negative
- Anaplasma/Ehrlichia PCR negative
- s/p 7d empiric doxycycline 100mg po bid (last dose 12/19 at 10:47a)
- 12/19 JORDANA: mobile mass on aortic valve cusp and small PFO
- 12/22 s/p bio-AVR
OR valve cx and path pending.
-12/21 bcx x 1 pending
- 12/22 2 sets of blood cx's x 2 pending, holding for 10 days
- Q fever, Bartonella, Brucella serologies pending.
Tropheryma whipplei PCR serum pending.
Spoke to lab regarding above miscellaneous tests - I was reassured tests were not cancelled.
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
- DC cefazolin.
- start empiric Vancomycin and Unasyn for possible culture-neg IE pending cx and path data.
����������������������������������������������������������
Chief Complaint
-: Other (endocarditis)
Subjective / Review of Systems
+ post-op discomfort
Vital Signs / Physical Exam
Vital Signs
Vital Signs
Temp Pulse Resp BP Pulse Ox
98.0 F 64 16 116/50 93
12/23/24 08:00 12/23/24 08:26 12/23/24 08:00 12/23/24 08:00 12/23/24 08:26
Physical Exam
Constitutional: No Acute Distress and Non-toxic
Cardiovascular: Regular Rate and S1/S2
Pulmonary: Clear and Other (chest tubes in place)
Gastrointestinal: Soft, Tender (LUQ), Non Distended and Normal Bowel Sounds
Extremities: Negative Edema
Neurological: AO x 3
Objective Data
Lab Data
Lab Results
12/23/24 02:10
12/23/24 02:10
ESR 89 mm/hour (0-20) H 12/15/24 05:39
PT 17.1 Sec (11.4-14.6) H 12/22/24 16:52
INR 1.34 12/22/24 16:52
APTT 40.1 Sec (23.4-35.0) H 12/22/24 16:52
Estimated Creat Clear 56 ml/min 12/23/24 02:10
Total Bilirubin 0.4 mg/dl (0.2-1.3) 12/20/24 05:19
AST 28 U/L (14-36) 12/20/24 05:19
ALT 14 U/L (0-35) 12/20/24 05:19
Alkaline Phosphatase 96 U/L (38-126) 12/20/24 05:19
C-Reactive Protein 149.80 mg/L (0.0-10.00) H 12/15/24 05:39
Most recent labs reviewed.
Micro Results:
12/22/24 04:52 Blood Culture - Preliminary
Blood/Venous No Growth in 24 hours- Final report to follow
12/22/24 04:18 Blood Culture - Preliminary
Blood/Venous No Growth in 24 hours- Final report to follow
12/21/24 17:22 Blood Culture - Preliminary
Blood/Venous No Growth in 24 hours- Final report to follow
12/22/24 15:00 Tissue Culture - Pending
Valve Gram Stain - Preliminary
12/21/24 16:22 Blood Culture - Preliminary
Blood/Venous No Growth in 24 hours- Final report to follow
12/22/24 15:00 Fungal Culture - Preliminary
Heart Culture in progress.
Positive cultures are reported as soon as detected.
Final report to follow in four to five weeks.
12/22/24 15:00 Anaerobic Culture - Pending
Heart
12/13/24 15:04 Blood Culture - Final
Blood/Venous No Growth - Final Report
12/13/24 05:53 Blood Culture - Final
Blood/Venous No Growth - Final Report
12/13/24 06:14 Blood Culture - Final
Blood/Venous No Growth - Final Report
12/15/24 05:39 Blood Parasites Smear - Final
Blood/Venous
12/13/24 02:02 Urine Culture - Final
Urine Streptococcus species
12/13/24 15:04 Blood Parasites Smear - Final
Blood/Venous
12/13/24 CT a/p: Large geographic areas of nonenhancement within the spleen, consistent with splenic infarcts, new compared to prior CT dated 11/22/2023
12/21/24 MRI thoracic/lumbar spine: Posterior lumbar subcutaneous edema, a frequent incidental finding in asymptomatic individuals.
[2024-12-23] MEDS: LOPRESSOR PO (10:06)
[2024-12-23] MEDS: NSS IV (10:08)
[2024-12-23] MEDS: FLEXERIL 5 MG PO (10:14)
--- NOTE | 2024-12-23 10:24 | W.PN.UPDATE ---
Update Note
Progress Note Update
CDI Inquiry: Patient with acute blood loss anemia with baseline chronic, iron-deficiency anemia.
--- NOTE | 2024-12-23 10:31 | PHA.VAN.IN ---
Assessment
- Assessment
Renal Function: Appears similar to baseline
Maximum Temperature: 100.1
Minimum Temperature: 95
Concomitant Antimicrobials: Ampicillin/Sulbactam
- Previous Dosing Experience
Previous Regimen: 1000mg Q24H
Date of Regimen: 12/14/24
Provided Trough of: 11
Provided AUC of: 481
Patient's SCR is: Decreased compared to previous dosing experience
Patient's weight is: Similar to previous dosing experience
AUC Dosing Plan
- Dosing Variables
Dosing Weight (kg): 65.5
Dosing CrCl (ml/min): 64
Vd coefficient (L/kg): 0.7
- Empiric Dosing
Initial / Loading Dose: 1750mg on 12/23
Maintenance Regimen: 1250mg Q24H startong on 12/24
Estimated AUC (mcg*h/mL): 494
Estimated Peak (mcg*h/mL): 36.4
Estimated Trough (mcg/ml): 10
Estimated Half Life (H): 12
- Monitoring
No levels ordered at this time: Consider levels in next few days
Pharmacokinetics Vancomycin I
- -
Patient Age: 63
Patient Sex: Female
Vancomycin Day #: 1
Indication: Endocarditis
Requesting Provider: Dr. Aly
Pertinent Antimicrobial Allergies:
NKDA
Height / Weight:
Height 5 ft 1 in
Actual Weight 65.5 kg
- Vital Signs / Lab Results
Temp Pulse Resp BP Pulse Ox
97.9 F 65 14 114/49 93
12/23/24 10:00 12/23/24 10:00 12/23/24 10:00 12/23/24 10:00 12/23/24 10:00
Lab Results - Hematology
12/20/24 12/20/24 12/20/24
11:09 11:31 18:27
WBC Cancelled 6.7 7.3
12/21/24 12/22/24 12/23/24
06:44 04:18 02:10
WBC 6.1 6.2 13.1 H
Lab Results - Chemistry
12/21/24 12/22/24 12/23/24
06:44 16:52 02:10
BUN 8 9 10
Creatinine 0.8 0.6 0.8
Estimated Creat Clear 56 74 56
Lab Results - Urine
12/22/24
13:30
Urine Nitrite (Reflex) Negative
Leukocyte Esterase Rfl Negative
Urine WBC (Reflex) 0-2
Ur Squamous Epith Cells 16-20
Urine Bacteria (Reflex) Few A
Microbiology Results
12/22/24 04:52 Blood Culture - Preliminary
Blood/Venous No Growth in 24 hours- Final report to follow
12/22/24 04:18 Blood Culture - Preliminary
Blood/Venous No Growth in 24 hours- Final report to follow
12/21/24 17:22 Blood Culture - Preliminary
Blood/Venous No Growth in 24 hours- Final report to follow
12/22/24 15:00 Gram Stain - Preliminary
Valve
12/21/24 16:22 Blood Culture - Preliminary
Blood/Venous No Growth in 24 hours- Final report to follow
12/22/24 15:00 Fungal Culture - Preliminary
Heart Culture in progress.
Positive cultures are reported as soon as detected.
Final report to follow in four to five weeks.
[2024-12-23 10:32] LABS: Glucose - Point of Care 107 mg/dl (70-99)
--- NOTE | 2024-12-23 10:44 | W.PN.CARDCBS ---
Addendum entered and electronically signed by Jones Calzada MD 12/23/24 19:25:
Patient offers no complaints
88/49, pulse 69, respiratory rate 16, appears pale, breath sounds clear, regular rate rhythm with soft systolic murmur JVD okay, incision intact abdomen 9 legs intact, no edema
White count is 13.1, hemoglobin is 8.8, creatinine is 0.8 BUN is 10, platelets 95
Chest x-ray, cardiomegaly, [place] in place, chest tube in place, hazy bases
Pathology, tissue cultures pending
ECG nonspecific T wave changes
Assessment:
23mm Rodriguez Inspiris Resilia aortic valve replacement 12/22/2024
Left atrial appendage clip 12/22/2024
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
HTN
HLD
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
History of long covid 2020
Eczema, on dupixent
Former smoker
Plan:
As below per Betty Montgomery. Reviewed in detail and agree, unless specified otherwise
Await tissue cultures and pathology. Will discuss anticoagulation with CT surgery.
Continue supportive care
Original Note:
Today's Communication / Plan
-
Continue postoperative care
Follow hemoglobin/platelets
Anticoagulation when okay per CT surgery given splenic infarcts
Impression / Plan
-
Primary Traffic Checker: none prior to admission
Assessment:
Splenic infarct
Fevers since 10/2024
SIRS
Microcytic iron deficient anemia
Thrombocytopenia
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
HTN
HLD
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
History of long covid 2020
Eczema, on dupixent
Former smoker
ECHO 12/13/24: EF 60 to 65%, no regional wall motion abnormalities noted, mild to moderate AR [trileaflet aortic valve with echodensity on right coronary cusp], mild TR, PAP 27 mmHg
Plan:
-Fevers since following a trip 1 month prior to visit to [place] in September admitted with flank pain found to have large areas of splenic infarct, acute thrombocytopenia, and microcytic anemia. History of right mesenteric
infarct/small bowel ulcer and perienteric abscess with fistula status post resection in November 2023.
-JORDANA 12/19/24 with evidence of aortic valve vegetation.
-s/p bio AVR 12/22/24. awaiting pathology
-wean supp O2 as able
- Hemoglobin 8.8 this morning, with platelets 95K. Continue to follow postoperatively. On Plavix. Was on Eliquis preop due to splenic infarcts
- In sinus rhythm on review of telemetry overnight. EKG 12/23 reviewed, normal sinus rhythm with improved QTc
-blood cultures negative. ID following, continue abx
-continue post op care
-d/w nursing. Discussed with at bedside
Progress Note - Traffic Checker
Subjective
Date of Service: December 23, 2024
Reports postoperative pain
Objective
Labs:
12/23/24 02:10
12/23/24 02:10
Labs
Hgb 8.8 g/dL (12.0-16.0) L 12/23/24 02:10
Hct 25.8 % (37.0-47.0) L 12/23/24 02:10
Plt Count 95 10^3/uL (130-400) L D 12/23/24 02:10
PT 17.1 Sec (11.4-14.6) H 12/22/24 16:52
INR 1.34 12/22/24 16:52
APTT 40.1 Sec (23.4-35.0) H 12/22/24 16:52
Sodium 138 mmol/L (135-145) 12/23/24 02:10
Potassium 4.2 mmol/L (3.5-5.1) 12/23/24 02:10
BUN 10 mg/dl (7-17) 12/23/24 02:10
Creatinine 0.8 mg/dL (0.6-1.0) 12/23/24 02:10
Glucose 101 mg/dl (70-99) H 12/23/24 02:10
Vital Signs and I&O:
Vital Signs
Temp Pulse Resp BP Pulse Ox
97.9 F 65 14 114/49 93
12/23/24 10:00 12/23/24 10:00 12/23/24 10:00 12/23/24 10:00 12/23/24 10:00
Vital Signs
Temp Pulse Resp BP Pulse Ox
97.9 F 65 14 114/49 93
12/23/24 10:00 12/23/24 10:00 12/23/24 10:00 12/23/24 10:00 12/23/24 10:00
Intake & Output
12/21/24 12/22/24 12/23/24 12/24/24
07:59 07:59 07:59 07:59
Intake Total 240 / 240 2024.5 / 2358.0 1562.2 / 1614.6 72.9 / 72.9
Output Total 1452 / 1467 15 / 15
Balance 240 / 240 2024.5 / 2358.0 110.2 / 147.6 57.9 / 57.9
Physical Exam
Physical Exam
GEN: No distress, awake, alert, oriented x3. on supplemental O2
HEENT: supple, anicteric, mmm, EOMI
LUNGS: Decreased bilaterally, no wheezes
CV: Reg, S1/S2, no murmur
EXT: No cyanosis, clubbing. Trace of bilateral lower extremity edema
NEURO: Gross non-focal
SKIN: Warm, pink, dry. No rash. Sternotomy incision clean dry and intact. Chest tubes in place
--- NOTE | 2024-12-23 11:00 | PTCARENOTE ---
sukhdeep Alcantar, and Right pleural CT d/c per orders. Pt tolerated. Pt assisted OOB with 2 assist. Pt c/o dizziness lowest BP 83/54, resolved to 97/52. POX 95% on 6L NC. Pt's at bedside.
[2024-12-23] MEDS: VANCOCIN 535 MG IV (11:27)
--- NOTE | 2024-12-23 11:39 | CM ---
Chart reviewed. Patient OOB sitting in chair, at bedside. Patient is independent of ADLS, lives with her in a 1 M[facility], 0 MARY, 0 DME. Infectious Disease waiting on blood cultures to determine plan of care. Plan is for the patient to
return home with CT Transitional RN +/- IV antiibiotics. CM to follow
--- NOTE | 2024-12-23 12:30 | PTCARENOTE ---
Pt reassessed. NSR on tele with rates in the 60s. BP 90/52. POX 96% on 4L NC. Surgical sites stable. Tolerated clear liquids. Bladder scanned for 87ml-CT PRINTING SALES REPRESENTATIVE notified. Right IJ cordis, PIVx2 remains intact. Pain -12/22-see MAR.
[2024-12-23] MEDS: UNASYN IV ×3 (13:34→23:54)
[2024-12-23] MEDS: FERRLECIT 110 MG IV (14:03)
[2024-12-23 14:11] LABS: Glucose - Point of Care 107 mg/dl (70-99)
[2024-12-23 14:11] LABS: Glucose - Point of Care 103 mg/dl (70-99)
[2024-12-23] MEDS: FLEXBUMIN 50 IV (14:12)
[2024-12-23 16:17] LABS: Glucose - Point of Care 91 mg/dl (70-99)
--- NOTE | 2024-12-23 16:20 | PTCARENOTE ---
Pt reassessed. NSR on tele with rates in the 70s. BP 98/50. POX 92% on 2L NC. Surgical sites stable. CT output WNL. Pt resting in the chair. Bladder scanned for 280ml, denies urge to void. Insulin continues to infuse. C/o 12/22 pain, see AUG.
[2024-12-23 17:12] LABS: Glucose - Point of Care 104 mg/dl (70-99)
[2024-12-23] MEDS: LOPRESSOR 12.5 MG PO (21:05)
[2024-12-23] MEDS: REMOVE LIDOCAINE PATCH 1 PATCH REMOVE (21:06)
--- NOTE | 2024-12-23 21:30 | PTCARENOTE ---
Patient received resting in bed watching television. Patient A+A+Ox3. No neurological deficits noted. No c/o headache, dizziness or lightheadedness. O2 2L via NC. SpO2 91%. Oxygen increased to 3L via NC. SpO2 95%. Two Mediastinal chest tubes
- Intact and patent - 5 ml red drainage - No air leak. Chest tube dressing intact. Sinus Rhythm. Heart rate 60-70's. Blood pressure 107/50 (66). V-Wire insulated. Patient with no c/o chest pain, pressure or discomfort. Normoactive bowel
sounds. Positive BM. Patient voided 250 ml reyna urine on bedside commode. Right I.J. Cordis. Sternal incision intact - Surgical adhesive - Open to air. Bilateral lower extremity edema. Positive, palpable pulses. Assessment as documented.
[2024-12-24] VITALS (19 sets, daily range): BP systolic 103–121; BP diastolic 43–58; PULSE 74; O2SAT 96–97; BMI 28.2
--- NOTE | 2024-12-24 00:30 | PTCARENOTE ---
Patient sleeping without difficulty. No further changes from previous assessment.
[2024-12-24] MEDS: ROXICODONE 5 MG PO ×6 (01:55→22:43)
[2024-12-24 05:03] LABS: Hematocrit 22.9 % (37.0-47.0); Hemoglobin 7.5 g/dL (12.0-16.0); Mean Corp Hgb Conc. 32.8 g/dL (33.0-37.0); Mean Corpuscular Volume 83.0 fL (81.0-99.0); Platelet Count 88 10^3/uL (130-400); Red Cell Dist. Width 15.8 % (11.5-14.5)
[2024-12-24 05:07] LABS: Blood Urea Nitrogen 13 mg/dl (7-17); Calcium 8.2 mg/dl (8.4-10.2); Carbon Dioxide 24 mmol/L (22-30); Chloride 106 mmol/L (98-107); Estimated Creatinine Clearance 64 ml/min; Glucose 111 mg/dl (70-99); Magnesium 2.1 mg/dl (1.6-2.3); Potassium 4.1 mmol/L (3.5-5.1); Sodium 134 mmol/L (135-145); eGFR > 60.00
[2024-12-24] MEDS: TYLENOL 1000 MG PO ×3 (05:41→22:43)
[2024-12-24] MEDS: UNASYN IV ×4 (05:41→23:53)
--- NOTE | 2024-12-24 05:45 | PTCARENOTE ---
Patient A+A+Ox3. No neurological deficits noted. AM lab work collected and sent. Portable CXR completed. Patient given CHG bath and chest tube dressing changed. Patient OOB to bedside commode - Voided 300 ml reyna urine. Standing scale weight
67.6 kg. Linens changed. Patient back to bed. Assessment/Interventions as documented.
[2024-12-24] MEDS: NSS 500 IV (06:02)
[2024-12-24] MEDS: VANCOCIN 275 MG IV (06:03)
--- NOTE | 2024-12-24 06:47 | W.PN.INTV ---
Today's Communication / Plan
Recommendations
Incentive spirometry, pain control, out of bed to chair
Diuresis per CT surgery
Last fever was 12/17/2024
Off insulin drip
Once transferred to telemetry, we will sign off. Please call with questions
Assessment
-
63-year-old female presents with 1 month of fevers, found to have splenic infarction, micro Citic anemia, thrombocytopenia, aortic valve vegetation now status post AVR 12/22/2024. We are asked to help from critical care standpoint
S/p AVR 12/22/2024, bioprosthetic
Aortic valve vegetation per JORDANA
Cultures negative
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
Fevers x 1 month
Splenic infarct
Thrombocytopenia, anemia
Conditions present prior to admission
Hypertension/hyperlipidemia
History of eczema
On Dupixent
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
Distant alcohol history
Distant tobacco history
Family history of lung cancer (mother)
Plan/recommendations
At this time, patient remains stable.
Less splinting on exam
Chest x-ray with vague bilateral infiltrates. ABG with adequate oxygenation/ventilation
Last fever was 12/17/2024
Moving forward
Continue with management per CT surgery
Follow blood sugars, hemoglobin
Chest tube output minimal
Dobutamine has been weaned off
Blood products per CT surgery
Anemia noted
Platelets improved, stabilized
currently off antibiotics
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
Continue workup per CT surgery, hematology, infectious disease
Insulin drip has been weaned off
Reviewed with critical care nursing
Once transferred to telemetry, we will sign off. Please call with questions
Subjective Dataa
Subjective Data
Date of Service:
Date of Service: December 24, 2024
Subjective:
Patient continues to have incisional discomfort but this has improved. Had uneventful night otherwise. Denies nausea, hemoptysis, significant shortness of breath
Objective Data
Data Reviewed
Vital Signs / I&O / Oxygen:
Vital Signs
Temp Pulse Resp BP Pulse Ox
98.6 F 68 16 103/51 93
12/24/24 04:00 12/24/24 04:00 12/24/24 04:00 12/24/24 04:00 12/24/24 04:00
Intake and Output
12/22/24 12/23/24 12/24/24
06:59 06:59 06:59
Intake Total 1699.5 / 1699.5 1862.2 / 1887.2 2448.7 / 2448.7
Output Total 1452 / 1452 825 / 825
Balance 1699.5 / 1699.5 410.2 / 435.2 1623.7 / 1623.7
SaO2 [SIMV] 97
SaO2 93
Nasal Cannula flow liters per 2
minute
Physical Exam
General: Comfortable
HEENT: Normocephalic and Anicteric
Cardiovascular: S1-S2, Regular Rhythm, Murmur (n), Rub (n) and Peripheral Edema (n)
Respiratory: Wheeze (n), Crackles (n), Rhonchi (n) and Non-Labored Respirations
GI: Soft, Non Distended and Non Tender
Neurology: Awake, Alert and No Motor Deficits
Skin: Cyanosis (n) and Jaundice (n)
Labs/Micro/Reports
Lab Data
12/24/24 04:14
12/24/24 04:14
Microbiology
12/22/24 04:52 Blood/Venous Blood Culture - Preliminary
No Growth in 48 hours- Final report to follow
12/22/24 04:18 Blood/Venous Blood Culture - Preliminary
No Growth in 48 hours- Final report to follow
12/21/24 17:22 Blood/Venous Blood Culture - Preliminary
No Growth in 48 hours- Final report to follow
12/21/24 16:22 Blood/Venous Blood Culture - Preliminary
No Growth in 48 hours- Final report to follow
12/23/24 11:28 Nose Nasal Screen MRSA (PCR) - Final
MRSA not detected - performed by PCR methodology.
12/22/24 15:00 Heart Anaerobic Culture - Preliminary
Culture pending. Anaerobic cultures are examined after 3
days incubation. Additional information to follow.
12/22/24 15:00 Valve Tissue Culture - Preliminary
No Growth After 18-24 Hours
12/22/24 15:00 Valve Gram Stain - Preliminary
12/22/24 15:00 Heart Fungal Culture - Preliminary
Culture in progress.
Positive cultures are reported as soon as detected.
Final report to follow in four to five weeks.
--- NOTE | 2024-12-24 07:13 | W.PN.CT ---
Today's Communication / Plan
-
-pod #2
-no issues overnight
-CT outputs: 2 meds 65/175 in 12/24 hrs
-hypotensive 12/23 - improved with IVF (total 2L LR postop)
-on empiric Vancomycin and Unasyn. Follow intraop cx
-follow platelets-88K today (95K on 12/23, 55-62 on 12/22)
-encourage IS, OOB
Assessment / Plan
-
- Aortic valve regurgitation with endocarditis and large vegetation- s/p Surgical aortic valve replacement [23 mm Rodriguez Inspiris Resilia aortic valve bioprosthesis]; Left atrial appendage exclusion [35mm clip]
by Dr. Porter on 12/22/24, pod #2
- Intraop JORDANA: LVEF preop and postop was essentially normal at 60% with no significant regional wma. The left atrial appendage also clipped during the study and was found to be free of any thrombus or debris preoperatively and found to be totally
occlusive postoperatively with a 35mm device.
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
- Aortic valve vegetation with cardioembolic phenomena
- Splenic infarct
- Anemia, likely secondary to chronic disease
- Thrombocytopenia also likely secondary to chronic disease
- Hypertension
- Hyperlipidemia
- Long-standing Covid
- Ex-lap with partial small bowel resection/ abscess 11/2023, mesenteric infarct
- Tension HAs
- Former smoker, 1 ppd for 21 yrs
- Former EtOH abuse, sober since
- Acute on chronic postop blood loss anemia- s/p 2 pRBCs
- Acute on chronic thrombocytopenia- s/p 3 platelets
- Acute postop atelectasis
- Acute postop hypovolemia with subsequent hypervolemia
Discussed patient care with: Nursing and Care Team
Subjective
-
Date of Service: December 24, 2024
Objective Data
-
PT 17.1 Sec (11.4-14.6) H 12/22/24 16:52
INR 1.34 12/22/24 16:52
APTT 40.1 Sec (23.4-35.0) H 12/22/24 16:52
Vital Signs
Vital Signs
Temp Pulse Resp BP Pulse Ox
98.5 F 68 16 109/51 93
12/23/24 22:00 12/24/24 01:00 12/23/24 22:00 12/24/24 01:00 12/23/24 23:00
CT Intake/Output/Weight
12/23/24 12/23/24 12/24/24
06:59 18:59 06:59
Intake Total 831.7 / 1887.2 1608.7 / 2038.7 430 / 2038.7
Output Total 1047 / 1452 210 / 475 265 / 475
Balance -215.3 / 435.2 1398.7 / 1563.7 165 / 1563.7
SaO2: 93
Physical Exam
-
General: Awake and AOx3
Cardiovascular: Regular rate & rhythm, No Murmurs and No Rub
Respiratory: Decreased Breath Sounds
Sternum: Stable
Incision: Clean, Dry and Intact
Extremities: Other (trace edema b/l)
Data Reviewed
-
Lab Results: Results Reviewed
Medications: Active Meds Reviewed
Chest X-Ray: Report Reviewed and Image Reviewed
ECG: Report Reviewed and Image Reviewed
[2024-12-24] MEDS: SENOKOT-S 1 TABLET PO ×2 (09:35→20:52)
[2024-12-24] MEDS: PROTONIX 40 MG PO (09:35)
[2024-12-24] MEDS: LOPRESSOR 12.5 MG PO ×2 (09:35→20:52)
[2024-12-24] MEDS: MAGNESIUM OXIDE 500 MG PO ×2 (09:35→20:52)
[2024-12-24] MEDS: NEURONTIN 100 MG PO ×3 (09:35→22:42)
[2024-12-24] MEDS: PACERONE 200 MG PO ×3 (09:35→22:42)
[2024-12-24] MEDS: LIDOCAINE 4% PATCH 1 PATCH TOPICAL (09:36)
[2024-12-24] MEDS: BACTROBAN 2% OINTMENT 1 APPLIC NASAL ×2 (09:36→20:51)
[2024-12-24] MEDS: LOW STRENGTH ASPIRIN 81 MG PO (09:36)
--- NOTE | 2024-12-24 09:45 | PHA.VAN.FU ---
Vancomycin Assessment / Plan
- Assessment
Renal Function: Stable
WBC's are: Trending Down
In the past 24 hrs, patient has been: Afebrile
Concomitant Antimicrobials: unasyn 3g q6h
- Dosing Plan
Continue: vanco 1250 mg Q24H
- Monitoring Plan
No level(s) ordered at this time: consider levels in next few days
- Follow Up
Pharmacy will continue to follow.
Vancomycin Follow UP
- -
Patient Age: 63
Patient Sex: Female
Vancomycin Day #: 2
Indication: Endocarditis
Requesting Provider: Dr. Aly
Pertinent Antimicrobial Allergies:
NKDA
Height / Weight:
Height 5 ft 1 in
Actual Weight 67.6 kg
IBW in k.8
Adjusted BW in k.7
- Vital Signs / Lab Results
Temp Pulse Resp BP Pulse Ox
99.3 F 71 16 121/58 93
12/24/24 08:00 12/24/24 09:35 12/24/24 08:00 12/24/24 09:35 12/24/24 08:00
Lab Results - Hematology
12/22/24 12/23/24 12/24/24
04:18 02:10 04:14
WBC 6.2 13.1 H 12.0 H
Lab Results - Chemistry
12/22/24 12/23/24 12/24/24
16:52 02:10 04:14
BUN 9 10 13
Creatinine 0.6 0.8 0.8
Estimated Creat Clear 74 56 64
Microbiology Results
12/22/24 04:52 Blood Culture - Preliminary
Blood/Venous No Growth in 48 hours- Final report to follow
12/22/24 04:18 Blood Culture - Preliminary
Blood/Venous No Growth in 48 hours- Final report to follow
12/21/24 17:22 Blood Culture - Preliminary
Blood/Venous No Growth in 48 hours- Final report to follow
12/21/24 16:22 Blood Culture - Preliminary
Blood/Venous No Growth in 48 hours- Final report to follow
12/23/24 11:28 Nasal Screen MRSA (PCR) - Final
Nose MRSA not detected - performed by PCR methodology.
12/22/24 15:00 Anaerobic Culture - Preliminary
Heart Culture pending. Anaerobic cultures are examined after 3
days incubation. Additional information to follow.
12/22/24 15:00 Tissue Culture - Preliminary
Valve No Growth After 18-24 Hours
Gram Stain - Preliminary
12/22/24 15:00 Fungal Culture - Preliminary
Heart Culture in progress.
Positive cultures are reported as soon as detected.
Final report to follow in four to five weeks.
--- NOTE | 2024-12-24 09:47 | PTCARENOTE ---
Patient care assumed from nightshift RN. Patient fully alert and oriented. Patient complains of surgical incision pain /, will provide PRN pain meds when due. CT x2 mediastinals intact and patent, minimal serosanguineous drainage. 2LNC, lungs
diminished. NSR 70s. Pulses palpable in upper and lower extremities. Bowel sounds hypoactive. RIJ cordis and PIV present. Surgical incisions clean dry intact. Assist x1. Temp 99.3.
[2024-12-24] MEDS: LASIX 40 MG IV (10:14)
--- NOTE | 2024-12-24 12:45 | PTCARENOTE ---
Patient OOB in chair with family bedside. PRN pain meds given per request. Lasix given, pt voiding without complication. Ampicillin given via RIJ cordis. Mediastinal chest tubes x2 discontinued, well tolerated. Pt now on room air, sats 92%. V-wire
remains insulated.
[2024-12-24] MEDS: FERRLECIT 110 MG IV (13:19)
--- NOTE | 2024-12-24 14:57 | W.PN.ID1 ---
Date of Service
Date of Service: December 24, 2024
Today's Communication
Continue Vanco/Unasyn
Assessment / Plan
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
# Large areas of splenic infarct, embolic
# Fever since ; improved although pt on Toradol
# Leukocytosis - postop
# Acute thrombocytopenia
# New anemia since 11/16/2024
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
- Blood cx's x 3 negative (prior to abx)
-UA >30 sq epith cells = contaminated specimen. Ucx only 30K Strep species, contaminant/not significant
- Blood parasite smear : negative x 2
- Lyme screen negative
- Anaplasma/Ehrlichia PCR negative
- s/p 7d empiric doxycycline 100mg po bid (last dose 12/19 at 10:47a)
- 12/19 JORADNA: mobile mass on aortic valve cusp and small PFO
- 12/22 s/p bio-AVR
valve cx: neg to date
Valve path pending.
-12/21 bcx x 1 pending
- 12/22 2 sets of blood cx's x 2 neg to date, holding for 10 days
- Q fever serology negative.
Bartonella, Brucella serologies pending.
Tropheryma whipplei PCR serum pending.
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
- Continue empiric Vancomycin/Unasyn (d2) for possible culture-neg IE pending cx and path data.
����������������������������������������������������������
Chief Complaint
-: Other (endocarditis)
Vital Signs / Physical Exam
Vital Signs
Vital Signs
Temp Pulse Resp BP Pulse Ox
98.4 F 70 16 117/54 92
12/24/24 12:36 12/24/24 14:00 12/24/24 12:36 12/24/24 12:36 12/24/24 14:54
Physical Exam
Constitutional: No Acute Distress and Non-toxic
Cardiovascular: Regular Rate and S1/S2
Pulmonary: Clear and Other (chest tubes in place)
Gastrointestinal: Soft, Tender (LUQ), Non Distended and Normal Bowel Sounds
Extremities: Negative Edema
Neurological: AO x 3
Objective Data
Lab Data
Lab Results
12/24/24 04:14
12/24/24 04:14
ESR 89 mm/hour (0-20) H 12/15/24 05:39
PT 17.1 Sec (11.4-14.6) H 12/22/24 16:52
INR 1.34 12/22/24 16:52
APTT 40.1 Sec (23.4-35.0) H 12/22/24 16:52
Estimated Creat Clear 64 ml/min 12/24/24 04:14
Total Bilirubin 0.4 mg/dl (0.2-1.3) 12/20/24 05:19
AST 28 U/L (14-36) 12/20/24 05:19
ALT 14 U/L (0-35) 12/20/24 05:19
Alkaline Phosphatase 96 U/L (38-126) 12/20/24 05:19
C-Reactive Protein 149.80 mg/L (0.0-10.00) H 12/15/24 05:39
Most recent labs reviewed.
Micro Results:
12/22/24 15:00 Anaerobic Culture - Preliminary
Heart Culture pending. Anaerobic cultures are examined after 3
days incubation. Additional information to follow.
12/22/24 15:00 Tissue Culture - Preliminary
Valve No Growth After 48 Hours
Gram Stain - Preliminary
12/22/24 04:52 Blood Culture - Preliminary
Blood/Venous No Growth in 48 hours- Final report to follow
12/22/24 04:18 Blood Culture - Preliminary
Blood/Venous No Growth in 48 hours- Final report to follow
12/21/24 17:22 Blood Culture - Preliminary
Blood/Venous No Growth in 48 hours- Final report to follow
12/21/24 16:22 Blood Culture - Preliminary
Blood/Venous No Growth in 48 hours- Final report to follow
12/23/24 11:28 Nasal Screen MRSA (PCR) - Final
Nose MRSA not detected - performed by PCR methodology.
12/22/24 15:00 Fungal Culture - Preliminary
Heart Culture in progress.
Positive cultures are reported as soon as detected.
Final report to follow in four to five weeks.
12/13/24 15:04 Blood Culture - Final
Blood/Venous No Growth - Final Report
12/13/24 05:53 Blood Culture - Final
Blood/Venous No Growth - Final Report
12/13/24 06:14 Blood Culture - Final
Blood/Venous No Growth - Final Report
12/15/24 05:39 Blood Parasites Smear - Final
Blood/Venous
12/13/24 02:02 Urine Culture - Final
Urine Streptococcus species
12/13/24 15:04 Blood Parasites Smear - Final
Blood/Venous
12/13/24 CT a/p: Large geographic areas of nonenhancement within the spleen, consistent with splenic infarcts, new compared to prior CT dated 11/22/2023
12/21/24 MRI thoracic/lumbar spine: Posterior lumbar subcutaneous edema, a frequent incidental finding in asymptomatic individuals.
--- NOTE | 2024-12-24 18:36 | PTCARENOTE ---
Patient OOB in chair. PRN medication given for 7/10 sternal pain. Pt placed back on 2LNC, failed to maintain sufficient O2 sats on room air. Pt had bowel movement. Assessment otherwise unchanged.
[2024-12-24] MEDS: REMOVE LIDOCAINE PATCH 1 PATCH REMOVE (20:52)
--- NOTE | 2024-12-24 21:00 | PTCARENOTE ---
Patient received resting in bed watching television and dozing intermittently. Patient A+A+Ox3. No neurological deficits noted. Patient ambulated to bathroom to void. Minimal assistance needed. Voided 150 ml yellow urine. Patient back to bed.
Sternal precautions. Room air SpO2 88%. Mild GARRETT. O2 at 2L via NC. SpO2 95%. Chest tube dressing intact. Sinus Rhythm. Heart rate 70's. Blood pressure 117/54 (71). V-Wire insulated. Patient with no c/o chest pain, pressure or discomfort.
Abdomen soft, nontender. Normoactive bowel sounds. No BM. No c/o nausea. No vomiting. Afebrile. Generalized edema. Positive, palpable pulses. Sternal incision intact - Surgical adhesive - Open to air. Patient with no c/o back or flank pain.
Right I.J. Cordis. Assessment as documented.
[2024-12-25] VITALS (11 sets, daily range): BP systolic 100–128; BP diastolic 47–68; O2SAT 91–92; BMI 28.3
--- NOTE | 2024-12-25 00:30 | PTCARENOTE ---
Patient sleeping without difficulty. No further changes from previous assessment.
[2024-12-25] MEDS: ROXICODONE 5 MG PO ×5 (02:54→21:22)
[2024-12-25 03:25] LABS: Hematocrit 21.5 % (37.0-47.0); Hemoglobin 7.1 g/dL (12.0-16.0); Mean Corp Hgb Conc. 33.0 g/dL (33.0-37.0); Mean Corpuscular Volume 84.0 fL (81.0-99.0); Platelet Count 85 10^3/uL (130-400); Red Cell Dist. Width 15.9 % (11.5-14.5)
--- NOTE | 2024-12-25 03:25 | PTCARENOTE ---
Patient A+A+Ox3. No neurological deficits noted. Patient ambulated to bathroom with minimal assistance. Voided 350 ml yellow urine. Standing scale weight 67.8 kg. Patient back to bed. Roxicodone 5mg PO for pain management. AM lab work
collected and sent. O2 at 2L via NC. SpO2 93%. Assessment/Interventions as documented.
[2024-12-25 03:42] LABS: Blood Urea Nitrogen 12 mg/dl (7-17); Calcium 7.8 mg/dl (8.4-10.2); Carbon Dioxide 26 mmol/L (22-30); Chloride 102 mmol/L (98-107); Estimated Creatinine Clearance 65 ml/min; Glucose 116 mg/dl (70-99); Magnesium 2.0 mg/dl (1.6-2.3); Potassium 3.7 mmol/L (3.5-5.1); Sodium 131 mmol/L (135-145); eGFR > 60.00
[2024-12-25] MEDS: UNASYN IV ×4 (05:19→23:49)
--- NOTE | 2024-12-25 05:47 | W.PN.CT ---
Today's Communication / Plan
-
-pod #3
-no issues overnight
-CT out, PW kept with low plt
-diuresed, no shaikh, incontinent of urine
-Hgb 7.5->7.1 today, platelets 88->85 today
-on empiric Vancomycin and Unasyn. Follow intraop cx
-encourage IS, OOB
Assessment / Plan
-
- Aortic valve regurgitation with endocarditis and large vegetation- s/p Surgical aortic valve replacement [23 mm Rodriguez Inspiris Resilia aortic valve bioprosthesis]; Left atrial appendage exclusion [35mm clip]
by Dr. Porter on 12/22/24, pod #3
- Intraop JORDANA: LVEF preop and postop was essentially normal at 60% with no significant regional wma. The left atrial appendage also clipped during the study and was found to be free of any thrombus or debris preoperatively and found to be totally
occlusive postoperatively with a 35mm device.
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
- Aortic valve vegetation with cardioembolic phenomena
- Splenic infarct
- Anemia, likely secondary to chronic disease
- Thrombocytopenia also likely secondary to chronic disease
- Hypertension
- Hyperlipidemia
- Long-standing Covid
- Ex-lap with partial small bowel resection/ abscess 11/2023, mesenteric infarct
- Tension HAs
- Former smoker, 1 ppd for 21 yrs
- Former EtOH abuse, sober since
- Acute on chronic postop blood loss anemia- s/p 2 pRBCs
- Acute on chronic thrombocytopenia- s/p 3 platelets
- Acute postop atelectasis
- Acute postop hypovolemia with subsequent hypervolemia
Subjective
-
Date of Service: December 25, 2024
Objective Data
-
Lab Results
12/25/24 03:06
12/25/24 03:06
PT 17.1 Sec (11.4-14.6) H 12/22/24 16:52
INR 1.34 12/22/24 16:52
APTT 40.1 Sec (23.4-35.0) H 12/22/24 16:52
Vital Signs
Vital Signs
Temp Pulse Resp BP Pulse Ox
97.7 F 65 16 107/47 93
12/25/24 03:00 12/25/24 05:00 12/25/24 03:00 12/25/24 03:00 12/25/24 03:00
CT Intake/Output/Weight
12/24/24 12/24/24 12/25/24
06:59 18:59 06:59
Intake Total 840 / 2458.7 730 / 1560 830 / 1560
Output Total 615 / 825 200 / 700 500 / 700
Balance 225 / 1633.7 530 / 860 330 / 860
SaO2: 93
Physical Exam
-
General: Awake, Oriented and AOx3
Cardiovascular: Regular rate & rhythm and No Murmurs
Sternum: Stable
Incision: Clean, Dry and Intact
Extremities: Edema +1 and No Erythema
Data Reviewed
-
Lab Results: Results Reviewed
Medications: Active Meds Reviewed
Chest X-Ray: Report Reviewed
ECG: Report Reviewed
[2024-12-25] MEDS: VANCOCIN 275 MG IV (05:49)
[2024-12-25] MEDS: TYLENOL 1000 MG PO ×2 (05:56→14:50)
--- NOTE | 2024-12-25 06:58 | W.PN.INTV ---
Today's Communication / Plan
Recommendations
Out of bed to chair, ambulate, incentive spirometry
Remains on vancomycin/Unasyn
For transfusion today
Chest x-ray with mild basilar atelectasis
Once transferred to telemetry, we will sign off. Please call with questions
Assessment
-
63-year-old female presents with 1 month of fevers, found to have splenic infarction, micro Citic anemia, thrombocytopenia, aortic valve vegetation now status post AVR 12/22/2024. We are asked to help from critical care standpoint
S/p AVR 12/22/2024, bioprosthetic
Aortic valve vegetation per JORDANA
Cultures negative
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
Fevers x 1 month
Splenic infarct
Thrombocytopenia, anemia
Conditions present prior to admission
Hypertension/hyperlipidemia
History of eczema
On Dupixent
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
Distant alcohol history
Distant tobacco history
Family history of lung cancer (mother)
Plan/recommendations
At this time, patient remains stable.
Less splinting on exam
Hemoglobin 7.1, awaiting transfusion. Platelets stable at 85
Chest x-ray with mild basilar atelectasis 12/25 per my review
Last fever was 12/17/2024
Moving forward
Continue with management per CT surgery
Follow blood sugars, hemoglobin, transfuse per protocol
Dobutamine has been weaned off
Blood products per CT surgery
Anemia noted, for transfusion today
Platelets improved, stabilized
currently off antibiotics
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
Continue workup per CT surgery, hematology, infectious disease
Insulin drip has been weaned off
Reviewed with critical care nursing
Once transferred to telemetry, we will sign off. Please call with questions
Subjective Dataa
Subjective Data
Date of Service:
Date of Service: December 25, 2024
Subjective:
Patient complaining of shortness of breath and fatigue today. Hemoglobin noted, awaiting transfusion. Mild splinting, otherwise denies nausea. Moved bowels according to patient
Objective Data
Data Reviewed
Vital Signs / I&O / Oxygen:
Vital Signs
Temp Pulse Resp BP Pulse Ox
97.7 F 65 16 107/47 93
12/25/24 03:00 12/25/24 05:00 12/25/24 03:00 12/25/24 03:00 12/25/24 05:49
Intake and Output
12/23/24 12/24/24 12/25/24
06:59 06:59 06:59
Intake Total 1862.2 / 1887.2 2448.7 / 2458.7 1560 / 1560
Output Total 1452 / 1452 825 / 825 700 / 700
Balance 410.2 / 435.2 1623.7 / 1633.7 860 / 860
SaO2 [SIMV] 97
SaO2 93
Nasal Cannula flow liters per 2
minute
Physical Exam
General: Comfortable
HEENT: Normocephalic and Anicteric
Cardiovascular: S1-S2, Regular Rhythm, Murmur (n), Rub (n) and Peripheral Edema (n)
Respiratory: Wheeze (n), Crackles (n), Rhonchi (n), Non-Labored Respirations and Other (Decreased breath sounds at base)
GI: Soft, Non Distended and Non Tender
Neurology: Awake, Alert and No Motor Deficits
Skin: Cyanosis (n) and Jaundice (n)
Labs/Micro/Reports
Lab Data
12/25/24 03:06
12/25/24 03:06
Microbiology
12/22/24 04:52 Blood/Venous Blood Culture - Preliminary
No Growth in 72 hours- Final report to follow
12/22/24 04:18 Blood/Venous Blood Culture - Preliminary
No Growth in 72 hours- Final report to follow
12/21/24 17:22 Blood/Venous Blood Culture - Preliminary
No Growth in 72 hours- Final report to follow
12/21/24 16:22 Blood/Venous Blood Culture - Preliminary
No Growth in 72 hours- Final report to follow
12/22/24 15:00 Heart Anaerobic Culture - Preliminary
Culture pending. Anaerobic cultures are examined after 3
days incubation. Additional information to follow.
12/22/24 15:00 Valve Tissue Culture - Preliminary
No Growth After 48 Hours
12/22/24 15:00 Valve Gram Stain - Preliminary
12/23/24 11:28 Nose Nasal Screen MRSA (PCR) - Final
MRSA not detected - performed by PCR methodology.
12/22/24 15:00 Heart Fungal Culture - Preliminary
Culture in progress.
Positive cultures are reported as soon as detected.
Final report to follow in four to five weeks.
--- NOTE | 2024-12-25 08:00 | PTCARENOTE ---
pt received from previous RN, oriented, in bed. SR on the monitor, 60-70s. V wire insulated. SBP 100-110s. trace generalized edema, palpable pulses. 2LNC, 95-96% POX. lungs diminished. IS encouraged. pt abdomen s/n, denies n/v. poor appetite. pt
states had BM yesterday. ambulates to bathroom. voids. sternal incision GERIATRIC NURSE, chest tube sites c/d/i. RIJ cordis maintained. PIV x2. K repleted. see worklist for VS, I&O, and assessment.
--- NOTE | 2024-12-25 08:17 | PHA.VAN.FU ---
Vancomycin Assessment / Plan
- Assessment
Renal Function: Stable
WBC's are: Trending Down
In the past 24 hrs, patient has been: Afebrile
Concomitant Antimicrobials: ampicillin/sulbactam 3g q6h
- Dosing Plan
Continue: vancomycin 1250 mg Q24H
- Monitoring Plan
Peak Level: 7.14 @ 0930
Trough Level: 7.15 @ 0530
- Follow Up
Pharmacy will continue to follow.
Vancomycin Follow UP
- -
Patient Age: 63
Patient Sex: Female
Vancomycin Day #: 3
Indication: Endocarditis
Requesting Provider: Dr. Aly
Pertinent Antimicrobial Allergies:
NKDA
Height / Weight:
Height 5 ft 1 in
Actual Weight 67.8 kg
IBW in k.8
Adjusted BW in k.7
- Vital Signs / Lab Results
Temp Pulse Resp BP Pulse Ox
98.2 F 82 18 107/47 95
12/25/24 07:45 12/25/24 07:00 12/25/24 07:45 12/25/24 03:00 12/25/24 07:45
Lab Results - Hematology
12/23/24 12/24/24 12/25/24
02:10 04:14 03:06
WBC 13.1 H 12.0 H 11.8 H
Lab Results - Chemistry
12/22/24 12/23/24 12/24/24
16:52 02:10 04:14
BUN 9 10 13
Creatinine 0.6 0.8 0.8
Estimated Creat Clear 74 56 64
12/25/24
03:06
BUN 12
Creatinine 0.8
Estimated Creat Clear 65
Microbiology Results
12/22/24 04:52 Blood Culture - Preliminary
Blood/Venous No Growth in 72 hours- Final report to follow
12/22/24 04:18 Blood Culture - Preliminary
Blood/Venous No Growth in 72 hours- Final report to follow
12/21/24 17:22 Blood Culture - Preliminary
Blood/Venous No Growth in 72 hours- Final report to follow
12/21/24 16:22 Blood Culture - Preliminary
Blood/Venous No Growth in 72 hours- Final report to follow
12/22/24 15:00 Anaerobic Culture - Preliminary
Heart Culture pending. Anaerobic cultures are examined after 3
days incubation. Additional information to follow.
12/22/24 15:00 Tissue Culture - Preliminary
Valve No Growth After 48 Hours
Gram Stain - Preliminary
12/23/24 11:28 Nasal Screen MRSA (PCR) - Final
Nose MRSA not detected - performed by PCR methodology.
[2024-12-25] MEDS: SENOKOT-S 1 TABLET PO (08:30)
[2024-12-25] MEDS: PROTONIX 40 MG PO (08:42)
[2024-12-25] MEDS: PACERONE 200 MG PO ×3 (08:42→22:08)
[2024-12-25] MEDS: LOW STRENGTH ASPIRIN 81 MG PO (08:42)
[2024-12-25] MEDS: NEURONTIN 100 MG PO ×3 (08:42→22:00)
[2024-12-25] MEDS: KCL 40 MEQ PO (08:42)
--- NOTE | 2024-12-25 08:42 | W.PN.ID1 ---
Date of Service
Date of Service: December 25, 2024
Today's Communication
Continue Vanco/Unasyn.
Assessment / Plan
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
# Large areas of splenic infarct, embolic
# Fever since ; improved although pt on Toradol
# Leukocytosis - postop
# Acute thrombocytopenia
# New anemia since 11/16/2024
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
- Blood cx's x 3 negative (prior to abx)
-UA >30 sq epith cells = contaminated specimen. Ucx only 30K Strep species, contaminant/not significant
- Blood parasite smear : negative x 2
- Lyme screen negative
- Anaplasma/Ehrlichia PCR negative
- s/p 7d empiric doxycycline 100mg po bid (last dose 12/19 at 10:47a)
- 12/19 JORDANA: mobile mass on aortic valve cusp and small PFO
- 12/22 s/p bio-AVR
valve cx: neg to date
Valve path pending.
-12/21 bcx x 1 pending
- 12/22 2 sets of blood cx's x 2 neg to date, holding for 10 days
- Q fever serology negative.
Bartonella, Brucella serologies pending.
Tropheryma whipplei PCR serum pending.
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
- Continue empiric Vancomycin/Unasyn (d3) for possible culture-neg IE pending cx and path data.
����������������������������������������������������������
Chief Complaint
-: Other (endocarditis)
Subjective / Review of Systems
Still with LUQ/flank pain
Vital Signs / Physical Exam
Vital Signs
Vital Signs
Temp Pulse Resp BP Pulse Ox
98.2 F 82 18 107/47 95
12/25/24 07:45 12/25/24 07:00 12/25/24 07:45 12/25/24 03:00 12/25/24 07:45
Physical Exam
Constitutional: No Acute Distress and Non-toxic
Cardiovascular: Regular Rate and S1/S2
Pulmonary: Clear
Gastrointestinal: Soft, Tender (LUQ), Non Distended and Normal Bowel Sounds
Extremities: Negative Edema
Neurological: AO x 3
Objective Data
Lab Data
Lab Results
12/25/24 03:06
12/25/24 03:06
ESR 89 mm/hour (0-20) H 12/15/24 05:39
PT 17.1 Sec (11.4-14.6) H 12/22/24 16:52
INR 1.34 12/22/24 16:52
APTT 40.1 Sec (23.4-35.0) H 12/22/24 16:52
Estimated Creat Clear 65 ml/min 12/25/24 03:06
Total Bilirubin 0.4 mg/dl (0.2-1.3) 12/20/24 05:19
AST 28 U/L (14-36) 12/20/24 05:19
ALT 14 U/L (0-35) 12/20/24 05:19
Alkaline Phosphatase 96 U/L (38-126) 12/20/24 05:19
C-Reactive Protein 149.80 mg/L (0.0-10.00) H 12/15/24 05:39
Most recent labs reviewed.
Micro Results:
12/22/24 04:52 Blood Culture - Preliminary
Blood/Venous No Growth in 72 hours- Final report to follow
12/22/24 04:18 Blood Culture - Preliminary
Blood/Venous No Growth in 72 hours- Final report to follow
12/21/24 17:22 Blood Culture - Preliminary
Blood/Venous No Growth in 72 hours- Final report to follow
12/21/24 16:22 Blood Culture - Preliminary
Blood/Venous No Growth in 72 hours- Final report to follow
12/22/24 15:00 Anaerobic Culture - Preliminary
Heart Culture pending. Anaerobic cultures are examined after 3
days incubation. Additional information to follow.
12/22/24 15:00 Tissue Culture - Preliminary
Valve No Growth After 48 Hours
Gram Stain - Preliminary
12/23/24 11:28 Nasal Screen MRSA (PCR) - Final
Nose MRSA not detected - performed by PCR methodology.
12/22/24 15:00 Fungal Culture - Preliminary
Heart Culture in progress.
Positive cultures are reported as soon as detected.
Final report to follow in four to five weeks.
12/13/24 15:04 Blood Culture - Final
Blood/Venous No Growth - Final Report
12/13/24 05:53 Blood Culture - Final
Blood/Venous No Growth - Final Report
12/13/24 06:14 Blood Culture - Final
Blood/Venous No Growth - Final Report
12/15/24 05:39 Blood Parasites Smear - Final
Blood/Venous
12/13/24 02:02 Urine Culture - Final
Urine Streptococcus species
12/13/24 15:04 Blood Parasites Smear - Final
Blood/Venous
12/13/24 CT a/p: Large geographic areas of nonenhancement within the spleen, consistent with splenic infarcts, new compared to prior CT dated 11/22/2023
12/21/24 MRI thoracic/lumbar spine: Posterior lumbar subcutaneous edema, a frequent incidental finding in asymptomatic individuals.
[2024-12-25] MEDS: LIDOCAINE 4% PATCH 1 PATCH TOPICAL (08:45)
[2024-12-25] MEDS: LOPRESSOR 12.5 MG PO ×2 (08:45→19:58)
[2024-12-25] MEDS: MAGNESIUM OXIDE 500 MG PO ×2 (08:45→20:03)
[2024-12-25] MEDS: BACTROBAN 2% OINTMENT 1 APPLIC NASAL ×2 (08:46→19:59)
--- NOTE | 2024-12-25 09:53 | PTCARENOTE ---
Roxicodone 5mg PO given for pain. 1 unit PRBC transfused as ordered.
--- NOTE | 2024-12-25 12:00 | PTCARENOTE ---
pt VSS, no changes in assessment. labs drawn, PA aware of results. pt ambulated in hallway on RA, 92% POX after activity. +BM, voids in bathroom.
[2024-12-25 12:25] LABS: Hematocrit 27.0 % (37.0-47.0); Hemoglobin 9.0 g/dL (12.0-16.0); Mean Corp Hgb Conc. 33.3 g/dL (33.0-37.0); Mean Corpuscular Volume 83.9 fL (81.0-99.0); Nucleated Red Blood Cells % 0 %; Platelet Count 87 10^3/uL (130-400); Red Cell Dist. Width 15.8 % (11.5-14.5); Reticulocyte Count 3.9 % (0.4-2.8)
[2024-12-25 12:38] LABS: Iron 66 ug/dl (37-170)
[2024-12-25 12:47] LABS: Total Iron Binding Capacity 252 ug/dl (265-497)
[2024-12-25] MEDS: LASIX 40 MG IV (12:52)
[2024-12-25] MEDS: SENOKOT-S PO (13:33)
[2024-12-25 13:46] LABS: Folate 12.1 ng/ml (2.76-20); Vitamin B12 837 pg/ml (239-931)
[2024-12-25] MEDS: NSS IV (14:43)
[2024-12-25] MEDS: FERRLECIT 110 MG IV (14:50)
--- NOTE | 2024-12-25 15:05 | PTCARENOTE ---
pt VSS, OOB in chair. family at bedside. IVP Lasix given as ordered, ambulates to bathroom to void. Roxicodone given for pain.
[2024-12-25] MEDS: REMOVE LIDOCAINE PATCH 1 PATCH REMOVE (20:02)
[2024-12-25] MEDS: TYLENOL 650 MG PO (20:06)
--- NOTE | 2024-12-25 20:52 | PTCARENOTE ---
1899
Patient received from RN @ 1900. Patient sittingin chair comfortably w/ call casanova in reach. AOx3. Pain 5-6/10, PRN Tylenol medication given NSR on monitor. BP 113/60 HR 70. Heart sounds audible. Radial and pedal pulses present. trace
generalized edema noted. POX 90% RA. IS 1000. Lung sounds diminished bilaterally in bases. Bowel sounds present. BM X2 on prior shift. Voiding clear yellow urine. Sternal incision well approximated CHARRER. CT Dressing intact. V Wire insulted.
Left wrist 22 and Left A?C 29 PIVs patent and intact. Right IJ Cordis, KVO. Ambulated in hallway this afternoon. See worklist for more assessment details.
[2024-12-25] MEDS: TYLENOL PO (22:20)
[2024-12-26] VITALS (9 sets, daily range): BP systolic 109–146; BP diastolic 54–62; PULSE 72; O2SAT 74–95; BMI 28.2
--- NOTE | 2024-12-26 | PTCARENOTE ---
patient asleep, PRN pain medication given and pain controlled, vital signs stable.
[2024-12-26] MEDS: ROXICODONE 5 MG PO ×5 (01:41→20:16)
[2024-12-26 03:47] LABS: Hematocrit 25.8 % (37.0-47.0); Hemoglobin 8.6 g/dL (12.0-16.0); Mean Corp Hgb Conc. 33.3 g/dL (33.0-37.0); Mean Corpuscular Volume 84.0 fL (81.0-99.0); Platelet Count 104 10^3/uL (130-400); Red Cell Dist. Width 15.8 % (11.5-14.5)
[2024-12-26 04:09] LABS: Blood Urea Nitrogen 11 mg/dl (7-17); Calcium 8.1 mg/dl (8.4-10.2); Carbon Dioxide 26 mmol/L (22-30); Chloride 103 mmol/L (98-107); Estimated Creatinine Clearance 65 ml/min; Glucose 113 mg/dl (70-99); Magnesium 2.1 mg/dl (1.6-2.3); Potassium 3.7 mmol/L (3.5-5.1); Sodium 132 mmol/L (135-145); eGFR > 60.00
--- NOTE | 2024-12-26 04:21 | PTCARENOTE ---
patietn resting , pain under control wiht PRN medication. Labs drawn and sent. remains on RA, NSR, Vistal signs stable.
[2024-12-26] MEDS: TYLENOL 1000 MG PO ×3 (05:24→21:51)
[2024-12-26] MEDS: UNASYN IV (05:24)
[2024-12-26] MEDS: KCL 40 MEQ PO (06:01)
[2024-12-26] MEDS: VANCOCIN 275 MG IV (06:02)
--- NOTE | 2024-12-26 06:06 | W.PN.CT ---
Today's Communication / Plan
-
-pod #4
-no issues overnight
-s/p 1 U PRBC yesterday, Hgb 7.1->8.6 today
-CT out, PW kept with low plt
-diuresed, no shaikh, incontinent of urine
-continue amio, asa, metoprolol 12.5 mg
-on empiric Vancomycin and Unasyn. Follow intraop cx. ID following
-encourage IS, OOB
Assessment / Plan
-
- Aortic valve regurgitation with endocarditis and large vegetation- s/p Surgical aortic valve replacement [23 mm Rodriguez Inspiris Resilia aortic valve bioprosthesis]; Left atrial appendage exclusion [35mm clip]
by Dr. Porter on 12/22/24, pod #4
- Intraop JORDANA: LVEF preop and postop was essentially normal at 60% with no significant regional wma. The left atrial appendage also clipped during the study and was found to be free of any thrombus or debris preoperatively and found to be totally
occlusive postoperatively with a 35mm device.
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
- Aortic valve vegetation with cardioembolic phenomena
- Splenic infarct
- Anemia, likely secondary to chronic disease
- Thrombocytopenia also likely secondary to chronic disease
- Hypertension
- Hyperlipidemia
- Long-standing Covid
- Ex-lap with partial small bowel resection/ abscess 11/2023, mesenteric infarct
- Tension HAs
- Former smoker, 1 ppd for 21 yrs
- Former EtOH abuse, sober since
- Acute on chronic postop blood loss anemia- s/p 2 pRBCs
- Acute on chronic thrombocytopenia- s/p 3 platelets
- Acute postop atelectasis
- Acute postop hypovolemia with subsequent hypervolemia
Subjective
-
Date of Service: December 26, 2024
Objective Data
-
Lab Results
12/26/24 03:36
12/26/24 03:36
PT 17.1 Sec (11.4-14.6) H 12/22/24 16:52
INR 1.34 12/22/24 16:52
APTT 40.1 Sec (23.4-35.0) H 12/22/24 16:52
Vital Signs
Vital Signs
Temp Pulse Resp BP Pulse Ox
97.9 F 70 18 146/62 92
12/26/24 05:36 12/26/24 05:36 12/26/24 05:36 12/26/24 05:36 12/26/24 05:[address]
CT Intake/Output/Weight
12/25/24 12/25/24 12/26/24
06:59 18:59 06:59
Intake Total 830 / 1560 720 / 940 220 / 940
Output Total 500 / 700 1900 / 2150 250 / 2150
Balance 330 / 860 -1180 / -1210 -30 / -1210
SaO2: 92
Physical Exam
-
General: Awake and Oriented
Cardiovascular: Regular rate & rhythm, No Murmurs and No Rub
Respiratory: Clear, Equal and Decreased Breath Sounds
Sternum: Stable
Incision: Clean, Dry and Intact
Extremities: Edema +1 and No Erythema
Data Reviewed
-
Lab Results: Results Reviewed
Medications: Active Meds Reviewed
Chest X-Ray: Report Reviewed
ECG: Report Reviewed
[2024-12-26] MEDS: LASIX 40 MG IV (08:22)
[2024-12-26] MEDS: LOW STRENGTH ASPIRIN 81 MG PO (08:23)
[2024-12-26] MEDS: NEURONTIN 100 MG PO ×3 (08:23→21:51)
[2024-12-26] MEDS: LOPRESSOR 12.5 MG PO ×2 (08:23→20:14)
[2024-12-26] MEDS: PROTONIX 40 MG PO (08:23)
[2024-12-26] MEDS: PACERONE 200 MG PO ×3 (08:23→21:51)
[2024-12-26] MEDS: MAGNESIUM OXIDE 500 MG PO ×2 (08:23→20:16)
[2024-12-26] MEDS: KCL 20 MEQ PO (08:23)
[2024-12-26] MEDS: SENOKOT-S PO ×2 (08:24→21:12)
[2024-12-26] MEDS: BACTROBAN 2% OINTMENT 1 APPLIC NASAL (08:43)
--- NOTE | 2024-12-26 09:00 | PTCARENOTE ---
pt AAOx4 w/o complaints of pain; NS on monitor; RA clear lung sounds; GI and wnl; RIJC & PIVx2 wnl; see worklist for detailed assessment
[2024-12-26] MEDS: LIDOCAINE 4% PATCH TOPICAL (09:05)
--- NOTE | 2024-12-26 09:51 | W.PN.ID1 ---
Date of Service
Date of Service: December 26, 2024
Today's Communication
See below.
Assessment / Plan
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
# Large areas of splenic infarct, embolic
# Fever since , resolved
# Leukocytosis - postop
# Acute thrombocytopenia, stable
# New anemia since 11/16/2024
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
- Blood cx's x 3 negative (prior to abx)
-UA >30 sq epith cells = contaminated specimen. Ucx only 30K Strep species, contaminant/not significant
- Blood parasite smear : negative x 2
- Lyme screen negative
- Anaplasma/Ehrlichia PCR negative
- s/p 7d empiric doxycycline 100mg po bid (last dose 12/19 at 10:47a)
- 12/19 JORDANA: mobile mass on aortic valve cusp and small PFO
- 12/22 s/p bio-AVR
valve cx: neg to date
Valve path pending.
-12/21 bcx x 1 pending
- 12/22 2 sets of blood cx's x 2 neg to date, holding for 10 days
- Q fever serology negative.
Bartonella, Brucella serologies pending.
Tropheryma whipplei PCR serum pending.
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
However, will treat as culture-neg IE.
- DC planning per Cardiothoracic
- For ease of administration replace Vancomycin/Unasyn (d4) with:
Daptomycin 700mg IV q24 and ceftriaxone 2g IV q24 x 6 weeks through 02/01/25.
Follow weekly CK, CBC/diff, CMP
Place Picc.
Home infusion submitted to Ground Systems Engineer.
����������������������������������������������������������
Chief Complaint
-: Other (endocarditis)
Subjective / Review of Systems
Feeling better
Vital Signs / Physical Exam
Vital Signs
Vital Signs
Temp Pulse Resp BP Pulse Ox
97.9 F 70 18 146/62 92
12/26/24 05:36 12/26/24 05:36 12/26/24 05:36 12/26/24 05:36 12/26/24 06:08
Physical Exam
Constitutional: No Acute Distress and Comfortable
Cardiovascular: Regular Rate and S1/S2
Pulmonary: Clear
Gastrointestinal: Soft, Non Tender and Non Distended
Extremities: Negative Edema
Neurological: AO x 3
Objective Data
Lab Data
Lab Results
12/26/24 03:36
12/26/24 03:36
ESR 89 mm/hour (0-20) H 12/15/24 05:39
PT 17.1 Sec (11.4-14.6) H 12/22/24 16:52
INR 1.34 12/22/24 16:52
APTT 40.1 Sec (23.4-35.0) H 12/22/24 16:52
Estimated Creat Clear 65 ml/min 12/26/24 03:36
Total Bilirubin 0.4 mg/dl (0.2-1.3) 12/20/24 05:19
AST 28 U/L (14-36) 12/20/24 05:19
ALT 14 U/L (0-35) 12/20/24 05:19
Alkaline Phosphatase 96 U/L (38-126) 12/20/24 05:19
C-Reactive Protein 149.80 mg/L (0.0-10.00) H 12/15/24 05:39
Most recent labs reviewed.
Micro Results:
12/22/24 04:52 Blood Culture - Preliminary
Blood/Venous No Growth in 4 days- Final report to follow
12/22/24 04:18 Blood Culture - Preliminary
Blood/Venous No Growth in 4 days- Final report to follow
12/21/24 17:22 Blood Culture - Preliminary
Blood/Venous No Growth in 4 days- Final report to follow
12/21/24 16:22 Blood Culture - Preliminary
Blood/Venous No Growth in 4 days- Final report to follow
12/22/24 15:00 Anaerobic Culture - Preliminary
Heart NO ANAEROBES ISOLATED
12/22/24 15:00 Tissue Culture - Preliminary
Valve No Growth After 72 Hours
Gram Stain - Preliminary
12/23/24 11:28 Nasal Screen MRSA (PCR) - Final
Nose MRSA not detected - performed by PCR methodology.
12/22/24 15:00 Fungal Culture - Preliminary
Heart Culture in progress.
Positive cultures are reported as soon as detected.
Final report to follow in four to five weeks.
12/13/24 15:04 Blood Culture - Final
Blood/Venous No Growth - Final Report
12/13/24 05:53 Blood Culture - Final
Blood/Venous No Growth - Final Report
12/13/24 06:14 Blood Culture - Final
Blood/Venous No Growth - Final Report
12/15/24 05:39 Blood Parasites Smear - Final
Blood/Venous
12/13/24 02:02 Urine Culture - Final
Urine Streptococcus species
12/13/24 15:04 Blood Parasites Smear - Final
Blood/Venous
12/13/24 CT a/p: Large geographic areas of nonenhancement within the spleen, consistent with splenic infarcts, new compared to prior CT dated 11/22/2023
12/21/24 MRI thoracic/lumbar spine: Posterior lumbar subcutaneous edema, a frequent incidental finding in asymptomatic individuals.
Care Review
Plan reviewed with: Other Provider (Jack ROE)
[2024-12-26] MEDS: CUBICIN 14 MG IV (10:22)
[2024-12-26] MEDS: KCL ELIXIR 40 MEQ PO (10:22)
[2024-12-26] MEDS: ROCEPHIN 2000 MG IV (10:39)
[2024-12-26] MEDS: STERILE WATER FOR INJECTION 20 ML IV (10:39)
[2024-12-26 11:47] LABS: B.E. - POC 3.6 mmol/L; Glucose - POC 99 mg/dl (70-99); HCO3 - POC 29 mmol/L (21-28); Hematocrit - POC 27 % PCV (37-47); Hemodilution- POC Yes; Hemoglobin Calculated - POC 9.2; Ionized Calcium - POC 1.03 mmol/L (1.15-1.33); Lactate - POC < 0.30 mmol/L (0.36-0.75); O2 Saturation %Calculated-POC 100.0 % (94-98); PCO2 - POC 48 mmHg (35-48); PO2 - POC 445 mmHg (83-108); Potassium - POC 4.0 mmol/L (3.5-5.1); Sodium - POC 140 mmol/L (136-145); Specimen Type - POC Arterial; pH - POC 7.39 (7.35-7.45)
--- NOTE | 2024-12-26 13:05 | W.PN.ONC2 ---
Today's Communication / Plan
-
daily CBC
Impression
Impression
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
Splenic infarct -Lupus anticoagulant detected, Cardiolipin IgM elevated to 16 (<40 not significant) with normal cardiolipin IgG and B2GPI
Anemia, iron def - -hx of small bowel resection and diligent blood donation in 2024 could be contributing -post operative anemia - s/p 3U prbc during hospitalization, last 12/25
Thrombocytopenia -No B12 or folate deficiency. s/p 3U platelets during hospitalization, last 12/22
peripheral flow normal
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
8 mm ground glass opacity in the anterior right upper lobe
Plan
Plan
IV abx per ID
monitor bleeding
Thrombophilia testing shows positive lupus anticoagulant, in order to confirm diagnosis we will repeat testing in 12 weeks
Recommend 3-6 month follow-up CT chest to ensure stability of GGO with PCP
Subjective/Objective
Subjective
feeling better
denies bleeding
Vital Signs:
Vital Signs
Temp Pulse Resp BP Pulse Ox
97.9 F 70 18 146/62 92
12/26/24 05:36 12/26/24 05:36 12/26/24 05:36 12/26/24 05:36 12/26/24 06:08
Lab Results:
Laboratory Data
WBC 11.4 10^3/uL (4.8-10.8) H 12/26/24 03:36
Hgb 8.6 g/dL (12.0-16.0) L 12/26/24 03:36
Plt Count 104 10^3/uL (130-400) L 12/26/24 03:36
PT 17.1 Sec (11.4-14.6) H 12/22/24 16:52
INR 1.34 12/22/24 16:52
APTT 40.1 Sec (23.4-35.0) H 12/22/24 16:52
eGFR > 60.00 12/26/24 03:36
Physical Exam
HEENT: Moist Mucous Membranes; No Jaundice
Pulmonary: Other (unlabored)
GI: Soft and Other (LUQ TTP)
Extremities: Pulses Present; No Edema
Neuro: Non Focal
--- NOTE | 2024-12-26 14:20 | CM ---
Addendum entered by Tahmina Grimm RN 12/26/24 14:53:
Patient is responsible for paying $273/wk for antibiotics and 20% of cost for supplies and nursing. [facility] to review cost with the patient
Original Note:
Chart reviewed. Patient ambulating the halls. Patient is independent of ADLS, lives with her in a [address], 0 [address], 0 D[address]. Referral faxed to [facility] for IV antibiotics. Patient is waiting on Picc Line. Plan is for the patient to return
home with CT Transitional RN and IV antibiotics. CM to follow
--- NOTE | 2024-12-26 14:30 | PTCARENOTE ---
PT RIJC removed and all vitals stable; no complications; awaiting PICC line placement from IV team
--- NOTE | 2024-12-26 16:39 | W.PN.CARDCBS ---
Today's Communication / Plan
-
stable cardiology status s/p avr.
Impression / Plan
-
Primary Emt Driver: none prior to admission
Assessment:
Splenic infarct
Fevers since 10/2024
SIRS
Microcytic iron deficient anemia
Thrombocytopenia
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
HTN
HLD
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
History of long covid 2020
Eczema, on dupixent
Former smoker
ECHO 12/13/24: EF 60 to 65%, no regional wall motion abnormalities noted, mild to moderate AR [trileaflet aortic valve with echodensity on right coronary cusp], mild TR, PAP 27 mmHg
Plan:
-Fevers since following a trip 1 month prior to visit to [place] in September admitted with flank pain found to have large areas of splenic infarct, acute thrombocytopenia, and microcytic anemia. History of right mesenteric
infarct/small bowel ulcer and perienteric abscess with fistula status post resection in November 2023.
-JORDANA 12/19/24 with evidence of aortic valve vegetation.
-s/p bio AVR 12/22/24. awaiting pathology
-wean supp O2 as able
- Hemoglobin 8.8 this morning, with platelets 95K. Continue to follow postoperatively. On Plavix. Was on Eliquis preop due to splenic infarcts
- In sinus rhythm on review of telemetry overnight. EKG 12/23 reviewed, normal sinus rhythm with improved QTc
-blood cultures negative. ID following, continue abx
-continue post op care
-d/w nursing. Discussed with at bedside
Progress Note - Emt Driver
Subjective
Date of Service: December 26, 2024
no complaints
Objective
Labs:
12/26/24 03:36
12/26/24 03:36
Labs
Hgb 8.6 g/dL (12.0-16.0) L 12/26/24 03:36
Hct 25.8 % (37.0-47.0) L 12/26/24 03:36
Plt Count 104 10^3/uL (130-400) L 12/26/24 03:36
PT 17.1 Sec (11.4-14.6) H 12/22/24 16:52
INR 1.34 12/22/24 16:52
APTT 40.1 Sec (23.4-35.0) H 12/22/24 16:52
Sodium 132 mmol/L (135-145) L 12/26/24 03:36
Potassium 3.7 mmol/L (3.5-5.1) 12/26/24 03:36
BUN 11 mg/dl (7-17) 12/26/24 03:36
Creatinine 0.8 mg/dL (0.6-1.0) 12/26/24 03:36
Glucose 113 mg/dl (70-99) H 12/26/24 03:36
Vital Signs and I&O:
Vital Signs
Temp Pulse Resp BP Pulse Ox
98.2 F 71 16 132/61 97
12/26/24 08:00 12/26/24 16:00 12/26/24 08:00 12/26/24 11:26 12/26/24 11:26
Vital Signs
Temp Pulse Resp BP Pulse Ox
98.2 F 71 16 132/61 97
12/26/24 08:00 12/26/24 16:00 12/26/24 08:00 12/26/24 11:26 12/26/24 11:26
Intake & Output
12/24/24 12/25/24 12/26/24 12/27/24
06:59 06:59 06:59 06:59
Intake Total 2448.7 / 2458.7 1560 / 1560 940 / 940
Output Total 825 / 825 700 / 700 2150 / 2152099 / 2099
Balance 1623.7 / 1633.7 860 / 860 -1210 / -1210 -2099 /
Physical Exam
Physical Exam
General: Well developed, well nourished in NAD.
Neck: Supple, no JVD, HJR, carotids +2 B/L, no bruits bilaterally.
Heart: Non displaced PMI, RRR, no murmurs, No S3, S4, no rubs.
Lungs: scattered rhonchi
sternal dressings noted
Extremities: No clubbing, cyanosis or edema bilaterally.
Neuro: Grossly nonfocal, awake, alert and oriented x3.
stable cardiology status s/p AVR. remains in SR.
[2024-12-26] MEDS: NSS IV (18:44)
[2024-12-26] MEDS: REMOVE LIDOCAINE PATCH 1 PATCH REMOVE (20:00)
--- NOTE | 2024-12-26 20:00 | PTCARENOTE ---
assumed care of patient at 1900. Patient OOB in chair, alert and oriented, present in room. Review plan of care and medications. Patient states pain 5/10 at beginning of shift. Pain at incision site increased to 8/10 once ambulated back to
bed, Roxicodone 5 mg given @1999. PICC line placed earlier in Right upper arm for mcfp ABX use. PIV also CDI, within Normal limits. Voids indepentently, clear yellow urine. Bowels sounds present . Stool still loose. Senokot held. See
worklist for full assessment.
[2024-12-27] VITALS (11 sets, daily range): BP systolic 74–132; BP diastolic 52–62; BMI 27.7
--- NOTE | 2024-12-27 | PTCARENOTE ---
patient ambulated in room, OOB to bathroom voiding no issues, vital signs stable.
[2024-12-27] MEDS: ROXICODONE 5 MG PO ×5 (01:01→19:11)
[2024-12-27 03:34] LABS: Fibrinogen 553 MG/DL (199-459)
--- NOTE | 2024-12-27 04:11 | PTCARENOTE ---
Labs drawn, vital signs stable, PRN pain medication given.
[2024-12-27 04:54] LABS: Hematocrit 27.3 % (37.0-47.0); Hemoglobin 9.0 g/dL (12.0-16.0); Mean Corp Hgb Conc. 33.0 g/dL (33.0-37.0); Mean Corpuscular Volume 85.3 fL (81.0-99.0); Platelet Count 138 10^3/uL (130-400); Red Cell Dist. Width 16.3 % (11.5-14.5)
[2024-12-27 05:28] LABS: Blood Urea Nitrogen 12 mg/dl (7-17); Calcium 8.7 mg/dl (8.4-10.2); Carbon Dioxide 31 mmol/L (22-30); Chloride 104 mmol/L (98-107); Estimated Creatinine Clearance 65 ml/min; Glucose 109 mg/dl (70-99); Magnesium 2.4 mg/dl (1.6-2.3); Potassium 4.4 mmol/L (3.5-5.1); Sodium 135 mmol/L (135-145); eGFR > 60.00
--- NOTE | 2024-12-27 05:31 | W.PN.CT ---
Today's Communication / Plan
-
Plan:
-No major issues. Hemodynamically and neurologically intact
-Pt had PICC line placed yesterday 12/26
-Antibiotics changed to Daptomycin and Rocephin per ID, to continue through 02/01/25
-Cultures are negative thus far
-Encourage use of IS
-OOB into chair/Ambulate
-Home today
Assessment / Plan
-
- Aortic valve regurgitation with endocarditis and large vegetation- s/p Surgical aortic valve replacement [23 mm Rodriguez Inspiris Resilia aortic valve bioprosthesis]; Left atrial appendage exclusion [35mm clip]
by Dr. Porter on 12/22/24, pod #5
- Intraop JORDANA: LVEF preop and postop was essentially normal at 60% with no significant regional wma. The left atrial appendage also clipped during the study and was found to be free of any thrombus or debris preoperatively and found to be totally
occlusive postoperatively with a 35mm device.
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
- Aortic valve vegetation with cardioembolic phenomena
- Splenic infarct
- Anemia, likely secondary to chronic disease
- Thrombocytopenia also likely secondary to chronic disease
- Hypertension
- Hyperlipidemia
- Long-standing Covid
- Ex-lap with partial small bowel resection/ abscess 11/2023, mesenteric infarct
- Tension HAs
- Former smoker, 1 ppd for 21 yrs
- Former EtOH abuse, sober since
- Acute on chronic postop blood loss anemia- s/p 2 pRBCs
- Acute on chronic thrombocytopenia- s/p 3 platelets
- Acute postop atelectasis
- Acute postop hypovolemia with subsequent hypervolemia
Discussed patient care with: Cardiology, Nursing, Respiratory Therapy, Pharmacy and Care Team
Subjective
-
Date of Service: December 27, 2024
Pt c/o mild incisional pain, otherwise feels well
Objective Data
-
Lab Results
12/27/24 04:36
12/27/24 04:36
PT 17.1 Sec (11.4-14.6) H 12/22/24 16:52
INR 1.34 12/22/24 16:52
APTT 40.1 Sec (23.4-35.0) H 12/22/24 16:52
Vital Signs
Vital Signs
Temp Pulse Resp BP Pulse Ox
98.6 F 71 18 121/62 93
12/26/24 20:37 12/26/24 23:00 12/26/24 20:37 12/26/24 21:53 12/26/24 23:30
CT Intake/Output/Weight
12/26/24 12/26/24 12/27/24
06:59 18:59 06:59
Intake Total 220 / 940 250 / 250
Output Total 250 / 2150 2100 / 3750 1650 / 3750
Balance -30 / -1210 -2100 / -3500 -1400 / -3500
SaO2: 93 (RA)
Physical Exam
-
General: Awake, Oriented and AOx3
Cardiovascular: Regular rate & rhythm, No Murmurs, No Rub and No Gallop
Respiratory: Decreased Breath Sounds (at bases, otherwise clear)
Sternum: Stable
Incision: Clean, Dry, Intact and Dressing Intact
Extremities: Other (+trace edema)
Data Reviewed
-
Lab Results: Results Reviewed
Medications: Active Meds Reviewed
Chest X-Ray: Report Reviewed and Image Reviewed
ECG: Report Reviewed and Image Reviewed
[2024-12-27] MEDS: TYLENOL 1000 MG PO ×3 (06:27→21:32)
[2024-12-27] MEDS: CALCIUM GLUCONATE 100 IV (06:32)
[2024-12-27] MEDS: SENOKOT-S PO (08:18)
[2024-12-27] MEDS: NEURONTIN 100 MG PO ×3 (08:19→21:32)
[2024-12-27] MEDS: COREG 3.125 MG PO ×2 (08:19→19:11)
[2024-12-27] MEDS: PACERONE 200 MG PO ×3 (08:19→21:32)
[2024-12-27] MEDS: LOW STRENGTH ASPIRIN 81 MG PO (08:19)
[2024-12-27] MEDS: CUBICIN 14 MG IV (08:20)
[2024-12-27] MEDS: PROTONIX 40 MG PO (08:20)
--- NOTE | 2024-12-27 09:06 | PTCARENOTE ---
Handoff report received from nightshift RN. Pt OOB in chair for breakfast. Pt AOx4, NSR 60s-70s on tele, SBP 130s, RA satting >90%. Pt Afebrile. Denies pain at this time. Sternal incision approximated and glued, BAND SPLITTER, chest tube site dressings CDI.
Cordis dressing CDI. IV ABX given per order. R limb restriction for RUE PICC. PICC dressing CDI, PICC flushes with + blood return noted. All needs me at this time, call casanova within reach.
--- NOTE | 2024-12-27 09:07 | W.PN.ONC2 ---
Today's Communication / Plan
-
OP follow up will be arranged in 12 weeks to repeat LA testing
Impression
Impression
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
Splenic infarct -Lupus anticoagulant detected, Cardiolipin IgM elevated to 16 (<40 not significant) with normal cardiolipin IgG and B2GPI
Anemia, iron def - -hx of small bowel resection and diligent blood donation in 2024 could be contributing -post operative anemia - s/p 3U prbc during hospitalization, last 12/25 -Hgb stable
Thrombocytopenia -No B12 or folate deficiency. s/p 3U platelets during hospitalization, last 12/22 -platelets are normal today
peripheral flow normal
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
8 mm ground glass opacity in the anterior right upper lobe
Plan
Plan
IV abx per ID
monitor bleeding
Thrombophilia testing shows positive lupus anticoagulant, in order to confirm diagnosis we will repeat testing in 12 weeks
Recommend 3-6 month follow-up CT chest to ensure stability of GGO with PCP
Subjective/Objective
Subjective
no new complaints, denies bleeding
Vital Signs:
Vital Signs
Temp Pulse Resp BP Pulse Ox
98 F 75 18 132/58 92
12/27/24 08:00 12/27/24 08:19 12/27/24 08:00 12/27/24 08:19 12/27/24 07:00
Lab Results:
Laboratory Data
WBC 11.3 10^3/uL (4.8-10.8) H 12/27/24 04:36
Hgb 9.0 g/dL (12.0-16.0) L 12/27/24 04:36
Plt Count 138 10^3/uL (130-400) D 12/27/24 04:36
PT 17.1 Sec (11.4-14.6) H 12/22/24 16:52
INR 1.34 12/22/24 16:52
APTT 40.1 Sec (23.4-35.0) H 12/22/24 16:52
eGFR > 60.00 12/27/24 04:36
Physical Exam
HEENT: Moist Mucous Membranes; No Jaundice
Pulmonary: Other (unlabored)
GI: Soft
Extremities: Pulses Present; No Edema
Neuro: Non Focal
Orders
Orders
Orders From Last 24 Hours
12/27/24 03:11
Fibrinogen IN AM
[2024-12-27] MEDS: KCL 20 MEQ PO (09:19)
[2024-12-27] MEDS: LASIX 40 MG IV ×2 (09:19→16:18)
[2024-12-27] MEDS: ROCEPHIN 2000 MG IV (09:23)
[2024-12-27] MEDS: STERILE WATER FOR INJECTION 20 ML IV (09:23)
[2024-12-27] MEDS: LIDOCAINE 4% PATCH 1 PATCH TOPICAL (10:26)
--- NOTE | 2024-12-27 12:00 | PTCARENOTE ---
40 lasix and K given per order. 2 view CXR completed, patient taken via wheelchair for test. Pt showered after return, tolerated well. Minor GARRETT noted after showering. After showering, pt c/o pain, PRN Kristyn given with some relief. From results of
CXR, Chest US ordered by Carolynn CALVERT. Patient transported via stretcher for test, awaiting final results. Patient back in room, OOB in chair. Pt completes IS independently. I/Os charted. All needs met at this time, call casanova within reach.
--- NOTE | 2024-12-27 12:18 | CM ---
I spoke to Ginny at [facility], patient is responsible for $273/week for the antibiotics. Insurance covers 80% of cost and patient is responsible for 20% of cost for nursing and supplies. Once patient meets $7000, insurance covers 100%.
Patient can also enroll in the M3 Plan to set up a payment plan. Ginny to come in between 1230 and 1 to teach the patient.
Patient is independent of ADLS, lives with her in a [address], ) [facility]. Plan is for the patient to return home with IV antibiotics through [facility] and CT Transitional RN. CM to follow
--- NOTE | 2024-12-27 14:17 | W.PN.CARDCBS ---
Addendum entered and electronically signed by Neal Kilgore MD 12/27/24 15:22:
I saw and examined the patient.
The LOAN OFFICER ASSISTANT or PA's note was reviewed and I agree with the note.
Comment: General: Well developed, well nourished in NAD.
Neck: Supple, no JVD, HJR, carotids +2 B/L, no bruits bilaterally.
Heart: Non displaced PMI, RRR, no murmurs, No S3, S4, no rubs.
Lungs: Scattered rhonchi
Sternal dressings noted
Extremities: No clubbing, cyanosis or edema bilaterally.
Neuro: Grossly nonfocal, awake, alert and oriented x3.
Stable cardiology status for discharge. Discussed with CT surgery.
Original Note:
Today's Communication / Plan
-
Continue postoperative care
Status post left thoracentesis 12/27. Right thoracentesis 12/28
? Need for anticoagulation for splenic infarct moving forward, discussed with CT surgery
DC planning
Impression / Plan
-
Primary Realty Loan Specialist: none prior to admission
Assessment:
Splenic infarct
Fevers since 10/2024
SIRS
Microcytic iron deficient anemia
Thrombocytopenia
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
HTN
HLD
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
History of long covid 2020
Eczema, on dupixent
Former smoker
ECHO 12/13/24: EF 60 to 65%, no regional wall motion abnormalities noted, mild to moderate AR [trileaflet aortic valve with echodensity on right coronary cusp], mild TR, PAP 27 mmHg
Plan:
-Fevers since following a trip 1 month prior to visit to [place] in September admitted with flank pain found to have large areas of splenic infarct, acute thrombocytopenia, and microcytic anemia. History of right mesenteric
infarct/small bowel ulcer and perienteric abscess with fistula status post resection in November 2023.
-JORDANA 12/19/24 with evidence of aortic valve vegetation.
-s/p bio AVR 12/22/24. awaiting pathology
-With shortness of breath with orthopnea component. Chest x-ray with bilateral pleural effusions. Was given 40 mg IV Lasix. S/p left thoracentesis for 600 cc on 12/27/2024. Plan for right thoracentesis on 12/28
-Hemoglobin 9.0 and platelets improved, within normal limits. Currently on aspirin. She had been on Eliquis preoperatively due to evidence of splenic infarcts by imaging on admission. Discussed with CT surgery, will need to determine if needs
anticoagulation for a time postoperatively.
-On review review of telemetry remains in sinus rhythm
-Antibiotics per ID
-Continue postoperative care
Progress Note - Realty Loan Specialist
Subjective
Date of Service: December 27, 2024
Reports breathing somewhat improved status post left thoracentesis
Objective
Labs:
12/27/24 04:36
12/27/24 04:36
Labs
Hgb 9.0 g/dL (12.0-16.0) L 12/27/24 04:36
Hct 27.3 % (37.0-47.0) L 12/27/24 04:36
Plt Count 138 10^3/uL (130-400) D 12/27/24 04:36
PT 17.1 Sec (11.4-14.6) H 12/22/24 16:52
INR 1.34 12/22/24 16:52
APTT 40.1 Sec (23.4-35.0) H 12/22/24 16:52
Sodium 135 mmol/L (135-145) 12/27/24 04:36
Potassium 4.4 mmol/L (3.5-5.1) 12/27/24 04:36
BUN 12 mg/dl (7-17) 12/27/24 04:36
Creatinine 0.8 mg/dL (0.6-1.0) 12/27/24 04:36
Glucose 109 mg/dl (70-99) H 12/27/24 04:36
Vital Signs and I&O:
Vital Signs
Temp Pulse Resp BP Pulse Ox
97.8 F 74 16 131/62 95
12/27/24 12:45 12/27/24 12:45 12/27/24 12:45 12/27/24 12:45 12/27/24 12:45
Vital Signs
Temp Pulse Resp BP Pulse Ox
97.8 F 74 16 131/62 95
12/27/24 12:45 12/27/24 12:45 12/27/24 12:45 12/27/24 12:45 12/27/24 12:45
Intake & Output
12/25/24 12/26/24 12/27/24 12/28/24
07:59 07:59 07:59 07:59
Intake Total 1560 / 1560 930 / 930 450 / 450
Output Total 700 / 700 2150 / 2650 3950 / 3950 1700 / 1700
Balance 860 / 860 -1220 / -1720 -3500 / -3500 -1700 / -1700
Physical Exam
Physical Exam
GEN: No distress, awake, alert, oriented x3. Sitting in chair
HEENT: supple, anicteric, mmm, EOMI
LUNGS: Crackles at left lung base, decreased at right lung base, no wheezes
CV: Reg, S1/S2, no murmur
ABD: soft, BS+, NT/ND
EXT: No cyanosis, clubbing. Trace edema of bilateral lower extremity
NEURO: Gross non-focal
SKIN: Warm, pink, dry. No rash. Sternotomy incision clean dry and intact
--- NOTE | 2024-12-27 14:39 | W.PN.ID1 ---
Addendum entered and electronically signed by Ruth Aly MD 12/27/24 15:25:
Vancomycin IV pricing higher than daptomycin.
Pt now willing to pay for daptomycin cost.
Final abx:
Daptomycin 700mg IV q24H through 02/01/25
Ceftriaxone 2g IV q24H through 02/01/25
Weekly CK, CBC/dif, CMP, CRP
Original Note:
Date of Service
Date of Service: December 27, 2024
Today's Communication
DC daptomycin.
Resume IV Vanco. Continue ceftriaxone.
Assessment / Plan
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
# Large areas of splenic infarct, embolic
# Fever since , resolved
# Leukocytosis - stable
# Acute thrombocytopenia, resolved
# New anemia since 11/16/2024
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
- Blood cx's x 3 negative (prior to abx)
-UA >30 sq epith cells = contaminated specimen. Ucx only 30K Strep species, contaminant/not significant
- Blood parasite smear : negative x 2
- Lyme screen negative
- Anaplasma/Ehrlichia PCR negative
- s/p 7d empiric doxycycline 100mg po bid (last dose 12/19 at 10:47a)
- 12/19 JORDANA: mobile mass on aortic valve cusp and small PFO
- 12/22 s/p bio-AVR
valve cx: neg to date; fungal cx neg to date
Valve path pending.
-12/21 bcx x 2 neg
- 12/22 2 sets of blood cx's x 2 neg to date, holding for 10 days
- Q fever serology negative.
Bartonella serology negative
Brucella serologies negative
Tropheryma whipplei PCR negtive
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
However, will treat as culture-neg IE.
- Daptomycin pricing too costly for patient. DC Daptomycin and resume Vancomycin.
- Plan for Vancomycin 1250mg IV q24 and ceftriaxone 2g IV q24 through 02/01/25.
Follow weekly CBC/diff, CMP, Vancomycin trough.
Updated home infusion script submitted to [facility].
����������������������������������������������������������
Chief Complaint
-: Other (endocarditis)
Vital Signs / Physical Exam
Vital Signs
Vital Signs
Temp Pulse Resp BP Pulse Ox
97.8 F 74 16 131/62 95
12/27/24 12:45 12/27/24 12:45 12/27/24 12:45 12/27/24 12:45 12/27/24 12:45
Physical Exam
Constitutional: No Acute Distress and Comfortable
Cardiovascular: Regular Rate and S1/S2
Pulmonary: Clear
Gastrointestinal: Soft, Non Tender and Non Distended
Extremities: Negative Edema
Neurological: AO x 3
Objective Data
Lab Data
Lab Results
12/27/24 04:36
12/27/24 04:36
ESR 89 mm/hour (0-20) H 12/15/24 05:39
PT 17.1 Sec (11.4-14.6) H 12/22/24 16:52
INR 1.34 12/22/24 16:52
APTT 40.1 Sec (23.4-35.0) H 12/22/24 16:52
Estimated Creat Clear 65 ml/min 12/27/24 04:36
Total Bilirubin 0.4 mg/dl (0.2-1.3) 12/20/24 05:19
AST 28 U/L (14-36) 12/20/24 05:19
ALT 14 U/L (0-35) 12/20/24 05:19
Alkaline Phosphatase 96 U/L (38-126) 12/20/24 05:19
C-Reactive Protein 149.80 mg/L (0.0-10.00) H 12/15/24 05:39
Most recent labs reviewed.
Micro Results:
12/22/24 15:00 Tissue Culture - Final
Valve No Growth After 72 Hours
Gram Stain - Final
12/22/24 15:00 Anaerobic Culture - Final
Heart NO ANAEROBES ISOLATED
12/22/24 04:52 Blood Culture - Final
Blood/Venous No Growth - Final Report
12/22/24 04:18 Blood Culture - Final
Blood/Venous No Growth - Final Report
12/21/24 17:22 Blood Culture - Final
Blood/Venous No Growth - Final Report
12/21/24 16:22 Blood Culture - Final
Blood/Venous No Growth - Final Report
12/22/24 15:00 Fungal Culture - Preliminary
Heart Culture in progress.
Positive cultures are reported as soon as detected.
Final report to follow in four to five weeks.
12/23/24 11:28 Nasal Screen MRSA (PCR) - Final
Nose MRSA not detected - performed by PCR methodology.
12/13/24 15:04 Blood Culture - Final
Blood/Venous No Growth - Final Report
12/13/24 05:53 Blood Culture - Final
Blood/Venous No Growth - Final Report
12/13/24 06:14 Blood Culture - Final
Blood/Venous No Growth - Final Report
12/15/24 05:39 Blood Parasites Smear - Final
Blood/Venous
12/13/24 02:02 Urine Culture - Final
Urine Streptococcus species
12/13/24 15:04 Blood Parasites Smear - Final
Blood/Venous
12/13/24 CT a/p: Large geographic areas of nonenhancement within the spleen, consistent with splenic infarcts, new compared to prior CT dated 11/22/2023
12/21/24 MRI thoracic/lumbar spine: Posterior lumbar subcutaneous edema, a frequent incidental finding in asymptomatic individuals.
[2024-12-27] MEDS: NSS IV (15:50)
--- NOTE | 2024-12-27 16:22 | PTCARENOTE ---
Chest US completed, per results, patient went for L thoracentesis. CXR completed s/p thora prior to returning to unit. patient arrived back to unit in stable condition. infusion nurse came to patient room and educated patient on at home IV abx
with R PICC. Extension tubing given to patient which patient informed RN is in bedside table. IV team redressed R PICC line, dressing CDI. 40 lasix given per order. I/Os charted. All needs met at this time, call casanova within reach.
--- NOTE | 2024-12-27 18:59 | PTCARENOTE ---
Patient OOB in chair. at bedside. VSS at this time. I/Os charted. All needs met at this time, call casanova within reach. handoff report given to nightshift RN.
--- NOTE | 2024-12-27 19:00 | PTCARENOTE ---
report received from previous RN, walking rounds done. pt in chair, AAOx4. pt c/o sternal incision pain. VSS. NSR on monitor, HR 80s. POX 95% on room air. R PICC line intact and patent. all surgical sites stable. see worklist for full assessment,
VS, and interventions.
[2024-12-27] MEDS: SENOKOT-S 1 TABLET PO (19:11)
[2024-12-27] MEDS: REMOVE LIDOCAINE PATCH 1 PATCH REMOVE ×2 (19:11→20:30)
[2024-12-28] VITALS (8 sets, daily range): BP systolic 74–121; BP diastolic 56–76; PULSE 80; O2SAT 94–98; BMI 26.0
[2024-12-28] MEDS: ROXICODONE 5 MG PO ×3 (03:03→14:22)
[2024-12-28] MEDS: TYLENOL 1000 MG PO (05:54)
--- NOTE | 2024-12-28 07:46 | W.PN.CT ---
Documented by User: Sahil Jordan PA-C 12/28/24 07:57
Today's Communication / Plan
-
-pod #6
-no issues overnight, ambulates independently, wants to go home
-will ask Irad to eval R pleural effusion today for possible thoracentesis
-s/p L thoracentesis on 12/27 for 600cc of serosanguineous pleural fluid.
-recent splenic infarct - no Eliquis per Dr. Porter. Will continue ASA
-per ID, on Daptomycin 700mg IV q24H through 02/01/25 and Ceftriaxone 2g IV q24H through 02/01/25. Will need weekly CK, CBC/dif, CMP, CRP
-likely d/c today
Assessment / Plan
-
- Aortic valve regurgitation with endocarditis and large vegetation- s/p Surgical aortic valve replacement [23 mm Rodriguez Inspiris Resilia aortic valve bioprosthesis]; Left atrial appendage exclusion [35mm clip]
by Dr. Porter on 12/22/24, pod #6
- Intraop JORDANA: LVEF preop and postop was essentially normal at 60% with no significant regional wma. The left atrial appendage also clipped during the study and was found to be free of any thrombus or debris preoperatively and found to be totally
occlusive postoperatively with a 35mm device.
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
- Aortic valve vegetation with cardioembolic phenomena
- Splenic infarct--no Eliquis per Dr. Porter. Will continue ASA
- Anemia, likely secondary to chronic disease
- Thrombocytopenia also likely secondary to chronic disease
- Hypertension
- Hyperlipidemia
- Long-standing Covid
- Ex-lap with partial small bowel resection/ abscess 11/2023, mesenteric infarct
- Tension HAs
- Former smoker, 1 ppd for 21 yrs
- Former EtOH abuse, sober since
- Acute on chronic postop blood loss anemia- s/p 2 pRBCs
- Acute on chronic thrombocytopenia- s/p 3 platelets
- Acute postop atelectasis
- Acute postop hypovolemia with subsequent hypervolemia
- Acute postop small-mod b/l pleural effusions- s/p L thoracentesis on 12/27/24, yielding 600 cc of serosanguineous pleural fluid.
Discussed patient care with: Nursing and Care Team
Subjective
-
Date of Service: December 28, 2024
Objective Data
-
Lab Results
12/27/24 04:36
12/27/24 04:36
PT 17.1 Sec (11.4-14.6) H 12/22/24 16:52
INR 1.34 12/22/24 16:52
APTT 40.1 Sec (23.4-35.0) H 12/22/24 16:52
Vital Signs
Vital Signs
Temp Pulse Resp BP Pulse Ox
98.0 F 74 18 111/72 93
12/28/24 02:37 12/28/24 02:37 12/28/24 02:37 12/28/24 02:37 12/28/24 02:37
CT Intake/Output/Weight
12/27/24 12/28/24 12/28/24
18:59 06:59 18:59
Intake Total 250 / 250
Output Total 3600 / 5200 1600 / 5200
Balance -3600 / -4950 -1350 / -4950
SaO2: 93

Documented by User: [email or web address] Johnson 12/28/24 08:24
Assessment / Plan
-
- Aortic valve regurgitation with endocarditis and large vegetation- s/p Surgical aortic valve replacement [23 mm Rodriguez Inspiris Resilia aortic valve bioprosthesis]; Left atrial appendage exclusion [35mm clip]
by Dr. Porter on 12/22/24, pod #6
- Intraop JORDANA: LVEF preop and postop was essentially normal at 60% with no significant regional wma. The left atrial appendage also clipped during the study and was found to be free of any thrombus or debris preoperatively and found to be totally
occlusive postoperatively with a 35mm device.
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
- Aortic valve vegetation with cardioembolic phenomena
- Splenic infarct--no Eliquis per Dr. Porter. Will continue ASA
- Anemia, likely secondary to chronic disease
- Thrombocytopenia also likely secondary to chronic disease
- Hypertension
- Hyperlipidemia
- Long-standing Covid
- Ex-lap with partial small bowel resection/ abscess 11/2023, mesenteric infarct
- Tension HAs
- Former smoker, 1 ppd for 21 yrs
- Former EtOH abuse, sober since
- Acute on chronic postop blood loss anemia- s/p 2 pRBCs
- Acute on chronic thrombocytopenia- s/p 3 platelets
- Acute postop atelectasis
- Acute pulmonary insufficiency (following surgery)
- Acute postop small-mod b/l pleural effusions- s/p L thoracentesis on 12/27/24, yielding 600 cc of serosanguineous pleural fluid.
--- NOTE | 2024-12-28 07:51 | PN.CDI ---
CDI
- -
CDI:
Physician Documentation Request
Admit Date: 12/13/24 05:51
Dear Doctor /CVPA,
Please review the following and provide your response in the progress notes.
Clinical Indicators:
Pt admitted with Sepsis /Aortic valve insufficiency secondary to endocarditis/Splenic infarcts /Pt s/p Aortic valve replacement / JIAN clip on 12/22
Pt care note 12/22@ 2200,' extubated to 6L NC at 2220. satting high 90s no respiratory distress.'
Pt care note 12/23 @1620,' POX 92% on 2L NC.'
Pt care note 12/23 @ 2130,' O2 2L via NC. SpO2 91%. Oxygen increased to 3L via NC. SpO2 95%. ...'
Pt care note 12/24 @ 1245,' Pt now on room air, sats 92%....'
Pt care note 12/24 @ 1836,' Pt placed back on 2LNC, failed to maintain sufficient O2 sats on room air.'
Pt care note 12/24 @ 2100,' Room air SpO2 88%. Mild GARRETT. O2 at 2L via NC. SpO2 95%....'
Pt care note 12/25 @ 1200,' pt ambulated in hallway on RA, 92% POX after activity.'
12/22/24
11:59 12/23/24
04:00 12/23/24
06:00
Nasal Cannula flow liters per minute 2 4 6
12/23/24
08:00 12/23/24
10:00 12/23/24
11:00
Resp Rate 27
Nasal Cannula flow liters per minute 6 6
12/23/24
13:00 12/23/24
14:00 12/23/24
22:00
Nasal Cannula flow liters per minute 4 2 3
12/24/24
04:00 12/25/24
16:00
SaO2 89
Nasal Cannula flow liters per minute 2
Please clarify which of the following accurately represents the patient's respiratory status following surgery:
Acute pulmonary insufficiency (following surgery)
Hypoxia only
Other ( please specify)
Additional information for Pulmonary Insufficiency:
Consider when patients require usp oxygen therapy postoperatively
Weaned off oxygen initially then requiring supplemental oxygen
No other definitive diagnosis to support the need for oxygen (COPD exac, CHF etc.)
Unable to wean from vent
When criteria for respiratory failure not present
May extend stay or require additional resources; may need home O2
Additional information for Respiratory Failure:
Recognized criteria for Respiratory Failure (Source: [facility] Apr 2013)
ABGs: (1 or more) Symptoms Indicate:
1. p)2 <60 or RA SPO2 <91% on RA 1. Tachypnea, SOB, dyspnea 1. Type as:
2. pCO2 50 and pH <7.35 2. Use of accessory muscles a. Hypoxic
3. pO2 decrease of pCO2 increase by 3. Pallor or cyanosis b. Hypercapnic
10 mmHg from baseline if known 4. Anxiety or restlessness 2. If due to procedure or due to another cause
5. Unable to speak in full sentences
Use of terms such as suspected, likely, concern for, or probable (associated with a specific diagnosis that is being evaluated, monitored, or treated as if it exists) are acceptable and can be coded in the inpatient setting, when documented at the
time of discharge.
Thank you,
Licha Watters RN
CDI Specialist
[facility]
Please use your independent medical judgment in providing your response.
--- NOTE | 2024-12-28 08:04 | PN.CDI ---
CDI
- -
CDI:
Physician Documentation Request
Admit Date: 12/13/24 05:51
Dear Doctor/CVPA,
Please review the following and provide your response in the progress notes.
Clinical Indicators:
Pt admitted with Sepsis /Aortic valve insufficiency secondary to endocarditis/Splenic infarcts /Pt s/p Aortic valve replacement / JIAN clip on 12/22
ECHO from 12/22, ' LVEF of 60% ...'
Cardiology note 12/27,' Lungs: Scattered rhonchi...-With shortness of breath with orthopnea component. Chest x-ray with bilateral pleural effusions. Was given 40 mg IV Lasix. S/p left thoracentesis for 600 cc on 12/27/2024. Plan for right
thoracentesis on 12/28LUNGS: Crackles at left lung base, decreased at right lung base, no wheezes...'
12/28 CT note,' Acute postop small-mod b/l pleural effusions- s/p L thoracentesis on 12/27/24, yielding 600 cc of serosanguineous pleural fluid....'
Per MAR Pt received IV Lasix 40 mg 12/24-12/27 and started on BID 40 mg IV Lasix on 12/27
Please provide a diagnosis for the above IV Lasix use /findings:
Acute Diastolic CHF
Pleural effusions only
Other ( please specify)
Use of terms such as suspected, likely, concern for, or probable (associated with a specific diagnosis that is being evaluated, monitored, or treated as if it exists) are acceptable and can be coded in the inpatient setting, when documented at the
time of discharge.
Thank you,
Licha Watters RN
CDI Specialist
[place] [facility]
Please use your independent medical judgment in providing your response.
--- NOTE | 2024-12-28 08:35 | PTCARENOTE ---
Assumed care of patient at 0700. Pt is awake, alert, and oriented. Pt remains SR with HR 76. BP 121/56 MAP 74. Pulse oximetry 94% on room air. Pt tolerating PO diet. Voiding in bathroom without issue. Midsternal incision approximated and RETAIL DEPARTMENT RESET. Chest
tube sites approximated and RETAIL DEPARTMENT RESET. RUE PICC in place.
[2024-12-28] MEDS: LOW STRENGTH ASPIRIN 81 MG PO (08:36)
[2024-12-28] MEDS: PROTONIX 40 MG PO (08:36)
[2024-12-28] MEDS: LIDOCAINE 4% PATCH TOPICAL (08:37)
[2024-12-28] MEDS: COREG 3.125 MG PO (08:37)
[2024-12-28] MEDS: SENOKOT-S 1 TABLET PO (08:37)
[2024-12-28] MEDS: PACERONE 200 MG PO (08:37)
[2024-12-28] MEDS: LASIX 40 MG IV (08:37)
[2024-12-28] MEDS: NEURONTIN 100 MG PO (08:37)
[2024-12-28] MEDS: CUBICIN 14 MG IV (08:38)
--- NOTE | 2024-12-28 09:21 | W.DCSUMMARY ---
Discharge Summary
Discharge Data
Date of Admission: 12/13/24
Date of Discharge: 12/28/24
-
Pending Results: No
Hospital Course
Primary care physician:
Josee Ellison DO
Outpatient sewing machine operator:
Inpatient consultants:
Cardiology: Mac Rankin MD
ID: Ruth Aly MD
Procedures:
. 12/22/24 Surgical aortic valve replacement [23 mm bioprosthesis], Left atrial appendage exclusion [35mm clip]
. 12/27/24 Ultrasound-guided thoracentesis, Left.
Admission Diagnosis:
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
- Aortic valve vegetation with cardioembolic phenomena
- Splenic infarct
- Anemia, likely secondary to chronic disease
- Thrombocytopenia also likely secondary to chronic disease
- Hypertension
- Hyperlipidemia
- Long-standing Covid
- Ex-lap with partial small bowel resection/ abscess 11/2023, mesenteric infarct
- Tension HAs
- Former smoker, 1 ppd for 21 yrs
- Former EtOH abuse, sober since
Secondary Diagnoses:
- s/p AVR
- Acute on chronic postop blood loss anemia- s/p 2 pRBCs
- Acute on chronic thrombocytopenia- s/p 3 platelets
- Acute postop atelectasis
- Acute postop small-mod b/l pleural effusions
- Splenic infarct
- Anemia, likely secondary to chronic disease
- Thrombocytopenia also likely secondary to chronic disease
- Hypertension
- Hyperlipidemia
- Long-standing Covid
- Ex-lap with partial small bowel resection/ abscess 11/2023, mesenteric infarct
- Tension HAs
- Former smoker, 1 ppd for 21 yrs
- Former EtOH abuse, sober since
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
[facility] with complains of fever and L flank pain. Ms. Abernathy reported that fevers have been occurring since of this year. She shared that fevers initially began in September of 2024 in which she also endured an acute tension REYEZ. At that time,
she sought medical attention within [facility] ED due to the severity of her REYEZ, in addition to sinus pressure, cough, and sore throat. CTH was negative. She reported her fevers subsided at that time and her REYEZ resolved with 'migraine cocktail'. During
this admission, Ms. Abernathy reported her fevers have restarted in October and have continued for > 1 month, primarily in the afternoon and evenings. She shared that began to use of ibuprofen and acetaminophen to treat her fevers, which often jay to as
high as 103 F. In addition to fevers, she further developed L flank pain. Within the ED, CT A/P showed splenic infarcts, no abscess formation, and mild diverticulosis without diverticulitis. Labwork revealed leukocytosis with bandemia, microcytic
anemia, and thrombocytopenia. Patient was further GARZA cultured with negative BC x 3 and UC with streptococcus species. ID & Hematology was consulted for further evaluation. She was started on ceftriaxone and vancomycin. TTE (12/13/24) reported EF
60-65%, NRWMA with AV thickening/echodensity of R coronary cusp and mild to moderate AI. Cardiology was consulted in consideration of JORDANA due to concern for cardioembolic cause of splenic infarct. JORDANA (12/19/24) reported trileaflet AV with leaflet
thickening with mobile echodensity/mass of right coronary cusp measuring 0.57 cm x 0.59cm associated with eccentric mild to moderate aortic insufficiency; Mitral, tricuspid, and pulmonic valves without masses/vegetations. JORDANA further reported small
PFO detected by color-flow Doppler with negative bubble study x 3. Cardiothoracic Surgery was consulted in consideration for AVR. During her consultation. Ms. Abernathy reported that she has noted to have increased dyspnea while ascending the stairs.
She reports chronic fatigue and dyspnea due to her long-standing COVID but has noted a progression over the last few days.
Hospital course: Patient was admitted on 12/13/2024 and treated medically as above. She was eventually taken to the operative suite on 12/22/2024 and underwent aortic valve replacement with a 23 mm bioprosthetic valve and left atrial appendage
ligation. She tolerated the procedure well and was transferred to the CVICU in stable condition.Of note she did receive 1 unit of platelets prior to the procedure. Postoperatively she did well she did have some low urine output which responded to
fluid resuscitation. She was extubated later that evening. On postop day 1 her monitoring lines were removed in the usual fashion her hemodynamics remained stable mediastinal chest tube was removed on postop day 2 the temporary pacemaker wires
were left in due to thrombocytopenia. Her platelet count was 88,000. She received 1 unit of packed red blood cells on postop day 3 for a hemoglobin of 7.1. She was also actively diuresing with Lasix 40 mg. On postop day 4 her right IJ was
removed her pacing wires were cut at the skin. A PICC line was placed and ID changed for her vancomycin to daptomycin and anticipation for discharge. On postop day 5 she underwent a left-sided thoracentesis for 600 mLs of serosanguineous pleural
fluid. Postop day 6 IR was consulted again for a right side thoracentesis in which 400mLs of serosanguinous fluid was liberated. The patient remained stable throughout and it was felt that she could safely be discharged home. Her home antibiotic
regimen is consisted of daptomycin and ceftriaxone per ID. The patient remained in normal sinus rhythm during her postoperative stay. Postprocedural chest x-rays revealed no pneumothoraces. She was given explicit instructions on wound care
physical activity and diet. Her exam on discharge was stable.
Home medication changes:
Discharge Plan
-
Patient Disposition: Home (Routine Discharge)
Discharge Diagnosis/Procedures: aortic valve replacement, left atrial appendage clip
Diet: Low Cholesterol and Low Sodium
Activity: No strenuous activity
Driving Restrictions: Not until seen by your Dr
Bathing Restrictions: OK to Shower
Other Services: Cardiac Rehab
Specialty Instructions: Weigh Daily- Call MD for wt gain/loss 3 lbs overnight/5 lbs in 1 week
Activity Restrictions/Additional Instructions:
ACTIVITY:
-No strenuous activity: no heavy lifting, pushing, pulling anything over 15 pounds for one month
-continue to use stairs as tolerated
DRIVING RESTRICTIONS:
-No driving for one month or until approved by your surgeon
WOUND CARE:
-Shower daily. Use soap & water.
-No lotions, creams or powders on incision area.
DIET:
-continue a low fat/low cholesterol diet.
-IF you are diabetic, continue carb controlled diet.
CARDIAC REHAB:
-Please make appointment to start in 5-6 weeks with your local hospital program. (See Cardiac Rehabilitation Discharge Booklet).
SPECIALTY INSTRUCTIONS:
-Weigh yourself daily. Call your physician for any weight gain/loss of 3 lbs overnight or 5 lbs in one week.
-REPORT any clicking noise or uneven appearance of your sternum to your surgeon immediately.
-If you smoke, you are instructed to quit. The [place] smoking hotline phone number is [phone]
Referrals:
jose e [Other]
CT Transitional Care Nurse [Outside]
Referral Note: The Cardiothoracic Transitional Care Nurse will call you to set up a visit in 1-2 days.
[facility] [Outside] - 02/02/25 11:30 am
Referral Note: Cardiac Rehab Orientation appointment is on 02/02/25 (Th) at 11:30 am
The Cardiac Rehab gym is located on the first floor of the [facility].
Maddi Martinez MD [Active, Oncology]
Referral Note: call office to schedule follow up to repeat lupus anticoagulant, anticardiolipin, and beta 2 glycoprotein blood tests in 12 weeks
Naomy Zhong CRNP [Non-Admitting Privileges] - 01/30/25 1:00 pm
Josee Ellison DO [Family Provider]
Ruth Aly MD [Active, Infectious Diseases] - in two to four weeks
Tere Corral CRNP [Specified Professional Personl, Cardiac Surgery] - 01/18/25 2:00 pm
Prescriptions:
New
aspirin 81 mg Tablet,Chewable
81 mg PO DAILY Qty: 0 0RF
acetaminophen 325 mg Tablet
650 mg PO Q4HPRN PRN (Reason: mild pain,headache,temp >101F ) Qty: 0 0RF
ceftriaxone 2 gram Recon Soln
2,000 mg IV Q24H Qty: 0 0RF
DAPTOmycin [Cubicin] 700 MG
Syringe [Syringe-Pump] 0 ML
As Directed mls/hr IV Q24H
Ordered By: Jones Vazquez PA-C
Last Taken: 12/28/24 08:38 14 mls
gabapentin 100 mg Capsule
100 mg PO TID 7 Days Qty: 21 0RF
oxycodone 5 mg Tablet
5 mg PO Q4HPRN PRN (Reason: moderate pain) Qty: 30 0RF
furosemide [Lasix] 40 mg tablet
40 mg PO DAILY Qty: 7 0RF
potassium chloride [K-Tab] 20 mEq tablet extended release
20 meq PO DAILY Qty: 7 0RF
Continued
multivitamin Tablet
1 tab PO DAILY
losartan 50 mg tablet
50 mg PO DAILY
carvedilol 3.125 mg tablet
3.125 mg PO BID
calcium carbonate 500 mg calcium (1,250 mg) Tablet
500 mg PO DAILY
rosuvastatin 5 mg tablet
5 mg PO HS
Dupixent Pen 300 mg/2 mL pen injector
300 mg SC Q3W Qty: 0 0RF
Rx Instructions:
Please hold next dose until 01/09/25.
Discharge Orders:
Discharge Patient (As Directed); Ordered 12/28/24
Ordered By: Jones Vazquez
Care Plan Goals
Care Plan Goals:
Problem: Readiness for enhanced knowledge related to diagnosis and treatment plan
Goal: Understand your diagnosis and treatment plan needs, including medications if applicable.
Instructions: Know your diagnosis, underlying causes and treatment plan options, including medications if applicable. Consult with your health care team to learn about your diagnosis and treatment plan, including medications if applicable.
Discharge Date and Time
Print Language: BELARUSIAN
[2024-12-28] MEDS: FLEXERIL 5 MG PO (09:35)
[2024-12-28] MEDS: STERILE WATER FOR INJECTION 20 ML IV (09:35)
[2024-12-28] MEDS: ROCEPHIN 2000 MG IV (09:35)
--- NOTE | 2024-12-28 12:13 | W.[place]-PDMP ---
[place]-PDMP
-
Checked the [place]- Prescription Drug Monitoring Program website, no red flags identified; safe to proceed with prescription.
--- NOTE | 2024-12-28 12:30 | W.PN.ID1 ---
Date of Service
Date of Service: December 28, 2024
Today's Communication
Follow-up with me in 3-4 weeks.
Assessment / Plan
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
# Large areas of splenic infarct, embolic
# Fever since , resolved
# Leukocytosis - stable
# Acute thrombocytopenia, resolved
# New anemia since 11/16/2024
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
- Blood cx's x 3 negative (prior to abx)
-UA >30 sq epith cells = contaminated specimen. Ucx only 30K Strep species, contaminant/not significant
- Blood parasite smear : negative x 2
- Lyme screen negative
- Anaplasma/Ehrlichia PCR negative
- s/p 7d empiric doxycycline 100mg po bid (last dose 12/19 at 10:47a)
- 12/19 JORDANA: mobile mass on aortic valve cusp and small PFO
- 12/22 s/p bio-AVR
valve cx: neg to date; fungal cx neg to date
Valve path pending.
-12/21 bcx x 2 neg
- 12/22 2 sets of blood cx's x 2 neg to date, holding for 10 days
- Q fever serology negative.
Bartonella serology negative
Brucella serologies negative
Tropheryma whipplei PCR negtive
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
However, will treat as culture-neg IE.
- Continue Daptomycin 700mg IV q24H through 02/01/25
Continue Ceftriaxone 2g IV q24H through 02/01/25
Follow weekly CBC/diff, CMP, CK.
- Follow-up with me in 3 - 4weeks.
����������������������������������������������������������
Chief Complaint
-: Other (endocarditis)
Subjective / Review of Systems
Feeling better.
Vital Signs / Physical Exam
Vital Signs
Vital Signs
Temp Pulse Resp BP Pulse Ox
98.1 F 72 16 113/76 95
12/28/24 08:35 12/28/24 11:33 12/28/24 11:33 12/28/24 11:33 12/28/24 11:33
Physical Exam
Constitutional: No Acute Distress
Cardiovascular: Regular Rate and S1/S2
Gastrointestinal: Soft, Non Tender and Non Distended
Extremities: Negative Edema
Neurological: AO x 3
Lines: PICC
Objective Data
Lab Data
Lab Results
12/27/24 04:36
12/27/24 04:36
ESR 89 mm/hour (0-20) H 12/15/24 05:39
PT 17.1 Sec (11.4-14.6) H 12/22/24 16:52
INR 1.34 12/22/24 16:52
APTT 40.1 Sec (23.4-35.0) H 12/22/24 16:52
Estimated Creat Clear 65 ml/min 12/27/24 04:36
Total Bilirubin 0.4 mg/dl (0.2-1.3) 12/20/24 05:19
AST 28 U/L (14-36) 12/20/24 05:19
ALT 14 U/L (0-35) 12/20/24 05:19
Alkaline Phosphatase 96 U/L (38-126) 12/20/24 05:19
C-Reactive Protein 149.80 mg/L (0.0-10.00) H 12/15/24 05:39
Most recent labs reviewed.
Micro Results:
12/22/24 04:18 Blood Culture - Preliminary
Blood/Venous
12/22/24 04:52 Blood Culture - Preliminary
Blood/Venous
12/22/24 15:00 Tissue Culture - Final
Valve No Growth After 72 Hours
Gram Stain - Final
12/22/24 15:00 Anaerobic Culture - Final
Heart NO ANAEROBES ISOLATED
12/21/24 17:22 Blood Culture - Final
Blood/Venous No Growth - Final Report
12/21/24 16:22 Blood Culture - Final
Blood/Venous No Growth - Final Report
12/22/24 15:00 Fungal Culture - Preliminary
Heart Culture in progress.
Positive cultures are reported as soon as detected.
Final report to follow in four to five weeks.
12/23/24 11:28 Nasal Screen MRSA (PCR) - Final
Nose MRSA not detected - performed by PCR methodology.
12/13/24 15:04 Blood Culture - Final
Blood/Venous No Growth - Final Report
12/13/24 05:53 Blood Culture - Final
Blood/Venous No Growth - Final Report
12/13/24 06:14 Blood Culture - Final
Blood/Venous No Growth - Final Report
12/15/24 05:39 Blood Parasites Smear - Final
Blood/Venous
12/13/24 02:02 Urine Culture - Final
Urine Streptococcus species
12/13/24 15:04 Blood Parasites Smear - Final
Blood/Venous
12/13/24 CT a/p: Large geographic areas of nonenhancement within the spleen, consistent with splenic infarcts, new compared to prior CT dated 11/22/2023
12/21/24 MRI thoracic/lumbar spine: Posterior lumbar subcutaneous edema, a frequent incidental finding in asymptomatic individuals.
--- NOTE | 2024-12-28 13:09 | PTCARENOTE ---
Pt s/p thoracentesis. Pt remains SR with HR 72. BP 118/63 MAP 78. Pulse oximetry 95% on room air. Pt with discharge order, showering at this time.
--- NOTE | 2024-12-28 14:01 | W.PN.CARDCBS ---
Addendum entered and electronically signed by Efra Calix MD 12/28/24 18:08:
I saw and examined the patient.
The Flight Engineer Inspector's note was reviewed and I agree with the note.
Comment:
GEN: No distress, awake, Ox3
HEENT: supple, anicteric, mmm
LUNGS: CTA, no wheezes/rales
CV: Reg, S1/S2, no murmur
ABD: soft, BS+, NT/ND
EXT: No edema
NEURO: Gross non-focal
SKIN: No rash
PLan:
Feels better status post thoracentesis. Continue Lasix and aspirin.
Hemoglobin stable at 9.0.
Okay for discharge.
Original Note:
Today's Communication / Plan
-
s/p R thora
lasix upon DC
asa 81mg daily. follow hgb as OP
DC today
OP cardiac follow up arranged
Impression / Plan
-
Primary Pilot Supervisor: none prior to admission
Assessment:
Splenic infarct
Fevers since 10/2024
SIRS
Microcytic iron deficient anemia
Thrombocytopenia
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
HTN
HLD
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
History of long covid 2020
Eczema, on dupixent
Former smoker
ECHO 12/13/24: EF 60 to 65%, no regional wall motion abnormalities noted, mild to moderate AR [trileaflet aortic valve with echodensity on right coronary cusp], mild TR, PAP 27 mmHg
Plan:
-Fevers since following a trip 1 month prior to visit to [place] in September admitted with flank pain found to have large areas of splenic infarct, acute thrombocytopenia, and microcytic anemia. History of right mesenteric
infarct/small bowel ulcer and perienteric abscess with fistula status post resection in November 2023.
-JORDANA 12/19/24 with evidence of aortic valve vegetation.
-s/p bio AVR 12/22/24. awaiting pathology
- Status post left thoracentesis for 600 cc on 12/27. Status post right thoracentesis for 400 cc on 12/28. plan for lasix for 7 days upon DC
- Splenic abnormalities noted on imaging earlier this admission felt to be most likely septic emboli. As she is also anemic and was thrombocytopenic, plan for asa for now. d/w CT surgery
-On review review of telemetry remains in sinus rhythm
-Antibiotics per ID
-Continue postoperative care
-plan for DC today
-OP cardiac follow up arranged
-d/w nursing
Progress Note - Pilot Supervisor
Subjective
Date of Service: December 28, 2024
reports breathing improved following B/L thoracenteses
Objective
Labs:
12/27/24 04:36
12/27/24 04:36
Labs
Hgb 9.0 g/dL (12.0-16.0) L 12/27/24 04:36
Hct 27.3 % (37.0-47.0) L 12/27/24 04:36
Plt Count 138 10^3/uL (130-400) D 12/27/24 04:36
PT 17.1 Sec (11.4-14.6) H 12/22/24 16:52
INR 1.34 12/22/24 16:52
APTT 40.1 Sec (23.4-35.0) H 12/22/24 16:52
Sodium 135 mmol/L (135-145) 12/27/24 04:36
Potassium 4.4 mmol/L (3.5-5.1) 12/27/24 04:36
BUN 12 mg/dl (7-17) 12/27/24 04:36
Creatinine 0.8 mg/dL (0.6-1.0) 12/27/24 04:36
Glucose 109 mg/dl (70-99) H 12/27/24 04:36
Vital Signs and I&O:
Vital Signs
Temp Pulse Resp BP Pulse Ox
98.2 F 76 18 118/63 95
12/28/24 12:47 12/28/24 13:00 12/28/24 12:47 12/28/24 12:34 12/28/24 12:47
Vital Signs
Temp Pulse Resp BP Pulse Ox
98.2 F 76 18 118/63 95
12/28/24 12:47 12/28/24 13:00 12/28/24 12:47 12/28/24 12:34 12/28/24 12:47
Intake & Output
12/26/24 12/27/24 12/28/24 12/29/24
07:59 07:59 07:59 07:59
Intake Total 930 / 930 450 / 450 250 / 250
Output Total 2150 / 2650 3950 / 3950 5200 / 5200 1650 / 1650
Balance -1220 / -1720 -3500 / -3500 -4950 / -4950 -1650 / -1650
Physical Exam
Physical Exam
GEN: No distress, awake, alert, oriented x3.
HEENT: supple, anicteric, mmm, EOMI
LUNGS: Crackles b/L bases, no wheezes
CV: Reg, S1/S2, no murmur
ABD: soft, BS+, NT/ND
EXT: No cyanosis, clubbing. Trace edema of bilateral lower extremity
NEURO: Gross non-focal
SKIN: Warm, pink, dry. No rash. Sternotomy incision clean dry and intact
--- NOTE | 2024-12-28 15:15 | PTCARENOTE ---
Discharge instructions reviewed with pt and pt's . Questions addressed. Peripheral IV's and tele monitor removed. Stable at discharge.
== END 2024-12-28 15:15 | disposition home or self-care (01) | DRG 219 ==
LOC: CVICU 05:51
PROVIDERS: Anesthesiology; Hospitalist; Internal Medicine; Internal Medicine Cardiovascular Disease; Internal Medicine Hematology & Oncology; Nurse Practitioner Acute Care; Physician Assistant; Physician Assistant Medical; Radiology Diagnostic Radiology; Radiology Vascular & Interventional Radiology; Student in an Organized Health Care Education/Training Program; ADMITTING PHYSICIAN Hospitalist; ATTENDING PHYSICIAN Thoracic Surgery (Cardiothoracic Vascular Surgery); CONSULT PHYSICIAN Internal Medicine Cardiovascular Disease; CONSULT PHYSICIAN Internal Medicine Critical Care Medicine; CONSULT PHYSICIAN Internal Medicine Hematology & Oncology; CONSULT PHYSICIAN Internal Medicine Infectious Disease; EMERGENCY PHYSICIAN Student in an Organized Health Care Education/Training Program; FAMILY PHYSICIAN Family Medicine
PROC: B24BZZ4 Ultrasonography of Heart with Aorta, Transesophageal (ICD-10-PCS; 2024-12-19)
PROC: 30233N1 Transfusion of Nonautologous Red Blood Cells into Peripheral Vein, Percutaneous Approach (ICD-10-PCS; 2024-12-21)
PROC: 02L70CK Occlusion of Left Atrial Appendage with Extraluminal Device, Open Approach (ICD-10-PCS; 2024-12-22)
PROC: 02RF08Z Replacement of Aortic Valve with Zooplastic Tissue, Open Approach (ICD-10-PCS; 2024-12-22)
PROC: 30233R1 Transfusion of Nonautologous Platelets into Peripheral Vein, Percutaneous Approach (ICD-10-PCS; 2024-12-22)
PROC: 5A1221Z Performance of Cardiac Output, Continuous (ICD-10-PCS; 2024-12-22)
PROC: 02HV33Z Insertion of Infusion Device into Superior Vena Cava, Percutaneous Approach (ICD-10-PCS; 2024-12-26)
PROC: 0W9B3ZZ Drainage of Left Pleural Cavity, Percutaneous Approach (ICD-10-PCS; 2024-12-27)
PROC: 0W993ZZ Drainage of Right Pleural Cavity, Percutaneous Approach (ICD-10-PCS; 2024-12-28)
DX: I33.9 Acute and subacute endocarditis, unspecified (principal); J95.1 Acute pulmonary insufficiency following thoracic surgery; D62 Acute posthemorrhagic anemia; J98.11 Atelectasis; J90 Pleural effusion, not elsewhere classified; Q21.12 Patent foramen ovale; I76 Septic arterial embolism; E87.1 Hypo-osmolality and hyponatremia; R65.10 Systemic inflammatory response syndrome (SIRS) of non-infectious origin without acute organ dysfunction; D73.5 Infarction of spleen; I35.1 Nonrheumatic aortic (valve) insufficiency; I10 Essential (primary) hypertension; L30.9 Dermatitis, unspecified; K57.30 Diverticulosis of large intestine without perforation or abscess without bleeding; D69.59 Other secondary thrombocytopenia; D63.8 Anemia in other chronic diseases classified elsewhere; U09.9 Post COVID-19 condition, unspecified; G93.39 Other post infection and related fatigue syndromes; E78.00 Pure hypercholesterolemia, unspecified; Y83.2 Surgical operation with anastomosis, bypass or graft as the cause of abnormal reaction of the patient, or of later complication, without mention of misadventure at the time of the procedure; Z79.899 Other long term (current) drug therapy; Z82.49 Family history of ischemic heart disease and other diseases of the circulatory system; Z87.891 Personal history of nicotine dependence; Z90.49 Acquired absence of other specified parts of digestive tract
CPT/HCPCS: 32555; 70355; 71045; 71046; 71275; 72157; 72158; 74177; 76604; 80048; 80053; 81003; 81015; 82248; 82330; 82550; 82565; 82607; 82728; 82746; 82805; 82810; 82947; 82962; 83010; 83036; 83516; 83540; 83550; 83615; 83690; 83735; 84132; 84302; 84443; 84520; 85014; 85018; 85025; 85027; 85045; 85049; 85302; 85306; 85384; 85520; 85598; 85610; 85613; 85652; 85670; 85730; 86038; 86140; 86146; 86147; 86225; 86430; 86618; 86850; 86900; 86901; 86920; 87015; 87040; 87070; 87075; 87077; 87086; 87102; 87176; 87205; 87207; 87468; 87484; 87641; 87798; 88305; 93005; 93306; 93312; 93320; 93325; 93880; 94002; A9575; J0878; J2916; P9016; P9047; P9073; Q9967

== ENCOUNTER 2025-02-10 08:48 | Outpatient (RCR) | payer OTHER, SELFPAY | END 2025-02-10 23:59 | disposition home or self-care (01) | LOC: CRHB 08:48 | PROVIDERS: ATTENDING PHYSICIAN Internal Medicine Cardiovascular Disease | DX: Z95.4 Presence of other heart-valve replacement (principal) | CPT/HCPCS: G0422; G0423 ==

== ENCOUNTER 2025-03-13 10:01 | Outpatient (RCR) | payer OTHER, SELFPAY | END 2025-03-13 23:59 | disposition home or self-care (01) | LOC: CRHB 10:01 | PROVIDERS: ATTENDING PHYSICIAN Internal Medicine Cardiovascular Disease | DX: Z95.4 Presence of other heart-valve replacement (principal) | CPT/HCPCS: 93798; G0422 ==

== ENCOUNTER 2025-04-12 09:23 | Outpatient (RCR) | payer OTHER, SELFPAY | END 2025-04-12 23:59 | disposition home or self-care (01) | LOC: CRHB 09:23 | PROVIDERS: ATTENDING PHYSICIAN Internal Medicine Cardiovascular Disease | DX: Z95.4 Presence of other heart-valve replacement (principal) | CPT/HCPCS: 93798; G0422 ==

== ENCOUNTER 2025-05-05 09:48 | Outpatient (RCR) | payer OTHER, SELFPAY | END 2025-05-05 23:59 | disposition home or self-care (01) | LOC: CRHB 09:48 | PROVIDERS: ATTENDING PHYSICIAN Internal Medicine Cardiovascular Disease | DX: Z95.4 Presence of other heart-valve replacement (principal) | CPT/HCPCS: G0422 ==

== ENCOUNTER → 2025-05-24 14:02 | Outpatient (REF) | payer OTHER, SELFPAY | LOC: HWRAD 14:02 | PROVIDERS: ATTENDING PHYSICIAN Nurse Practitioner Acute Care; FAMILY PHYSICIAN Student in an Organized Health Care Education/Training Program | DX: Z95.2 Presence of prosthetic heart valve (principal); R91.1 Solitary pulmonary nodule | CPT/HCPCS: 71250 ==